=== PATIENT | male | born 1985 | race Caucasian/White ===

== ENCOUNTER 2016-12-26 13:54 | Emergency (ER) | payer MEDICAID ==
[2016-12-26 14:10] VITALS: RESP 18
--- NOTE | 2016-12-26 14:41 | EDPHY ---
H & P Stated Complaint: dropped knife onto top of right foot, hx periferal neuropathy HPI/ROS: Chief complaint: Right foot laceration History of present illness: This is a 31-year-old male who presents to the emergency department for a right foot laceration. Patient reports he accidentally dropped a knife onto his right foot. He has noted a small laceration to the top of the foot. Minimal pain. Bleeding, controlled with a dressing. He states no new numbness or tingling, he does have a history of diabetic neuropathy, it is at it's baseline. He is not having difficulty moving his toes or ankle and is ambulating well. His tetanus is up-to-date. - Personal History Current Tetanus Diphtheria and Acellular Pertussis (TDAP): Yes Tetanus Vaccine Date: within 10 years - Medical/Surgical History Hx Asthma: No Hx Chronic Respiratory Disease: No Hx Diabetes: Yes Hx Cardiac Disease: No Hx Renal Disease: No Hx Cirrhosis: No Hx Alcoholism: No Hx HIV/AIDS: No Hx Splenectomy or Spleen Trauma: No Other PMH: R Knee surg,DM type I with insulin pump, anxiety, diabetic neuropathy , heroine and meth abuse - Social History Smoking Status: Former smoker - Physical Exam Exam: General: Alert, nontoxic Skin: 0.5 cm laceration to the dorsum of the right foot. Musculoskeletal: Patient is moving all digits in the right foot without difficulty. Good strength. Moving the ankle in all miles without difficulty. Ambulating without difficulty. Vascular: DP and PT pulses 2+. Capillary refill brisk in the right foot. Neurologic: Sensation does appear intact in the right lower extremity. Constitutional: Initial Vital Signs Temperature (C) 36.8 C 12/26/16 14:07 Heart Rate 110 H 12/26/16 14:07 Respiratory Rate 18 12/26/16 14:07 Blood Pressure 156/105 H 12/26/16 14:07 O2 Sat (%) 98 12/26/16 14:07 O2 Delivery Mode Room Air Allergies/Adverse Reactions: No Known Allergies Allergy (Verified 04/24/16 13:09) Home Medications: Medication Instructions Recorded Gabapentin [Neurontin 300 MG (*)] 300 mg PO BID 04/04/16 clonazePAM [Clonazepam] 1 mg PO TID PRN 04/04/16 Insulin Pump, Patient Own 1 roberto SC AD 08/11/16 [place] Carbonate [[place] 300 mg PO DAILY 04/24/16 Carbonate Cap 300 mg (*)] Medical Decision Making Procedures: Procedure: Laceration repair. Verbal consent was obtained from the patient. The 0.5 cm laceration on the dorsum of the right foot was anesthetized in the usual fashion. The wound was irrigated, draped and explored to its base with a gloved finger. There were no deep structures involved. No tendon injury was identified. The wound was repaired with 4 0 Ethilon, 2 simple interrupted sutures. The wound repair was simple. The procedure was performed by myself. ED Course/Re-evaluation: Patient seen under the supervision of my secondary supervising physician Dr. Alex Vann. Patient presents to the emergency department for a laceration to his right foot. The foot appears neurovascularly intact. He has good musculoskeletal control. His tetanus is up-to-date. Evaluation of the wound does not reveal deep structure injury or foreign body contamination. It is anesthetized, cleaned, repaired and dressed. He is discharged home. Asked to follow up with Podiatry for recheck and referral information was given. Strict return precautions were given. Patient voiced understanding and agreement with plan. Differential Diagnosis: Included but not limited to laceration, deep structure injury, foreign body contamination Departure - Departure Disposition: Home, Routine, Self-Care Clinical Impression: Foot laceration Qualifiers: Encounter type: initial encounter Laterality: right Qualified Code(s): S91.311A - Laceration without foreign body, right foot, initial encounter Condition: Good Instructions: Care For Your Stitches (ED), Laceration (ED), Acute Wounds (ED) Additional Instructions: Follow-up with Podiatry for continued evaluation and care Stitches to be removed in 10-12 days If symptoms worsen or new symptoms develop return to the emergency room for recheck Referrals: NONE *PRIMARY CARE P,. [Primary Care Provider] - As per Instructions Aleyda Escamilla DPM [Doctor of Podiatric Medicine] - As per Instructions [facility],. [Clinic] - As per Instructions
[2016-12-26 14:56] VITALS: BP 178/107; PULSE 107; TEMP 96.8; O2SAT 99
== END 2016-12-26 14:56 | disposition home or self-care (01) ==
LOC: EDUNIT#
PROC: 0HQMXZZ Repair Right Foot Skin, External Approach (ICD-10-PCS; principal; 2016-12-26)
DX: S91.311A Laceration without foreign body, right foot, initial encounter (principal); E10.9 Type 1 diabetes mellitus without complications; Z87.891 Personal history of nicotine dependence; W26.0XXA Contact with knife, initial encounter

== ENCOUNTER 2017-02-23 21:35 | Observation (INO) | payer MEDICAID ==
[2017-02-23] MEDS ORDERED: INSULIN REGULAR HUMAN 100 UNIT/ML IVP ONE (22:04)
[2017-02-23] MEDS ORDERED: INSULIN REGULAR HUMAN 100 UNIT, COSIGN. REQUIRED 1 EA in NS 100 ML IV ONE (22:04)
[2017-02-23] MEDS ORDERED: NS 1,000 ML IV ONE ×3 (22:04)
--- NOTE | 2017-02-23 22:11 | CPEKG ---
Heart Rate: 108 RR Interval: 556 P-R Interval: 168 QRSD Interval: 96 QT Interval: 352 QTC Interval: 472 P [place]: 65 QRS [place]: 66 T Wave [place]: 46 EKG Severity - BORDERLINE ECG - EKG Impression: SINUS TACHYCARDIA EKG Impression: TALL T WAVES, PROBABLY NORMAL VARIANT EKG Impression: BORDERLINE PROLONGED QT INTERVAL Electronically Signed By: Ella Lainez 24-Feb-2017 05:27:12
--- NOTE | 2017-02-23 22:17 | EDPHY ---
H & P Stated Complaint: blood sugars high x1 week, over 500 on meter Time Seen by Provider: 02/23/17 22:03 HPI/ROS: HPI The patient presents with elevated blood glucose levels for the last 1 week, worse over the last 3 days. He has a history of type 1 diabetes and is on Lantus and NovoLog for the last several months after his dog ate his insulin pump. He is currently incarcerated though on a work release program. For the last 3-4 days he has not had access to his Lantus. There was some confusion about what type of insulin, was in the vial. He has been taking NovoLog, about 30 units every 4 hours he says, however he could not get his insulin lower than 300s. He normally takes Lantus 25 mg twice daily. He says that he feels some stomach upset and pain in the left side of his abdomen. He has not had any vomiting. He says he has been sober from alcohol and drugs for the last 2 months. Today was his 1st day of his work program at the [email or web address]. [employer] OF [employer]S Constitutional: No fever, no chills. Eyes: No discharge. ENT: No sore throat. Cardiovascular: No chest pain, no palpitations. Respiratory: No cough, no shortness of breath. Gastrointestinal: No abdominal pain, no vomiting. Genitourinary: No hematuria. Musculoskeletal: No back pain. Skin: No rashes. Neurological: No headache. PMHx: Type 1 diabetes, several admits Soc Hx: Currently on alf work release program, prior meth and heroin use, prior alcohol use PHYSICAL General Appearance: Alert, no distress Eyes: Pupils equal and round no pallor or injection ENT, Mouth: Mucous membranes dry Respiratory: Slightly tachypneic, There are no retractions, lungs are clear to auscultation Cardiovascular: Tachycardic rate and regular rhythm Gastrointestinal: Abdomen is soft and non-tender, no masses, bowel sounds normal Neurological: A&O, moves all extremities Skin: Warm and dry, no rashes Musculoskeletal: Neck is supple non tender Extremities: symmetrical, full range of motion Psychiatric: Patient is oriented X 3, there is no agitation Source: Patient Exam Limitations: No limitations - Personal History Current Tetanus/Diphtheria Vaccine: Yes Tetanus Vaccine Date: within 10 years - Medical/Surgical History Hx Asthma: No Hx Chronic Respiratory Disease: No Hx Diabetes: Yes Hx Cardiac Disease: No Hx Renal Disease: No Hx Cirrhosis: No Hx Alcoholism: No Hx HIV/AIDS: No Hx Splenectomy or Spleen Trauma: No Other PMH: R Knee surg,DM type I, DKA, anxiety, diabetic neuropathy, heroine and meth abuse - Social History Smoking Status: Former smoker Constitutional: Initial Vital Signs Temperature (C) 36.4 C 02/23/17 21:43 Heart Rate 108 H 02/23/17 21:43 Respiratory Rate 24 H 02/23/17 21:43 Blood Pressure 168/99 H 02/23/17 21:43 O2 Sat (%) 100 02/23/17 21:43 O2 Delivery Mode Room Air Allergies/Adverse Reactions: No Known Allergies Allergy (Verified 04/24/16 13:09) Home Medications: Medication Instructions Recorded Gabapentin [Neurontin 300 MG (*)] 300 mg PO BID 04/04/16 Humalog 02/23/17 Lantus 100 UNITS/ML (*) 02/23/17 Medical Decision Making - Diagnostics EKG Interpretation: EKG: Complete interpretation has been separately recorded in the [facility] archive. Summary impression: Sinus tachycardia with peaked T-waves Differential Diagnosis: This is a 31-year-old male with type 1 diabetes, not using his long-acting insulin over the last 3-4 days with glucoses in the 500s. He now presents with persistently elevated blood sugars with abdominal pain and tachypnea. Differential diagnosis includes DKA, HHS, hyperglycemia. In the emergency room, IV line was established and the patient was given a L of IV fluid while labs were checked. Glucose returned at over 700 with potassium of 6.6. Because of this EKG was performed and did show peaked T-waves. Patient was given additional IV fluid and insulin for this. Remainder of labs returned and it did appear that the patient was in DKA with elevated beta hydroxybutyrate with small anion gap. I doubt any underlying infection or mi high. This is likely related to not using his Lantus. I plan to admit the patient to the ICU for insulin drip. I have discussed the case with Dr. Bernardo Suarez of the hospitalist service. Critical Care Time: CRITICAL CARE Critical care time spent by me, Dr Lainez, exclusively with this patient was 45 minutes, exclusive of PA time and exclusive of procedures. The organ system at risk was cardiac, endocrine and I gave IV fluids, insulin to prevent worsening of the patients condition. - Data Points Laboratory Results: Laboratory Results 02/23/17 21:55 02/23/17 21:55 02/23/17 02/23/17 02/23/17 23:05 22:00 21:55 WBC RBC Hgb POC Hgb 12.2 gm/dL L gm/dL (13.7-17.5) Hct POC Hct 36 % L % (40-51) MCV MCH MCHC RDW Plt Count MPV Neut % (Auto) Lymph % (Auto) [place] % (Auto) Eos % (Auto) Baso % (Auto) Nucleat RBC Rel Count Absolute Neuts (auto) Absolute Lymphs (auto) Absolute Monos (auto) Absolute Eos (auto) Absolute Basos (auto) Absolute Nucleated RBC Immature Gran % Immature Gran # POC Sodium 137 mEq/L mEq/L (134-144) Sodium 133 mEq/L L mEq/L (134-144) POC Potassium 4.5 mEq/L mEq/L (3.3-5.0) Potassium 6.6 mEq/L H* mEq/L (3.5-5.2) POC Chloride 100 mEq/L mEq/L (97-110) Chloride 97 mEq/L mEq/L (97-110) Carbon Dioxide 17 mEq/l L mEq/l (22-31) Anion Gap 19 mEq/L H mEq/L (8-16) POC BUN 29 mg/dL H mg/dL (7-23) BUN 29 mg/dL H mg/dL (7-23) Creatinine 1.9 mg/dL H mg/dL (0.7-1.3) POC Creatinine 1.8 mg/dL H mg/dL (0.7-1.3) Estimated GFR 42 Glucose 783 mg/dL H* mg/dL (70-100) POC Glucose 624 mg/dL H* mg/dL (70-100) Calcium 10.0 mg/dL mg/dL (8.5-10.4) Phosphorus 4.8 mg/dL H mg/dL (2.5-4.5) Magnesium 1.5 mg/dL L mg/dL (1.6-2.3) Beta-Hydroxybutyrate 2.21 mmol/L H mmol/L (0.02-0.27) Urine Color YELLOW Urine Appearance CLEAR Urine pH 6.0 (5.0-7.5) Ur Specific [place] 1.016 (1.002-1.030) Urine Protein 2+ H (NEGATIVE) Urine Ketones TRACE H (NEGATIVE) Urine Blood NEGATIVE (NEGATIVE) Urine Nitrate NEGATIVE (NEGATIVE) Urine Bilirubin NEGATIVE (NEGATIVE) Urine Urobilinogen NEGATIVE EU EU (0.2-1.0) Ur Leukocyte Esterase NEGATIVE (NEGATIVE) Urine RBC 1-3 /hpf /hpf (0-3) Urine WBC 1-3 /hpf /hpf (0-3) Ur Epithelial Cells NONE SEEN /lpf /lpf (NONE-1+) Urine Sperm PRESENT /hpf /hpf (NONE SEEN) Urine Glucose 3+ H (NEGATIVE) 02/23/17 02/23/17 21:55 21:52 WBC 12.90 10^3/uL H 10^3/uL (3.80-9.50) RBC 4.31 10^6/uL L 10^6/uL (4.40-6.38) Hgb 12.9 g/dL L g/dL (13.7-17.5) POC Hgb 14.6 gm/dL gm/dL (13.7-17.5) Hct 38.8 % L % (40.0-51.0) POC Hct 43 % % (40-51) MCV 90.0 fL fL (81.5-99.8) MCH 29.9 pg pg (27.9-34.1) MCHC 33.2 g/dL g/dL (32.4-36.7) RDW 12.9 % % (11.5-15.2) Plt Count 210 10^3/uL 10^3/uL (150-400) MPV 10.7 fL fL (8.7-11.7) Neut % (Auto) 78.0 % H % (39.3-74.2) Lymph % (Auto) 15.7 % % (15.0-45.0) [place] % (Auto) 4.7 % % (4.5-13.0) Eos % (Auto) 0.8 % % (0.6-7.6) Baso % (Auto) 0.3 % % (0.3-1.7) Nucleat RBC Rel Count 0.0 % % (0.0-0.2) Absolute Neuts (auto) 10.08 10^3/uL H 10^3/uL (1.70-6.50) Absolute Lymphs (auto) 2.02 10^3/uL 10^3/uL (1.00-3.00) Absolute Monos (auto) 0.60 10^3/uL 10^3/uL (0.30-0.80) Absolute Eos (auto) 0.10 10^3/uL 10^3/uL (0.03-0.40) Absolute Basos (auto) 0.04 10^3/uL 10^3/uL (0.02-0.10) Absolute Nucleated RBC 0.00 10^3/uL 10^3/uL (0-0.01) Immature Gran % 0.5 % % (0.0-1.1) Immature Gran # 0.06 10^3/uL 10^3/uL (0.00-0.10) POC Sodium 130 mEq/L L mEq/L (134-144) Sodium POC Potassium 6.2 mEq/L H mEq/L (3.3-5.0) Potassium POC Chloride 97 mEq/L mEq/L (97-110) Chloride Carbon Dioxide Anion Gap POC BUN 28 mg/dL H mg/dL (7-23) BUN Creatinine POC Creatinine 1.9 mg/dL H mg/dL (0.7-1.3) Estimated GFR Glucose POC Glucose Pending Calcium Phosphorus Magnesium Beta-Hydroxybutyrate Urine Color Urine Appearance Urine pH Ur Specific [place] Urine Protein Urine Ketones Urine Blood Urine Nitrate Urine Bilirubin Urine Urobilinogen Ur Leukocyte Esterase Urine RBC Urine WBC Ur Epithelial Cells Urine Sperm Urine Glucose Medications Given: Discontinued Medications Sodium Chloride (Ns) 1,000 mls @ 0 mls/hr IV ONCE ONE; Wide Open PRN Reason: Protocol Stop: 02/23/17 22:05 Last Admin: 02/23/17 22:05 Dose: 1,000 mls Sodium Chloride (Ns) 1,000 mls @ 0 mls/hr IV ONCE ONE; Wide Open PRN Reason: Protocol Stop: 02/23/17 22:05 Last Admin: 02/23/17 22:20 Dose: 1,000 mls Sodium Chloride (Ns) 1,000 mls @ 0 mls/hr IV ONCE ONE; Wide Open PRN Reason: Protocol Stop: 02/23/17 22:05 Last Admin: 02/23/17 22:45 Dose: 1,000 mls Calcium Gluconate (Calcium Gluconate 1 Gm (Premix)) 50 mls @ 100 mls/hr IV EDNOW ONE Stop: 02/23/17 23:33 Last Admin: 02/23/17 23:48 Dose: Not Given Pantoprazole Sodium 40 mg/ (Sodium Chloride) 100 mls @ 200 mls/hr IV ONCE ONE Stop: 02/24/17 01:13 Last Admin: 02/24/17 01:27 Dose: 100 mls Insulin Human Regular (Humulin R) 10 unit IVP EDNOW ONE Stop: 02/23/17 22:05 Last Admin: 02/23/17 22:10 Dose: 10 units Point of Care Test Results: 02/23/17 02/23/17 21:52 23:05 POC Sodium 130 L 137 POC Potassium 6.2 H 4.5 POC Chloride 97 100 POC BUN 28 H 29 H POC Creatinine 1.9 H 1.8 H POC Glucose 624 H* Departure - Departure Disposition: [facility] Clinical Impression: Hyperkalemia Type 1 diabetes Qualifiers: Diabetes mellitus complication status: with ketoacidosis Diabetes mellitus complication detail: without coma Qualified Code(s): E10.10 - Type 1 diabetes mellitus with ketoacidosis without coma DKA (diabetic ketoacidoses) Qualifiers: Diabetes mellitus type: type 1 Diabetes mellitus complication detail: without coma Qualified Code(s): E10.10 - Type 1 diabetes mellitus with ketoacidosis without coma Condition: Fair
[2017-02-23 22:46] LABS: % IMMATURE GRANULYOCYTES 0.5 % (0.0-1.1); ABSOLUTE IMMATURE GRANULOCYTES 0.06 10^3/uL (0.00-0.10); ADD DIFF? NO; ADD MORPH? NO; ADD SCAN? NO; ATYPICAL LYMPHOCYTE FLAG 0 (0-99); FRAGMENT RBC FLAG 0 (0-99); HEMATOCRIT 38.8 % (40.0-51.0); HEMOGLOBIN 12.9 g/dL (13.7-17.5); LEFT SHIFT FLG 0 (0-99); LIPEMIA HEMOLYSIS FLAG 80 (0-99); MEAN CELL HEMOGLOBIN 29.9 pg (27.9-34.1); MEAN CELL HEMOGLOBIN CONCENTR. 33.2 g/dL (32.4-36.7); MEAN PLATELET VOLUME 10.7 fL (8.7-11.7); PLATELET CLUMPS FLAG 0 (0-99); PLATELET COUNT 210 10^3/uL (150-400); RED BLOOD CELL COUNT 4.31 10^6/uL (4.40-6.38); RED CELL DISTRIBUTION WIDTH 12.9 % (11.5-15.2)
[2017-02-23 22:53] LABS: ANION GAP 19 mEq/L (8-16); CARBON DIOXIDE 17 mEq/l (22-31); CHLORIDE 97 mEq/L (97-110); CREATININE 1.9 mg/dL (0.7-1.3); GLOMERULAR FILTRATION RATE 42; MAGNESIUM 1.5 mg/dL (1.6-2.3); SODIUM 133 mEq/L (134-144)
[2017-02-23 22:56] LABS: COLOR YELLOW; LEUKOCYTE ESTERASE,URINE NEGATIVE (NEGATIVE); NITRITE,URINE NEGATIVE (NEGATIVE)
[2017-02-23 22:58] LABS: B-HYDROXYBUTYRATE 2.21 mmol/L (0.02-0.27)
[2017-02-23 23:03] LABS: GLUCOSE 783 mg/dL (70-100); POTASSIUM 6.6 mEq/L (3.5-5.2)
[2017-02-23] MEDS ORDERED: CALCIUM GLUCONATE 50 ML IV ONE (23:04)
[2017-02-23] MEDS ORDERED: ONDANSETRON DISINTEGRATING 4 MG TAB PO PRN (23:44)
[2017-02-23] MEDS ORDERED: ONDANSETRON 4 MG/2 ML VIAL IVP PRN (23:44)
[2017-02-23] MEDS ORDERED: ACETAMINOPHEN 325 MG TAB PO PRN (23:44)
[2017-02-23] MEDS ORDERED: NS 1,000 ML IV SCH (23:45)
[2017-02-24 00:02] LABS: ANION GAP 12 mEq/L (8-16); CALCIUM 9.4 mg/dL (8.5-10.4); CARBON DIOXIDE 19 mEq/l (22-31); CHLORIDE 106 mEq/L (97-110); CREATININE 1.7 mg/dL (0.7-1.3); GLOMERULAR FILTRATION RATE 48; POTASSIUM 4.7 mEq/L (3.5-5.2); SODIUM 137 mEq/L (134-144)
[2017-02-24 00:03] LABS: GLUCOSE 594 mg/dL (70-100)
[2017-02-24 00:04] LABS: PCO2 VENOUS 37 mmHg (40-44); PH VENOUS BLOOD 7.34 (7.31-7.42); PO2 VENOUS 59 mmHg (35-40); TCO2 VENOUS 21 mEq/L (23-27); VEN MEASURED OXYGEN SATURATION 88 % (65-75)
[2017-02-24] MEDS ORDERED: PANTOPRAZOLE SODIUM 40 MG in NS 100 ML IV ONE (00:44)
[2017-02-24] MEDS ORDERED: CALCIUM CARBONATE 500 MG CHEWABLE TAB PO PRN (00:45)
[2017-02-24] MEDS ORDERED: PROMETHAZINE HCL 25 MG TAB PO PRN (00:45)
[2017-02-24] MEDS ORDERED: PROMETHAZINE HCL 25 MG/ML INJ IVP PRN (00:45)
--- NOTE | 2017-02-24 00:51 | PDGENHP ---
History and Physical - Chief Complaint acute vomiting - History of Present Illness primary care provider: Previously Dr. Koenig HPI: 31-year-old male presenting with acute vomiting characterized as nonbloody emesis with onset of symptoms on the day of this presentation as well as associated pain and discomfort located in the left upper quadrant of his abdomen. The patient reports that the symptoms occurred in the context of approximately 1 week without access to his Lantus and then of all the nausea and vomiting over the previous 3 days. On the day of this presentation, the patient reports he attempted to drink water and was unable to do so, vomiting immediately. He also began experiencing what he describes as visual changes and frontal headache as well as some chills but no diarrhea, no cough, no shortness of breath, no chest pain. The patient reports that the reason he has not had access to his Lantus is secondary to [facility] [employer] [facility] pharmacy issue and not will full non adherence on his part. Had previously been on insulin pump and this was reportedly destroyed by his dog 3 months ago, leading him to utilize a combination of Lantus and NovoLog for the subsequent 3 months. History Information - Allergies/Home Medication List Allergies/Adverse Reactions: No Known Allergies Allergy (Verified 04/24/16 13:09) Home Medications: Gabapentin [Neurontin 300 MG (*)] 300 mg PO BID 04/04/16 [Last Taken 04/24/16] Humalog 02/23/17 [Last Taken Unknown] Lantus 100 UNITS/ML (*) 02/23/17 [Last Taken Unknown] I have personally reviewed and updated: family history, medical history, social history, surgical history - Past Medical History diabetes type 1, GERD Additional medical history: Bipolar disease. Peripheral neuropathy. History of foot ulcer. Anxiety and PTSD. Previous episodes of DKA - Surgical History Reports: no pertinent surgical hx - Family History Additional family history: patient is adopted but he does note that he has a family history of diabetes - Social History Smoking Status: Former smoker Alcohol Use: Sober Drug Use: Other ( previous IV drugs, none recently) Additional social history: patient is currently out of skilled nursing on a work release program, started his 1st job today Review of Systems ROS: 10pt was reviewed & negative except for what was stated in HPI & below Constitutional: Reports: chills EENMT: Reports: blurred vision ( and headache) Gastrointestinal: Reports: vomitting, abdominal pain, nausea Physical Exam Temp Pulse Resp BP Pulse Ox 36.4 C 95 16 135/94 H 97 02/23/17 21:43 02/23/17 23:46 02/23/17 23:46 02/23/17 23:46 02/23/17 23:46 Constitutional: no apparent distress, appears nourished, not in pain, uncomfortable Eyes: PERRL, anicteric sclera, EOMI Ears, Nose, Mouth, Throat: hearing normal, other ( tacky mucous membranes) Cardiovascular: tachycardia, No systolic murmur, No irregularly irregular, No edema Respiratory: no respiratory distress, no rales or rhonchi, clear to auscultation Gastrointestinal: normoactive bowel sounds, soft, non-tender abdomen, no palpable masses, No distension Genitourinary: no bladder fullness, no bladder tenderness, other ( mild left- sided CVA tenderness) Skin: other ( many tattoos, no open wounds noted or areas of erythema) Neurologic: AAOx3, No weakness Psychiatric: interacting appropriately, not anxious, not encephalopathic, thought process linear Lymph, Heme, Immunologic: no cervical LAD, other ( visible enlarged bilateral tonsils without exudate) Lab Data & Imaging Review 02/23/17 21:55 02/23/17 23:25 WBC 12.90 10^3/uL (3.80-9.50) H 02/23/17 21:55 RBC 4.31 10^6/uL (4.40-6.38) L 02/23/17 21:55 Hgb 12.9 g/dL (13.7-17.5) L 02/23/17 21:55 POC Hgb 12.2 gm/dL (13.7-17.5) L 02/23/17 23:05 Hct 38.8 % (40.0-51.0) L 02/23/17 21:55 POC Hct 36 % (40-51) L 02/23/17 23:05 MCV 90.0 fL (81.5-99.8) 02/23/17 21:55 MCH 29.9 pg (27.9-34.1) 02/23/17 21:55 MCHC 33.2 g/dL (32.4-36.7) 02/23/17 21:55 RDW 12.9 % (11.5-15.2) 02/23/17 21:55 Plt Count 210 10^3/uL (150-400) 02/23/17 21:55 MPV 10.7 fL (8.7-11.7) 02/23/17 21:55 Neut % (Auto) 78.0 % (39.3-74.2) H 02/23/17 21:55 Lymph % (Auto) 15.7 % (15.0-45.0) 02/23/17 21:55 [place] % (Auto) 4.7 % (4.5-13.0) 02/23/17 21:55 Eos % (Auto) 0.8 % (0.6-7.6) 02/23/17 21:55 Baso % (Auto) 0.3 % (0.3-1.7) 02/23/17 21:55 Nucleat RBC Rel Count 0.0 % (0.0-0.2) 02/23/17 21:55 Absolute Neuts (auto) 10.08 10^3/uL (1.70-6.50) H 02/23/17 21:55 Absolute Lymphs (auto) 2.02 10^3/uL (1.00-3.00) 02/23/17 21:55 Absolute Monos (auto) 0.60 10^3/uL (0.30-0.80) 02/23/17 21:55 Absolute Eos (auto) 0.10 10^3/uL (0.03-0.40) 02/23/17 21:55 Absolute Basos (auto) 0.04 10^3/uL (0.02-0.10) 02/23/17 21:55 Absolute Nucleated RBC 0.00 10^3/uL (0-0.01) 02/23/17 21:55 Immature Gran % 0.5 % (0.0-1.1) 02/23/17 21:55 Immature Gran # 0.06 10^3/uL (0.00-0.10) 02/23/17 21:55 Puncture Site VENOUS 02/23/17 23:56 Patient Temperature 37.0 DEGREES 02/23/17 23:56 VBG pH 7.34 (7.31-7.42) 02/23/17 23:56 VBG HCO3 19 mEQ/L (22-26) L 02/23/17 23:56 VBG Total CO2 21 mEq/L (23-27) L 02/23/17 23:56 VBG O2 Saturation 88 % (65-75) H 02/23/17 23:56 VBG Base Excess -5.3 mEq/L (-2.5-2.5) L 02/23/17 23:56 Mixed VBG pCO2 37 mmHg (40-44) L 02/23/17 23:56 Mixed VBG pO2 59 mmHg (35-40) H 02/23/17 23:56 POC Sodium 137 mEq/L (134-144) 02/23/17 23:05 Sodium 137 mEq/L (134-144) 02/23/17 23:25 POC Potassium 4.5 mEq/L (3.3-5.0) 02/23/17 23:05 Potassium 4.7 mEq/L (3.5-5.2) 02/23/17 23:25 POC Chloride 100 mEq/L (97-110) 02/23/17 23:05 Chloride 106 mEq/L (97-110) 02/23/17 23:25 Carbon Dioxide 19 mEq/l (22-31) L 02/23/17 23:25 Anion Gap 12 mEq/L (8-16) 02/23/17 23:25 POC BUN 29 mg/dL (7-23) H 02/23/17 23:05 BUN 29 mg/dL (7-23) H 02/23/17 23:25 Creatinine 1.7 mg/dL (0.7-1.3) H 02/23/17 23:25 POC Creatinine 1.8 mg/dL (0.7-1.3) H 02/23/17 23:05 Estimated GFR 48 02/23/17 23:25 Glucose 594 mg/dL (70-100) H* 02/23/17 23:25 POC Glucose 624 mg/dL (70-100) H* 02/23/17 23:05 Calcium 9.4 mg/dL (8.5-10.4) 02/23/17 23:25 Phosphorus 4.8 mg/dL (2.5-4.5) H 02/23/17 21:55 Magnesium 1.5 mg/dL (1.6-2.3) L 02/23/17 21:55 Beta-Hydroxybutyrate 2.21 mmol/L (0.02-0.27) H 02/23/17 21:55 Urine Color YELLOW 02/23/17 22:00 Urine Appearance CLEAR 02/23/17 22:00 Urine pH 6.0 (5.0-7.5) 02/23/17 22:00 Ur Specific [place] 1.016 (1.002-1.030) 02/23/17 22:00 Urine Protein 2+ (NEGATIVE) H 02/23/17 22:00 Urine Ketones TRACE (NEGATIVE) H 02/23/17 22:00 Urine Blood NEGATIVE (NEGATIVE) 02/23/17 22:00 Urine Nitrate NEGATIVE (NEGATIVE) 02/23/17 22:00 Urine Bilirubin NEGATIVE (NEGATIVE) 02/23/17 22:00 Urine Urobilinogen NEGATIVE EU (0.2-1.0) 02/23/17 22:00 Ur Leukocyte Esterase NEGATIVE (NEGATIVE) 02/23/17 22:00 Urine RBC 1-3 /hpf (0-3) 02/23/17 22:00 Urine WBC 1-3 /hpf (0-3) 02/23/17 22:00 Ur Epithelial Cells NONE SEEN /lpf (NONE-1+) 02/23/17 22:00 Urine Sperm PRESENT /hpf (NONE SEEN) 02/23/17 22:00 Urine Glucose 3+ (NEGATIVE) H 02/23/17 22:00 Visualized and Interpreted EKG results: Yes EKG Interpretation: Positive for: other ( sinus tachycardia, peaked T-waves) Assessment & Plan Assessment: 31-year-old male presents with acute diabetic ketoacidosis in the setting of diabetes mellitus type 1 Plan: 1. DKA. Acute, new problem this provider, further workup indicated. Evidenced by hyperglycemia, positive beta hydroxybutyrate level, metabolic acidosis with an anion gap of 19, most likely precipitated by poor access to regular medication and no evidence of over infection - urinalysis without any indication of pyelonephritis - send HIV level, verbally consented with patient - anion gap rapidly improved after initiation insulin drip and 3 L of normal saline, repeat serum chemistry at this time - if anion gap remains closed, will give Lantus, stop insulin drip in 1 hour, placed on insulin sliding scale - advance diet as tolerates, antiemetic support as needed 2. Metabolic acidosis. Acute, secondary to ketoacidosis in the setting of DKA, continue to monitor serum bicarb level, does not require sodium bicarbonate drip 3. Acute kidney injury. Most likely secondary to hypovolemia in the setting of above, continue to monitor closely 4. Hyperkalemia. Secondary to acute kidney injury, responded well to insulin drip, continue to monitor closely with labs as resultant hypokalemia is expected with DKA treatment - continue monitor on telemetry overnight given peaked T-waves on presenting EKG 5. Hyponatremia. Acute, potentially pseudohyponatremia in the setting of DKA, continue to monitor closely 6. Systemic inflammatory response syndrome. Acute, secondary to DKA, no evidence of acute infection 7. Peripheral neuropathy. Hold gabapentin given acute kidney injury Diet. Diabetic when tolerates Prophylaxis. High risk patient, heparin subcu Code. Full Disposition. Anticipated discharge is 02/24/2017, pending stabilization of above. I have discussed patient's case with Dr. Lainez in the emergency department, we both agree the patient warrants aggressive treatment in the intensive care unit order to accomplish stabilization.
[2017-02-24] MEDS: FAMOTIDINE 20 MG TAB PO SCH ×2 (01:27→10:11)
[2017-02-24 02:07] LABS: ALANINE AMINOTRANSFERASE 40 IU/L (21-72); ALBUMIN 3.4 g/dL (3.5-5.0); ALKALINE PHOSPHATASE 80 IU/L (38-126); ANION GAP 12 mEq/L (8-16); ASPARTATE AMINOTRANSFERASE 27 IU/L (17-59); BILIRUBIN,TOTAL 0.9 mg/dL (0.1-1.4); CALCIUM 9.3 mg/dL (8.5-10.4); CARBON DIOXIDE 19 mEq/l (22-31); CHLORIDE 110 mEq/L (97-110); CREATININE 1.4 mg/dL (0.7-1.3); GLOMERULAR FILTRATION RATE 60; GLUCOSE 317 mg/dL (70-100); POTASSIUM 4.1 mEq/L (3.5-5.2); SODIUM 141 mEq/L (134-144)
[2017-02-24] MEDS ORDERED: INSULIN REGULAR HUMAN 100 UNIT/ML ONE (02:32)
[2017-02-24] MEDS ORDERED: INSULIN GLARGINE 100 UNITS/ML SYRINGE SC SCH (02:36)
[2017-02-24] MEDS ORDERED: D50W 25 GM/50 ML SYR IVP PRN (02:37)
[2017-02-24 05:40] LABS: % IMMATURE GRANULYOCYTES 0.2 % (0.0-1.1); ABSOLUTE IMMATURE GRANULOCYTES 0.02 10^3/uL (0.00-0.10); ADD DIFF? NO; ADD MORPH? NO; ADD SCAN? NO; ATYPICAL LYMPHOCYTE FLAG 0 (0-99); FRAGMENT RBC FLAG 0 (0-99); HEMATOCRIT 33.8 % (40.0-51.0); HEMOGLOBIN 11.2 g/dL (13.7-17.5); LEFT SHIFT FLG 0 (0-99); LIPEMIA HEMOLYSIS FLAG 80 (0-99); MEAN CELL HEMOGLOBIN 28.8 pg (27.9-34.1); MEAN CELL HEMOGLOBIN CONCENTR. 33.1 g/dL (32.4-36.7); MEAN CELL VOLUME 86.9 fL (81.5-99.8); PLATELET CLUMPS FLAG 0 (0-99); PLATELET COUNT 193 10^3/uL (150-400); RED BLOOD CELL COUNT 3.89 10^6/uL (4.40-6.38); RED CELL DISTRIBUTION WIDTH 12.9 % (11.5-15.2)
[2017-02-24 05:56] LABS: ALANINE AMINOTRANSFERASE 43 IU/L (21-72); ALBUMIN 3.4 g/dL (3.5-5.0); ALKALINE PHOSPHATASE 73 IU/L (38-126); ANION GAP 11 mEq/L (8-16); ASPARTATE AMINOTRANSFERASE 25 IU/L (17-59); BILIRUBIN,TOTAL 0.9 mg/dL (0.1-1.4); CALCIUM 9.2 mg/dL (8.5-10.4); CARBON DIOXIDE 20 mEq/l (22-31); CHLORIDE 113 mEq/L (97-110); CREATININE 1.2 mg/dL (0.7-1.3); GLOMERULAR FILTRATION RATE > 60; GLUCOSE 77 mg/dL (70-100); POTASSIUM 4.4 mEq/L (3.5-5.2); SODIUM 144 mEq/L (134-144); TOTAL PROTEIN 5.8 g/dL (6.3-8.2)
[2017-02-24] MEDS ORDERED: HEPARIN 5,000 UNIT/0.5 ML SYR SC SCH (06:00)
[2017-02-24] MEDS: INSULIN REGULAR HUMAN 100 UNIT/ML SC SCH ×2 (08:35→10:52)
--- NOTE | 2017-02-24 11:13 | PDDCSUM ---
Discharge Summary Discharge Summary: Dates of service 02/24/17 Discharge dx: DKA DM AGMA CINDY hyponatremia peripheral neuropathy Consultations/procedures: none Hospital course by problem # DKA: in setting of being out of usual inulin regimen in setting of being in nursing home on a work release program. His mother has obtained his meds for him now, corrected quickly overnight, eager to return to work so will dc today # DM1: as above # AGMA: 2/2 dka and resolved # cindy: resolved # hyponatremia: pseudohyponatremia related to hyperglycemia # peripheral neuropathy: continue gabapenting DC back to nursing home with work release Meds: see EHR, resumed on usual home medications > 35 min spent in dc more than half in coordination of care
[2017-02-24] MEDS ORDERED: ENALAPRIL MALEATE 2.5 MG TAB PO SCH (11:15)
[2017-02-24 12:23] VITALS: BP 140/81; PULSE 99; RESP 20; TEMP 98.2; O2SAT 98
[2017-02-24] MEDS ORDERED: GABAPENTIN 300 MG CAP PO SCH (16:00)
== END 2017-02-24 13:26 | disposition home or self-care (01) ==
LOC: F2N 02-24 00:07
PROVIDERS: ADMIT Internal Medicine; ATTEND Internal Medicine
DX: E10.10 Type 1 diabetes mellitus with ketoacidosis without coma (principal); N17.9 Acute kidney failure, unspecified; E87.5 Hyperkalemia; R65.10 Systemic inflammatory response syndrome (SIRS) of non-infectious origin without acute organ dysfunction; G62.9 Polyneuropathy, unspecified; Z87.891 Personal history of nicotine dependence; R51 Headache
CPT/HCPCS: 93005; G0378; 82947-QW; 96374; J0610; J1815

== ENCOUNTER 2017-03-05 09:57 | Emergency (ER) | payer MEDICAID ==
[2017-03-05 10:06] VITALS: TEMP 97.9
[2017-03-05 12:01] VITALS: BP 140/92; PULSE 86; RESP 14; O2SAT 99
--- NOTE | 2017-03-05 12:09 | EDPHY ---
H & P Time Seen by Provider: 03/05/17 10:14 HPI/ROS: CHIEF COMPLAINT: Wound plantar aspect left foot HISTORY OF PRESENT ILLNESS: 31-year-old male presents to the emergency department with concerns about possible infection to his left foot. The patient has a history of diabetic neuropathy and yesterday noticed a sore to the bottom of his foot. He thought that he was pierced with a nail that went through his shoe. He denies fevers or chills. He has no sensation or any pain in his left foot because of his neuropathy. No other reported trauma. ROS: Denies retained foreign body, pain in his left knee or hip. 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 Plantar aspect of the left foot overlying the 5th metatarsal head reveals an open wound. Nontender to palpate. No purulent drainage or bloody drainage noted. No palpable or visible foreign body. Constitutional: Initial Vital Signs Temperature (C) 36.6 C 03/05/17 10:03 Heart Rate 84 03/05/17 10:03 Respiratory Rate 16 03/05/17 10:03 Blood Pressure 144/99 H 03/05/17 10:03 O2 Sat (%) 98 03/05/17 10:03 O2 Delivery Mode Room Air Allergies/Adverse Reactions: No Known Allergies Allergy (Verified 03/05/17 10:03) Home Medications: Medication Instructions Recorded Gabapentin [Neurontin 300 MG (*)] 300 mg PO TID 04/04/16 Insulin Lispro [humALOG LISPRO 100 3 - 12 unit SC TIDMEAL 02/23/17 units/ml (*)] Enalapril Maleate [Vasotec 2.5 MG 1.25 mg PO DAILY 02/24/17 (*)] Insulin Detemir [Levemir] 25 unit SQ BID #100 units 02/24/17 Ciprofloxacin [Cipro 500 mg] 500 mg PO BID #14 tab 03/05/17 MDM/Departure - MDM Imaging Results: Imaging Impressions Foot X-Ray 03/05/17 10:28 Impression: Nothing acute identified. Stable x1 year. Imaging: I viewed and interpreted images myself ED Course/Re-evaluation: 31-year-old male presents with the wound to the plantar aspect of the left foot with a history of diabetic neuropathy. Because he had a nail that went through his shoe and punctured his foot we will cover him for possible Pseudomonas. Case was discussed with Dr. Laury Bennett, supervising physician who agrees with treatment and plan but did not directly evaluate the patient. Patient will be started on Cipro 500 mg. He has a scheduled appointment with his [facility] for next week which I encouraged her to keep. He was instructed to keep a close eye on the wound and return if he developed fever or any other concerns. He was comfortable with this plan. - Depart Disposition: Home, Routine, Self-Care Clinical Impression: Puncture wound of plantar aspect of left foot Qualifiers: Encounter type: initial encounter Qualified Code(s): S91.332A - Puncture wound without foreign body, left foot, initial encounter Diabetic neuropathy Qualifiers: Diabetes mellitus type: type 1 Diabetes mellitus complication detail: with other neurological complication Qualified Code(s): E10.49 - Type 1 diabetes mellitus with other diabetic neurological complication Condition: Good Instructions: Foot Care for People with Diabetes (ED), Diabetic Foot Ulcers (ED ), Acute Wounds (ED) Additional Instructions: Cipro 500 mg twice daily for 1 week. Keep scheduled appointment with your [facility] next week. Return to the emergency department if he develops fever, worsening pain, red streaking up your foot, or if you feel worse in any way. Prescriptions: Ciprofloxacin [Cipro 500 mg] 500 mg PO BID #14 tab Referrals: Vasquez Koenig MD [Primary Care Provider] - As per Instructions
== END 2017-03-05 12:57 | disposition home or self-care (01) ==
DX: S91.332A Puncture wound without foreign body, left foot, initial encounter (principal); E10.49 Type 1 diabetes mellitus with other diabetic neurological complication; Z79.4 Long term (current) use of insulin; Z87.891 Personal history of nicotine dependence; W45.8XXA Other foreign body or object entering through skin, initial encounter

== ENCOUNTER 2017-03-20 12:18 | Emergency (ER) | payer MEDICAID ==
[2017-03-20 12:30] VITALS: BP 141/92; PULSE 87; RESP 17; TEMP 98.1; O2SAT 98
--- NOTE | 2017-03-20 12:58 | EDPHY ---
H & P Stated Complaint: inf r foot/seen in ed/fu with parts identifier 2 weeks ago/rx rossana but did n Time Seen by Provider: 03/20/17 12:47 - Personal History Current Tetanus/Diphtheria Vaccine: Yes Tetanus Vaccine Date: within 10 years - Medical/Surgical History Hx Asthma: No Hx Chronic Respiratory Disease: No Hx Diabetes: Yes Hx Cardiac Disease: No Hx Renal Disease: No Hx Cirrhosis: No Hx Alcoholism: No Hx HIV/AIDS: No Hx Splenectomy or Spleen Trauma: No Other PMH: R Knee surg,DM type I, DKA, anxiety, diabetic neuropathy, heroine and meth abuse - Social History Smoking Status: Former smoker Constitutional: Initial Vital Signs Temperature (C) 36.7 C 03/20/17 12:27 Heart Rate 87 03/20/17 12:27 Respiratory Rate 17 03/20/17 12:27 Blood Pressure 141/92 H 03/20/17 12:27 O2 Sat (%) 98 03/20/17 12:27 O2 Delivery Mode Room Air Allergies/Adverse Reactions: No Known Allergies Allergy (Verified 03/20/17 12:26) Home Medications: Medication Instructions Recorded Gabapentin [Neurontin 300 MG (*)] 300 mg PO TID 04/04/16 Insulin Lispro [humALOG LISPRO 100 3 - 12 unit SC TIDMEAL 02/23/17 units/ml (*)] Enalapril Maleate [Vasotec 2.5 MG 1.25 mg PO DAILY 02/24/17 (*)] Insulin Detemir [Levemir] 25 unit SQ BID #100 units 02/24/17 Cephalexin [Keflex (RX)] 500 mg PO TID #30 cap 03/20/17 Doxycycline Hyclate 100 mg PO BID #20 tablet 03/20/17 Medical Decision Making ED Course/Re-evaluation: CHIEF COMPLAINT: Right toe infection HISTORY OF PRESENT ILLNESS: This patient is a 31 year old male with Type I diabetes mellitus complaining of worsening infection of an ulcer on his right second toe. He has been seen in the past for similar ulcerations, and recently completed a course of Cipro. 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 He has been unable to adequately care for and heal his ulcerations under those conditions. He has followed up with podiatry in the past for similar symptoms. He denies fever, vomiting, diarrhea, or other associated symptoms. He denies trauma or other complaints. REVIEW OF SYSTEMS: A 10 point review of systems was performed and is negative with the exception of the elements mentioned in the history of present illness. PHYSICAL EXAM: HR, BP, O2 Sat, RR. Temp noted General Appearance: Alert, well hydrated, appropriate, and non-toxic appearing. Head: Atraumatic without scalp tenderness or obvious injury Eyes: Pupils equal, round, reactive to light and accommodation, EOMI, no trauma , no injection. Ears: Clear bilaterally, no perforation, normal landmarks Nose: Atraumatic, no rhinorrhea, clear. Throat: There is no erythema or exudates, no lesions, normal tonsils, mucus membranes moist. Neck: Supple, nontender, no lymphadenopathy. Respiratory: No retractions, no distress, no wheezes, and no accessory muscle use. Lungs are clear to auscultation bilaterally. Cardiovascular: Regular rate and rhythm. Bilateral dorsalis pedis pulses intact. Good capillary refill all extremities. Gastrointestinal: Abdomen is soft, nontender, non-distended, no masses, no rebound, no guarding, no peritoneal signs. Musculoskeletal: Normal active ROM of all extremities, atraumatic. Neurological: Alert, appropriate, and interactive. Nonfocal neuro exam. Skin: Wet, erythematous, non-healing ulceration to medial aspect of second right toe. Foul smelling with associated discharge. No evidence of lymphangitis or cellulitis to the right foot above the toe. No rashes, good turgor, no nodules on palpation. Past medical history: Type I diabetes mellitus, peripheral neuropathy, anxiety, substance abuse Past surgical history: Noncontributory Family history: Noncontributory Social history: Currently on work release through [employer]. DIFFERENTIAL DIAGNOSIS: The differential diagnosis for the patient's foot infection includes but is not limited to non-healing diabetic foot ulcer, cellulitis, osteomyelitis, trauma, or gangrene. MEDICAL DECISION MAKIN31 year old male presents with non-healing right toe ulceration. Physical exam otherwise unremarkable. Discussed follow up with the patient, and will refer to [facility] for continued evaluation and care. Discussed the potential for bone infection and the necessity of proper treatment and follow up. Plan to discharge home in good condition with prescriptions for Doxycycline and Keflex to treat the patient's infection. He will need to stay out of a wet work environment until cleared by the wound clinic or a parts identifier. The patient understands these guidelines, and is comfortable with discharge. Departure - Departure Disposition: Home, Routine, Self-Care Clinical Impression: Diabetic toe ulcer in type 1 diabetes mellitus Condition: Good Instructions: Foot Care for People with Diabetes (ED), Diabetic Foot Ulcers (ED ) Additional Instructions: 1. Take your Doxycycline and Keflex as prescribed. It is important that you finish your entire course of antibiotics. 2. Follow up with Dr. Shane at the wound clinic for further evaluation of the wounds on your foot. 3. Do not return to work in a wet environment until cleared by the wound clinic or a podiatry specialist. 4. Return to the Emergency Development if you develop fever, increased redness or red streaking around the wound, discharge, or other worsening of condition. Referrals: Vasquez Koenig MD [Primary Care Provider] - As per Instructions Elfego Giron MD [Doctor of Podiatric Medicine] - As per Instructions [facility] [Clinic] - As per Instructions Prescriptions: Cephalexin [Keflex (RX)] 500 mg PO TID #30 cap Doxycycline Hyclate 100 mg PO BID #20 tablet Report Scribed for: Leobardo Laughlin Report Scribed by: Jeannette Monroe Date of Report: 03/20/17 Time of Report: 13:04
== END 2017-03-20 13:35 | disposition home or self-care (01) ==
DX: E10.622 Type 1 diabetes mellitus with other skin ulcer (principal); L97.519 Non-pressure chronic ulcer of other part of right foot with unspecified severity; Z87.891 Personal history of nicotine dependence

== ENCOUNTER → 2017-03-22 | Outpatient (CLI) | payer MEDICAID ==
[~2017-03-22] MED LIST: GADOBUTROL 10 ML VIAL IVP ONE
== END ==
LOC: FIMAGING 13:58
PROVIDERS: ATTEND Podiatrist Primary Podiatric Medicine
DX: L03.031 Cellulitis of right toe (principal)
CPT/HCPCS: A9585

== ENCOUNTER 2017-04-22 21:53 | Observation (INO) | payer MEDICAID ==
--- NOTE | 2017-04-22 22:32 | CPEKG ---
Heart Rate: 105 RR Interval: 571 P-R Interval: 168 QRSD Interval: 88 QT Interval: 332 QTC Interval: 439 P Satanta: 58 QRS Satanta: 26 T Wave Satanta: 51 EKG Severity - OTHERWISE NORMAL ECG - EKG Impression: SINUS TACHYCARDIA Electronically Signed By: Arden Mondragon 23-Apr-2017 06:56:42
--- NOTE | 2017-04-22 22:38 | EDPHY ---
H & P Stated Complaint: Sent by MD due to high K+ Source: Patient - Personal History Current Tetanus/Diphtheria Vaccine: Unsure Current Tetanus Diphtheria and Acellular Pertussis (TDAP): Unsure Tetanus Vaccine Date: within 10 years - Medical/Surgical History Hx Asthma: No Hx Chronic Respiratory Disease: No Hx Diabetes: Yes Hx Cardiac Disease: No Hx Renal Disease: No Hx Cirrhosis: No Hx Alcoholism: No Hx HIV/AIDS: No Hx Splenectomy or Spleen Trauma: No Other PMH: R Knee surg,DM type I, DKA, anxiety, diabetic neuropathy, heroine and meth abuse. - Social History Smoking Status: Former smoker HPI/ROS: HPI CHIEF COMPLAINT: Possible high potassium HISTORY OF PRESENT ILLNESS: This patient is a 31-year-old male, he was seen in Infectious Disease today and had routine blood work. Is currently undergoing treatment for osteomyelitis and a foot infection diabetic ulcer, he is a brittle diabetic with an insulin pump. States sugars been running in the 300. He states that he had routine blood work today by Infectious Disease and was told that he has a high potassium at 6.3. He was referred to the emergency room for evaluation. This time he has no complaints. Past Medical History: Diabetes, insulin-dependent, hyponatremia, neuropathy Past Surgical History: Osteomyelitis with biopsy right foot. Social History: Denies daily use drugs alcohol tobacco products incarcerated currently correction work release. Family History: Noncontributory ROS REVIEW OF SYSTEMS: A comprehensive 10 point review of systems is otherwise negative aside from elements mentioned in the history of present illness. Exam Constitutional appears well nontoxic triage nursing summary reviewed, vital signs reviewed, awake/alert. Eyes normal conjunctivae and sclera, EOMI, PERRLA. HENT normal inspection, atraumatic, moist mucus membranes, no epistaxis, neck supple/ no meningismus, no raccoon eyes. Respiratory clear to auscultation bilaterally, normal breath sounds, no respiratory distress, no wheezing. Cardiovascular tachycardic , regular rhythm, no murmur, no edema, distal pulses normal. Gastrointestinal soft, non-tender, no rebound, no guarding, normal bowel sounds, no distension, no pulsatile mass. Genitourinary no CVA tenderness. Musculoskeletal no midline vertebral tenderness, full range of motion, no calf swelling, no tenderness of extremities, no meningismus, good pulses, neurovascularly intact. Skin pink, warm, & dry, no rash, skin atraumatic. Neurologic awake, alert and oriented x 3, AAOx3, moves all 4 extremities equally, motor intact, sensory intact, CN II-XII intact, normal cerebellar, normal vision, normal speech. Psychiatric normal mood/affect. Heme/Lymph/Immune no lymphadenopathy. Differential Diagnosis: Includes but is not limited to in a particular order electrolyte disturbance including hyperkalemia, renal injury including renal failure, DKA Medical Decision Making: Plan for this patient IV establishment IV fluid bolus full athletic monitor, obtain EKG to rule out peaked T-waves or QRS prolongation , check blood work, gentle IV hydration check for hyperkalemia. Check for renal failure. Re-evaluation: EKG interpretation by me on record in [facility] system. Impression time of EKG 2229, this is sinus tachycardia rate of 105 there are peaked T-waves in the anterior chest leads specifically V2 V3. No QRS widening otherwise unremarkable EKG. 2313: This patient's potassium is noted be 5.7 he does have hyperacute T-waves on EKG. Do this I will aggressively treat his hyperkalemia. He will receive IV fluids here, sodium bicarb, insulin IV 5 units, as well as Kayexalate. The patient need to be admitted to the hospital service for hyperkalemia as well as acute kidney injury creatinine 2.0. Spoke with the hospitalist service Dr. Bronson who agrees to admit this patient. Reason for admission is hyperkalemia. Acute kidney injury. Patient be admitted to front desk monitor PCU bed due to hyperkalemia. (Arden Mondragon) Constitutional: Initial Vital Signs Temperature (C) 36.9 C 04/22/17 21:56 Heart Rate 115 H 04/22/17 21:56 Respiratory Rate 18 04/22/17 21:56 Blood Pressure 135/77 H 04/22/17 21:56 O2 Sat (%) 98 04/22/17 21:56 O2 Delivery Mode Room Air Allergies/Adverse Reactions: No Known Allergies Allergy (Verified 04/22/17 21:59) Home Medications: Medication Instructions Recorded Acetamn/Diphenhydramine 500/25 1 each PO HS PRN 04/23/17 [Tylenol PM (*)] Insulin Pump, Patient Own 1 ea MISC AD 04/23/17 Medical Decision Making Other Provider: I did not participate in the care of this pt. (Laury Bennett) - Data Points Laboratory Results: Laboratory Results 04/22/17 22:30 04/22/17 22:30 Medications Given: Discontinued Medications Sodium Chloride (Ns) 1,000 mls @ 0 mls/hr IV ONCE ONE PRN Reason: Wide Open Stop: 04/22/17 22:41 Last Admin: 04/22/17 23:17 Dose: 1,000 mls Sodium Chloride (Ns) 1,000 mls @ 0 mls/hr IV ONCE ONE PRN Reason: Wide Open Stop: 04/22/17 23:18 Last Admin: 04/23/17 00:23 Dose: 1,000 mls Sodium Chloride (Ns) 1,000 mls @ 125 mls/hr IV CONT ADAM Stop: 10/20/17 00:59 Last Admin: 04/23/17 02:19 Dose: 1,000 mls Insulin Human Lispro (Humalog Lispro) 0 unit SC TIDMEAL ADAM PRN Reason: Protocol Stop: 10/20/17 07:59 Last Admin: 04/23/17 12:48 Dose: Not Given Insulin Human Regular (Humulin R) 5 unit IVP EDNOW ONE Stop: 04/22/17 23:03 Last Admin: 04/22/17 23:35 Dose: 5 units Sodium Bicarbonate (Sodium Bicarbonate) 50 meq IVP EDNOW ONE Stop: 04/22/17 23:13 Last Admin: 04/23/17 00:13 Dose: 50 meq Sodium Polystyrene Sulfonate (Kayexalate) 30 gm PO ONCE ONE Stop: 04/22/17 23:04 Last Admin: 04/22/17 23:35 Dose: 30 gm Departure - Departure Disposition[facility] Clinical Impression: Hyperkalemia, Dehydration, Acute kidney injury Condition: Good
[2017-04-22 22:39] LABS: % IMMATURE GRANULYOCYTES 0.1 % (0.0-1.1); ABSOLUTE IMMATURE GRANULOCYTES 0.01 10^3/uL (0.00-0.10); ADD DIFF? NO; ADD MORPH? NO; ADD SCAN? NO; ATYPICAL LYMPHOCYTE FLAG 0 (0-99); FRAGMENT RBC FLAG 0 (0-99); HEMATOCRIT 34.9 % (40.0-51.0); HEMOGLOBIN 11.3 g/dL (13.7-17.5); LEFT SHIFT FLG 0 (0-99); LIPEMIA HEMOLYSIS FLAG 80 (0-99); MEAN CELL HEMOGLOBIN 28.9 pg (27.9-34.1); MEAN CELL HEMOGLOBIN CONCENTR. 32.4 g/dL (32.4-36.7); MEAN CELL VOLUME 89.3 fL (81.5-99.8); MEAN PLATELET VOLUME 9.4 fL (8.7-11.7); PLATELET CLUMPS FLAG 0 (0-99); PLATELET COUNT 302 10^3/uL (150-400); RED BLOOD CELL COUNT 3.91 10^6/uL (4.40-6.38); RED CELL DISTRIBUTION WIDTH 13.2 % (11.5-15.2)
[2017-04-22] MEDS ORDERED: NS 1,000 ML IV ONE ×2 (22:40→23:17)
[2017-04-22 22:56] LABS: ANION GAP 12 mEq/L (8-16); CALCIUM 9.8 mg/dL (8.5-10.4); CARBON DIOXIDE 23 mEq/l (22-31); CHLORIDE 105 mEq/L (97-110); GLOMERULAR FILTRATION RATE 40; GLUCOSE 174 mg/dL (70-100); POTASSIUM 5.7 mEq/L (3.5-5.2); SODIUM 140 mEq/L (134-144)
[2017-04-22] MEDS ORDERED: INSULIN REGULAR HUMAN 100 UNIT/ML IVP ONE (23:02)
[2017-04-22] MEDS ORDERED: SODIUM POLY SULF 15 GM/60 ML BOTTLE PO ONE (23:03)
[2017-04-22] MEDS ORDERED: SODIUM BICARBONATE 50 MEQ/50 ML SYR IVP ONE (23:12)
[2017-04-23] MEDS ORDERED: ONDANSETRON DISINTEGRATING 4 MG TAB PO PRN (00:54)
[2017-04-23] MEDS ORDERED: ZOLPIDEM TARTRATE 5 MG TAB PO PRN (00:54)
[2017-04-23] MEDS ORDERED: ONDANSETRON 4 MG/2 ML VIAL IVP PRN (00:54)
[2017-04-23] MEDS ORDERED: PROMETHAZINE HCL 25 MG/ML INJ IVP PRN (00:54)
[2017-04-23] MEDS ORDERED: D50W 25 GM/50 ML SYR IVP PRN (00:54)
[2017-04-23] MEDS ORDERED: oxyCODONE IR 5 MG TAB PO PRN (00:54)
[2017-04-23] MEDS ORDERED: ACETAMINOPHEN 325 MG TAB PO PRN (00:54)
[2017-04-23] MEDS ORDERED: NS 1,000 ML IV SCH (01:00)
[2017-04-23 01:09] LABS: ANION GAP 12 mEq/L (8-16); CALCIUM 9.3 mg/dL (8.5-10.4); CARBON DIOXIDE 25 mEq/l (22-31); CHLORIDE 109 mEq/L (97-110); CREATININE 1.8 mg/dL (0.7-1.3); GLOMERULAR FILTRATION RATE 45; GLUCOSE 127 mg/dL (70-100); POTASSIUM 5.4 mEq/L (3.5-5.2); SODIUM 146 mEq/L (134-144)
--- NOTE | 2017-04-23 02:00 | GHP ---
[f rep st] HISTORY AND PHYSICAL DATE OF ADMISSION: 04/22/2017 CHIEF COMPLAINT: Told to come in. HISTORY: This is a 31-year-old man, who has a past medical history of type 1 diabetes as well as pr ior IV drug abuse, currently in remission for about the last 6 months, who presents with hyperkalemi a, at the request of his infectious disease doctor. The patient notes he has been followed by [facility] for a chronic diabetic foot wound. He has been on antibiotics for an extended period of time, by his estimate, he thinks at least a couple of months. He states that much of that time w as with Bactrim, though his ID doctor recently became concerned that his kidney function was off, an d she was planning to switch him to a different antibiotic today. When he went for followup labs at ID, it was found that he was hyperkalemic at 6.3, and that his kidney function also was getting wor se, and he was instructed to come to the ER. He notes that he currently has no acute complaints, th ough he has noticed recently that he has felt more fatigued than usual, even when doing normal activ ities, he will feel sort of short of breath and winded. He otherwise denies fevers or chills. He h as not had any chest pain. He has not had any nausea or vomiting. PAST MEDICAL HISTORY: Includes: 1. Type 1 diabetes. 2. Peripheral neuropathy associated with his diabetes. 3. Bipolar/anxiety/PTSD. 4. Polysubstance abuse, currently sober. PAST SURGICAL HISTORY: Includes a knee surgery. FAMILY HISTORY: Patient is adopted, though he states he knows his family does not have diabet es. 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 He previously has been a heavy alcohol, heroin, and methamphetamine user including IV drug use, though he states all of this has b een in remission for the last 6 months. REVIEW OF SYSTEMS: Ten-point review of systems obtained and negative, except as per HPI. MEDICATIONS: Include insulin lispro, gabapentin, Bactrim, and Keflex. ALLERGIES: No known drug allergies. PHYSICAL EXAM: BP 135/77, heart rate 115, respiratory rate 18, O2 saturation is 98% on room air, te mperature is 36.9. GENERAL APPEARANCE: This is a well-developed/well-nourished man. He is awake a nd alert. He is in no acute distress. EYES: Anicteric. HENT: Oropharynx clear. CARDIOVASCULAR: Mildly tachy, regular, no MRG. PULMONARY: CTA bilaterally. Normal work of breathing. ABDOMEN: Soft, nontender. Positive bowel sounds. EXTREMITIES: No clubbing, cyanosis, or edema. SKIN: Wa rm, dry, well-perfused. NEURO/PSYCH: Oriented and appropriate, pleasant. CLINICAL DATA: Labs reviewed and significant for white blood cell count of 7.4, hematocrit of 34.9, platelets of 302. Chemistry remarkable for, at the outpatient setting, a potassium of 6.3, that wa s 5.7 since his arrival here. Creatinine is 2, glucose of 174. EKG, personally reviewed and interpreted, shows sinus tachycardia. Questionable peaked T-waves in V 2, V3. Otherwise, unremarkable. ASSESSMENT AND PLAN: This is a 31-year-old man with past medical history of type 1 diabetes as well as a chronic diabetic foot wound/osteomyelitis of the right lower extremity, presenting with acute kidney injury and hyperkalemia. 1. Hyperkalemia. Already improving prior to arrival in the ER. He has been given Kayexalate and i nsulin. Recheck is pending. Patient had a question of some peaked T-waves on EKG; however, in revi rolle his old EKGs, he does appear to have tall/prominent T-waves, even when his potassiums have bee n normal, so I suspect this is a normal variant in this young man. 2. Acute kidney injury. This is in the setting of prolonged Bactrim use and likely related to the same. In evaluating his recent kidney levels, his creatinine has been steadily climbing over the la st several weeks. We will check a UA as well as urine sodium and creatinine for further evaluation, and we will hold antibiotics for now. 3. Type 1 diabetes/poorly controlled. Patient notes that he, up until recently, was having extreme ly poor control of his diabetes. He now has an insulin pump and states that his control has been be tter. He has not had an A1c in months or even longer as far as he knows, and I will recheck that wh ile he is here. We will continue his home regimen as best we can while inhouse. 4. Polysubstance abuse. This has been in remission for the last 6 months, and patient states he is very pleased with that and determined to remain sober. He states he is getting some help through h is work release program with the longterm. 5. Bipolar disorder. Previously on lithium, though I do not see that on his current home medicatio n list. He is behaviorally well controlled. 6. Disposition. Observation status. At this time, it is unclear if patient will require greater t muñoz a 48-hour stay. 7. Patient is new to my care. Old records reviewed and summarized as per in HPI and past medical h istory. Care plan reviewed with the ER physician, including plans for ID consultation. /[id number]/MODL
[2017-04-23 02:36] LABS: COLOR YELLOW; LEUKOCYTE ESTERASE,URINE NEGATIVE (NEGATIVE); NITRITE,URINE NEGATIVE (NEGATIVE)
[2017-04-23 02:38] LABS: BACTERIA TRACE /hpf (NONE SEEN)
[2017-04-23 05:36] LABS: ANION GAP 7 mEq/L (8-16); CARBON DIOXIDE 23 mEq/l (22-31); CHLORIDE 108 mEq/L (97-110); CREATININE 1.7 mg/dL (0.7-1.3); GLOMERULAR FILTRATION RATE 48; GLUCOSE 149 mg/dL (70-100); POTASSIUM 5.1 mEq/L (3.5-5.2); SODIUM 138 mEq/L (134-144)
[2017-04-23 07:32] VITALS: TEMP 97.6
[2017-04-23] MEDS: INSULIN LISPRO 100 UNIT/ML SC SCH ×2 (09:45→12:48)
[2017-04-23 09:51] LABS: HEMOGLOBIN A1C 9.4 % (4.0-6.0)
[2017-04-23 11:32] VITALS: BP 154/93; PULSE 90; RESP 16; O2SAT 97
--- NOTE | 2017-04-23 11:55 | PCMIDPN ---
Assessment/Plan: Assessment/Plan: 1. Left foot wounds: - superficial for most part. some overlying slough - appreciate wound care eval/treatment. hydrafera blue to wounds, change q3 days. -avoid tight shoes. - Mild erythema over toes. will continue doxy only for now. signs and symptoms to monitor for were discussed at length - recommend f/u in office on 05/01/17. pt will call for appt. - pt has f/u with Dr. Giron today and will need some additional debridment to wounds -care coordinated with wound care team, Rn, hospitalist team. 2. Renal insufficiency: - has had some intermittent chronic issues with this -unclear if bactrim also a component this time -needs f/u and possibly eval by nephrology at some point. 3. hyperkalemia: - bactrim related vs other. - improved now. -managment per hospitalist team. Subjective: afebrile. feels better today. bp better. denies sob, abd pain, diarrhea. Objective: Vital Signs Temp Pulse Resp BP Pulse Ox 36.4 C 90 16 154/93 H 97 04/23/17 11:31 04/23/17 11:31 04/23/17 11:31 04/23/17 11:31 04/23/17 11:31 Laboratory Results 04/23/17 04:55 04/22/17 04/23/17 04/24/17 05:59 05:59 05:59 Intake Total 2825 Balance 2825 - Physical Exam General Appearance: alert, no apparent distress Respiratory: lungs clear Cardiac/Chest: regular rate, rhythm Extremities: swelling (mild of left foot/toes) Abdomen: normal bowel sounds, non-tender, soft, No distended Skin: erythema (mild erythema over toes. mild swelling of toes. superficial breakdown on medial and lateral aspects of several of hte toes. mild overlying slough. peripheral neuropathy) - Time Spent With Patient Time Spent with Patient: greater than 35 minutes Time Spent with Patient: Greater than 35 minutes spent on this patients care, greater than 50% of time spent counseling, educating, and coordinating care regarding the above mentioned plan. ICD10 Worksheet Patient Problems: Problems Problem Status Onset Acute kidney injury Acute Acute renal failure Acute DKA (diabetic ketoacidoses) Acute Dehydration Acute Hyperglycemia Acute Hyperkalemia Acute Hyperkalemia Acute Type 1 diabetes Acute
--- NOTE | 2017-04-23 12:46 | WOCRNPDOC ---
WOCRN Advanced Assessment Note - Skin Integrity Problem, Advanced Assess Right Foot Diabetic Ulcer Dressing Type: Open to Air [place] Wound Tissue: Macerated, Altered Sensitivity, Calloused Wound Edges: Epithelizing Skin Integrity Problem Comment: Dr. Hidalgo assisted with wound care and was present throughout visit. Multiple wounds bilaterally between toes from second to 5th phalanges, likely from moisture friction and pressure. Medial second toe wound with exposed bone, lateral 3rd toe wound with 100% slough that needs to be debrided. The remiander of the wounds are mixed partial and full thickness. They were cleaned with ns and gauze, hydrofera blue ready placed over each wound bed. Secured with strip gauze/tape. Education with patient about wound treatment plan, dressing changes and follow up. Patient to see Dr. Giron this afternoon who will debride the 3rd toe wound.
--- NOTE | 2017-04-23 14:23 | ASMTCMCOM ---
CM Note CM Note Notes: CM met w/ pt for check in. Pt is discharging w/out any needs today. Pt reports that he will f/u megan Giron on a weekly basis for foot wound care, follow up w/ Dr Dasilva for endocrinology; pt's mom is providing transportation to her [facility] at d/c where patient will live. Date Signed: 04/23/2017 12:34 PM Electronically Signed By:Anat Osorio
--- NOTE | 2017-04-24 00:45 | GDS ---
[f rep st] DISCHARGE SUMMARY DISCHARGE DIAGNOSES: 1. Acute kidney injury. 2. Hyperkalemia, resolved. 3. Diabetic foot infection. 4. Type 1 diabetes. 5. Peripheral neuropathy. 6. Polysubstance abuse, in remission. CONSULTANTS: Dr. Nubia Hidalgo, Infectious Disease. HISTORY: For details, please see dictated History and Physical dated April 23, 2017. In brief, kimberly e patient is a 31-year-old male with history of type 1 diabetes and a chronic right diabetic foot wo und, who was admitted to the hospital after labs revealed acute kidney injury and hyperkalemia at [facility] infectious disease appointment. He had no symptoms with this. HOSPITAL COURSE: The patient was admitted to the progressive care unit. He was treated with Kayexa late and insulin and his potassium normalized from 5.7 to 5.1. His creatinine on admission was 2.0. This has trended down to 1.7 with IV fluids. His fractional excretion of sodium was 1.5%, which w as not clearly a prerenal etiology of his acute kidney injury. It was thought possibly chronic long -term Bactrim has contributed to his acute kidney injury. This was held on admission. I discussed the case with Infectious Disease. We have stopped his Bactrim and Keflex. He has already received a prescription for doxycycline in outpatient setting and he will transition to this antibiotic for o ngoing management of his chronic diabetic foot wound. He also has an appointment with his podiatris t, Dr. Giron, today for additional debridement. The patient wishes to be discharged. I think shiva caicedo is safe to go home. However, he needs a followup basic metabolic panel tomorrow performed at his primary care office. He agrees to this plan. I encouraged him to drink plenty of fluids to maintai n hydration. He has had good glycemic control in the hospital with blood sugar staying in the 100s. He states he recently got a new insulin pump and this has improved his glycemic control. However, his A1c is still 9.4. DISPOSITION: Patient is discharged home in stable condition. FOLLOWUP: 1. Dr. Giron, appointment today. 2. Dr. Vasquez Koenig, tomorrow for basic metabolic panel and hospital followup. 3. Dr. Nbuia Hidalgo, as planned. DISCHARGE MEDICATIONS: Please see [email or web address] for complete updated outpatient medication list. He edu l continue his insulin pump and p.r.n. Benadryl. Discontinued medications include Keflex and Bactri m. New medication already prescribed in the outpatient setting is doxycycline 100 mg p.o. b.i.d. /[id number]/MODL
--- NOTE | 2017-04-24 09:54 | ASDISCHSUM ---
Discharge Information Plan Status:Home with No Needs Medically Cleared to Leave:04/23/2017 Discharge Date:04/23/2017 01:05 PM CM D/C Disposition:Home, Routine, Self-Care ADT D/C Disposition:Home, Routine, Self-Care Projected Discharge Date:04/23/2017 12:00 AM Transportation at D/C:Family Discharge Delay Reason: Follow-Up Date:04/23/2017 12:00 AM Discharge Slot: Final Diagnosis: Placement Information Patient Contact Information Contact Name:JOSE DE JESUS Relationship:Mother Address:[address] [place] [address] Work Phone: City:[place] Alternate Phone: [facility]/[employer] Code:[place] [id number] Email: Financial Information Financial Class: Primary Plan Desc:MEDICAID HE[employer] FIRST [employer] D Primary Plan Number:[id number] Secondary Plan Desc: Secondary Plan Number: Assessment Information [facility] CM Progress Note CM Note CM Note Notes: CM met w/ pt for check in. Pt is discharging w/out any needs today. Pt reports that he will f/u with Elfego Giron on a weekly basis for foot wound care, follow up w/ Dr Dasilva for endocrinology; pt's mom is providing transportation to her house in [place] at d/c where patient will live. Date Signed: 04/23/2017 12:34 PM Electronically Signed By:Anat Osorio Intervention Information
== END 2017-04-23 13:05 | disposition home or self-care (01) ==
LOC: INTOOBSV 23:15 → F2W 04-23 01:42
PROVIDERS: ADMIT Internal Medicine; ATTEND Internal Medicine
CPT/HCPCS: 93005; G0378; 96374; J1815

== ENCOUNTER 2017-05-13 21:17 | Inpatient (IN) | payer MEDICAID ==
[2017-05-13] MEDS: NS 2,000 ML IV ONE ×2 (21:40→22:28)
--- NOTE | 2017-05-13 21:59 | EDPHY ---
H & P Stated Complaint: fever, body aches x3 days-- foot infection x months HPI/ROS: HPI CHIEF COMPLAINT: Fever, foot infection, muscle aches, fatigue HISTORY OF PRESENT ILLNESS: This patient very pleasant 31-year-old male significant past medical history for insulin-dependent diabetes poorly controlled, he presents emergency room muscle aches joint pain, fatigue, nausea and feels ill. He states that his foot appears to be more infected than normal. More swelling more redness. No fever. Denies any active vomiting or diarrhea denies chest pain or shortness of breath. Main complaint is generalized weakness, complaints of worsening right foot swelling redness infection. Past Medical History: Insulin-dependent diabetes, poorly controlled, peripheral neuropathy, bipolar disorder, substance abuse, acute kidney injury Past Surgical History: No recent surgery Social History: Denies daily use of drugs alcohol tobacco products. History polysubstance abuse. Family History: Noncontributory ROS REVIEW OF SYSTEMS: A comprehensive 10 point review of systems is otherwise negative aside from elements mentioned in the history of present illness. Exam Constitutional appears nontoxic triage nursing summary reviewed, vital signs reviewed, awake/alert. Noted to be tachycardic Eyes normal conjunctivae and sclera, EOMI, PERRLA. HENT normal inspection, atraumatic, moist mucus membranes, no epistaxis, neck supple/ no meningismus, no raccoon eyes. Respiratory clear to auscultation bilaterally, normal breath sounds, no respiratory distress, no wheezing. Cardiovascular tachycardic, regular rhythm, no murmur, no edema, distal pulses normal. Gastrointestinal soft, non-tender, no rebound, no guarding, normal bowel sounds, no distension, no pulsatile mass. Genitourinary no CVA tenderness. Musculoskeletal no midline vertebral tenderness, full range of motion, no calf swelling, no tenderness of extremities, no meningismus, good pulses, neurovascularly intact. Skin right foot: Swollen and tender. Mild warmth, erythema present over the dorsum of the foot, in between multiple toes there ulcers present. Foul smell. No mariluz purulence. No crepitus. Neurologic awake, alert and oriented x 3, AAOx3, moves all 4 extremities equally, motor intact, sensory intact, CN II-XII intact, normal cerebellar, normal vision, normal speech. Psychiatric normal mood/affect. Heme/Lymph/Immune no lymphadenopathy. 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 Polymicrobial coverage for infection. Pain control Zofran for nausea and 1 mg IV Dilaudid for pain control. Re-evaluation: 231: This patient's x-ray shows osteomyelitis of the toes. The dorsum of his foot is erythematous and tender. Consistent with cellulitis consistent with infection from his chronic wounds of his toes from diabetes. The patient is not in DKA. The patient be admitted to the hospital service for right foot infection. Osteomyelitis. Possible sepsis. Blood cultures have been pulled. Lactic acid drawn. IV vancomycin given. IV Zosyn given. I have asked Dr. Thibodeaux to admit this patient. Currently at this time this patient is tachycardic but not hypotensive. Not febrile. Agrees for admission. Source: Patient - Personal History Current Tetanus/Diphtheria Vaccine: Yes Current Tetanus Diphtheria and Acellular Pertussis (TDAP): Yes Tetanus Vaccine Date: within 10 years - Medical/Surgical History Hx Asthma: No Hx Chronic Respiratory Disease: No Hx Diabetes: Yes Hx Cardiac Disease: No Hx Renal Disease: No Hx Cirrhosis: No Hx Alcoholism: No Hx HIV/AIDS: No Hx Splenectomy or Spleen Trauma: No Other PMH: R Knee surg,DM type I, DKA, anxiety, diabetic neuropathy, heroine and meth abuse. - Social History Smoking Status: Former smoker Constitutional: Initial Vital Signs Temperature (C) 37.7 C 05/13/17 21:21 Heart Rate 128 H 05/13/17 21:21 Respiratory Rate 20 05/13/17 21:21 Blood Pressure 135/97 H 05/13/17 21:21 O2 Sat (%) 97 05/13/17 21:21 O2 Delivery Mode Room Air O2 (L/minute) 2 Allergies/Adverse Reactions: No Known Allergies Allergy (Verified 04/22/17 21:59) Home Medications: Medication Instructions Recorded Insulin Pump, Patient Own 1 ea MISC AD 04/23/17 Doxycycline Hyclate [Vibramycin 100 mg PO BID 05/13/17 100 MG (*)] Medical Decision Making - Data Points Laboratory Results: Laboratory Results 05/13/17 21:40 05/13/17 21:40 Medications Given: Acetaminophen (Tylenol) 650 mg PO Q4HRS PRN PRN Reason: Pain, Mild/Fever, Can Take PO Stop: 11/10/17 01:33 Last Admin: 05/14/17 20:48 Dose: 650 mg Hydromorphone HCl (Dilaudid) 0.2 - 0.4 mg IVP Q4HRS PRN PRN Reason: Pain, Severe Unable to Take PO Stop: 05/24/17 01:33 Last Admin: 05/14/17 02:51 Dose: 0.4 mg Piperacillin/Tazobactam/Dextrose (Zosyn (Premix)) 100 mls @ 200 mls/hr IV Q6HRS ADAM PRN Reason: Protocol Stop: 06/13/17 04:59 Last Admin: 05/14/17 17:53 Dose: 100 mls Vancomycin HCl 1.25 gm/ (Dextrose) 250 mls @ 166.667 mls/hr IV Q12H [facility] Stop: 06/13/17 10:29 Last Admin: 05/14/17 09:33 Dose: 250 mls Oxycodone HCl (Oxycodone Ir) 5 - 10 mg PO Q3HRS PRN PRN Reason: Pain, Severe Able to Take PO Stop: 05/24/17 01:33 Last Admin: 05/14/17 20:53 Dose: 10 mg Tamsulosin HCl (Flomax) 0.4 mg PO DAILY [facility] Stop: 11/10/17 15:59 Last Admin: 05/14/17 17:53 Dose: 0.4 mg Discontinued Medications Hydromorphone HCl (Dilaudid) 1 mg IVP EDNOW ONE Stop: 05/13/17 22:12 Last Admin: 05/13/17 22:29 Dose: 1 mg Sodium Chloride (Ns) 2,000 mls @ 0 mls/hr IV ONCE ONE PRN Reason: Wide Open Stop: 05/13/17 22:12 Last Admin: 05/13/17 22:28 Dose: 2,000 mls Vancomycin/Sodium Chloride (Vancomycin 1 Gm (Premix)) 250 mls @ 250 mls/hr IV EDNOW ONE PRN Reason: Protocol Stop: 05/13/17 23:11 Last Admin: 05/13/17 22:20 Dose: 250 mls Piperacillin/Tazobactam/Dextrose (Zosyn (Premix)) 100 mls @ 200 mls/hr IV EDNOW ONE PRN Reason: Protocol Stop: 05/13/17 22:41 Last Admin: 05/13/17 23:15 Dose: 100 mls Sodium Chloride (Ns) 1,000 mls @ 0 mls/hr IV ONCE ONE PRN Reason: Titrate Stop: 05/13/17 23:31 Last Admin: 05/13/17 23:33 Dose: 1,000 mls Sodium Chloride (Ns) 1,000 mls @ 100 mls/hr IV CONT ADAM Stop: 11/10/17 01:44 Last Admin: 05/14/17 05:22 Dose: 1,000 mls Ondansetron HCl (Zofran) 4 mg IVP EDNOW ONE Stop: 05/13/17 22:12 Last Admin: 05/13/17 22:28 Dose: 4 mg Departure - Departure Disposition: Home, Routine, Self-Care Clinical Impression: Hyperglycemia Osteomyelitis Qualifiers: Osteomyelitis type: other Osteomyelitis location: foot Laterality: right Qualified Code(s): M86.8X7 - Other osteomyelitis, ankle and foot Condition: Good
[2017-05-13 22:04] LABS: % IMMATURE GRANULYOCYTES 0.3 % (0.0-1.1); ABSOLUTE IMMATURE GRANULOCYTES 0.04 10^3/uL (0.00-0.10); ADD DIFF? NO; ADD MORPH? NO; ADD SCAN? NO; ATYPICAL LYMPHOCYTE FLAG 0 (0-99); FRAGMENT RBC FLAG 0 (0-99); HEMATOCRIT 35.8 % (40.0-51.0); HEMOGLOBIN 11.6 g/dL (13.7-17.5); LEFT SHIFT FLG 0 (0-99); LIPEMIA HEMOLYSIS FLAG 80 (0-99); MEAN CELL HEMOGLOBIN 29.2 pg (27.9-34.1); MEAN CELL HEMOGLOBIN CONCENTR. 32.4 g/dL (32.4-36.7); MEAN CELL VOLUME 90.2 fL (81.5-99.8); MEAN PLATELET VOLUME 9.3 fL (8.7-11.7); PLATELET CLUMPS FLAG 10 (0-99); PLATELET COUNT 297 10^3/uL (150-400); RED BLOOD CELL COUNT 3.97 10^6/uL (4.40-6.38); RED CELL DISTRIBUTION WIDTH 13.7 % (11.5-15.2)
[2017-05-13] MEDS ORDERED: ONDANSETRON 4 MG/2 ML VIAL IVP ONE (22:11)
[2017-05-13] MEDS ORDERED: HYDROmorphONE/DILAUDID 1 MG/ML INJ IVP ONE (22:11)
[2017-05-13] MEDS ORDERED: VANCOMYCIN HCL/NORMAL SALINE 250 ML IV ONE (22:12)
[2017-05-13] MEDS ORDERED: PIPERACILLIN/TAZO 4.5 GM/DEX 100 ML IV ONE (22:12)
[2017-05-13 22:28] LABS: ANION GAP 9 mEq/L (8-16); C-REACTIVE PROTEIN 49.8 mg/L (<10.0); CALCIUM 9.3 mg/dL (8.5-10.4); CARBON DIOXIDE 22 mEq/l (22-31); CHLORIDE 102 mEq/L (97-110); CREATININE 1.3 mg/dL (0.7-1.3); GLOMERULAR FILTRATION RATE > 60; GLUCOSE 269 mg/dL (70-100); POTASSIUM 5.1 mEq/L (3.5-5.2); SODIUM 133 mEq/L (134-144)
[2017-05-13 22:46] LABS: B-HYDROXYBUTYRATE 0.08 mmol/L (0.02-0.27)
[2017-05-13 23:19] LABS: BASE EXCESS -3.6 mEq/L (-2.5-2.5); BICARBONATE 20 mEq/L (22-26); MEASURED OXYGEN SATURATION 99 % (92-95); PCO2 34 mmHg (34-38); PO2 120 mmHg (65-75); TCO2 21 mEq/L (23-27)
[2017-05-13 23:20] LABS: O2 CONCENTRATIION 95 % (0-100); P/F RATIO 126 RATIO
[2017-05-13] MEDS ORDERED: NS 1,000 ML IV ONE (23:30)
[2017-05-14] MEDS ORDERED: HYDROmorphONE/DILAUDID 1 MG/ML INJ IVP PRN (01:34)
[2017-05-14] MEDS ORDERED: ONDANSETRON 4 MG/2 ML VIAL IVP PRN (01:34)
[2017-05-14] MEDS ORDERED: ONDANSETRON DISINTEGRATING 4 MG TAB PO PRN (01:34)
[2017-05-14] MEDS ORDERED: ACETAMINOPHEN 325 MG TAB PO PRN (01:34)
[2017-05-14] MEDS ORDERED: D50W 25 GM/50 ML SYR IVP PRN (01:36)
[2017-05-14] MEDS ORDERED: D10W 250 ML PRN HYPOGLYCEMIA IV (01:36)
[2017-05-14] MEDS ORDERED: NS 1,000 ML IV SCH (01:45)
--- NOTE | 2017-05-14 02:35 | GHP ---
[f rep st] HISTORY AND PHYSICAL DATE OF ADMISSION: 05/13/2017 CHIEF COMPLAINT: Fevers. HISTORY OF PRESENT ILLNESS: This is a 31-year-old man with a history of diabetes as well as a diabet ic foot infection, who presents with 3 days of rigors and fevers. His temperature got up to as high as 100 or 101 at home. He has been treated for a right foot infection. He has had significantly wor sening erythema and swelling over the past 3 days as well. He is also getting more pain from this, w hich radiates up his leg. He has been followed by Dr. Hidalgo. He has been on chronic antibiotics, whic h were changed about 3 weeks ago, after having had an acute kidney injury in the setting of Bactrim u se. At that point, he was switched from Bactrim and Keflex to doxycycline. He had significant nause a and abdominal pain with the doxycycline and had been taking it somewhat irregularly. PAST MEDICAL/SURGICAL HISTORY: 1. Polysubstance abuse, relapsed on meth recently, but has been sober for 7 days. 2. Diabetes mellitus type 1 with peripheral neuropathy. 3. Bipolar/PTSD/anxiety. MEDICATIONS: Please see medication reconciliation. ALLERGIES: No known drug allergies. FAMILY HISTORY: Not reviewed and noncontributory. SOCIAL HISTORY: Recent meth and alcohol use. REVIEW OF SYSTEMS: A 10-point review of systems is conducted and is negative, except per HPI. PHYSICAL EXAM: Blood pressure is 120/66, heart rate 96, respiration rate 18, saturating 98% on 3 L, T-max of 37.7. In general, the patient is a pleasant man, who is resting comfortably on bed, in no a cute distress. HEENT shows him to be normocephalic, atraumatic. Cardiovascular exam shows a regular rate and rhythm. No murmurs, rubs, or gallops. Pulmonary exam shows lungs clear to auscultation bi laterally. Abdominal exam is soft, nontender, nondistended. Skin exam shows no rash. exam shows no Pollack. Neurologic exam shows him to be alert and oriented x3. He is moving all extremities. Ps ychiatric exam shows normal mood and affect. Extremity exam shows his right foot to be slightly eryt hematous. It is warm, it is quite edematous. There is a significant ulcer on the lateral aspect of the 3rd toe which is foul-smelling and has some purulence. Otherwise, there is also an ulcer on the lateral aspect of his 2nd toe, which is through the skin, but does not appear to go to bone. LABORATORIES: 1. White count of 13.7, hemoglobin of 11.6. ESR is 38. Lactate is 1.2. Potassium 5.1, creatinine 1.2. CRP is 49. 2. Foot x-ray shows likely osteomyelitis of the PIP of the 3rd and 4th toes. 3. I discussed this with Dr. Mondragon. 4. I reviewed his old chart. IMPRESSION AND PLAN: A 31-year-old man with diabetic foot infection. 1. Diabetic foot infection: Agree with vancomycin and Zosyn coverage. Likely has osteomyelitis. W ill need Infectious Disease and likely Dr. Giron's evaluation tomorrow. 2. Fever/leukocytosis: This is due to his infection most likely. We will treat and follow. 3. Diabetes mellitus type 1: He uses an insulin pump. Last hemoglobin A1c was 9.4%. We will allow him to use his insulin pump here. He needs very tight control; however, does not seem to have obtain ed this. 4. Polysubstance abuse: Recently used meth. This has been a long-term problem for him. /[id number]/MODL
[2017-05-14] MEDS: PIPERACILLIN/TAZO 4.5 GM/DEX 100 ML IV SCH ×3 (05:21→17:53)
[2017-05-14 05:30] LABS: % IMMATURE GRANULYOCYTES 0.3 % (0.0-1.1); ABSOLUTE IMMATURE GRANULOCYTES 0.03 10^3/uL (0.00-0.10); ADD DIFF? NO; ADD MORPH? NO; ADD SCAN? NO; ATYPICAL LYMPHOCYTE FLAG 10 (0-99); FRAGMENT RBC FLAG 0 (0-99); HEMATOCRIT 30.6 % (40.0-51.0); HEMOGLOBIN 9.5 g/dL (13.7-17.5); LEFT SHIFT FLG 0 (0-99); LIPEMIA HEMOLYSIS FLAG 80 (0-99); MEAN CELL HEMOGLOBIN 28.6 pg (27.9-34.1); MEAN CELL VOLUME 92.2 fL (81.5-99.8); MEAN PLATELET VOLUME 9.3 fL (8.7-11.7); PLATELET CLUMPS FLAG 0 (0-99); PLATELET COUNT 241 10^3/uL (150-400); RED BLOOD CELL COUNT 3.32 10^6/uL (4.40-6.38); RED CELL DISTRIBUTION WIDTH 13.9 % (11.5-15.2)
[2017-05-14 05:42] LABS: ANION GAP 7 mEq/L (8-16); CARBON DIOXIDE 23 mEq/l (22-31); CHLORIDE 109 mEq/L (97-110); CREATININE 1.2 mg/dL (0.7-1.3); GLOMERULAR FILTRATION RATE > 60; GLUCOSE 145 mg/dL (70-100); POTASSIUM 4.8 mEq/L (3.5-5.2); SODIUM 139 mEq/L (134-144)
[2017-05-14 06:10] LABS: COLOR YELLOW; LEUKOCYTE ESTERASE,URINE NEGATIVE (NEGATIVE); NITRITE,URINE NEGATIVE (NEGATIVE)
[2017-05-14] MEDS ORDERED: INSULIN PUMP MISC SCH (09:00)
--- NOTE | 2017-05-14 09:10 | SOAPPROG ---
SOAP Progress Note Assessment/Plan: 1. Diabetic foot infection -iv abx vanc, zosyn -discussed care plan with Dr Hidalgo (ID), Dr Giron (podiatry) -MRI foot ordered as may need surgical intervention 2. type 1 DM -continue insulin pump 3. Polysubstance abuse Hx -etoh/meth use recently (watch for withdrawal but says sober x 7 days) -CM to discuss treatment options 4. Hx PTSD/anxiety/bipolar -consider eval 5. ? urinary retention -bladder scans -?autonomic issue FULL CODE DVT prophy- mechanical, holding pharm bc of possible surgical intervention DISPO > 2 mdnts because of severity of infection, IV ABX, possible surgical intervention Subjective: trouble voiding, 'pain everywhere' worried about losing foot Objective: Vital Signs Temp Pulse Resp BP Pulse Ox 98.1 F 83 18 123/74 H 94 05/14/17 07:56 05/14/17 07:56 05/14/17 07:56 05/14/17 07:56 05/14/17 07:56 Laboratory Results 05/14/17 05:15 05/14/17 05:15 05/12/17 05/13/17 05/14/17 11:59 11:59 11:59 Intake Total 2850 Output Total 300 Balance 2550 Physical Exam - Physical Exam General Appearance: WD/WN, alert, no apparent distress Respiratory: lungs clear, normal breath sounds, No respiratory distress Cardiac/Chest: regular rate, rhythm Abdomen: normal bowel sounds, non-tender, soft, No organomegaly, No distended, No guarding Skin: other (R LE with swelling noted in foot, ankle area. Dressing intact on toes/not removed) Neuro/Psych: alert, depressed affect, No cognition abnormalities, No speech abnormalities ICD10 Worksheet Patient Problems: Problems Problem Status Onset Hyperglycemia Acute Osteomyelitis Acute Acute kidney injury Acute Acute renal failure Acute DKA (diabetic ketoacidoses) Acute Dehydration Acute Hyperkalemia Acute Hyperkalemia Acute Type 1 diabetes Acute
[2017-05-14] MEDS: oxyCODONE IR 5 MG TAB PO PRN ×3 (09:32→20:53)
[2017-05-14] MEDS: VANCOMYCIN 1.25 GM in D5W 250 ML IV SCH ×2 (09:33→21:35)
--- NOTE | 2017-05-14 09:42 | PCMIDPN ---
Assessment/Plan: Assessment/Plan: 1. Right toes with multiple wounds, : - Noncompliant with wound care, antibiotics in the OP - Now with foul smelling wound which is new from last week -took wound culture of draining wound. -foot xray reviewed, erosive arthropathy vs osteo changes, new from previous xray. -MRI from end of February queried possible osteo at 2nd toe. Crp normal. (04/04/17)- bone biopsy and culture was negative for osteo changes and no growth. -REcently as of a few weeks ago, pt did have an OP culture done by Dr. Giron of weepy wounds which grew out MRSA. - Recommend MRI with contrast to further evaluate for actual osteo changes. Discussed and coordinated care with hospitalist team. -Recommend wound care to see patient. -Continue Vanco + zosyn empirically for now - await blood cx results. - care coordinated with pharmacy, and RN as well. -plan of care reviewed in detail with patient 2. Fevers, chills -recent IV drug use - await blood cx - check flu pcr as well. -worsening wound as aabove, due to non-compliance 3. DM - poor compliance 4. Recent IVDU - will need f/u HIV,HBV, HCV screen Meds vanco 1.25gm q12- zosyn 4.5gm q6- Subjective: Patient known to ID service. Diabetic, noncompliant with insulin who has had wounds involving his right toes various, over one month. Initially just involing 2nd toe, that improved and then due to wearing tight shoes, develope pressure sores involving medial and lateral aspects of other toes. He is non- compliant with wound care and antibiotics. has been followed by Dr. Giron for wound care. Was sent to wound care center last week for more closer wound care management as patient just wasn't doing wound care. Was supposed to be on doxy since two week but he wasn't taking it. Readvised to start it again last week Saturday but he didn't start it until Saturday. He used IV meth bout 7 week ago x 3 days and also prior to that. He doesn't share needles, doesn't lick needles. he has been working at [employer] with his tight shoes again over past week. Had our office try to reach out to him, she was unable to get a hold of him for check in. I called him yesterday for check in and he stated he started to have fevers around 100 degrees with chills, myalgias, headaches, redness of foot etc. He was advised to go to ER for further work up. Objective: Vital Signs Temp Pulse Resp BP Pulse Ox 36.7 C 83 18 123/74 H 94 05/14/17 07:56 05/14/17 07:56 05/14/17 07:56 05/14/17 07:56 05/14/17 07:56 Laboratory Results 05/14/17 05:15 05/14/17 05:15 05/13/17 05/14/17 05/15/17 05:59 05:59 05:59 Intake Total 2850 Output Total 300 Balance 2550 ESR 38 MM/HR (0-15) H 05/13/17 Unknown C-Reactive Protein 49.8 mg/L (<10.0) H 05/13/17 21:40 - Physical Exam General Appearance: alert, no apparent distress Respiratory: lungs clear Cardiac/Chest: regular rate, rhythm Extremities: swelling (right foot) Abdomen: normal bowel sounds, non-tender, soft, No distended Skin: erythema (righ dorsum of foot, near base of 3rd and 4th toes. multiple wounds of various sizes and depths involving almost each toe on medial and lateral aspect. worst is now lateral aspect of 3rd toe, foul smelling with drainage. ) - Time Spent With Patient Time Spent with Patient: greater than 35 minutes Time Spent with Patient: Greater than 35 minutes spent on this patients care, greater than 50% of time spent counseling, educating, and coordinating care regarding the above mentioned plan. ICD10 Worksheet Patient Problems: Problems Problem Status Onset Hyperglycemia Acute Osteomyelitis Acute Acute kidney injury Acute Acute renal failure Acute DKA (diabetic ketoacidoses) Acute Dehydration Acute Hyperkalemia Acute Hyperkalemia Acute Type 1 diabetes Acute
[2017-05-14] MEDS ORDERED: GADOBUTROL 10 ML VIAL IVP ONE (11:46)
--- NOTE | 2017-05-14 13:42 | ASMTCMCOM ---
CM Note CM Note Notes: Chart reviewed, pt is a 31 y/o male admitted w/ a fever. Pt has a right foot infection. Pt relapsed on meth a couple days ago and has been 7-8 days sober since. Pt has been using more alcohol recently to help w/ his anxiety. Pt has a hx of bipolar, anxiety, and PTSD. Pt is currently on probation. Pt lives w/ a supportive mother in [place] ([place] P#: [phone]). Pt is not interested in getting substance abuse treatment at this time. Pt reports that he is interested in getting established w/ a psychiatrist. CM provided a list of psychiatrist in the [place] area. Pt reports that he already has a therapist that he meets with on a weekly basis. ID will be seeing pt today. Pt will most likely discharge independent when medically stable. CM called Mom and she reports that his gf that he was very much in love w/ OD and around this time last year. Mom would like pt to go to a half way house. 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 Mom reports that pt is a bipolar and has been having manic episodes. Mom mentioned that pt is not the best at keeping up w/ his insulin. Pt had MRI today. CM to follow after CM consults w/ ID, podiatry, and Dr. Shane. Date Signed: 05/14/2017 01:41 PM Electronically Signed By:JASPER Mendiola
[2017-05-14] MEDS: TAMSULOSIN HCL 0.4 MG CAP PO SCH (17:53)
[2017-05-15] MEDS ORDERED: INSULIN LISPRO 100 UNIT/ML SC SCH
[2017-05-15] MEDS: PIPERACILLIN/TAZO 4.5 GM/DEX 100 ML IV SCH ×4 (00:58→17:58)
[2017-05-15 04:47] LABS: % IMMATURE GRANULYOCYTES 0.4 % (0.0-1.1); ABSOLUTE IMMATURE GRANULOCYTES 0.03 10^3/uL (0.00-0.10); ADD DIFF? NO; ADD MORPH? NO; ADD SCAN? NO; ATYPICAL LYMPHOCYTE FLAG 0 (0-99); FRAGMENT RBC FLAG 0 (0-99); HEMATOCRIT 29.2 % (40.0-51.0); HEMOGLOBIN 9.4 g/dL (13.7-17.5); LEFT SHIFT FLG 0 (0-99); LIPEMIA HEMOLYSIS FLAG 80 (0-99); MEAN CELL HEMOGLOBIN 28.9 pg (27.9-34.1); MEAN CELL HEMOGLOBIN CONCENTR. 32.2 g/dL (32.4-36.7); MEAN CELL VOLUME 89.8 fL (81.5-99.8); MEAN PLATELET VOLUME 9.5 fL (8.7-11.7); PLATELET CLUMPS FLAG 0 (0-99); PLATELET COUNT 252 10^3/uL (150-400); RED BLOOD CELL COUNT 3.25 10^6/uL (4.40-6.38); RED CELL DISTRIBUTION WIDTH 13.3 % (11.5-15.2)
[2017-05-15 05:02] LABS: ANION GAP 8 mEq/L (8-16); CALCIUM 8.7 mg/dL (8.5-10.4); CARBON DIOXIDE 23 mEq/l (22-31); CHLORIDE 101 mEq/L (97-110); CREATININE 1.4 mg/dL (0.7-1.3); GLOMERULAR FILTRATION RATE 60; GLUCOSE 171 mg/dL (70-100); POTASSIUM 4.5 mEq/L (3.5-5.2); SODIUM 132 mEq/L (134-144)
[2017-05-15] MEDS: TAMSULOSIN HCL 0.4 MG CAP PO SCH (08:32)
[2017-05-15] MEDS: oxyCODONE IR 5 MG TAB PO PRN ×2 (08:40→19:58)
[2017-05-15] MEDS: VANCOMYCIN 1.25 GM in D5W 250 ML IV SCH ×2 (11:02→23:00)
--- NOTE | 2017-05-15 15:17 | SOAPPROG ---
SOAP Progress Note Assessment/Plan: Assessment:Cellulitis and osteomyelitis right foot- 2 and 3 toes Plan:Evaluation of the site was performed. I evaluated the MRI. I explained that he is going to need debridement and possible amputation of the third digit. Will schedule for tomorrow. 05/15/17 15:14 Subjective: Patient is seen in bed with his mother present. He relates that he has not been keeping his blood sugars under control and had stopped his antibiotics before his right foot blew up on Saturday. Objective: Vital Signs Temp Pulse Resp BP Pulse Ox 36.9 C 90 18 116/62 93 05/15/17 14:24 05/15/17 14:24 05/15/17 14:24 05/15/17 14:24 05/15/17 14:24 Microbiology 05/14/17 10:00 Gram Stain - Final Toe - Swab Laboratory Results 05/15/17 04:11 05/15/17 04:11 05/14/17 05/15/17 05/16/17 05:59 05:59 05:59 Intake Total 2850 1750 Output Total 300 2550 900 Balance 2550 -800 -900 ICD10 Worksheet Patient Problems: Problems Problem Status Onset Hyperglycemia Acute Osteomyelitis Acute Acute kidney injury Acute Acute renal failure Acute DKA (diabetic ketoacidoses) Acute Dehydration Acute Hyperkalemia Acute Hyperkalemia Acute Type 1 diabetes Acute
--- NOTE | 2017-05-15 16:40 | SOAPPROG ---
SOAP Progress Note Assessment/Plan: 1. Diabetic foot infection -iv abx vanc, zosyn day #2 -discussed care plan with Dr De Leon, awaiting eval by Dr Giron (podiatry) -MRI foot indicates osteomyelitis in 2/3rd toes 2. type 1 DM -continue insulin pump 3. Polysubstance abuse Hx -etoh/meth use recently (watch for withdrawal but says sober x 7 days) -appreciate CM/SW to continue to discuss treatment options 4. Hx PTSD/anxiety/bipolar 5. ? urinary retention -bladder scans today -?autonomic issue -continue with flomax -discussed bladder retrain/double void 6. GREGG -sl increase creatinine today -watch closely 7. Anemia, normocytic -chronic FULL CODE DVT prophy- mechanical, holding pharm bc of possible surgical intervention DISPO > 2 mdnts because of severity of infection, IV ABX, possible surgical intervention 05/15/17 16:40 Subjective: Says urination a bit better with flomax. Worried about foot, awaiting podiatry consult. No CP/SOB/abd pain/n/v. No BM for a few days. Objective: Vital Signs Temp Pulse Resp BP Pulse Ox 98.4 F 90 18 116/62 93 05/15/17 14:24 05/15/17 14:24 05/15/17 14:24 05/15/17 14:24 05/15/17 14:24 Microbiology 05/14/17 10:00 Gram Stain - Final Toe - Swab Laboratory Results 05/15/17 04:11 05/15/17 04:11 05/14/17 05/15/17 05/16/17 11:59 11:59 11:59 Intake Total 2850 1750 Output Total 300 3150 300 Balance 2550 -1400 -300 Physical Exam - Physical Exam General Appearance: WD/WN, alert, no apparent distress Respiratory: chest non-tender, lungs clear, normal breath sounds Cardiac/Chest: normal peripheral pulses, regular rate, rhythm, No edema Abdomen: other (R foot/toes swollen and erythematous ) Neuro/Psych: alert, depressed affect, No cognition abnormalities, No speech abnormalities ICD10 Worksheet Patient Problems: Problems Problem Status Onset Hyperglycemia Acute Osteomyelitis Acute Acute kidney injury Acute Acute renal failure Acute DKA (diabetic ketoacidoses) Acute Dehydration Acute Hyperkalemia Acute Hyperkalemia Acute Type 1 diabetes Acute
--- NOTE | 2017-05-15 17:08 | PCMIDPN ---
Assessment/Plan: Assessment: Right foot 2nd and 3rd digit cellulitis with probable underlying osteomyelitis. MRI findings with suspicion of osteomyelitis changes in the 2nd and 3rd toes due to bone marrow edema and enhancement the proximal phalanges. This corresponds with the skin defect on the dorsal surface of the toes. Plan to continue both vancomycin and Zosyn empirically. Agree with podiatric surgery evaluation and possible debridement or amputation. Plan: 1. Continue both vancomycin and Zosyn. 2. Continue vancomycin dose as is. Trough 10.5. 3. Follow surgical plan. 05/15/17 17:09 Subjective: Patient is resting in his hospital bed. He is nontoxic and has no new complaints. Discussion regarding probable surgical need for removing the deep bony infection his right foot. He voices understanding. Mother is in the room. Objective: Vancomycin # 2 Zosyn # 2 Vital Signs Temp Pulse Resp BP Pulse Ox 36.9 C 90 18 116/62 93 05/15/17 14:24 05/15/17 14:24 05/15/17 14:24 05/15/17 14:24 05/15/17 14:24 Microbiology 05/14/17 10:00 Gram Stain - Final Toe - Swab Laboratory Results 05/15/17 04:11 05/15/17 04:11 05/14/17 05/15/17 05/16/17 05:59 05:59 05:59 Intake Total 2850 1750 Output Total 300 2550 900 Balance 2550 -800 -900 ESR 38 MM/HR (0-15) H 05/13/17 Unknown C-Reactive Protein 49.8 mg/L (<10.0) H 05/13/17 21:40 - Physical Exam General Appearance: WD/WN, alert, no apparent distress, non-toxic Respiratory: lungs clear, normal breath sounds, No respiratory distress Cardiac/Chest: regular rate, rhythm, No tachycardia Extremities: non-tender, inflammation, erythema, No normal inspection, No necrosis Skin: normal color, warm/dry, No rash Neuro/Psych: alert, normal mood/affect, oriented x 3 ICD10 Worksheet Patient Problems: Problems Problem Status Onset Hyperglycemia Acute Osteomyelitis Acute Acute kidney injury Acute Acute renal failure Acute DKA (diabetic ketoacidoses) Acute Dehydration Acute Hyperkalemia Acute Hyperkalemia Acute Type 1 diabetes Acute
[2017-05-15] MEDS: LORazepam 0.5 MG TAB PO PRN (23:57)
[2017-05-16] MEDS: PIPERACILLIN/TAZO 4.5 GM/DEX 100 ML IV SCH ×3 (00:57→15:07)
[2017-05-16 04:51] LABS: % IMMATURE GRANULYOCYTES 0.3 % (0.0-1.1); ABSOLUTE IMMATURE GRANULOCYTES 0.02 10^3/uL (0.00-0.10); ADD DIFF? NO; ADD MORPH? NO; ADD SCAN? NO; ATYPICAL LYMPHOCYTE FLAG 0 (0-99); FRAGMENT RBC FLAG 0 (0-99); HEMATOCRIT 28.2 % (40.0-51.0); HEMOGLOBIN 9.1 g/dL (13.7-17.5); LEFT SHIFT FLG 0 (0-99); LIPEMIA HEMOLYSIS FLAG 80 (0-99); MEAN CELL HEMOGLOBIN 28.8 pg (27.9-34.1); MEAN CELL HEMOGLOBIN CONCENTR. 32.3 g/dL (32.4-36.7); MEAN CELL VOLUME 89.2 fL (81.5-99.8); MEAN PLATELET VOLUME 9.3 fL (8.7-11.7); PLATELET CLUMPS FLAG 0 (0-99); PLATELET COUNT 243 10^3/uL (150-400); RED BLOOD CELL COUNT 3.16 10^6/uL (4.40-6.38); RED CELL DISTRIBUTION WIDTH 13.3 % (11.5-15.2)
[2017-05-16 05:07] LABS: ANION GAP 10 mEq/L (8-16); CALCIUM 8.4 mg/dL (8.5-10.4); CARBON DIOXIDE 23 mEq/l (22-31); CHLORIDE 104 mEq/L (97-110); CREATININE 1.3 mg/dL (0.7-1.3); GLOMERULAR FILTRATION RATE > 60; GLUCOSE 185 mg/dL (70-100); POTASSIUM 4.3 mEq/L (3.5-5.2); SODIUM 137 mEq/L (134-144)
--- NOTE | 2017-05-16 08:20 | HOSPPROG ---
Hospitalist Progress Note Assessment/Plan: #Osteomyelitis 2nd/3rd toe: 3rd toe amputation, debridement of 2nd. Strep/E Coli on culture. ID changed to CTX #Type 1 DM: pump. He adjusts his own boluses #Polysubstance abuse: meth and Etoh. Has been in treatment in past. Counseled him on cessation #Anxiety/panic attacks: followed at [facility]. Was provided list of psychiatrists here #h/o ADHD: previously on Adderall #Diet: diabetic #Disp: warrants inpt admission for IV abx Subjective: pain control Objective: Vital Signs Temp Pulse Resp BP Pulse Ox 36.8 C 85 16 139/88 H 93 05/16/17 08:00 05/16/17 08:00 05/16/17 08:00 05/16/17 08:00 05/16/17 08:00 Microbiology 05/14/17 10:00 Gram Stain - Final Toe - Swab Laboratory Results 05/16/17 04:15 05/16/17 04:15 05/15/17 05/16/17 05/17/17 05:59 05:59 05:59 Intake Total 1750 Output Total 2550 2790 Balance -800 -2790 - Physical Exam Constitutional: no apparent distress Eyes: PERRL Ears, Nose, Mouth, Throat: moist mucous membranes Cardiovascular: regular rate and rhythym Respiratory: no respiratory distress Gastrointestinal: normoactive bowel sounds Genitourinary: no bladder fullness Skin: warm Musculoskeletal: full muscle strength, other ICD10 Worksheet Patient Problems: Problems Problem Status Onset Hyperglycemia Acute Osteomyelitis Acute Acute kidney injury Acute Acute renal failure Acute DKA (diabetic ketoacidoses) Acute Dehydration Acute Hyperkalemia Acute Hyperkalemia Acute Type 1 diabetes Acute
[2017-05-16] MEDS: TAMSULOSIN HCL 0.4 MG CAP PO SCH (09:52)
[2017-05-16] MEDS: oxyCODONE IR 5 MG TAB PO PRN ×3 (09:52→23:01)
[2017-05-16] MEDS ORDERED: D50W 25 GM/50 ML SYR IVP PRN (10:23)
--- NOTE | 2017-05-16 10:53 | PDANEPAE ---
ANE History of Present Illness 31 year old male w/ PMHx of DMI (has insulin pump), anemia, CINDY, polysubstance use (EtoH & Meth reported), presents I&Dof metatarsal for infection. ANE Past Medical History - Cardiovascular History Hx Hypertension: No Hx Arrhythmias: No Hx Chest Pain: No Hx Coronary Artery / Peripheral Vascular Disease: No Hx CHF / Valvular Disease: No Hx Palpitations: No - Pulmonary History Hx COPD: No Hx Asthma/Reactive Airway Disease: No Hx Recent Upper Respiratory Infection: No Hx Oxygen in Use at Home: No Hx Sleep Apnea: No Sleep Apnea Screening Result - Last Documented: Negative - Endocrine History Hx Diabetes: Yes Hypothyroid: No Hyperthyroid: No Obesity: no Endocrine History Comment: Type I diabetes with insulin pump - Renal History Hx Renal Disorders: No - Liver History Hx Hepatic Disorders: No - Neurological & Psychiatric Hx Hx Neurological and Psychiatric Disorders: Yes Neurological / Psychiatric History Comment: Bipolar, PTSD, Anxiety - Cancer History Hx Cancer: No - GI History Hx Gastrointestinal Disorders: No - Chronic Pain History Chronic Pain: Yes (R knee) ANE Review of Systems Review of systems is: negative Review of Systems: - Exercise capacity Exercise capacity: >=4 METS ANE Patient History - Allergies Allergies/Adverse Reactions: No Known Allergies Allergy (Verified 04/22/17 21:59) - Home Medications Home medications: home medication list seen and reviewed Home Medications: Insulin Pump, Patient Own 1 ea MIS AD 04/23/17 [Last Taken Unknown] Doxycycline Hyclate [Vibramycin 100 MG (*)] 100 mg PO BID 05/13/17 [Last Taken 05/13/17 18:00] - NPO status NPO Status: no food or drink >8 hours NPO Since - Liquids (Date): 05/15/17 NPO Since - Liquids (Time): 23:55 NPO Since - Solids (Date): 05/15/17 NPO Since - Solids (Time): 23:55 - Anes Hx Anes Hx: no prior problems - Smoking Hx Smoking Status: Former smoker - Alcohol Use Alcohol Use: Sober (Patient with history of Meth use (last used 12 days ago) and EtoH consumption, last drank EtoH on day of admission.) - Family Anes Hx Family Anes Hx: neg - N/A ANE Labs/Vital Signs - Labs Result Diagrams: 05/16/17 04:15 05/16/17 04:15 - Vital Signs Vital Signs: reviewed preoperatively; see RN documention for details Blood Pressure: 131/84 Heart Rate: 77 Respiratory Rate: 16 O2 Sat (%): 92 Height: 193.04 cm Weight: 83.915 kg ANE Physical Exam - Airway Neck exam: FROM Mallampati Score: Class 3 Mouth exam: poor dentition - Pulmonary Pulmonary: no respiratory distress - Cardiovascular Cardiovascular: regular rate and rhythym - ASA Status ASA Status: III ANE Anesthesia Plan Anesthesia Plan: GA w LMA, MAC Total IV Anesthesia: Yes
[2017-05-16] MEDS ORDERED: PROPOFOL/EMULSION 500 MG/50 ML BOTTLE IV ONE ×2 (11:21→11:22)
[2017-05-16] MEDS ORDERED: fentaNYL 100 MCG/2 ML INJ ONE (11:50)
[2017-05-16] MEDS: MIDAZOLAM 2 MG/2 ML VIAL IVP ONE ×2 (11:59→14:31)
[2017-05-16] MEDS ORDERED: INSULIN LISPRO 100 UNIT/ML SC SCH (12:00)
[2017-05-16] MEDS ORDERED: BACITRACIN 50,000 UNITS/10 ML SYR IRR ONE (12:06)
[2017-05-16] MEDS: BUPIVACAINE 0.25% 30 ML SDV ONE ×2 (12:20→14:29)
[2017-05-16] MEDS ORDERED: LR 500 ML IV PRN (12:39)
[2017-05-16] MEDS ORDERED: NALOXONE HCL 0.4 MG/ML INJ IVP PRN (12:39)
[2017-05-16] MEDS ORDERED: fentaNYL 100 MCG/2 ML INJ IVP PRN (12:39)
[2017-05-16] MEDS ORDERED: ONDANSETRON 4 MG/2 ML VIAL IVP PRN (12:39)
[2017-05-16] MEDS ORDERED: HYDROCODONE/APAP 5/325 TAB PO PRN (12:39)
[2017-05-16] MEDS ORDERED: ONDANSETRON 4 MG/2 ML VIAL ONE (12:53)
--- NOTE | 2017-05-16 13:18 | POSTOPPROG ---
Post Op Note Date of Operation: 05/16/17 Surgeon: Elfego Giron Senior Controls Analyst: raphael Anesthesiologist: Alexandre Anesthesia: IV Sedation (local with MAC) Pre-op Diagnosis: right foot ulcers and cellulitis with osteomyelitis of the third digit Post-op Diagnosis: same Indication: osteomyelitis Procedure: right foot debridement of ulcers and amputation of right third toe Findings: significant osseous erosion of proximal phalanx head right third digit Inf/Abcess present in the surg proc area at time of surgery?: Yes Depth: Superfical (Skin SQ) EBL: Minimal (less than 5cc) Total fluids administered: 20cc .25% marcaine plain preop Drains: Other (none)
[2017-05-16] MEDS: VANCOMYCIN 1.25 GM in D5W 250 ML IV SCH (13:30)
--- NOTE | 2017-05-16 13:54 | POSTANESTH ---
Post Anesthetic Evaluation Cardiovascular Status: Normal, Stable, Similar to Pre-Op Cond Respiratory Status: Normal, Stable, Similar to Pre-op Cond. Level of Consciousness/Mental Status: Can Participate in Eval, Alert and Oriented Pain Control: Adequate, Prn Tx Ordered Nausea/Vomiting Control: Adequate, Prn Tx Ordered Complications Possibly Related to Anesthesia: None Noted
[2017-05-16] MEDS: BACITRACIN 50,000 UNITS/10 ML SYR IRR ONE ×2 (14:29→15:26)
[2017-05-16] MEDS: POLYMYXIN B SULFATE 500,000 UNIT/10 ML SYR IRR ONE ×2 (14:32→15:28)
[2017-05-16] MEDS: ceFAZolin 2 GM/DEXTROSE 100 ML IV SCH (17:48)
--- NOTE | 2017-05-16 18:37 | PCMIDPN ---
Assessment/Plan: Assessment/Plan: * Right lower extremity diabetic foot infection with osteomyelitis of 3rd toe status post amputation and possible osteomyelitis of 2nd toe status post debridement: Initial cultures obtained at time of presentation showed growth of MSSA, group B Streptococcus, and E coli. Will modify vancomycin and Zosyn to cefazolin based on susceptibility profile. Continue to follow operative cultures given he does have prior growth of MRSA in March. Unusual to see both MSSA and MRSA in same etiologic process however. Will review operative findings with Dr. Giron in order to determine overall length of antibiotic therapy. 05/16/17 18:34 Subjective: Patient status post amputation of 3rd toe and debridement of ulcerations over right foot. Objective: Vital Signs Temp Pulse Resp BP Pulse Ox 36.4 C 82 16 139/84 H 95 05/16/17 17:15 05/16/17 17:15 05/16/17 17:15 05/16/17 17:15 05/16/17 17:15 Microbiology 05/16/17 12:41 Gram Stain - Final Toe - Tissue 05/16/17 12:41 Gram Stain - Final Toe - Eswab 05/14/17 10:00 Gram Stain - Final Toe - Swab Laboratory Results 05/16/17 04:15 05/16/17 04:15 05/15/17 05/16/17 05/17/17 05:59 05:59 05:59 Intake Total 1750 950 Output Total 2550 2790 1350 Balance -800 -2790 -400 ESR 38 MM/HR (0-15) H 05/13/17 Unknown C-Reactive Protein 49.8 mg/L (<10.0) H 05/13/17 21:40 Vancomycin # 3 Zosyn # 3 Operative cultures pending Cultures from time of hospital admission showing growth of MSSA, group B Streptococcus, and E coli Blood cultures x4 sets no growth - Physical Exam General Appearance: alert, no apparent distress EENT: No scleral icterus, No conjunctival petechiae Extremities: inflammation (Right foot dressed postoperatively; no cellulitis beyond dressing margins present) Abdomen: non-tender, No distended ICD10 Worksheet Patient Problems: Problems Problem Status Onset Hyperglycemia Acute Osteomyelitis Acute Acute kidney injury Acute Acute renal failure Acute DKA (diabetic ketoacidoses) Acute Dehydration Acute Hyperkalemia Acute Hyperkalemia Acute Type 1 diabetes Acute
--- NOTE | 2017-05-16 19:53 | GOP ---
[f rep st] OPERATIVE REPORT DATE OF OPERATION: 05/16/2017 SURGEON: Elfego Giron DPM WESTERN PHILOSOPHY PROFESSOR: None. ANESTHESIA: Local with MAC. ANESTHESIOLOGIST: Dr. Schroeder. PREOPERATIVE DIAGNOSIS: 1. Cellulitis, right leg. 2. Osteomyelitis, right foot. 3. Diabetic ulcerations, right 2nd, 3rd and 4th toes. POSTOPERATIVE DIAGNOSIS: 1. Cellulitis, right leg. 2. Osteomyelitis, right foot. 3. Diabetic ulcerations, right 2nd, 3rd and 4th toes. PROCEDURE PERFORMED: 1. Amputation, right 3rd digit. 2. Full-thickness debridement of ulcerations, right 2nd and 4th digits. FINDINGS: ESTIMATED BLOOD LOSS: Minimal. DESCRIPTION OF PROCEDURE: The patient presented to [facility], was cleared for the int ended procedure. Patient was taken to the operating room, placed on the table in supine position. I V sedation was started per the anesthesia department. Foot was anesthetized in an infiltrative nerve block fashion. Foot was prepped, scrubbed and draped in usual sterile fashion. Following exsanguin ation by elevation Esmarch bandage, pneumatic ankle tourniquet was inflated to 225 mmHg. At this time, attention was directed to the digits of the right foot. The 2nd, 3rd and 4th digits we re all noted to have ulcerations. Inspection of these areas was performed before full-thickness debr idement utilizing a 15-blade was performed. Upon completion of this, the ulcerations of the 2nd toe on both the medial and lateral aspect as well as the medial aspect of the 4th digit were noted to be full thickness but not probing to bone. There was no evidence of any purulent drainage coming from t hese sites. It was decided that no further debridement would be necessary on those toes. Further ev aluation though of the 3rd digit showed that the ulceration on the lateral aspect of the proximal int erphalangeal joint probed directly to bone. The bone was noted to be soft and mushy. At this time, it was decided that amputation of the digit would be performed, given the purulent drainage that was also coming from the site. At this point, 2 converging semi-elliptical incisions were made over the base of the 3rd digit, runni ng from dorsal to plantar. These incisions were carried deep utilizing sharp and blunt dissection, m aking sure that all neurovascular structures were identified and retracted. At this time, all superf icial bleeders were cauterized. Dissection was carried down to the level of the extensor and flexor tendons, which were then distracted before being transected. The toe was then disarticulated by rele asing the capsule at the metatarsophalangeal joint. Upon completion of the disarticulation, the toe was then taken to the back table where dissection was carried down to the level of the head of the pr oximal phalanx. At this time, visualization showed considerable erosion of the head of the proximal phalanx. This was sectioned and sent in for culture and sensitivity, and pathological evaluation. At this point, the area was cleaned substantially under pulse lavage fashion with 3 L of antibiotic r inse. Upon completion of this, the pneumatic ankle tourniquet was released. Any remaining devitaliz ed tissue was dissected free and removed. Deep closure over the head of the metatarsal was performed with 3-0 Vicryl followed by subcutaneous closure with 5-0 Vicryl and skin closure with 5-0 nylon. T he areas were all dressed with Betadine-soaked Adaptics, 4 x 4's, Britt, and Coban. The patient was then taken to recovery room with vital signs stable, vascular supply intact to the remaining digits. PATHOLOGY: Bone specimen sent for culture and sensitivity, and pathological evaluation. HEMOSTASIS: PAT at 225 mmHg by 38 minutes. MATERIALS: None. INJECTABLES: Injection of 20 cc 0.25% Marcaine plain preoperatively. COMPLICATIONS: None. /[id number]/MODL
[2017-05-16] MEDS ORDERED: DOXYCYCLINE HYCLATE 100 MG CAP/TAB PO SCH (21:00)
[2017-05-16] MEDS: LORazepam 0.5 MG TAB PO PRN (23:43)
[2017-05-17] MEDS: ceFAZolin 2 GM/DEXTROSE 100 ML IV SCH ×3 (01:03→16:51)
[2017-05-17 04:59] LABS: HEMATOCRIT 29.7 % (40.0-51.0); HEMOGLOBIN 9.6 g/dL (13.7-17.5); MEAN CELL HEMOGLOBIN 28.9 pg (27.9-34.1); MEAN CELL HEMOGLOBIN CONCENTR. 32.3 g/dL (32.4-36.7); MEAN CELL VOLUME 89.5 fL (81.5-99.8); RED BLOOD CELL COUNT 3.32 10^6/uL (4.40-6.38); RED CELL DISTRIBUTION WIDTH 13.2 % (11.5-15.2)
[2017-05-17 05:10] LABS: ANION GAP 9 mEq/L (8-16); CARBON DIOXIDE 27 mEq/l (22-31); CHLORIDE 101 mEq/L (97-110); CREATININE 1.3 mg/dL (0.7-1.3); GLOMERULAR FILTRATION RATE > 60; GLUCOSE 251 mg/dL (70-100); POTASSIUM 4.7 mEq/L (3.5-5.2); SODIUM 137 mEq/L (134-144)
[2017-05-17] MEDS: oxyCODONE IR 5 MG TAB PO PRN ×2 (07:43→16:00)
--- NOTE | 2017-05-17 08:36 | HOSPPROG ---
Hospitalist Progress Note Assessment/Plan: #Osteomyelitis 2nd/3rd toe: 3rd toe amputation, debridement of 2nd. Strep/E Coli on culture. ID changed to CTX. Not ideal candidate for IV outpatient with h /o drug use. May be able to switch to Levaquin pending cultures #Type 1 DM with hyperglycemia: snacking more. Addition SSI was ordered here on top of his boluses, but he declined. I educated that poor control will impede wound-healing and he understands the risks. #Polysubstance abuse: meth and Etoh. Has been in treatment in past. Counseled him on cessation #Anxiety/panic attacks: followed at [facility]. Was provided list of psychiatrists here #Leukocytosis: resolved #h/o ADHD: previously on Adderall #Diet: diabetic #Disp: warrants inpt admission for IV abx, pain control Subjective: glucose >250. Snacking on chips, etc Objective: Vital Signs Temp Pulse Resp BP Pulse Ox 36.8 C 86 16 123/77 H 92 05/17/17 07:18 05/17/17 07:18 05/17/17 07:18 05/17/17 07:18 05/17/17 07:18 Microbiology 05/14/17 10:00 Gram Stain - Final Toe - Swab Wound Culture - Final Escherichia Coli Staphylococcus Aureus Strep Agalactiae Group B 05/16/17 12:41 Gram Stain - Final Toe - Tissue 05/16/17 12:41 Gram Stain - Final Toe - Eswab Laboratory Results 05/17/17 04:18 05/17/17 04:18 05/16/17 05/17/17 05/18/17 05:59 05:59 05:59 Intake Total 950 375 Output Total 7140 1750 Balance -2790 -800 375 - Physical Exam Constitutional: no apparent distress Eyes: PERRL Ears, Nose, Mouth, Throat: moist mucous membranes Cardiovascular: regular rate and rhythym, no murmur, rub, or gallop Respiratory: no respiratory distress, no rales or rhonchi Gastrointestinal: normoactive bowel sounds, soft, non-tender abdomen Genitourinary: no bladder fullness Skin: warm Musculoskeletal: other (left 3rd toe dressed, CDI) Neurologic: AAOx3, CN II-XII Intact Psychiatric: anxious, other (pressured-speech) ICD10 Worksheet Patient Problems: Problems Problem Status Onset Hyperglycemia Acute Osteomyelitis Acute Acute kidney injury Acute Acute renal failure Acute DKA (diabetic ketoacidoses) Acute Dehydration Acute Hyperkalemia Acute Hyperkalemia Acute Type 1 diabetes Acute
[2017-05-17] MEDS: TAMSULOSIN HCL 0.4 MG CAP PO SCH (09:24)
--- NOTE | 2017-05-17 13:53 | PCMIDPN ---
Assessment/Plan: Assessment: Right foot 2nd and 4th digit infected skin ulcer with 3rd digit deep infection including significant amounts of osteomyelitis requiring amputation. Plan to continue both vancomycin and Zosyn empirically. Agree with podiatric surgery evaluation and possible debridement or amputation. Antibiotic coverage changed to cefazolin yesterday. Staph aureus isolated is methicillin sensitive. Plan: 1. Continue cefazolin. 2. Follow pain control and surgical wound healing. 05/17/17 14:15 Subjective: Patient is resting in his hospital bed. He notes that his foot is starting to throb a little bit. Denies fevers or chills. Denies rash. Objective: Cefazolin # 1 Vital Signs Temp Pulse Resp BP Pulse Ox 36.7 C 82 20 147/91 H 93 05/17/17 11:54 05/17/17 11:54 05/17/17 11:54 05/17/17 11:54 05/17/17 11:54 Microbiology 05/16/17 12:41 Mycobacterial Smear (PERCY) - Final Toe - Tissue 05/16/17 12:41 Gram Stain - Final Toe - Tissue 05/16/17 12:41 Gram Stain - Final Toe - Eswab 05/14/17 10:00 Gram Stain - Final Toe - Swab Wound Culture - Final Escherichia Coli Staphylococcus Aureus Strep Agalactiae Group B Laboratory Results 05/17/17 04:18 05/17/17 04:18 05/16/17 05/17/17 05/18/17 05:59 05:59 05:59 Intake Total 950 375 Output Total 2790 1750 Balance -2790 -800 375 ESR 38 MM/HR (0-15) H 05/13/17 Unknown C-Reactive Protein 49.8 mg/L (<10.0) H 05/13/17 21:40 - Physical Exam General Appearance: WD/WN, alert, non-toxic Respiratory: lungs clear, normal breath sounds, No respiratory distress Cardiac/Chest: regular rate, rhythm, No tachycardia Extremities: other (Postoperative wound right 3rd MTP area. No strike through. No proximal erythema.), No non-tender, No normal inspection, No inflammation, No necrosis, No erythema ICD10 Worksheet Patient Problems: Problems Problem Status Onset Hyperglycemia Acute Osteomyelitis Acute Acute kidney injury Acute Acute renal failure Acute DKA (diabetic ketoacidoses) Acute Dehydration Acute Hyperkalemia Acute Hyperkalemia Acute Type 1 diabetes Acute
--- NOTE | 2017-05-17 14:56 | ASMTCMCOM ---
CM Note CM Note Notes: Stanislavr went to check in with Pt. today. Pt. is pleased with list of psychiatrists given to him by my CM colleague. Pt. acknowledged working with [facility] in the past, but not very interested in follow-up there. Abhilash informed him that he could also access psychiatrists there. PCP is Dr. Yuan at [facility]. Pt. pleasant, but seemed a bit overwhelmed today. Pt. has not been sleeping well due to hospital-staff interruptions. informed him he has to watch his junk food intake due to his Type 1 diabetes. If sugars not under control, impacts healing of foot. Pt. may get toe amputation. Pt. would like to d/c independently to his mother, Meme's home. Pt states it is OK for us to speak with his mother, but he doesn't like it when his mother pulls MDs away to speak to them without him being present. Stanislavr told Pt. we would ask for his consent when mother wanted information about him from CM staff. CM to follow for d/c POC. Date Signed: 05/17/2017 02:55 PM Electronically Signed By:Wendy Bui LCSW
[2017-05-18] MEDS: DOCUSATE SODIUM 100 MG CAP PO SCH ×3 (00:59→23:49)
[2017-05-18] MEDS: oxyCODONE IR 5 MG TAB PO PRN ×3 (00:59→23:49)
[2017-05-18] MEDS: ceFAZolin 2 GM/DEXTROSE 100 ML IV SCH ×3 (01:01→16:30)
[2017-05-18 06:06] LABS: ANION GAP 10 mEq/L (8-16); CALCIUM 8.8 mg/dL (8.5-10.4); CARBON DIOXIDE 28 mEq/l (22-31); CHLORIDE 101 mEq/L (97-110); CREATININE 1.2 mg/dL (0.7-1.3); GLOMERULAR FILTRATION RATE > 60; GLUCOSE 205 mg/dL (70-100); POTASSIUM 5.4 mEq/L (3.5-5.2); SODIUM 139 mEq/L (134-144)
--- NOTE | 2017-05-18 08:24 | HOSPPROG ---
Hospitalist Progress Note Assessment/Plan: #Osteomyelitis 2nd/3rd toe: 3rd toe amputation, debridement of 2nd. MSSA/E Coli on culture. ID changed to CTX. Not ideal candidate for IV outpatient with h/o drug use. -if path positive for marginal osteo, then will need IV abx. If not, can likely change to PO. #Hyperkalemia: K 5.4 today. Repeat at noon #Type 1 DM with hyperglycemia: sugars still uncontrolled. Advised him to decrease snacking or allow me to add SSI, but he declined. I educated that poor control will impede wound-healing and he understands the risks. #Polysubstance abuse: meth and Etoh. Has been in treatment in past. Counseled him on cessation #Anxiety/panic attacks: followed at [facility]. Was provided list of psychiatrists here #Leukocytosis: resolved #h/o ADHD: previously on Adderall #Diet: diabetic #Disp: warrants inpt admission for IV abx, pain control Subjective: pain controlled. Objective: Vital Signs Temp Pulse Resp BP Pulse Ox 36.9 C 77 18 116/59 L 91 L 05/18/17 04:00 05/18/17 04:00 05/18/17 04:00 05/18/17 04:00 05/18/17 04:00 Microbiology 05/16/17 12:41 Mycobacterial Smear (PERCY) - Final Toe - Tissue 05/16/17 12:41 Gram Stain - Final Toe - Tissue 05/16/17 12:41 Gram Stain - Final Toe - Eswab 05/14/17 10:00 Gram Stain - Final Toe - Swab Wound Culture - Final Escherichia Coli Staphylococcus Aureus Strep Agalactiae Group B Laboratory Results 05/17/17 04:18 05/18/17 04:23 05/17/17 05/18/17 05/19/17 05:59 05:59 05:59 Intake Total 950 875 Output Total 1750 400 Balance -800 475 - Physical Exam Constitutional: no apparent distress Eyes: PERRL Ears, Nose, Mouth, Throat: moist mucous membranes Cardiovascular: regular rate and rhythym Respiratory: no respiratory distress Gastrointestinal: normoactive bowel sounds Genitourinary: no bladder fullness Skin: warm Musculoskeletal: other (left 3rd toe amputatiion site dressed CDI. Mild swelling ankle and foot. ) Psychiatric: interacting appropriately, anxious, agitated ICD10 Worksheet Patient Problems: Problems Problem Status Onset Hyperglycemia Acute Osteomyelitis Acute Acute kidney injury Acute Acute renal failure Acute DKA (diabetic ketoacidoses) Acute Dehydration Acute Hyperkalemia Acute Hyperkalemia Acute Type 1 diabetes Acute
[2017-05-18] MEDS: TAMSULOSIN HCL 0.4 MG CAP PO SCH (09:40)
[2017-05-18 12:21] LABS: ANION GAP 10 mEq/L (8-16); CALCIUM 9.3 mg/dL (8.5-10.4); CARBON DIOXIDE 27 mEq/l (22-31); CHLORIDE 102 mEq/L (97-110); CREATININE 1.1 mg/dL (0.7-1.3); GLOMERULAR FILTRATION RATE > 60; GLUCOSE 74 mg/dL (70-100); POTASSIUM 4.4 mEq/L (3.5-5.2); SODIUM 139 mEq/L (134-144)
--- NOTE | 2017-05-18 15:44 | SOAPPROG ---
SOAP Progress Note Assessment/Plan: Assessment:s/p right third toe amputation Plan:Evaluation of the site was performed. The dressing was removed before the area was cleaned with sterile saline. A new sterile dressing was applied. Will continue to keep clean and dry. Limited weightbearing. Ok to discharge from podiatry standpoint. Will followup in office in 1 week if discharged. 05/15/17 15:14 05/18/17 15:39 Subjective: Patient relates no pain and is feeling much better. He is bored and wants to go home. Objective: Vital Signs Temp Pulse Resp BP Pulse Ox 36.2 C 92 16 127/85 H 95 05/18/17 15:04 05/18/17 15:04 05/18/17 15:04 05/18/17 15:04 05/18/17 15:04 Microbiology 05/16/17 12:41 Gram Stain - Final Toe - Eswab 05/16/17 12:41 Gram Stain - Final Toe - Tissue 05/16/17 12:41 Mycobacterial Smear ([facility]) - Final Toe - Tissue Laboratory Results 05/17/17 04:18 05/18/17 11:55 05/17/17 05/18/17 05/19/17 05:59 05:59 05:59 Intake Total 950 875 Output Total 1750 400 Balance -800 475 The dressing is clean and dry. No fresh bleeding after removal of the dressing. Incision is well coapted. Foot is not erythematous or warm to touch. Soft tissue swelling has reduced. No drainage from the incision is noted. Other ulcers are well healing. ICD10 Worksheet Patient Problems: Problems Problem Status Onset Hyperglycemia Acute Osteomyelitis Acute Acute kidney injury Acute Acute renal failure Acute DKA (diabetic ketoacidoses) Acute Dehydration Acute Hyperkalemia Acute Hyperkalemia Acute Type 1 diabetes Acute
[2017-05-19] MEDS ORDERED: INSULIN LISPRO 100 UNIT/ML SC SCH
[2017-05-19] MEDS: ceFAZolin 2 GM/DEXTROSE 100 ML IV SCH ×3 (01:34→16:43)
[2017-05-19 05:10] LABS: ANION GAP 9 mEq/L (8-16); CALCIUM 9.6 mg/dL (8.5-10.4); CARBON DIOXIDE 27 mEq/l (22-31); CHLORIDE 101 mEq/L (97-110); CREATININE 1.2 mg/dL (0.7-1.3); GLOMERULAR FILTRATION RATE > 60; GLUCOSE 183 mg/dL (70-100); POTASSIUM 5.3 mEq/L (3.5-5.2); SODIUM 137 mEq/L (134-144)
--- NOTE | 2017-05-19 08:15 | HOSPPROG ---
Hospitalist Progress Note Assessment/Plan: #Osteomyelitis 2nd/3rd toe: 3rd toe amputation, debridement of 2nd. MSSA/E Coli on culture. ID changed to CTX. Not ideal candidate for IV outpatient with h/o drug use. -if path positive for marginal osteo, then will need IV abx. If not, can likely change to PO. -FU with Podiatry in 1 week #Hyperkalemia: K 5.3 #Type 1 DM with hyperglycemia: labile sugars. Snacking. Counseled him on diet, poor control will impede wound-healing and he understands the risks. #Polysubstance abuse: meth and Etoh. Has been in treatment in past. Counseled him on cessation #Anxiety/panic attacks: followed at [facility]. Was provided list of psychiatrists here #Leukocytosis: resolved #h/o ADHD: previously on Adderall #Diet: diabetic #Disp: warrants inpt admission for IV abx, pain control Subjective: labile sugars. Low 67 last night with symptoms. High again today. Pain controlled in toe Objective: Vital Signs Temp Pulse Resp BP Pulse Ox 36.7 C 67 18 152/86 H 95 05/19/17 04:00 05/19/17 04:00 05/19/17 04:00 05/19/17 04:00 05/19/17 04:00 Microbiology 05/16/17 12:41 Gram Stain - Final Toe - Eswab 05/16/17 12:41 Gram Stain - Final Toe - Tissue Laboratory Results 05/17/17 04:18 05/19/17 04:15 05/18/17 05/19/17 05/20/17 05:59 05:59 05:59 Intake Total 875 Output Total 400 Balance 475 - Physical Exam Constitutional: no apparent distress Eyes: PERRL Ears, Nose, Mouth, Throat: moist mucous membranes, hearing normal Cardiovascular: regular rate and rhythym, no murmur, rub, or gallop Respiratory: no respiratory distress, no rales or rhonchi Gastrointestinal: normoactive bowel sounds, soft, non-tender abdomen Genitourinary: no bladder fullness Skin: warm Musculoskeletal: other (left 3rd toe amputation site dress, mild swelling, CDI) Neurologic: AAOx3, CN II-XII Intact Psychiatric: interacting appropriately ICD10 Worksheet Patient Problems: Problems Problem Status Onset Hyperglycemia Acute Osteomyelitis Acute Acute kidney injury Acute Acute renal failure Acute DKA (diabetic ketoacidoses) Acute Dehydration Acute Hyperkalemia Acute Hyperkalemia Acute Type 1 diabetes Acute
[2017-05-19] MEDS: DOCUSATE SODIUM 100 MG CAP PO SCH ×2 (09:22→21:20)
[2017-05-19] MEDS: TAMSULOSIN HCL 0.4 MG CAP PO SCH (09:22)
[2017-05-19 15:21] LABS: HEMATOCRIT 33.8 % (40.0-51.0); HEMOGLOBIN 11.1 g/dL (13.7-17.5); MEAN CELL HEMOGLOBIN 28.8 pg (27.9-34.1); MEAN CELL HEMOGLOBIN CONCENTR. 32.8 g/dL (32.4-36.7); MEAN CELL VOLUME 87.8 fL (81.5-99.8); RED BLOOD CELL COUNT 3.85 10^6/uL (4.40-6.38); RED CELL DISTRIBUTION WIDTH 13.2 % (11.5-15.2)
[2017-05-19] MEDS: oxyCODONE IR 5 MG TAB PO PRN ×2 (16:46→21:18)
[2017-05-19] MEDS: LORazepam 0.5 MG TAB PO PRN (21:18)
[2017-05-20] MEDS: ceFAZolin 2 GM/DEXTROSE 100 ML IV SCH ×3 (00:53→16:29)
[2017-05-20] MEDS: oxyCODONE IR 5 MG TAB PO PRN ×3 (00:54→20:30)
[2017-05-20 05:19] LABS: HEMATOCRIT 34.7 % (40.0-51.0); HEMOGLOBIN 11.2 g/dL (13.7-17.5); MEAN CELL HEMOGLOBIN 28.4 pg (27.9-34.1); MEAN CELL HEMOGLOBIN CONCENTR. 32.3 g/dL (32.4-36.7); MEAN CELL VOLUME 87.8 fL (81.5-99.8); RED BLOOD CELL COUNT 3.95 10^6/uL (4.40-6.38); RED CELL DISTRIBUTION WIDTH 13.2 % (11.5-15.2)
[2017-05-20 05:21] LABS: ANION GAP 11 mEq/L (8-16); CALCIUM 9.6 mg/dL (8.5-10.4); CARBON DIOXIDE 23 mEq/l (22-31); CHLORIDE 105 mEq/L (97-110); CREATININE 1.1 mg/dL (0.7-1.3); GLOMERULAR FILTRATION RATE > 60; GLUCOSE 104 mg/dL (70-100); SODIUM 139 mEq/L (134-144)
[2017-05-20] MEDS: TAMSULOSIN HCL 0.4 MG CAP PO SCH (08:32)
[2017-05-20] MEDS: DOCUSATE SODIUM 100 MG CAP PO SCH ×2 (08:32→21:21)
--- NOTE | 2017-05-20 11:46 | HOSPPROG ---
Hospitalist Progress Note Assessment/Plan: #Osteomyelitis 2nd/3rd toe: 3rd toe amputation, debridement of 2nd 05/16/17. MSSA/E Coli on culture. -IV CTX. Not ideal candidate for IV outpatient with h/o drug use. -if path positive for marginal osteo, then will need IV abx. -FU with Podiatry #Hyperkalemia: now 5. Repeat in morning #Type 1 DM with hyperglycemia: labile sugars. Low sugar yesterday, improved today. Snacking a lot. Counseled him on diet, poor control will impede wound- healing and he understands the risks. #Polysubstance abuse: meth and Etoh. Has been in treatment in past. Counseled him on cessation #Anxiety/panic attacks: followed at [facility]. Was provided list of psychiatrists here ; he needs to make appt #Leukocytosis: resolved #h/o ADHD: previously on Adderall #Diet: diabetic #Disp: warrants inpt admission for IV abx, pain control Subjective: "wants to go home". Min pain in right foot Objective: Vital Signs Temp Pulse Resp BP Pulse Ox 36.4 C 81 16 137/90 H 95 05/20/17 08:00 05/20/17 08:00 05/20/17 08:00 05/20/17 08:00 05/20/17 08:00 Microbiology 05/14/17 21:20 Blood Culture - Final Blood 05/14/17 21:25 Blood Culture - Final Blood 05/16/17 12:41 Gram Stain - Final Toe - Eswab 05/16/17 12:41 Gram Stain - Final Toe - Tissue Laboratory Results 05/20/17 04:54 05/20/17 04:54 - Physical Exam Constitutional: no apparent distress Eyes: PERRL Ears, Nose, Mouth, Throat: moist mucous membranes Cardiovascular: regular rate and rhythym Respiratory: no respiratory distress Gastrointestinal: normoactive bowel sounds Genitourinary: no bladder fullness Skin: warm, other (right 3rd toe amputation site, dressed, CDI) Neurologic: AAOx3, CN II-XII Intact Psychiatric: anxious, flat affect ICD10 Worksheet Patient Problems: Problems Problem Status Onset Hyperglycemia Acute Osteomyelitis Acute Acute kidney injury Acute Acute renal failure Acute DKA (diabetic ketoacidoses) Acute Dehydration Acute Hyperkalemia Acute Hyperkalemia Acute Type 1 diabetes Acute
[2017-05-20] MEDS: LORazepam 0.5 MG TAB PO PRN (21:21)
[2017-05-21] MEDS: ceFAZolin 2 GM/DEXTROSE 100 ML IV SCH ×3 (00:36→17:15)
[2017-05-21] MEDS: oxyCODONE IR 5 MG TAB PO PRN ×3 (00:36→13:31)
[2017-05-21 04:59] LABS: ANION GAP 11 mEq/L (8-16); CALCIUM 9.8 mg/dL (8.5-10.4); CARBON DIOXIDE 24 mEq/l (22-31); CHLORIDE 104 mEq/L (97-110); CREATININE 1.2 mg/dL (0.7-1.3); GLOMERULAR FILTRATION RATE > 60; GLUCOSE 128 mg/dL (70-100); POTASSIUM 5.1 mEq/L (3.5-5.2); SODIUM 139 mEq/L (134-144)
[2017-05-21] MEDS: TAMSULOSIN HCL 0.4 MG CAP PO SCH ×2 (08:39→08:40)
[2017-05-21] MEDS: DOCUSATE SODIUM 100 MG CAP PO SCH ×2 (08:40→21:39)
--- NOTE | 2017-05-21 09:54 | PCMIDPN ---
Assessment/Plan: Assessment/Plan: 1. [id number] osteomyelitis (s/p amputation), 2nd toe osteo (s/p debridement) : - Noncompliant with wound care, antibiotics in the OP -CX with MSSA, GBS, E. coli OP culture done by Dr. Giron of [facility] wounds which grew out MRSA in March - on Ancef -blood cx ngtd - Path pending. This will help determine if needs extended IV antibiotics vs oral - care coordinated with hospitalist team and Rn. -plan of care reviewed in detail with patient 2. DM - poor compliance 3. Recent IVDU Meds Ancef 2g q8- 05/16/17 s/p vanco 1.25gm q12- zosyn 4.5gm q6- Subjective: afebrile. feels bored. wants to go home. denies sob, abd pain or diarrhea. Objective: Vital Signs Temp Pulse Resp BP Pulse Ox 36.5 C 78 12 116/72 95 05/21/17 08:00 05/21/17 08:00 05/21/17 08:00 05/21/17 08:00 05/21/17 08:00 Microbiology 05/16/17 12:41 Gram Stain - Final Toe - Tissue 05/16/17 12:41 Gram Stain - Final Toe - Eswab 05/14/17 21:20 Blood Culture - Final Blood 05/14/17 21:25 Blood Culture - Final Blood Laboratory Results 05/20/17 04:54 05/21/17 04:16 05/20/17 05/21/17 05/22/17 05:59 05:59 05:59 Intake Total 1250 Balance 1250 ESR 38 MM/HR (0-15) H 05/13/17 Unknown C-Reactive Protein 49.8 mg/L (<10.0) H 05/13/17 21:40 - Physical Exam General Appearance: alert, no apparent distress Respiratory: lungs clear Cardiac/Chest: regular rate, rhythm Extremities: other (right foot dressing in place. RN stated dressing is only changed by Dr. Giron. ) Abdomen: normal bowel sounds, non-tender, soft, No distended ICD10 Worksheet Patient Problems: Problems Problem Status Onset Hyperglycemia Acute Osteomyelitis Acute Acute kidney injury Acute Acute renal failure Acute DKA (diabetic ketoacidoses) Acute Dehydration Acute Hyperkalemia Acute Hyperkalemia Acute Type 1 diabetes Acute
--- NOTE | 2017-05-21 09:58 | HOSPPROG ---
Hospitalist Progress Note Assessment/Plan: 31 yo M w osteomyelitis Osteomyelitis 2nd/3rd toe: 3rd toe amputation, debridement of 2nd 05/16/17. MSSA /E Coli on culture. IV Cefazolin. Not ideal candidate for IV outpatient with h/o drug use. if path positive for marginal osteo, then will need IV abx. FU with Podiatry Hyperkalemia: now 5. Repeat in morning stable Type 1 DM with hyperglycemia: labile sugars. Low sugar yesterday, improved today. Snacking a lot. Counseled him on diet, poor control will impede wound- healing and he understands the risks. Polysubstance abuse: meth and Etoh. Has been in treatment in past. Counseled him on cessation Anxiety/panic attacks: followed at [facility]. Was provided list of psychiatrists here ; he needs to make appt Leukocytosis: resolved h/o ADHD: previously on Adderall Diet: diabetic proph: scd's Subjective: case d/w Dr Hidalgo. await path Objective: Vital Signs Temp Pulse Resp BP Pulse Ox 36.5 C 78 12 116/72 95 05/21/17 08:00 05/21/17 08:00 05/21/17 08:00 05/21/17 08:00 05/21/17 08:00 Microbiology 05/16/17 12:41 Gram Stain - Final Toe - Tissue 05/16/17 12:41 Gram Stain - Final Toe - Eswab 05/14/17 21:20 Blood Culture - Final Blood 05/14/17 21:25 Blood Culture - Final Blood Laboratory Results 05/20/17 04:54 05/21/17 04:16 05/20/17 05/21/17 05/22/17 05:59 05:59 05:59 Intake Total 1250 Balance 1250 - Physical Exam Constitutional: no apparent distress, appears nourished Eyes: PERRL, anicteric sclera Ears, Nose, Mouth, Throat: moist mucous membranes, hearing normal Cardiovascular: regular rate and rhythym, no murmur, rub, or gallop Respiratory: no respiratory distress, no rales or rhonchi Gastrointestinal: normoactive bowel sounds, soft, non-tender abdomen Genitourinary: no bladder fullness, No yang in urethra Skin: warm, normal color Musculoskeletal: full muscle strength, no muscle tenderness Neurologic: AAOx3 ICD10 Worksheet Patient Problems: Problems Problem Status Onset Hyperglycemia Acute Osteomyelitis Acute Acute kidney injury Acute Acute renal failure Acute DKA (diabetic ketoacidoses) Acute Dehydration Acute Hyperkalemia Acute Hyperkalemia Acute Type 1 diabetes Acute
[2017-05-22] MEDS: ceFAZolin 2 GM/DEXTROSE 100 ML IV SCH ×3 (00:32→17:31)
[2017-05-22] MEDS: oxyCODONE IR 5 MG TAB PO PRN ×4 (00:34→21:46)
[2017-05-22] MEDS: LORazepam 0.5 MG TAB PO PRN ×2 (00:34→21:47)
[2017-05-22] MEDS: DOCUSATE SODIUM 100 MG CAP PO SCH ×3 (00:42→21:46)
[2017-05-22] MEDS: TAMSULOSIN HCL 0.4 MG CAP PO SCH (09:11)
--- NOTE | 2017-05-22 11:38 | ASMTCMCOM ---
CM Note CM Note Notes: Waiting for pathology on toe, if pathology positive for marginal osteo, will need IV abx, FRANCES w/f Date Signed: 05/22/2017 11:37 AM Electronically Signed By:Keshia Washburn RN
--- NOTE | 2017-05-22 13:58 | PCMIDPN ---
Assessment/Plan: Polymicrobial Right 3rd toe OM/diabetic foot ulcer s/p amputation, incision without sign of infection. Path corroborates complete revision of infection associated with 3rd toe. Also concern about 2nd toe with radiologic appearance of OM on MRI. Interestingly, prior w/u (04/04/17)-bone biopsy and culture was negative for osteo changes and no growth. --re-group tomorrow to determine if need to treat 2nd toe. 1 month ago w/u negative, but certainly infection could have progressed. --continue cefazolin --consider daily placement of PIV in infusion center for Rx ceftriaxone if determine that needs IV. Uncomfortable with PICC in light of IVDU. Abx #9 cefazolin 2gm IV q8h Microbiology 05/16/17 12:41 Toe - Tissue Anaerobic Culture - Preliminary Strep Agalactiae Group B Escherichia Coli Staphylococcus Aureus Subjective: Patient feeling anxious and wants to be discharged from the hospital. Objective: Vital Signs Temp Pulse Resp BP Pulse Ox 36.6 C 85 12 117/67 96 05/22/17 08:00 05/22/17 08:00 05/22/17 08:00 05/22/17 08:00 05/22/17 08:00 Microbiology 05/16/17 12:41 Gram Stain - Final Toe - Tissue 05/16/17 12:41 Gram Stain - Final Toe - Eswab 05/16/17 12:41 Mycobacterial Smear ([facility]) - Final Toe - Tissue Laboratory Results 05/20/17 04:54 05/21/17 04:16 05/21/17 05/22/17 05/23/17 05:59 05:59 05:59 Intake Total 1250 580 Balance 1250 580 ESR 38 MM/HR (0-15) H 05/13/17 Unknown C-Reactive Protein 49.8 mg/L (<10.0) H 05/13/17 21:40 - Physical Exam General Appearance: alert, no apparent distress Respiratory: No accessory muscle use Extremities: other (amputation 3rd R toe without residual erythema or purulence ; 2nd toe with swelling, mild dark discoloration), No pedal edema, No calf tenderness Peripheral Pulses: 2+: dorsalis-pedis (R), dorsalis-pedis (L) Skin: other (extensive tatoos) Neuro/Psych: alert, normal mood/affect, oriented x 3 - Time Spent With Patient Time Spent with Patient: greater than 35 minutes (coordination of care with path and podiatry) Time Spent with Patient: Greater than 35 minutes spent on this patients care, greater than 50% of time spent counseling, educating, and coordinating care regarding the above mentioned plan. ICD10 Worksheet Patient Problems: Problems Problem Status Onset Hyperglycemia Acute Osteomyelitis Acute Acute kidney injury Acute Acute renal failure Acute DKA (diabetic ketoacidoses) Acute Dehydration Acute Hyperkalemia Acute Hyperkalemia Acute Type 1 diabetes Acute
--- NOTE | 2017-05-22 15:53 | HOSPPROG ---
Hospitalist Progress Note Assessment/Plan: 31 yo M w osteomyelitis Osteomyelitis 2nd/3rd toe: 3rd toe amputation, debridement of 2nd 05/16/17. MSSA /E Coli on culture. IV Cefazolin. Not ideal candidate for IV outpatient with h/o drug use. if path positive for marginal osteo, then will need IV abx. FU with Podiatry awaiting path Hyperkalemia: now 5. Repeat in morning stable Type 1 DM with hyperglycemia: labile sugars. Low sugar yesterday, improved today. Snacking a lot. Counseled him on diet, poor control will impede wound- healing and he understands the risks. Polysubstance abuse: meth and Etoh. Has been in treatment in past. Counseled him on cessation Anxiety/panic attacks: followed at [facility]. Was provided list of psychiatrists here ; he needs to make appt Leukocytosis: resolved h/o ADHD: previously on Adderall Diet: diabetic proph: scd's Subjective: case d/w dr flores Objective: Vital Signs Temp Pulse Resp BP Pulse Ox 36.6 C 85 12 117/67 96 05/22/17 08:00 05/22/17 08:00 05/22/17 08:00 05/22/17 08:00 05/22/17 08:00 Microbiology 05/16/17 12:41 Gram Stain - Final Toe - Tissue 05/16/17 12:41 Gram Stain - Final Toe - Eswab 05/16/17 12:41 Mycobacterial Smear ([facility]) - Final Toe - Tissue Laboratory Results 05/20/17 04:54 05/21/17 04:16 05/21/17 05/22/17 05/23/17 05:59 05:59 05:59 Intake Total 1250 580 Balance 1250 580 - Physical Exam Constitutional: no apparent distress, appears nourished Eyes: PERRL, anicteric sclera Ears, Nose, Mouth, Throat: moist mucous membranes, hearing normal Cardiovascular: regular rate and rhythym, no murmur, rub, or gallop Respiratory: no respiratory distress, no rales or rhonchi Gastrointestinal: normoactive bowel sounds, soft, non-tender abdomen Genitourinary: no bladder fullness, No yang in urethra Skin: warm, normal color Musculoskeletal: full muscle strength, no muscle tenderness Neurologic: AAOx3 Psychiatric: interacting appropriately, not anxious ICD10 Worksheet Patient Problems: Problems Problem Status Onset Hyperglycemia Acute Osteomyelitis Acute Acute kidney injury Acute Acute renal failure Acute DKA (diabetic ketoacidoses) Acute Dehydration Acute Hyperkalemia Acute Hyperkalemia Acute Type 1 diabetes Acute
[2017-05-22 23:12] VITALS: RESP 16
[2017-05-23] MEDS: ceFAZolin 2 GM/DEXTROSE 100 ML IV SCH ×2 (00:19→09:21)
[2017-05-23] MEDS: oxyCODONE IR 5 MG TAB PO PRN ×2 (01:54→09:20)
[2017-05-23 09:03] VITALS: BP 116/81; PULSE 81; TEMP 97.8; O2SAT 97
[2017-05-23] MEDS: TAMSULOSIN HCL 0.4 MG CAP PO SCH (09:21)
[2017-05-23] MEDS: DOCUSATE SODIUM 100 MG CAP PO SCH (09:21)
--- NOTE | 2017-05-23 10:27 | PCMIDPN ---
Assessment/Plan: Assessment: Right foot 2nd and 4th digit infected skin ulcer with 3rd digit deep infection including significant amounts of osteomyelitis requiring amputation. Given no significant findings of osteomyelitis clinically on the 2nd digit in the operating room we will discontinue antibiotics today and allow patient to go home and observe for recurrence of inflammation. Plan: 1. Discontinue cefazolin. 2. Follow pain control and surgical wound healing. 05/17/17 14:15 05/23/17 17:26 Subjective: Patient is resting in his hospital bed. He is anxious to be discharged. Notes no new complaint or fevers or chills. Objective: Cefazolin # 7 Vital Signs Temp Pulse Resp BP Pulse Ox 36.6 C 81 16 116/81 H 97 05/23/17 08:00 05/23/17 08:00 05/23/17 08:00 05/23/17 08:00 05/23/17 08:00 Microbiology 05/16/17 12:41 Gram Stain - Final Toe - Tissue 05/16/17 12:41 Gram Stain - Final Toe - Eswab Laboratory Results 05/20/17 04:54 05/21/17 04:16 05/22/17 05/23/17 05/24/17 05:59 05:59 05:59 Intake Total 580 960 Balance 580 960 ESR 38 MM/HR (0-15) H 05/13/17 Unknown C-Reactive Protein 8.0 mg/L (<10.0) 05/21/17 04:16 - Physical Exam General Appearance: WD/WN, alert, no apparent distress, non-toxic Respiratory: lungs clear, normal breath sounds, No respiratory distress Cardiac/Chest: regular rate, rhythm, No tachycardia Extremities: non-tender, No normal inspection Skin: normal color, warm/dry, No rash Neuro/Psych: alert, normal mood/affect, oriented x 3 ICD10 Worksheet Patient Problems: Problems Problem Status Onset Acute kidney injury Acute Acute renal failure Acute DKA (diabetic ketoacidoses) Acute Dehydration Acute Hyperglycemia Acute Hyperkalemia Acute Hyperkalemia Acute Osteomyelitis Acute Type 1 diabetes Acute
--- NOTE | 2017-05-23 10:42 | HOSPPROG ---
Hospitalist Progress Note Assessment/Plan: 31 yo M w osteomyelitis Osteomyelitis 2nd/3rd toe: 3rd toe amputation, debridement of 2nd 05/16/17. MSSA /E Coli on culture. IV Cefazolin. Not ideal candidate for IV outpatient with h/o drug use. if path positive for marginal osteo, then will need IV abx. FU with Podiatry margins neg for osteomyelitis stop abx Hyperkalemia: now 5. Repeat in morning stable Type 1 DM with hyperglycemia: labile sugars. Low sugar yesterday, improved today. Snacking a lot. Counseled him on diet, poor control will impede wound- healing and he understands the risks. Polysubstance abuse: meth and Etoh. Has been in treatment in past. Counseled him on cessation Anxiety/panic attacks: followed at [facility]. Was provided list of psychiatrists here ; he needs to make appt Leukocytosis: resolved h/o ADHD: previously on Adderall Diet: diabetic home today >30 minutes Subjective: margins neg. d/w dr brewster Objective: Vital Signs Temp Pulse Resp BP Pulse Ox 36.6 C 81 16 116/81 H 97 05/23/17 08:00 05/23/17 08:00 05/23/17 08:00 05/23/17 08:00 05/23/17 08:00 Microbiology 05/16/17 12:41 Gram Stain - Final Toe - Tissue 05/16/17 12:41 Gram Stain - Final Toe - Eswab Laboratory Results 05/20/17 04:54 05/21/17 04:16 05/22/17 05/23/17 05/24/17 05:59 05:59 05:59 Intake Total 580 960 Balance 580 960 - Physical Exam Constitutional: no apparent distress, appears nourished Eyes: PERRL, anicteric sclera Ears, Nose, Mouth, Throat: moist mucous membranes, hearing normal Cardiovascular: regular rate and rhythym, no murmur, rub, or gallop Respiratory: no respiratory distress, no rales or rhonchi Gastrointestinal: normoactive bowel sounds, soft, non-tender abdomen Genitourinary: No yang in urethra Skin: warm, normal color Musculoskeletal: full muscle strength, no muscle tenderness Neurologic: AAOx3 ICD10 Worksheet Patient Problems: Problems Problem Status Onset Hyperglycemia Acute Osteomyelitis Acute Acute kidney injury Acute Acute renal failure Acute DKA (diabetic ketoacidoses) Acute Dehydration Acute Hyperkalemia Acute Hyperkalemia Acute Type 1 diabetes Acute
--- NOTE | 2017-05-23 11:19 | GDS ---
[f rep st] DISCHARGE SUMMARY DISCHARGE DIAGNOSES: 1. Diabetes. 2. Osteomyelitis, status post amputation by Dr. Elfego Giron of Podiatry. He had amputation of th e right 3rd digit and full thickness debridement of the 2nd and 4th. HOSPITAL COURSE: Please see admission history and physical by Dr. Chavo Thibodeaux. The patient pre sented in the evening on the 18th with rigors and fevers. He had been being treated for a foot infec tion with doxycycline. He had noted worsening erythema and swelling over the last 3 days, as well as more pain radiating up his leg. The patient was admitted. He had an MRI of his leg, which showed cellulitis and osteomyelitis involv ing the 2nd and 3rd toes. He was seen by Podiatry, and underwent the aforementioned debridement and resection. He received cefazolin for the duration of his hospital course. The pathologic margins of his resection returned negative for osteomyelitis, so after a 10-day course of antibiotics, he is di scharged off antibiotics. He has an insulin pump and his insulin. Patient was anxious for discharge . /[id number]/MODL
--- NOTE | 2017-05-23 12:11 | ASMTCMCOM ---
CM Note CM Note Notes: Spoke w/, pt does not need IV abx, will dc home to mother's house in [place]. Pt asked CM to help get him to [employer] to retrieve his car, CM called [employer] for ride. Date Signed: 05/23/2017 12:10 PM Electronically Signed By:Keshia Washburn RN
--- NOTE | 2017-05-23 14:52 | ASDISCHSUM ---
Discharge Information Plan Status:Home with No Needs Medically Cleared to Leave: Discharge Date:05/23/2017 12:00 PM CM D/C Disposition:Home, Routine, Self-Care ADT D/C Disposition:Home, Routine, Self-Care Projected Discharge Date:05/22/2017 12:00 AM Transportation at D/C:Medicaid Transportation Discharge Delay Reason: Follow-Up Date:05/22/2017 12:00 AM Discharge Slot: Final Diagnosis: Placement Information Patient Contact Information Contact Name:JOSE DE JESUS Relationship:Mother Address:[address] [place] [address] Work Phone: [place] Alternate Phone: [facility]/Zip Code:[place] [address] Email: Financial Information Financial Class: Primary Plan Desc:[employer]ICA[employer] [place] Primary Plan Number:[id number] Secondary Plan Desc: Secondary Plan Number: Assessment Information [facility] Progress Note CM Note CM Note Notes: Chart reviewed, pt is a 31 y/o male admitted w/ a fever. Pt has a right foot infection. Pt relapsed on meth a couple days ago and has been 7-8 days sober since. Pt has been using more alcohol recently to help w/ his anxiety. Pt has a hx of bipolar, anxiety, and PTSD. Pt is currently on probation. Pt lives w/ a supportive mother in [place] (Meme P#: [phone]). Pt is not interested in getting substance abuse treatment at this time. Pt reports that he is interested in getting established w/ a psychiatrist. FRANCES provided a list of psychiatrist in the [place] area. Pt reports that he already has a therapist that he meets with on a weekly basis. ID will be seeing pt today. Pt will most likely discharge independent when medically stable. FRANCES called Mom and she reports that his gf that he was very much in love w/ OD and around this time last year. Mom would like pt to go to a half way house. 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 Mom reports that pt is a bipolar and has been having manic episodes. Mom mentioned that pt is not the best at keeping up w/ his insulin. Pt had MRI today. CM to follow after CM consults w/ ID, podiatry, and Dr. Shane. Date Signed: 05/14/2017 01:41 PM Electronically Signed By:JASPER Mendiola [facility] CM Progress Note CM Note CM Note Notes: Abhilash went to check in with Pt. today. Pt. is pleased with list of psychiatrists given to him by my CM colleague. Pt. acknowledged working with [facility] in the past, but not very interested in follow-up there. Abhilash informed him that he could also access psychiatrists there. PCP is Dr. Yuan at [place]. Pt. pleasant, but seemed a bit overwhelmed today. Pt. has not been sleeping well due to hospital-staff interruptions. informed him he has to watch his junk food intake due to his Type 1 diabetes. If sugars not under control, impacts healing of foot. Pt. may get toe amputation. Pt. would like to d/c independently to his mother, Meme's home. Pt states it is OK for us to speak with his mother, but he doesn't like it when his mother pulls MDs away to speak to them without him being present. Abhilash told Pt. we would ask for his consent when mother wanted information about him from CM staff. CM to follow for d/c POC. Date Signed: 05/17/2017 02:55 PM Electronically Signed By:Wendy Bui LCSW [facility] CM Progress Note CM Note CM Note Notes: Waiting for pathology on toe, if pathology positive for marginal osteo, will need IV abx, CM w/f Date Signed: 05/22/2017 11:37 AM Electronically Signed By:Keshia Washburn RN [facility] CM Progress Note CM Note CM Note Notes: Spoke w/, pt does not need IV abx, will dc home to mother's house in [place]. Pt asked CM to help get him to [employer] to retrieve his car, CM called [employer] for ride. Date Signed: 05/23/2017 12:10 PM Electronically Signed By:Keshia Washburn RN Intervention Information
== END 2017-05-23 12:00 | disposition home or self-care (01) | DRG 617 ==
LOC: F3E 05-14 00:18
PROVIDERS: ADMIT Student in an Organized Health Care Education/Training Program; ATTEND Student in an Organized Health Care Education/Training Program
PROC: 0Y6T0Z0 Detachment at Right 3rd Toe, Complete, Open Approach (ICD-10-PCS; principal; 2017-05-16 13:00)
DX: E10.621 Type 1 diabetes mellitus with foot ulcer (principal); M86.171 Other acute osteomyelitis, right ankle and foot; L03.031 Cellulitis of right toe; L97.519 Non-pressure chronic ulcer of other part of right foot with unspecified severity; Z79.4 Long term (current) use of insulin; Z96.41 Presence of insulin pump (external) (internal); E10.40 Type 1 diabetes mellitus with diabetic neuropathy, unspecified; F15.10 Other stimulant abuse, uncomplicated; F43.10 Post-traumatic stress disorder, unspecified; F41.9 Anxiety disorder, unspecified; F31.9 Bipolar disorder, unspecified; R33.9 Retention of urine, unspecified; T36.96XA Underdosing of unspecified systemic antibiotic, initial encounter; T38.3X6A Underdosing of insulin and oral hypoglycemic [antidiabetic] drugs, initial encounter; D64.9 Anemia, unspecified
CPT/HCPCS: 82947-QW; 96365; 97161-GP; A9585; J0171; J0690; J1170; J1815; J2250; J2405; J2543; J2704; J3010; J3370

== ENCOUNTER 2017-11-29 14:57 | Emergency (ER) | payer MEDICAID ==
--- NOTE | 2017-11-29 15:33 | EDPHY ---
H & P Time Seen by Provider: 11/29/17 15:08 HPI/ROS: CHIEF COMPLAINT: Wound check HISTORY OF PRESENT ILLNESS: The patient is a 32-year-old male with a history of diabetes and osteomyelitis who presents emergency department after having a right great toe amputation on 11/16/2017 at [facility]. This is a 2nd toe amputation on his right foot. The patient states that"I have not been seen since the surgery."However, the patient states that he saw the surgeon's web marketing assistant yesterday. He was told by the web marketing assistant that his wound was healing well and that he need follow-up with Infectious Disease. He attempted to follow -up with Infectious Disease but the appointment was 2 weeks out. He states he was told by Infectious Disease to come to the emergency department to be evaluated. The patient's mother reiterates that he has not had follow-up since his surgery. Although, I did confirm that he saw a care provider yesterday. The patient has had no fevers or chills. He has no significant pain. No redness of his leg or streaking up his leg. Patient states he has intermittent swelling was 5 ft but it is improved today. Patient is concerned he has mild redness at the tip of his toe. The patient states that he has not want to receive care from [facility]. He would rather received care from [facility] and Dr. Hidalgo's office. REVIEW OF SYSTEMS: My complete review of systems is negative except as mentioned in the HPI. Past Medical/Surgical History: Includes osteomyelitis, diabetes, bipolar disorder, PTSD, anxiety, polysubstance abuse Past surgical history: Toe amputation Social history: The patient has a history of meth and alcohol use. Smoking Status: Former smoker Physical Exam: Vitals noted General Appearance: Alert and no distress. Head: Pupils equal. Normal. Respiratory: No respiratory distress. Clear to auscultation bilaterally Cardiac: regular rate and rhythm. Regular rate rhythm with no rubs murmurs or gallops Extremities: [Patient has a postop shoe on his right foot. There is clean dressing in place. I removed the dressing to exam the patient surgical site. There is no significant erythema or warmth. There is no discharge. The wound appears to be healing well. There is minimal redness at the tip of his toe but no discharge. There is no streaking up the foot. No streaking up the leg. DP is present. Skin: No rashes or lesions. Neuro: Alert. Normal mood and affect. Constitutional: Initial Vital Signs Temperature (C) 36.8 C 11/29/17 14:58 Heart Rate 110 H 11/29/17 14:58 Respiratory Rate 20 11/29/17 14:58 Blood Pressure 151/108 H 11/29/17 14:58 O2 Sat (%) 99 11/29/17 14:58 O2 Delivery Mode Room Air Allergies/Adverse Reactions: No Known Allergies Allergy (Verified 04/22/17 21:59) Home Medications: Medication Instructions Recorded Insulin Pump, Patient Own 1 ea MISC AD 04/23/17 Enalaprilat Dihydrate 11/29/17 Medical Decision Making ED Course/Re-evaluation: In the emergency department I discussed possible etiologies with the patient. Patient states he is primarily here because he needs Infectious Disease follow- up. I spoke with Quin from [facility]. She arranged close follow-up with the patient. He will be seen at 2:30 pm On Saturday by Dr. De Leon. I discussed this plan with the patient and his mother. He will continue his antibiotics as prescribed. He will return with worsening symptoms. Differential Diagnosis: My differential includes but is not limited to cellulitis, ulcer, osteomyelitis , bacteremia, sepsis. The patient appears well. His wound appears to be healing well. He will follow up with Infectious Disease. I do not feel he needs imaging or lab tests at this time. I doubt bacteremia or sepsis. Departure - Departure Disposition: Home, Routine, Self-Care Clinical Impression: Visit for wound check Condition: Good Instructions: Wound Healing and Your Diet (ED) Additional Instructions: You been given follow-up appointment with the [facility] on Saturday at 2:[address] Leobardo De Leon. This was arranged by Quin. Continue to take her antibiotics as directed. Return with increasing redness, fever, vomiting or any other concerns. Referrals: Leobardo De Leon MD [Medical Doctor] - 12/02/17 2:30 am
[2017-11-29 15:46] VITALS: BP 148/95
== END 2017-11-29 15:46 | disposition home or self-care (01) ==
DX: Z48.01 Encounter for change or removal of surgical wound dressing (principal); E11.9 Type 2 diabetes mellitus without complications; Z79.82 Long term (current) use of aspirin; Z87.891 Personal history of nicotine dependence

== ENCOUNTER 2017-12-25 22:23 | Inpatient (IN) | payer MEDICAID ==
--- NOTE | 2017-12-25 22:33 | EDPHY ---
H & P Stated Complaint: LEFT FOOT ULCER Time Seen by Provider: 12/25/17 22:33 HPI/ROS: HPI CHIEF COMPLAINT: Left leg pain, chills, T-max 99.8 degrees, possible diabetic foot ulcer infection HISTORY OF PRESENT ILLNESS: Patient very pleasant 32-year-old male well known to myself, history of insulin-dependent diabetes poorly controlled, peripheral neuropathy, he presents emergency room with 2-3 days of worsening increasing left foot left leg pain. Distally reports he has had chills and fever T-max at home 99.8. He is concerned about the redness over his left foot that may stem from a left lateral ft diabetic foot ulcer. He denies any vomiting or diarrhea. Denies abdominal pain chest pain or shortness of breath, denies productive cough. He became more concerned as the pain has been increasing his left foot over the past 2-3 days. Additionally reports lymphadenopathy in his left groin that is swollen. Patient reports that his blood sugars been running in the 300s. Past Medical History: Poorly controlled insulin-dependent diabetes, bipolar disorder, peripheral neuropathy, substance abuse, kidney injury Past Surgical History: Social History: History of substance abuse polysubstance. Family History: Noncontributory ROS REVIEW OF SYSTEMS: A comprehensive 10 point review of systems is otherwise negative aside from elements mentioned in the history of present illness. Exam Constitutional triage nursing summary reviewed, vital signs reviewed, awake/ alert. Vital signs noted at triage to be tachycardic. Eyes normal conjunctivae and sclera, EOMI, PERRLA. HENT normal inspection, atraumatic, moist mucus membranes, no epistaxis, neck supple/ no meningismus, no raccoon eyes. Respiratory clear to auscultation bilaterally, normal breath sounds, no respiratory distress, no wheezing. Cardiovascular tachycardic, regular rhythm, no murmur, no edema, distal pulses normal. Gastrointestinal soft, non-tender, no rebound, no guarding, normal bowel sounds, no distension, no pulsatile mass. Genitourinary no CVA tenderness. Musculoskeletal no midline vertebral tenderness, full range of motion, no calf swelling, no tenderness of extremities, no meningismus, good pulses, neurovascularly intact. Skin left lower extremity: There is a diabetic foot ulcer present on the left lateral foot plantar region, of the 5th metatarsal. Additionally there is no mariluz pus. No visible bone. His left foot is neurovascular intact good cap refill good pulse. However there is noted to be warmth and erythema over his left foot. Track slightly up to his left ankle. Also noted there is lymphadenopathy present left groin. Mild tenderness palpation enlarged lymph nodes. Neurologic awake, alert and oriented x 3, AAOx3, moves all 4 extremities equally, motor intact, sensory intact, CN II-XII intact, normal cerebellar, normal vision, normal speech. Psychiatric normal mood/affect. Heme/Lymph/Immune lymphadenopathy present left groin. Differential Diagnosis: Medical Decision Making: Includes but is not limited to in a particular order sepsis, bacteremia, severe sepsis, osteomyelitis of the foot, infected diabetic foot ulcer, cellulitis, reactive lymphadenopathy Re-evaluation: Plan for this patient is noted to be tachycardic complains of chills and fever at home. He has an obvious source of infection which includes a diabetic foot ulcer with left foot cellulitis. Plan for this patient broad-spectrum antibiotics including IV vancomycin IV Zosyn. X-ray left foot rule out osteo gas, blood cultures, lactic acid, CBC with white count, IV fluid bolus 2 L normal saline, and most likely hospital admission. IV Dilaudid 1 mg for pain control. X-ray of the left foot reviewed. No evidence of gas. Small to previous x-ray. Source: Patient - Personal History Current Tetanus/Diphtheria Vaccine: Yes Tetanus Vaccine Date: within 10 years - Medical/Surgical History Hx Asthma: No Hx Chronic Respiratory Disease: No Hx Diabetes: Yes Hx Cardiac Disease: No Hx Renal Disease: No Hx Cirrhosis: No Hx Alcoholism: No Hx HIV/AIDS: No Hx Splenectomy or Spleen Trauma: No Other PMH: R Knee surg,DM type I, DKA, anxiety, diabetic neuropathy, heroine and meth abuse CLEAN, ETOH Use - Social History Smoking Status: Former smoker Constitutional: Initial Vital Signs Temperature (C) 37 C 12/25/17 22:29 Heart Rate 117 H 12/25/17 22:29 Respiratory Rate 20 12/25/17 22:29 Blood Pressure 124/79 H 12/25/17 22:29 O2 Sat (%) 96 12/25/17 22:29 O2 Delivery Mode Room Air Allergies/Adverse Reactions: No Known Allergies Allergy (Verified 04/22/17 21:59) Home Medications: Medication Instructions Recorded Albuterol [Proventil Inhaler HFA 1 - 2 puffs IH Q4H PRN 12/26/17 (*)] Enalapril Maleate [Vasotec 10 MG 10 mg PO DAILY 12/26/17 (*)] Insulin Detemir [Levemir Flextouch] 36 unit SQ HS 12/26/17 Insulin Pump, Patient Own 1 ea MISC AD 12/26/17 clonazePAM [klonoPIN (*)] 1 mg PO TID PRN 12/26/17 Medical Decision Making - Data Points Laboratory Results: Laboratory Results 12/25/17 23:00 12/25/17 23:00 Medications Given: Hydrocodone Bitart/Acetaminophen ([place] 5/325) 1 - 2 tab PO Q4HRS PRN PRN Reason: Pain, Moderate Able to Take PO Stop: 01/05/18 01:42 Last Admin: 12/26/17 20:24 Dose: 2 tab Clonazepam (Klonopin) 1 mg PO TID PRN PRN Reason: Anxiety Stop: 06/24/18 13:45 Last Admin: 12/26/17 21:08 Dose: 1 mg Sodium Chloride (Ns) 1,000 mls @ 125 mls/hr IV CONT ADAM Stop: 06/24/18 01:44 Last Admin: 12/26/17 23:02 Dose: 1,000 mls Piperacillin/Tazobactam/Dextrose (Zosyn 3.375 Gm (Premix)) 50 mls @ 100 mls/hr IV Q6HRS ADAM PRN Reason: Protocol Stop: 01/25/18 05:59 Last Admin: 12/26/17 22:58 Dose: 50 mls Vancomycin HCl 1.25 gm/ Sodium (Chloride) 250 mls @ 166.667 mls/hr IV Q12H [facility] Stop: 01/25/18 11:59 Last Admin: 12/26/17 23:53 Dose: 250 mls Insulin Human Lispro (Humalog Lispro) 0 unit SC TIDMEAL ADAM PRN Reason: Protocol Stop: 06/24/18 07:59 Last Admin: 12/26/17 18:28 Dose: Not Given Insulin Human Lispro (Humalog Lispro) 0 unit SC HS [facility] PRN Reason: Protocol Stop: 06/24/18 20:59 Last Admin: 12/26/17 21:08 Dose: 6 units Ketorolac Tromethamine (Toradol) 15 mg IVP Q6HRS PRN PRN Reason: Pain, Breakthrough Stop: 12/31/17 05:59 Last Admin: 12/26/17 22:58 Dose: 15 mg Discontinued Medications Diphenhydramine HCl (Benadryl Injection) 25 mg IVP EDNOW ONE Stop: 12/26/17 01:02 Last Admin: 12/26/17 01:02 Dose: 25 mg Hydromorphone HCl (Dilaudid) 1 mg IVP EDNOW ONE Stop: 12/25/17 22:42 Last Admin: 12/25/17 22:56 Dose: 1 mg Sodium Chloride (Ns) 1,000 mls @ 0 mls/hr IV EDNOW ONE; Wide Open PRN Reason: Protocol Stop: 12/25/17 22:42 Last Admin: 12/25/17 22:55 Dose: 1,000 mls Sodium Chloride (Ns) 1,000 mls @ 0 mls/hr IV EDNOW ONE; Wide Open PRN Reason: Protocol Stop: 12/25/17 22:42 Last Admin: 12/25/17 22:55 Dose: 1,000 mls Vancomycin/Sodium Chloride (Vancomycin 1 Gm (Premix)) 250 mls @ 250 mls/hr IV EDNOW ONE PRN Reason: Protocol Stop: 12/25/17 23:41 Last Admin: 12/25/17 23:54 Dose: 250 mls Piperacillin/Tazobactam/Dextrose (Zosyn (Premix)) 100 mls @ 200 mls/hr IV EDNOW ONE PRN Reason: Protocol Stop: 12/25/17 23:11 Last Admin: 12/25/17 23:22 Dose: 100 mls Sodium Chloride (Ns) 1,000 mls @ 0 mls/hr IV ONCE ONE PRN Reason: Wide Open Stop: 12/25/17 23:17 Last Admin: 12/26/17 00:32 Dose: 1,000 mls Insulin Glargine (Lantus Syringe) 40 units SC DAILY ADAM Stop: 06/24/18 08:59 Last Admin: 12/26/17 08:50 Dose: 40 units Insulin Glargine (Lantus Syringe) 10 units SC ONCE ONE Stop: 12/26/17 15:31 Last Admin: 12/26/17 16:23 Dose: 10 units Ondansetron HCl (Zofran) 4 mg IVP EDNOW ONE Stop: 12/25/17 22:42 Last Admin: 12/25/17 22:55 Dose: 4 mg Departure - Departure Disposition: [facility] Inpatient Acute Clinical Impression: Cellulitis Qualifiers: Site of cellulitis: extremity Site of cellulitis of extremity: lower extremity Laterality: left Qualified Code(s): L03.116 - Cellulitis of left lower limb
[2017-12-25] MEDS ORDERED: NS 1,000 ML IV ONE ×3 (22:41→23:16)
[2017-12-25] MEDS ORDERED: HYDROmorphONE/DILAUDID 2 MG/ML INJ IVP ONE (22:41)
[2017-12-25] MEDS ORDERED: ONDANSETRON 4 MG/2 ML VIAL IVP ONE (22:41)
[2017-12-25] MEDS ORDERED: VANCOMYCIN HCL/NORMAL SALINE 250 ML IV ONE (22:42)
[2017-12-25] MEDS ORDERED: PIPERACILLIN/TAZO 4.5 GM/DEX 100 ML IV ONE (22:42)
[2017-12-25 23:18] LABS: PLATELET COUNT 234 10^3/uL (150-400)
[2017-12-25 23:29] LABS: INR 0.89 (0.83-1.16); PROTIME(PATIENT) 12.3 SEC (12.0-15.0)
[2017-12-26] MEDS ORDERED: ONDANSETRON 4 MG/2 ML VIAL IVP PRN (01:43)
[2017-12-26] MEDS ORDERED: LORazepam 2 MG/ML INJ IVP PRN (01:43)
[2017-12-26] MEDS: NS 1,000 ML IV SCH ×3 (02:22→23:02)
[2017-12-26] MEDS: HYDROCODONE/APAP 5/325 TAB PO PRN ×2 (02:39→20:24)
[2017-12-26] MEDS ORDERED: D50W 25 GM/50 ML VIAL IVP PRN (05:47)
[2017-12-26] MEDS ORDERED: KETOROLAC 15 MG/1 ML SDV IVP SCH (06:00)
[2017-12-26] MEDS: PIPERACILLIN/TAZO 3.375 GM/DEX 50 ML IV SCH ×4 (06:11→22:58)
[2017-12-26] MEDS: INSULIN LISPRO 100 UNIT/ML SC SCH ×4 (07:09→21:08)
--- NOTE | 2017-12-26 07:11 | GHP ---
[f rep st] HISTORY AND PHYSICAL DATE OF ADMISSION: 12/26/2017 SOURCE: Patient provides history, is a fair historian. EMR reviewed. Case discussed with ED provider. Patient with some variation with reporting of his past medical history and social history to various providers. CHIEF COMPLAINT: Left leg and foot pain. HISTORY OF PRESENT ILLNESS: This is a 32-year-old gentleman with past medical history significant for diabetes type 1, poorly controlled, with history of diabetic foot wounds, status post amputation of right great toe, alcohol dependence, and polysubstance abuse with recent IV drug use of meth and cocaine. Patient presents to the emergency department with complaints of 2 weeks of a left plantar foot wound over the 5th metatarsal head. Patient reports it has been ongoing for 2 weeks. He occasionally has a minimal amount of drainage. In the last several days, he did notice some increasing erythema, swelling, and pain in the entirety of his left foot. Redness and pain continue to extend proximally to the ankle with tracking, and so patient presented to the emergency department for further evaluation. He has reported in the last several days some subjective fevers and chills. No associated nausea, vomiting. No shortness of breath, cough, dysuria, hematuria. REVIEW OF SYSTEMS: Remainder of review of systems is negative, except as noted above. ALLERGIES: No known drug allergies. HOME MEDICATIONS: Levemir 40 units daily, Klonopin p.r.n., insulin lispro a.c. , h.s. PAST MEDICAL HISTORY: Significant for type 1 diabetes, uncontrolled, with diabetic neuropathy; IV drug use with history of heroin, meth, cocaine, and marijuana; history of osteomyelitis, status post amputation of the 1st right great toe; benign essential hypertension; bipolar disorder; anxiety; PTSD; previous history of DKA; DTs without seizures; acute kidney insufficiency and hyperkalemia on previous hospitalizations. PAST SURGICAL HISTORY: Significant for knee surgery, amputation of the 1st right great toe, and sebaceous cyst removed from scalp. FAMILY HISTORY: Patient is adopted, but he is aware that there is nobody in the family with diabetes. SOCIAL HISTORY: Patient reports that he drinks 3 beers at least on a daily basis. He has a history of DTs without seizures. He does not smoke. He has a history of IV drug use, including heroin, methamphetamines, and cocaine. COR STATUS: Full. PHYSICAL EXAMINATION: VITALS: Upon arrival to the emergency department, blood pressure 124/79, heart rate 117, respiratory rate 20, O2 sat 96% on room air with temperature 37.0. Vital signs currently available: Blood pressure 131/75 , heart rate is 91, respiratory rate 18, O2 sat is 95% on room air with temperature 36.6. GENERAL: No acute distress. Young, adult gentleman is lying in bed, somnolent, but arousable to name. Mother at bedside. HEAD: Normocephalic, atraumatic. EYES: Extraocular muscles are intact. Pupils equal , round, slightly decreased reactivity to light bilaterally, but symmetric. No scleral icterus or conjunctival injection. ENT: Mucous membranes appear moist. No oropharyngeal erythema. Dentition in fair condition. NECK: Supple. Trachea midline. CV: Regular rate and rhythm. No murmurs, rubs, or gallops appreciated. RESPIRATORY: Lungs are clear to auscultation bilaterally. No wheezes, rales, or rhonchi appreciated. Unlabored breathing. ABDOMEN: Positive bowel sounds. Soft, nontender to palpation. No rebound, guarding, or masses appreciated. : No suprapubic tenderness to palpation. No CVA tenderness. EXTREMITIES: No cyanosis, clubbing, or edema appreciated. Patient with amputated right toe. On the 2nd toe, it is deformed with an open ulceration that is not having any drainage on the tip of the toe. He is complaining of increased tenderness to palpation. No evidence of injection sites between toes. On the left foot, patient has an approximately 1-2 cm circular callus and open wound to the plantar surface over the 5th metatarsal head. He has 2+ pedal pulses bilaterally. There is swelling, and erythema extends to the dorsum of the foot, does not reach the ankle. No evidence of streaking. Erythema is decreasing, faint, but patient with tenderness with light palpation. NEURO: Grossly nonfocal. No facial drooping. Patient awake , alert, and oriented x3. PSYCHIATRIC: Affect is appropriate. Patient is not agitated. He is a little bit somnolent, but cooperative. LABORATORY DATA: WBC is 14.69, H and H are 10.7 and 32.4, platelet count 234, MCV 79.8, ESR is 81, no bands. PT is 12.3, INR 0.89, PTT is 28.6. VBG lactic acid initially was 2.8, after fluid decreased down to 1.0. Sodium is 136, potassium 4.6, chloride 103, CO2 is 19, anion gap is 14, BUN 12, creatinine is 1.3, GFR greater than 60, glucose 110, calcium is 8.7, total bili 0.4, ALT is 28, AST is 23, alk phos 135, CRP is 141, total protein 6.7, albumin is 3.5. Procalcitonin 1.93. Urine UA: Specific gravity 1.017, pH of 5.0, 2+ protein, 2+ urobilinogen, WBC 3-5, glucose is 3+. No bacteria noted. Tox screen is positive for amphetamines, cocaine, and marijuana. Blood cultures x2 are pending. Foot x-ray image and report reviewed myself. Prominent soft tissue swelling adjacent to lateral side of 5th metatarsal articulation. Subtle rounded area of low attenuation seen within the soft tissue swelling, presumably representing the diabetic ulcer. Contour irregularity of the head of the 5th metatarsal unchanged from 2017 study. No definite osseous erosive changes seen to suggest mariluz osteomyelitis. ASSESSMENT AND PLAN: A 32-year-old gentleman with a history of poorly- controlled type 1 diabetes, as well as history of IV drug use, who presents with complaints of left foot cellulitis. 1. Diabetic foot ulcer with cellulitis. No overt evidence of bony involvement at this point, and erythema appears to be improving quite quickly with vancomycin and Zosyn for additional coverage, given patient's diabetic status, for pseudomonas. Will continue with IV antibiotics. Will elevate the foot. Wound Care will be consulted for further assistance with management. Patient overall with history of poor compliance and control of his diabetes. 2. Severe sepsis. Patient with elevated lactate, tachycardia, and leukocytosis. Vital signs are improving. Lactate has normalized after IV fluids. Will continue with IV fluids overnight. Blood cultures are pending. Continue vancomycin and Zosyn for broad-spectrum coverage at this time. 3. Diabetes type 1, uncontrolled. Resume patient's Lantus 40 units daily with sliding scale at this point. Patient at 1 point had an insulin pump, but remains uncontrolled. 4. Anemia, likely of chronic disease. No evidence of active bleeding. Continue to monitor. Vitals acceptable at this time. 5. Hypoxia. Isolated incident overnight while patient was asleep. I did speak with him while his mother was present, and recommend patient have followup with primary care physician after discharge to evaluate for possible sleep apnea. 6. History of IV drug use. Patient reports that he has been tested for human immunodeficiency virus, hepatitis, and transmissible diseases. He declines offer for testing during this hospital stay at this point. 7. Fluid, electrolyte, nutrition. Patient will continue to receive normal saline overnight for hydration; electrolyte monitoring, replacement if needed. ADA diet has been ordered. 8. Prophylaxis. Sequential compression devices. Patient overall low to moderate risk. Lovenox, if patient should stay additional day. Do not anticipate patient will require any interventions. COR full. DISPOSITION: Patient admitted to inpatient status on the medical floor secondary to extensive cellulitis, his uncontrolled diabetes, and meeting severe sepsis criteria. Will monitor and await cultures. /[id number]/MODL [id number]
[2017-12-26] MEDS ORDERED: INSULIN LISPRO 100 UNIT/ML SC SCH (07:30)
[2017-12-26] MEDS: KETOROLAC 15 MG/1 ML SDV IVP PRN ×3 (08:50→22:58)
[2017-12-26] MEDS ORDERED: INSULIN GLARGINE 100 UNITS/ML UNIT SC SCH (09:00)
--- NOTE | 2017-12-26 11:19 | ASMTCMCOM ---
CM Note CM Note Notes: Chart reviewed. 32 year old male admitted with cellutlis of left foot. He has history of substance abuse. In attempting to discuss his needs, he is sleepy and difficult to arouse. He lives with his mother in [place]. He has history of diabetic foot wounds. Needs TBD. CM to follow. Plan: TBD Date Signed: 12/26/2017 11:18 AM Electronically Signed By:Gosia Ferguson RN
[2017-12-26] MEDS: VANCOMYCIN 1.25 GM in NS 250 ML IV SCH ×2 (11:50→23:53)
--- NOTE | 2017-12-26 12:38 | PDMN ---
Medical Necessity Medical necessity: est los>2mn severe sepsis r/t extensive cellulitis, and uncontrolled DM; admit for IV abx, IVF, follow cx's; comorbid htn, bipolar, PTSD , hx IV drug use, osteomyelitis; per order and H&P 12/26/17
[2017-12-26] MEDS ORDERED: ALBUTEROL 60 PUFFS/8 GM MDI IH PRN (13:46)
--- NOTE | 2017-12-26 15:21 | HOSPPROG ---
Hospitalist Progress Note Assessment/Plan: 32 yo with poorly controlled DM 1 admitted for sepsis and Left foot diabetic ulcer and cellulitis #Sepsis: Leukocytosis, tachycardia, lactic acidosis, elevated procalcitonin, source of infection: left foot -Hemodynamically stable -cont IVF at current rate #Left foot diabetic ulcer and cellulitis -currently on Vanco and Zosyn started on admission. -Will consult ID for Abx mgt and for opinion regarding need for MRI to r/o osteo of left foot -He has a hx of Osteo of right foot, s/p toe amputation #Poorly controlled DMI due to non compliance -poorly controlled currently -He will be given additional Lantus now. Will increase Lantus tomorrow -Would avoid BID dosing as this will likely lead to further decrease compliance #Metabolic Acidosis, likely multifactorial due to hyperglycemia and sepsis -monitor for now -getting IVF -Repeat BMP not available at this time. I'll get one now -check Mg #Hx of HTN -Hold Enalapril #Polysubstance abuse total critical care time spent on the mgmt of this patient with ongoing sepsis. Pt with hyperglycemia. Subjective: starting to feel better. no cp or sob. no n/v. afebrile. BP is stable. Objective: Vital Signs Temp Pulse Resp BP Pulse Ox 36.9 C 81 15 134/83 H 92 12/26/17 11:57 12/26/17 11:57 12/26/17 11:57 12/26/17 11:57 12/26/17 11:57 12/25/17 12/26/17 12/27/17 05:59 05:59 05:59 Intake Total 3350 1410 Output Total 300 475 Balance 3050 935 PT 12.3 SEC (12.0-15.0) 12/25/17 23:00 INR 0.89 (0.83-1.16) 12/25/17 23:00 - Physical Exam Constitutional: no apparent distress Eyes: PERRL, EOMI Ears, Nose, Mouth, Throat: moist mucous membranes, hearing normal Cardiovascular: regular rate and rhythym, No edema Respiratory: no respiratory distress, no rales or rhonchi, clear to auscultation Gastrointestinal: normoactive bowel sounds, soft, non-tender abdomen Skin: erythema, other (Left foot with erythema in dorsal surface. ) Neurologic: AAOx3 Psychiatric: interacting appropriately, not anxious, not encephalopathic Lymph, Heme, Immunologic: No petechiae ICD10 Worksheet Patient Problems: Problems Problem Status Onset Acute kidney injury Acute Acute renal failure Acute DKA (diabetic ketoacidoses) Acute Dehydration Acute Hyperglycemia Acute Hyperkalemia Acute Hyperkalemia Acute Osteomyelitis Acute Type 1 diabetes Acute
[2017-12-26] MEDS ORDERED: INSULIN GLARGINE 100 UNITS/ML UNIT SC ONE (15:30)
[2017-12-26] MEDS: clonazePAM 1 MG TAB PO PRN (21:08)
[2017-12-27] MEDS: KETOROLAC 15 MG/1 ML SDV IVP PRN ×2 (05:16→12:45)
[2017-12-27] MEDS: PIPERACILLIN/TAZO 3.375 GM/DEX 50 ML IV SCH ×3 (05:16→17:58)
[2017-12-27 05:53] LABS: PLATELET COUNT 216 10^3/uL (150-400)
[2017-12-27] MEDS: INSULIN LISPRO 100 UNIT/ML SC SCH ×4 (08:07→21:56)
--- NOTE | 2017-12-27 09:08 | WOCRNPDOC ---
[facility] Advanced Assessment Note - Skin Integrity Problem, Advanced Assess Left Foot Diabetic Ulcer Dressing Type: Open to Air Exudate Amount: Scant Exudate Characteristic(s): Sanguinopurulent Integumentary Issue Intervention: Dressing Applied, Dressing Initialed & Dated [place] Wound Tissue: Calloused [place] Wound Swelling: Mild Wound Bed Color: Black Wound Bed Constitution: Undermining (circumferential), Unstable Eschar Wound Edges: Well Defined Site Odor: None Site Measurement - Head-to-Toe Length X Width X Depth (cm): 0.4cmx0.9cmx0.4cm Skin Integrity Problem Comment: Diabetic foot ulcer on plantar surface of L foot over 5th metatarsal, w/ partially intact eschar medially and significant periwound callous. Eschar easily pushed aside w/ cotton-tipped applicator, revealing scant sanguinopurulent exudate underneath. Did not explore the wound to any significant depth, as imaging negative for osteo. 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 No immediate surgical interventions warranted, and patient currently being treated w/ IV antibiotics for cellulitis to this extremity. Will have nursing keep site covered w/ dressing. Patient says he has follow-up appointment scheduled w/ Dr. Giron for next week. Right Second Toe Dressing Type: Open to Air Exudate Amount: None Integumentary Issue Intervention: Dressing Applied, Silver Gel Applied Nativid[place] Wound Tissue: Erythema, Swollen, Calloused [place] Wound Swelling: Moderate Wound Bed Color: [place] Wound Bed Constitution: Red/[place] - Non Granular Tissue Site Odor: None Site Measurement - Head-to-Toe Length X Width X Depth (cm): 0.4cmx0.3cmx0.1cm Skin Integrity Problem Comment: Dried wound bed noted to distal aspect of patient's 2nd R toe, w/ significant periwound callous. Patient had amputation of adjacent R great toe, and the 2nd toe has noticeable bony deformity and swelling throughout. No fluctuance or significant erythema observed. Patient is under the care of Dr. Giron outpatient. Removed periwound callous w/ scissors and forceps, and covered site w/ Silvasorb and Allevyn Dressing. Patient will follow-up with Dr. Giron outpatient next week.
[2017-12-27] MEDS: INSULIN GLARGINE 100 UNITS/ML UNIT SC SCH (10:48)
--- NOTE | 2017-12-27 11:32 | ASMTCMCOM ---
CM Note CM Note Notes: Chart reviewed. 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 List of possible providers that accept medicaid provided to patient. ID consult pending. CM to follow. Plan: TBD Date Signed: 12/27/2017 11:31 AM Electronically Signed By:Gosia Ferguson RN
[2017-12-27] MEDS: VANCOMYCIN 1.25 GM in NS 250 ML IV SCH (13:18)
--- NOTE | 2017-12-27 13:29 | ASMTCMCOM ---
CM Note CM Note Notes: Per patient's RN, patient is requesting information on area services to help with drug and alcohol addictions. I attempted to speak with patient and go over packet of information and resources and he stated he didn't want to speak to me right now. He just wants to sleep. Encouraged him to read the packet when he awakens and contact us with questions. Plan TBD Date Signed: 12/27/2017 01:28 PM Electronically Signed By:Gosia Ferguson RN
--- NOTE | 2017-12-27 15:52 | HOSPPROG ---
Hospitalist Progress Note Assessment/Plan: 32 yo with poorly controlled DM 1 admitted for sepsis and Left foot diabetic ulcer and cellulitis #Sepsis: Leukocytosis, tachycardia, lactic acidosis, elevated procalcitonin, source of infection: left foot -Hemodynamically stable -now off IVF, will cont to monitor off IVF #Left foot diabetic ulcer and cellulitis -currently on Vanco and Zosyn started on admission. -ID is following -MRI cannot be obtained due to medical doctor nuclear medicine in pts arm for monitoring blood glucose. This was inserted by [facility]. This requires a special tool for removal and we do not have this. They are willing to remove on follow up. The clinical suspicion is high given his hx of OM and we may look into obtaining tool or assistance for removal -continue with dual abx. -appreciate ID's assistance -He has a hx of Osteo of right foot, s/p toe amputation #Poorly controlled DMI due to non compliance -poorly controlled currently -Lantus has been increased and glucose is improving. He will likely need further increase but will monitor overnight prior to additional -Cont ISS -Would avoid BID Lantus dosing as this will likely lead to further decrease compliance #Metabolic Acidosis, likely multifactorial due to hyperglycemia and sepsis -resolved #HTN: restart Enalapril #Polysubstance abuse D/W Dr. De Leon Subjective: BP elevated. no cp or sob. Generalized malaise Objective: Vital Signs Temp Pulse Resp BP Pulse Ox 36.9 C 105 H 16 163/97 H 97 12/27/17 12:00 12/27/17 12:00 12/27/17 12:00 12/27/17 12:00 12/27/17 12:00 Laboratory Results 12/27/17 05:02 12/27/17 05:02 12/26/17 12/27/17 12/28/17 05:59 05:59 05:59 Intake Total 3350 4010 1000 Output Total 300 2200 750 Balance 3050 1810 250 PT 12.3 SEC (12.0-15.0) 12/25/17 23:00 INR 0.89 (0.83-1.16) 12/25/17 23:00 - Physical Exam Constitutional: no apparent distress Eyes: PERRL Ears, Nose, Mouth, Throat: moist mucous membranes, hearing normal, ears appear normal Cardiovascular: regular rate and rhythym, No edema Respiratory: no respiratory distress, no rales or rhonchi, clear to auscultation Gastrointestinal: normoactive bowel sounds, soft, non-tender abdomen Skin: warm Neurologic: AAOx3 Psychiatric: interacting appropriately, not anxious, not encephalopathic Lymph, Heme, Immunologic: No petechiae ICD10 Worksheet Patient Problems: Problems Problem Status Onset Cellulitis Acute Acute kidney injury Acute Acute renal failure Acute DKA (diabetic ketoacidoses) Acute Dehydration Acute Hyperglycemia Acute Hyperkalemia Acute Hyperkalemia Acute Osteomyelitis Acute Type 1 diabetes Acute
--- NOTE | 2017-12-27 16:30 | PCMIDPN ---
Assessment/Plan: Assessment: Left lower extremity cellulitis with a chronic plantar surface diabetic ulcer under the 5th MTP. I have high concerns for osteomyelitis given his neuropathy and the process that happen on his right foot last year. Unfortunately the patient has a implanted glycemic monitoring device on the posterior aspect of his arm which is not MRI compatible. This device also requires a special phillips to remove it which we do not possess. [facility] is slated to remove this device next week. Will discuss with hospitalist about empiric ongoing IV antibiotic treatment until appointment time in which he can get an MRI with contrast verses trying to visualize the area with a CT scan. Plan: 1. Continue IV vancomycin and Zosyn. 2. Discuss with other hospital physician staff about options with regard to diagnosing potential osteomyelitis in this high risk patient. 12/27/17 16:27 12/27/17 16:30 Subjective: Patient is resting in his hospital bed. No new complaints. States that his redness is improving. No fevers or chills. Objective: Vancomycin # 1. Zosyn # 1 Vital Signs Temp Pulse Resp BP Pulse Ox 37.0 C 98 16 149/83 H 90 L 12/27/17 15:47 12/27/17 15:47 12/27/17 15:47 12/27/17 15:47 12/27/17 15:47 Laboratory Results 12/27/17 05:02 12/27/17 05:02 12/26/17 12/27/17 12/28/17 05:59 05:59 05:59 Intake Total 3350 4010 1240 Output Total 300 2200 1100 Balance 3050 1810 140 ESR 81 MM/HR (0-15) H 12/25/17 23:00 C-Reactive Protein 141.5 mg/L (<10.0) H 12/25/17 23:00 - Physical Exam General Appearance: WD/WN, alert, no apparent distress, non-toxic Respiratory: lungs clear, normal breath sounds, No respiratory distress Cardiac/Chest: regular rate, rhythm, No tachycardia Extremities: non-tender, swelling, other (Plantar ulcer significant callus), No normal inspection Skin: normal color, warm/dry, No rash Neuro/Psych: alert, normal mood/affect, oriented x 3 ICD10 Worksheet Patient Problems: Problems Problem Status Onset Cellulitis Acute Acute kidney injury Acute Acute renal failure Acute DKA (diabetic ketoacidoses) Acute Dehydration Acute Hyperglycemia Acute Hyperkalemia Acute Hyperkalemia Acute Osteomyelitis Acute Type 1 diabetes Acute
[2017-12-27] MEDS: ENALAPRIL MALEATE 10 MG TAB PO SCH (16:31)
[2017-12-28] MEDS: NS 1,000 ML IV SCH (00:04)
[2017-12-28] MEDS: ACETAMINOPHEN 325 MG TAB PO PRN ×2 (00:05→16:27)
[2017-12-28] MEDS: PIPERACILLIN/TAZO 3.375 GM/DEX 50 ML IV SCH ×5 (00:06→23:56)
[2017-12-28] MEDS: VANCOMYCIN 1.25 GM in NS 250 ML IV SCH ×2 (01:07→15:01)
[2017-12-28] MEDS: KETOROLAC 15 MG/1 ML SDV IVP PRN ×2 (01:15→10:10)
[2017-12-28 04:45] LABS: PLATELET COUNT 250 10^3/uL (150-400)
[2017-12-28] MEDS: INSULIN LISPRO 100 UNIT/ML SC SCH ×4 (09:35→22:04)
--- NOTE | 2017-12-28 09:51 | HOSPPROG ---
Hospitalist Progress Note Assessment/Plan: 32 yo with poorly controlled DM 1 admitted for sepsis and Left foot diabetic ulcer and cellulitis #Left foot diabetic ulcer and cellulitis -currently on Vanco and Zosyn started on admission. -ID is following -MRI cannot be obtained due to medical records clerk in pts arm for monitoring blood glucose. This was inserted by [facility]. This requires a special tool for removal and we do not have this. Will try to get removed on Saturday * probably will need debridement -continue with dual abx. -appreciate ID's assistance -He has a hx of Osteo of right foot, s/p toe amputation *Pulm edema/fluid overload * will give lasix * probably the more likely scenario - is 6 kg up and almost 10L * repeat cxt in am #Poorly controlled DMI due to non compliance -poorly controlled currently -Lantus has been increased and glucose is improving. He will likely need further increase but will monitor overnight prior to additional -Cont ISS -Would avoid BID Lantus dosing as this will likely lead to further decrease compliance #Metabolic Acidosis, likely multifactorial due to hyperglycemia and sepsis -resolved #HTN: restart Enalapril * Sepsis - resolved * Suicidal ideation - "will kill myself if I lose the foot" * behavioral health will see #Polysubstance abuse Subjective: has dry cough which is brand new. also orthopnea. Objective: Vital Signs Temp Pulse Resp BP Pulse Ox 36.9 C 86 18 157/97 H 95 12/28/17 08:00 12/28/17 08:00 12/28/17 08:00 12/28/17 08:00 12/28/17 08:00 Laboratory Results 12/28/17 04:29 12/27/17 05:02 12/27/17 12/28/17 12/29/17 05:59 05:59 05:59 Intake Total 4010 3590 Output Total 2200 1500 Balance 1810 2090 PT 12.3 SEC (12.0-15.0) 12/25/17 23:00 INR 0.89 (0.83-1.16) 12/25/17 23:00 cxr pers reviewed and int - pulm edema - Physical Exam Constitutional: no apparent distress, appears nourished, not in pain Eyes: anicteric sclera, EOMI Ears, Nose, Mouth, Throat: moist mucous membranes, hearing normal Cardiovascular: regular rate and rhythym, no murmur, rub, or gallop Respiratory: no respiratory distress, clear to auscultation, reduced air movement, No expiratory wheeze Skin: warm Neurologic: AAOx3 Psychiatric: interacting appropriately, not anxious, not encephalopathic, thought process linear ICD10 Worksheet Patient Problems: Problems Problem Status Onset Cellulitis Acute Acute kidney injury Acute Acute renal failure Acute DKA (diabetic ketoacidoses) Acute Dehydration Acute Hyperglycemia Acute Hyperkalemia Acute Hyperkalemia Acute Osteomyelitis Acute Type 1 diabetes Acute
[2017-12-28] MEDS: ENALAPRIL MALEATE 10 MG TAB PO SCH (10:09)
[2017-12-28] MEDS: INSULIN GLARGINE 100 UNITS/ML UNIT SC SCH (10:09)
[2017-12-28] MEDS ORDERED: GADOBUTROL 10 ML VIAL IVP ONE (10:55)
[2017-12-28] MEDS: FUROSEMIDE 20 MG/2 ML VIAL IVP SCH ×2 (11:02→15:01)
[2017-12-28] MEDS: ENOXAPARIN 40 MG/0.4 ML SYR SC SCH (11:02)
[2017-12-28] MEDS: clonazePAM 1 MG TAB PO PRN (22:05)
[2017-12-29] MEDS: VANCOMYCIN 1.25 GM in NS 250 ML IV SCH ×2 (01:06→13:55)
[2017-12-29 05:54] LABS: PLATELET COUNT 261 10^3/uL (150-400)
[2017-12-29] MEDS: PIPERACILLIN/TAZO 3.375 GM/DEX 50 ML IV SCH ×3 (06:17→18:19)
[2017-12-29] MEDS: INSULIN LISPRO 100 UNIT/ML SC SCH ×4 (08:58→21:02)
[2017-12-29] MEDS: FUROSEMIDE 20 MG/2 ML VIAL IVP SCH ×2 (09:53→14:05)
[2017-12-29] MEDS: ENALAPRIL MALEATE 10 MG TAB PO SCH (09:54)
[2017-12-29] MEDS: ENOXAPARIN 40 MG/0.4 ML SYR SC SCH (09:57)
--- NOTE | 2017-12-29 10:31 | HOSPPROG ---
Hospitalist Progress Note Assessment/Plan: 32 yo with poorly controlled DM 1 admitted for sepsis and Left foot diabetic ulcer and cellulitis #Left foot diabetic ulcer and cellulitis -currently on Vanco and Zosyn started on admission. -ID is following - MRI does not show osteo or abscess -Cont IV abx for a few more days -He has a hx of Osteo of right foot, s/p toe amputation *Pulm edema/fluid overload * cxr pers reviewed-improved * cont lasix today #Poorly controlled DMI due to non compliance -poorly controlled currently -Lantus has been increased and glucose is improving. He will likely need further increase but will monitor overnight prior to additional -Cont ISS -Would avoid BID Lantus dosing as this will likely lead to further decrease compliance #Metabolic Acidosis, likely multifactorial due to hyperglycemia and sepsis -resolved #HTN: restart Enalapril * Sepsis - resolved * Suicidal ideation - "will kill myself if I lose the foot" * behavioral health will see #Polysubstance abuse Subjective: feels better overll. less cough, dyspnea Objective: Vital Signs Temp Pulse Resp BP Pulse Ox 37.1 C 89 16 158/96 H 91 L 12/29/17 07:26 12/29/17 07:26 12/29/17 07:26 12/29/17 09:54 12/29/17 07:26 Laboratory Results 12/29/17 05:30 12/29/17 05:30 12/28/17 12/29/17 12/30/17 05:59 05:59 05:59 Intake Total 3590 500 Output Total 1500 3000 Balance 2090 -2500 PT 12.3 SEC (12.0-15.0) 12/25/17 23:00 INR 0.89 (0.83-1.16) 12/25/17 23:00 - Physical Exam Constitutional: no apparent distress, appears nourished, not in pain Eyes: anicteric sclera, EOMI Cardiovascular: regular rate and rhythym, no murmur, rub, or gallop Respiratory: no respiratory distress, no rales or rhonchi, clear to auscultation Gastrointestinal: normoactive bowel sounds, soft, non-tender abdomen, no palpable masses Skin: warm Musculoskeletal: other (dressed left foot) Neurologic: AAOx3 Psychiatric: interacting appropriately, not anxious, not encephalopathic, thought process linear ICD10 Worksheet Patient Problems: Problems Problem Status Onset Cellulitis Acute Acute kidney injury Acute Acute renal failure Acute DKA (diabetic ketoacidoses) Acute Dehydration Acute Hyperglycemia Acute Hyperkalemia Acute Hyperkalemia Acute Osteomyelitis Acute Type 1 diabetes Acute
[2017-12-29] MEDS: INSULIN GLARGINE 100 UNITS/ML UNIT SC SCH (10:55)
--- NOTE | 2017-12-29 13:53 | PCMIDPN ---
Assessment/Plan: Assessment: Left lower extremity cellulitis with a chronic plantar surface diabetic ulcer under the 5th MTP. MRI was obtained after the glucose monitoring device was removed. No evidence of osteomyelitis the left foot. We will continue his IV vancomycin and Zosyn and evaluate tomorrow if he can go while on oral antibiotics. Plan: 1. Continue IV vancomycin and Zosyn. 2. Decide tomorrow about p.o. Antibiotics and discharge. Subjective: Patient is feeling well. No new complaints. Does note that he has some tenderness behind his knee in up in his inguinal areas that are associated with lymph nodes on the left lower extremity. No fevers or chills. Objective: Vancomycin # 3 Zosyn # 3 Vital Signs Temp Pulse Resp BP Pulse Ox 37.1 C 89 16 158/96 H 91 L 12/29/17 07:26 12/29/17 07:26 12/29/17 07:26 12/29/17 09:54 12/29/17 07:26 Laboratory Results 12/29/17 05:30 12/29/17 05:30 12/28/17 12/29/17 12/30/17 05:59 05:59 05:59 Intake Total 3590 500 Output Total 1500 3000 Balance 2090 -2500 ESR 81 MM/HR (0-15) H 12/25/17 23:00 C-Reactive Protein 141.5 mg/L (<10.0) H 12/25/17 23:00 - Physical Exam General Appearance: WD/WN, alert, no apparent distress, non-toxic Respiratory: lungs clear, normal breath sounds, No respiratory distress Cardiac/Chest: regular rate, rhythm, No tachycardia Extremities: non-tender, erythema (ignificantly left foot), No normal inspection, No inflammation Skin: normal color, warm/dry, No rash Neuro/Psych: alert, normal mood/affect, oriented x 3 ICD10 Worksheet Patient Problems: Problems Problem Status Onset Cellulitis Acute Acute kidney injury Acute Acute renal failure Acute DKA (diabetic ketoacidoses) Acute Dehydration Acute Hyperglycemia Acute Hyperkalemia Acute Hyperkalemia Acute Osteomyelitis Acute Type 1 diabetes Acute
[2017-12-30] MEDS: PIPERACILLIN/TAZO 3.375 GM/DEX 50 ML IV SCH ×4 (00:31→17:42)
[2017-12-30] MEDS: clonazePAM 1 MG TAB PO PRN (01:12)
[2017-12-30] MEDS: VANCOMYCIN 1.25 GM in NS 250 ML IV SCH (01:35)
[2017-12-30] MEDS: INSULIN LISPRO 100 UNIT/ML SC SCH ×4 (08:40→21:39)
[2017-12-30] MEDS: ENOXAPARIN 40 MG/0.4 ML SYR SC SCH (08:51)
[2017-12-30] MEDS: ENALAPRIL MALEATE 10 MG TAB PO SCH (08:52)
[2017-12-30] MEDS: FUROSEMIDE 20 MG/2 ML VIAL IVP SCH (08:54)
[2017-12-30] MEDS: INSULIN GLARGINE 100 UNITS/ML UNIT SC SCH (09:00)
--- NOTE | 2017-12-30 11:51 | HOSPPROG ---
Hospitalist Progress Note Assessment/Plan: DIAGNOSES: * left diabetic foot ulcer and diabetic foot infection with cellulitis, no osteomyelitis seen so far imaging * No clear signs of improvement at the moment * Nothing growing from blood cultures at this time * acute pulmonary edema/vascular congestion after IV fluids * Currently improved after some diuresis * Given his severely uncontrolled chronic diabetes as well as his chronic use of cocaine and meth, would have high suspicion for left ventricular dysfunction or other cardiac issues in this will require further assessment at this time * acute kidney injury, new today * Suspect due to elevated vancomycin level, in susceptible kidneys related to poorly controlled diabetes * acute vancomycin send toxicity with level 19.8 and acute renal insufficiency, all new today * diabetes mellitus type 1 since teenage years, with chronic noncompliance and poor control * Still some variability through the day but his sugars are improving and most are in reasonably good range at this time on current therapy and diet * chronic polysubstance abuse with marijuana, cocaine, methamphetamine * Has not had withdrawal here * chronic hypertension on medications PLANS: -his vancomycin has been stopped at this time -will follow vancomycin levels and renal function very closely -have stopped his ANASTASIYA-inhibitor and diuretic at this time for renal function issues, follow renal function closely -will give a small bolus of IV fluid to keep the perfusion good for kidneys and stop diuresis at this time -due to his pulmonary edema episode requiring diuresis and his chronic cocaine and meth use need to assess his LV and valvular function so I have ordered echocardiogram at this time -continue Zosyn for his foot -continue elevation of his foot and wound care for the open lesion -follow sugars very closely and adjust treatment as indicated, will not make any changes today based on current sugars I reviewed all the above in detail today with the patient, with his nurse, also reviewed with Dr. 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: Exam: alert oriented relaxed skin warm dry color ok resps not labored lungs clear BSs heart regular abd soft nondistended nontender, bowel sounds present limbs his left foot has cellulitis over the dorsum distally and laterally and around the ankle below the lateral malleolus and wrapping around the Achilles area, no area of fluctuance but there is some edema there, no necrotic areas, his wound is unchanged from the appearance described yesterday iv site ok Laboratory data: Creatinine is up to 1.7 today with mild elevation of BUN Sugars mostly in the 109-120s range but some post prandials are up to 200 I reviewed the images of 2 chest x-rays he has had here on December 28 and , and there is on the former x-ray definite pulmonary vascular congestion which is improved on yesterday's x-ray Objective: Vital Signs Temp Pulse Resp BP Pulse Ox 36.7 C 91 15 121/73 H 94 12/30/17 08:00 12/30/17 08:00 12/30/17 08:00 12/30/17 08:52 12/30/17 08:00 Laboratory Results 12/29/17 05:30 12/30/17 02:20 12/29/17 12/30/17 12/31/17 06:59 06:59 06:59 Intake Total 500 2300 Output Total 3000 1350 Balance -2500 950 PT 12.3 SEC (12.0-15.0) 12/25/17 23:00 INR 0.89 (0.83-1.16) 12/25/17 23:00 - Time Spent With Patient Time Spent with Patient: greater than 35 minutes Time Spent with Patient: Greater than 35 minutes spent on this patients care, greater than 50% of time spent counseling, educating, and coordinating care regarding the above mentioned plan. ICD10 Worksheet Patient Problems: Problems Problem Status Onset Cellulitis Acute Acute kidney injury Acute Acute renal failure Acute DKA (diabetic ketoacidoses) Acute Dehydration Acute Hyperglycemia Acute Hyperkalemia Acute Hyperkalemia Acute Osteomyelitis Acute Type 1 diabetes Acute
[2017-12-30] MEDS ORDERED: NS 500 ML IV ONE (15:24)
--- NOTE | 2017-12-30 16:29 | ASMTCMCOM ---
CM Note CM Note Notes: Pt still on IV Vanco and Zosyn, pt likely needs a few more days of IV antibiotics. Pt has been provided drug and alcohol resources, two CM staff at different times have attempted at to go over resources with pt and he has not been interested. Behavioral Health Resource Team met with pt yesterday (see note) to assess for suicidal ideation. Pt was provided [facility] and [facility] referral information by Behavioral Health resource team liaison. One identified need for case management from the behavioral health consult was pt interest in applying for disability. Pt referred to [facility] who will meet with pt tomorrow to do the initial screening and provide information on applying for disability. CM to continue to follow. Date Signed: 12/30/2017 04:29 PM Electronically Signed By:DOC Wharton
--- NOTE | 2017-12-30 16:32 | PCMIDPN ---
Assessment/Plan: Assessment/Plan: * Left lower extremity cellulitis/diabetic foot infection with underlying plantar ulceration: MRI without evidence of abscess or osteomyelitis. Still with significant cellulitis and some lymphangitis on exam. Will continue Zosyn and hold off on further vancomycin given increased creatinine. Vancomycin likely will remain therapeutic for at least 24 hr. Encouraged elevation. Continue to follow clinical exam with time and anticipate should slowly improve. * Acute renal insufficiency: Creatinine increased to 1.7. Will hold further vancomycin. Combination therapy of vancomycin and Zosyn may increased risk of nephrotoxicity. Continue to follow creatinine over time. 12/30/17 16:28 Subjective: Patient feels like foot has more swelling and redness. Persistent tenderness. Complains of painful inguinal lymph node on left. Objective: Vital Signs Temp Pulse Resp BP Pulse Ox 36.7 C 91 15 121/73 H 94 12/30/17 08:00 12/30/17 08:00 12/30/17 08:00 12/30/17 08:52 12/30/17 08:00 Laboratory Results 12/29/17 05:30 12/30/17 02:20 12/29/17 12/30/17 12/31/17 05:59 05:59 05:59 Intake Total 500 2300 Output Total 3000 1350 Balance -2500 950 ESR 81 MM/HR (0-15) H 12/25/17 23:00 C-Reactive Protein 141.5 mg/L (<10.0) H 12/25/17 23:00 Vancomycin # 4 Zosyn # 4 Laboratory Tests 12/30/17 11:55 Vancomycin Trough 19.7 - Physical Exam General Appearance: alert, no apparent distress EENT: No scleral icterus Extremities: inflammation (Left lower extremity with edema over dorsum of foot and ankle; faint erythema present over dorsal aspect of foot with small area of lymphangitis extending into lower leg anteriorly; plantar ulceration present without purulent drainage underlying 5th toe) Abdomen: non-tender, No distended Lymphatic: adenopathy (Tender inguinal adenopathy on left) ICD10 Worksheet Patient Problems: Problems Problem Status Onset Cellulitis Acute Acute kidney injury Acute Acute renal failure Acute DKA (diabetic ketoacidoses) Acute Dehydration Acute Hyperglycemia Acute Hyperkalemia Acute Hyperkalemia Acute Osteomyelitis Acute Type 1 diabetes Acute
--- NOTE | 2017-12-30 17:38 | ECHO ---
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 No LV hypertrophy. Normal global systolic LV function. EF is 66 %. No regional wall motion abnormality. Normal size right ventricle. Normal RV function. The left atrium is mildly dilated. Moderate mitral valve regurgitation is present. Mild to moderate tricuspid valve regurgitation. Right ventricular systolic pressure measures 49mmHg. There is no previous echocardiogram for comparison. Measurements: Chambers Valvular Assessment AV/MV Valvular Assessment TV/PV Normal Normal Normal Name Value Range Name Value Range Name Value Range Ao Tarah (2D): 2.3 cm (1.4 cm-2.6 AV meanP mmHg ( - ) TR Vmax: 3.33 mm/s ( - ) cm) ADRIAN (VTI): 1.8 cm ( - ) TR PGmax: 44 mmHg ( - ) IVSd (2D): 1.1 cm (0.6 cm-1.1 MV E Vmax: 1.24 m/s ( - ) syst. PAP: 49 mmHg ( - ) cm) MV A Vmax: 0.96 m/s ( - ) PV Vmax: 1.17 m/s (0.6 m/s-0.9 LVDd (2D): 5.0 cm (4.2 cm-5.9 MV E/A: 1.29 ( - ) m/s) cm) MV PHT: 0.053 s ( - ) PV PGmax: 5 mmHg ( - ) LVDs (2D): 3.2 cm (2.1 cm-4 cm) MVA (PHT): 4.2 s ( - ) LVPWd (2D): 1.0 cm (0.6 cm-1 cm) LVOTd 1.8 cm 1.8 cm mm LVEF (BP): 66 % (>=55 %) Patient: GEORGIA CHAVEZ Study Date: 12/30/2017 Page 1 of 2 01:49 PM RVDd(2D): 2.5 cm (1.9 cm-3.8 cmmm) Continued Measurements: Chambers Valvular Assessment AV/MV Valvular Assessment TV/PV Name Value Name Value Name Value LADs: 4.7 cm MV DecTime: 190 m/s CVP (est.): 5 mmHg LADs Lon.8 cm MV E' Septal: 0.08 m/s LA Area: 25.6 cm2 MV E/E' Septal: 15.30 MV E/E' Lateral: 10.90 MR ERO: 0.440 cm2 MR PISA radius: 10 mm MR Reg. Volume: 70 ml Additional Vessels Name Value Ao Ascendin.5 cm Inferior Vena Cava: 2.0 cm Findings: Left Ventricle: Normal size left ventricle. No LV hypertrophy. Normal global systolic LV function. EF is 66 %. No regional wall motion abnormality. Normal diastolic LV function. Right Ventricle: Normal size right ventricle. Normal RV function. Left Atrium: The left atrium is mildly dilated. Right Atrium: The right atrium is normal in size. Mitral Valve: The mitral valve is normal in appearance. Moderate mitral valve regurgitation is present. No mitral stenosis is present. Aortic Valve: The aortic valve is normal in appearance and function. There is no significant aortic valve regurgitation. No aortic valve stenosis is present. Tricuspid Valve: The tricuspid valve is normal in appearance and function. Mild to moderate tricuspid valve regurgitation. The pulmonary artery pressure is mildly increased. Right ventricular systolic pressure measures 49mmHg. Pulmonic Valve: The pulmonic valve is normal in appearance and function. There is no pulmonic regurgitation seen. Aorta: The aorta is normal. Normal size aortic root measuring 2.3 cm. Normal size ascending aorta measuring 2.5 cm. IVC: The IVC is normal sized. Pericardium: No pericardial effusion. Respiratory variation is less than 25%. No pleural effusion. (No Signature Object) Patient: GEORGIA CHAVEZ Study Date: 12/30/2017 Page 2 of 2 01:49 PM [id number]
[2017-12-31] MEDS: PIPERACILLIN/TAZO 3.375 GM/DEX 50 ML IV SCH ×5 (00:23→23:22)
[2017-12-31] MEDS: INSULIN LISPRO 100 UNIT/ML SC SCH ×4 (07:47→22:10)
[2017-12-31] MEDS: HYDROCODONE/APAP 5/325 TAB PO PRN ×2 (09:27→16:47)
[2017-12-31] MEDS: ENOXAPARIN 40 MG/0.4 ML SYR SC SCH (09:28)
[2017-12-31] MEDS: INSULIN GLARGINE 100 UNITS/ML UNIT SC SCH (10:15)
--- NOTE | 2017-12-31 14:17 | PCMIDPN ---
Assessment/Plan: Assessment/Plan: 1. LLE cellulitis with plantar ulcer in diabetic: - All cultures here reviewed, polymicrobial with MSSA, GBS, e.coli over past year. apparently one cx in the OP with mrsa -currenlty on zosyn. was on vanco but trough was at 19.7 yesterday so d/c'd. - will recheck labs in AM. creatinine improved today 1.3 from 1.7 -follow labs. - imaging wihtout evidence of abscess or OM -recheck vanco random in AM. - discussed with patient iimportance of foot elevation. MEds zosyn 3.37gm q6- 12/26/17 Subjective: afebrile. feels better. was sitting up in chair. he feeels like swelling of left foot is back. denies sob, abd pain or diarrhea. Objective: Vital Signs Temp Pulse Resp BP Pulse Ox 37 C 75 16 154/83 H 95 12/31/17 07:54 12/31/17 07:54 12/31/17 07:54 12/31/17 07:54 12/31/17 07:54 Laboratory Results 12/29/17 05:30 12/31/17 05:10 12/30/17 12/31/17 01/01/18 05:59 05:59 05:59 Intake Total 2300 375 Output Total 1350 Balance 950 375 ESR 81 MM/HR (0-15) H 12/25/17 23:00 C-Reactive Protein 141.5 mg/L (<10.0) H 12/25/17 23:00 - Physical Exam General Appearance: alert, no apparent distress Respiratory: lungs clear Cardiac/Chest: regular rate, rhythm Extremities: swelling Abdomen: normal bowel sounds, non-tender, soft, No distended Skin: erythema (Left foot with erythema on dorsum and plantar aspect. some improvement within lines of demarcation. plantar ulcer noted. RIght foot with small ulcer as well. swelling of left foot. ) ICD10 Worksheet Patient Problems: Problems Problem Status Onset Cellulitis Acute Acute kidney injury Acute Acute renal failure Acute DKA (diabetic ketoacidoses) Acute Dehydration Acute Hyperglycemia Acute Hyperkalemia Acute Hyperkalemia Acute Osteomyelitis Acute Type 1 diabetes Acute
--- NOTE | 2017-12-31 18:50 | HOSPPROG ---
Hospitalist Progress Note Assessment/Plan: DIAGNOSES: * left diabetic foot ulcer and diabetic foot infection with cellulitis, no osteomyelitis seen so far imaging * No clear signs of improvement at the moment * Nothing growing from blood cultures at this time * acute pulmonary edema/vascular congestion after IV fluids * Currently improved after some diuresis * symptomatic moderate mitral regurgitation with pulmonary hypertension fairly high at 49 * This likely did contribute to his pulmonary edema with IV fluids * This will need careful assessment by Cardiology as he is symptomatic and already with pulmonary hypertension at age 32. Fortunately his ventricles are both good at this time. As the ventricles are both good and he has been chronically on Swapnil inhibitor, I am not confident that medical management and discontinuation of his cocaine and methamphetamine could lead to improvement in his cardiac function or pulmonary hypertension * acute kidney injury, new diagnosis * Suspect due to elevated vancomycin level, in susceptible kidneys related to poorly controlled diabetes * acute vancomycin send toxicity with level 19.8 and acute renal insufficiency * Some improvement today after IV fluids and holding his vancomycin * diabetes mellitus type 1 since teenage years, with chronic noncompliance and poor control * Still some variability through the day but his sugars are improving and most are in reasonably good range at this time on current therapy and diet * chronic polysubstance abuse with marijuana, cocaine, methamphetamine * Has not had withdrawal here * chronic hypertension on ARBn (currently held due to renal failure) * attention deficit disorder; previously diagnosed and treated in childhood but he has been off of medical treatment and not doing any kind of counseling or therapy for quite a number of years * This is certainly playing a role in his substance abuse and his inability to care for his medical issues with any kind of good compliance I had a very long discussion with the patient about his cardiac issues, his substance abuse, his diabetes, and the prognoses and potential complications of all these as well as the very high likelihood that Cardiac surgery either in the very near future or somewhere in the future will need to be part of his picture in order to maintain cardiac health. I also discussed with the patient that he seems to me very likely have attention deficit disorder and he did mention to me that in fact this was diagnosed in childhood, and that in fact as a child he was taking Adderall in receiving counseling and did much better wall on those therapies. However he is not stuck with those therapies and has not been on any therapy at all for a good number of years. At this time he is very enthusiastic about trying to get back into some treatment for his ADD and did meet with our mental health assess her here. He has previously been engaged at [facility] and we are setting him up to get back in with them as soon as possible after discharge. I will trying contact his counselors at [facility] to review his current situation, his enthusiasm for sobriety and for taking care of his medical issues in particularly trying to manage his ADD to make all of this easier. PLANS: - continue Zosyn for his foot - continue elevation of his foot and wound care for the open lesion - his vancomycin has been stopped at this time due to high levels and toxicity, will repeat vancomycin level in the morning - continue to renal function very closely - have stopped his SWAPNIL-inhibitor and diuretic at this time for renal function issues, follow renal function closely; with his cardiac issues will definitely want to get him back on his SWAPNIL-inhibitor the hopefully in the next day or 2 depending on renal function - I review his echo findings with Cardiology. At this point just from a purely heart related standpoint, he has symptomatic mitral regurgitation with pulmonary hypertension (worsening exertional dyspnea over time), and under current practice at least some center's could be considered a candidate for surgical repair at this time. However given his overall picture this will need to be assessed quite carefully. He has active infection with diabetic foot lesions, and so far his management of these issues would leave him at potential risk for recurrent infection. Additionally his drug abuse issues while not involving IV drug abuse could leave him at higher risk for complications or overall poor outcomes. That being said these drug uses would actually be more likely to cause problems if he has ongoing mitral regurg and pulmonary hypertension compare to if these were alleviated. At this point given the fact that he has been on an SWAPNIL-inhibitor, I would not be confident to think that he would likely be able to improve his pulmonary hypertension or mitral regurgitation by optimized medical management and stopping abuse of stimulants. Notable is that he has normal right and left ventricular function and dimensions in this setting so there is no hope to improve his cardiac dimensions or systolic function to improve his cardiac function overall. My guess is that he would probably have significant changes in his cardiac dimensions and functions during exercise if we did cardiac stress echo. There is data suggesting support for use of this modality to assess for who would be a candidate for mitral valve repair. Notably it is not clear to me what the cause of his mitral regurgitation is. There is no definite history of rheumatic fever, though he has a childhood whether significant unknowns as he was an adopted child. I do not think the mitral regurg is due to his abuse drugs as there is no evidence that there is left ventricular dysfunction or endocarditis. - follow sugars very closely and adjust treatment as indicated, will not make any changes today based on current sugars I reviewed all the above in detail today with the patient, with his nurse SUBJECTIVE: Feels okay overall, no chills or sweats, no pain Eating well In reviewing symptoms with the patient from the past he does note to me that over the last symptoms months or so he has noticed worsening exertional dyspnea and fatigue without cough, ankle swelling, chest pain, palpitations or other obvious cause. OBJECTIVE Vitals reviewed: Some hypertension today, may be due to being off of Swapnil inhibitor which was stopped for his renal disease; otherwise stable without fever Exam: alert oriented relaxed skin warm dry color ok resps not labored lungs clear BSs heart regular abd soft nondistended nontender, bowel sounds present limbs his left foot has cellulitis over the dorsum distally and laterally perhaps a little bit less intense than yesterday on exam, no area of fluctuance but there is some edema there, no necrotic areas, his wound is unchanged with no sign of iv site ok Laboratory data: Creatinine is down to 1.3 today Sugars mostly in the 109-120s range but some post prandials are up to 200 Echocardiogram done today shows preserved ejection fraction at 66% with no wall motion abnormalities and left ventricle, preserved dimensions of the left and right ventricle and no systolic dysfunction of the right ventricle, however there is moderate mitral regurgitation with pulmonary hypertension at 49 Objective: Vital Signs Temp Pulse Resp BP Pulse Ox 36.6 C 83 16 147/98 H 98 12/31/17 16:00 12/31/17 16:00 12/31/17 16:00 12/31/17 16:48 12/31/17 16:00 Laboratory Results 12/29/17 05:30 12/31/17 05:10 12/30/17 12/31/17 01/01/18 06:59 06:59 06:59 Intake Total 2300 375 Output Total 1350 Balance 950 375 PT 12.3 SEC (12.0-15.0) 12/25/17 23:00 INR 0.89 (0.83-1.16) 12/25/17 23:00 - Time Spent With Patient Time Spent with Patient: greater than 35 minutes Time Spent with Patient: Greater than 35 minutes spent on this patients care, greater than 50% of time spent counseling, educating, and coordinating care regarding the above mentioned plan. ICD10 Worksheet Patient Problems: Problems Problem Status Onset Cellulitis Acute Acute kidney injury Acute Acute renal failure Acute DKA (diabetic ketoacidoses) Acute Dehydration Acute Hyperglycemia Acute Hyperkalemia Acute Hyperkalemia Acute Osteomyelitis Acute Type 1 diabetes Acute
[2017-12-31] MEDS: clonazePAM 1 MG TAB PO PRN (22:09)
[2018-01-01] MEDS: PIPERACILLIN/TAZO 3.375 GM/DEX 50 ML IV SCH ×4 (05:56→23:06)
[2018-01-01] MEDS: INSULIN LISPRO 100 UNIT/ML SC SCH ×4 (07:54→21:09)
[2018-01-01] MEDS: ENOXAPARIN 40 MG/0.4 ML SYR SC SCH (08:46)
[2018-01-01] MEDS: INSULIN GLARGINE 100 UNITS/ML UNIT SC SCH (08:46)
--- NOTE | 2018-01-01 12:01 | PCMIDPN ---
Assessment/Plan: Assessment/Plan: * Left lower extremity cellulitis/diabetic foot infection with underlying plantar ulceration: MRI without evidence of abscess or osteomyelitis. Cellulitis has improved although not fully resolved and still in need of IV antibiotic therapy. Small amount of purulence expressed from plantar ulceration today which was sent for culture. Will continue Zosyn and lower extremity elevation. If shows any regression or if cultures show MRSA, then would need to resume vancomycin. For now will hold off with resuming this agent given patient's fluctuating creatinine and risk of nephrotoxicity. * Acute renal insufficiency: Creatinine improved. Now off vancomycin. 01/01/18 11:58 Subjective: Patient feels better with less foot pain but notes persistent swelling. Lymph nodes in inguinal region less tender. Objective: Vital Signs Temp Pulse Resp BP Pulse Ox 36.8 C 77 20 122/74 H 96 01/01/18 07:38 01/01/18 07:38 01/01/18 07:38 01/01/18 07:38 01/01/18 07:38 Laboratory Results 12/29/17 05:30 01/01/18 05:40 12/31/17 01/01/18 01/02/18 05:59 05:59 05:59 Intake Total 375 Balance 375 ESR 81 MM/HR (0-15) H 12/25/17 23:00 C-Reactive Protein 141.5 mg/L (<10.0) H 12/25/17 23:00 Zosyn # 6 Status post vancomycin x5 days Blood cultures x2 no growth - Physical Exam General Appearance: alert, no apparent distress EENT: No scleral icterus Extremities: inflammation (Left foot with significant decrease in intensity of erythema; has receded from demarcated lines and no longer present over anterior marion; plantar ulceration with small amount of purulence expressed but no focal fluctuance; 1+ edema of foot and ankle) Skin: No rash Lymphatic: adenopathy (2 mobile lymph nodes in left inguinal region which are nontender) ICD10 Worksheet Patient Problems: Problems Problem Status Onset Cellulitis Acute Acute kidney injury Acute Acute renal failure Acute DKA (diabetic ketoacidoses) Acute Dehydration Acute Hyperglycemia Acute Hyperkalemia Acute Hyperkalemia Acute Osteomyelitis Acute Type 1 diabetes Acute
--- NOTE | 2018-01-01 18:40 | HOSPPROG ---
Hospitalist Progress Note Assessment/Plan: DIAGNOSES: * left diabetic foot ulcer and diabetic foot infection with cellulitis, no osteomyelitis seen so far imaging * Some decrease in cellulitis today * as Dr. Cullen examine the wound today he did find some purulent drainage in this was sent for culture * Ongoing IV antibiotics here in the hospital currently recommended * acute pulmonary edema/vascular congestion after IV fluids * Currently improved after some diuresis * symptomatic moderate mitral regurgitation with pulmonary hypertension fairly high at 49 * This likely did contribute to his pulmonary edema with IV fluids * This will need careful assessment by Cardiology as he is symptomatic and already with pulmonary hypertension at age 32. Fortunately his ventricles are both good at this time. As the ventricles are both good and he has been chronically on Swapnil inhibitor, I am not confident that medical management and discontinuation of his cocaine and methamphetamine could lead to improvement in his cardiac function or pulmonary hypertension * acute kidney injury, new diagnosis * Suspect due to elevated vancomycin level, in susceptible kidneys related to poorly controlled diabetes * acute vancomycin send toxicity with level 19.8 and acute renal insufficiency * Some improvement today after IV fluids and holding his vancomycin * diabetes mellitus type 1 since teenage years, with chronic noncompliance and poor control * Still some variability through the day but his sugars are improving and most are in reasonably good range at this time on current therapy and diet * chronic polysubstance abuse with marijuana, cocaine, methamphetamine * Has not had withdrawal here * chronic hypertension on ARBn (currently held due to renal failure) * attention deficit disorder; previously diagnosed and treated in childhood but he has been off of medical treatment and not doing any kind of counseling or therapy for quite a number of years * This is certainly playing a role in his substance abuse and his inability to care for his medical issues with any kind of good compliance At this time he is very enthusiastic about trying to get back into some treatment for his ADD and did meet with our mental health assess her here. He has previously been engaged at [facility] and we are setting him up to get back in with them as soon as possible after discharge. I will trying contact his counselors at [facility] to review his current situation, his enthusiasm for sobriety and for taking care of his medical issues in particularly trying to manage his ADD to make all of this easier. I reviewed his echocardiogram findings today with Dr. Lien Caballero as well as his symptoms. At this point we will recommend evaluating for any obstructive airway disease as well as sleep apnea that might be aggravating his pulmonary hypertension. Finishing treatment of his acute infection and making sure he stays off of the stimulant street drugs followed by repeat echocardiogram in 2- 3 months will be recommended. It is possible that he may need a stress echo or other assessment to see if his ventricular functions or valve function worsened during stress or if his pulmonary pressure goes up significantly. PLANS: - continue Zosyn for his foot - continue elevation of his foot and wound care for the open lesion - his vancomycin has been stopped at this time due to high levels and toxicity, will repeat vancomycin level in the morning - continue to renal function very closely - have stopped his SWAPNIL-inhibitor and diuretic at this time for renal function issues, follow renal function closely; with his cardiac issues will definitely want to get him back on his SWAPNIL-inhibitor the hopefully in the next day or 2 depending on renal function - PFTs -sleep study for sleep apnea -will need repeat echocardiogram in 2-3 months, possibly stress echo as above - follow sugars very closely and adjust treatment as indicated, will not make any changes today based on current sugars I reviewed all the above in detail today with the patient, with his nurse SUBJECTIVE: Feels well overall again No new symptoms OBJECTIVE Vitals reviewed: Some hypertension today, may be due to being off of Swapnil inhibitor which was stopped for his renal disease; otherwise stable without fever Exam: alert oriented relaxed skin warm dry color ok resps not labored lungs clear BSs heart regular abd soft nondistended nontender, bowel sounds present limbs his left foot has cellulitis over the dorsum distally and laterally is improved somewhat today but not resolved; during Dr. Cullen's examination of the foot wound orally today there was some purulent drainage in this was sent for culture iv site ok Laboratory data: Creatinine is unchanged at 1.3 today Sugars mostly in the 109-120s range but some post prandials are up to 200 Objective: Vital Signs Temp Pulse Resp BP Pulse Ox 36.7 C 91 20 179/107 H 96 01/01/18 15:53 01/01/18 15:53 01/01/18 15:53 01/01/18 15:53 01/01/18 15:53 Microbiology 01/01/18 10:25 Gram Stain - Final Foot - Swab Laboratory Results 12/29/17 05:30 01/01/18 05:40 12/31/17 01/01/18 01/02/18 06:59 06:59 06:59 Intake Total 375 Balance 375 PT 12.3 SEC (12.0-15.0) 12/25/17 23:00 INR 0.89 (0.83-1.16) 12/25/17 23:00 - Time Spent With Patient Time Spent with Patient: greater than 35 minutes Time Spent with Patient: Greater than 35 minutes spent on this patients care, greater than 50% of time spent counseling, educating, and coordinating care regarding the above mentioned plan. ICD10 Worksheet Patient Problems: Problems Problem Status Onset Cellulitis Acute Acute kidney injury Acute Acute renal failure Acute DKA (diabetic ketoacidoses) Acute Dehydration Acute Hyperglycemia Acute Hyperkalemia Acute Hyperkalemia Acute Osteomyelitis Acute Type 1 diabetes Acute
[2018-01-01] MEDS: HYDROCODONE/APAP 5/325 TAB PO PRN (20:21)
[2018-01-01] MEDS: clonazePAM 1 MG TAB PO PRN (22:27)
[2018-01-02] MEDS: PIPERACILLIN/TAZO 3.375 GM/DEX 50 ML IV SCH ×4 (05:09→23:14)
[2018-01-02] MEDS: ENOXAPARIN 40 MG/0.4 ML SYR SC SCH (09:52)
[2018-01-02] MEDS: INSULIN LISPRO 100 UNIT/ML SC SCH ×4 (09:53→21:30)
[2018-01-02] MEDS: INSULIN GLARGINE 100 UNITS/ML UNIT SC SCH (09:56)
--- NOTE | 2018-01-02 14:55 | PCMIDPN ---
Assessment/Plan: Assessment: Left lower extremity cellulitis with a chronic plantar surface diabetic ulcer under the 5th MTP. MRI showed no evidence of osteomyelitis the left foot. Currently only on IV Zosyn. Clinically the foot looks even better today. Ironically MRSA currently now growing out of culture. No sensitivity panel. Plan: 1. Continue IV Zosyn. 2. Await results on sensitivities to the MRSA discharge on oral combination of antibiotics including broad coverage and MRSA coverage. Subjective: Patient is doing well. He has been keeping his foot more elevated. He states that there is very little pain. He notes decreased redness. He is anxious to leave the hospital. No fevers or chills. Objective: Zosyn # 7 Vital Signs Temp Pulse Resp BP Pulse Ox 36.7 C 73 16 132/75 H 94 01/02/18 07:41 01/02/18 07:41 01/02/18 07:41 01/02/18 07:41 01/02/18 07:41 Microbiology 01/01/18 10:25 Gram Stain - Final Foot - Swab Laboratory Results 12/29/17 05:30 01/01/18 05:40 ESR 81 MM/HR (0-15) H 12/25/17 23:00 C-Reactive Protein 141.5 mg/L (<10.0) H 12/25/17 23:00 - Physical Exam General Appearance: WD/WN, alert, no apparent distress, non-toxic Cardiac/Chest: regular rate, rhythm, No bradycardia, No tachycardia Extremities: non-tender, erythema, No normal inspection (Left foot with small amount of residual erythema on the dorsal aspect of the forefoot.) Skin: normal color, warm/dry, No rash Neuro/Psych: normal mood/affect, oriented x 3 ICD10 Worksheet Patient Problems: Problems Problem Status Onset Cellulitis Acute Acute kidney injury Acute Acute renal failure Acute DKA (diabetic ketoacidoses) Acute Dehydration Acute Hyperglycemia Acute Hyperkalemia Acute Hyperkalemia Acute Osteomyelitis Acute Type 1 diabetes Acute
--- NOTE | 2018-01-02 16:06 | HOSPPROG ---
Hospitalist Progress Note Assessment/Plan: DIAGNOSES: * left diabetic foot ulcer and diabetic foot infection with cellulitis, no osteomyelitis seen so far imaging; MRSA now in wound culture new growth today (not currently on Vanco due to acute renal injury from high Vanco level) * Ongoing IV antibiotics here in the hospital currently recommended * for now continue zosyn, wait on abx sens of the MRSA due to his acute vanco tox/CINDY, per ID * hyperkalemia, new problem today, in the setting of acute kidney injury * Mild elevation but risk for progression of that so will start treating it now * Continue holding his Vasotec in part due to this * acute kidney injury, new diagnosis this admission * due to elevated vancomycin level, in susceptible kidneys related to poorly controlled diabetes * Mild improvement but not back at his baseline renal function after 3 days off of vancomycin * Vasotec being held because of this * acute vancomycin send toxicity with level 19.8 and acute renal insufficiency * Has been held last 3 days * acute pulmonary edema/vascular congestion after IV fluids * Currently resolved after some diuresis * symptomatic pulmonary hypertension fairly high at 49; also has moderate mitral regurg by echo * MR may have contributed to his pulm edema after IVF * This will need careful assessment by Cardiology as he is symptomatic and already with pulmonary hypertension at age 32. Fortunately his ventricles are both good at this time. As the ventricles are both good and he has been chronically on Swapnil inhibitor, would question whether he could have any improvement in PHTN or MR with medical treatment and sobriety. Also ? if he might show worse MR with exertion or stress * diabetes mellitus type 1 since teenage years, with chronic noncompliance and poor control * Still some variability through the day but his sugars are improving and most are in reasonably good range at this time on current therapy and diet * for most of past 10 yrs has had very poor control due to ADD and drug use, but now in much better control overall with insulin pump * chronic polysubstance abuse with marijuana, cocaine, methamphetamine * Has not had withdrawal here, and use is all intermittent * at present he is sober here and is quite enthusiastic about trying to stay sober, enter rehab * chronic hypertension on Vasotec at home (currently held due to renal failure) * numbers higher off vasotec, but norvasc added 01/01 with some improvement * attention deficit disorder; previously diagnosed and treated in childhood but he has been off of medical treatment and not doing any kind of counseling or therapy for quite a number of years * This is certainly playing a role in his substance abuse and his inability to care for his medical issues with any kind of good compliance as well as a number of social problems he has ongoing At this time he is very enthusiastic about trying to get back into some treatment for his ADD and did meet with our mental health assess her here. He has previously been engaged at [facility] and we are setting him up to get back in with them as soon as possible after discharge. I will trying contact his counselors at [facility] to review his current situation, his enthusiasm for sobriety and for taking care of his medical issues in particularly trying to manage his ADD to make all of this easier. I reviewed his echocardiogram findings with Dr. Lien Caballero as well as his symptoms. At this point we will recommend evaluating for any obstructive airway disease as well as sleep apnea that might be aggravating his pulmonary hypertension. Finishing treatment of his acute infection and making sure he stays off of the stimulant street drugs followed by repeat echocardiogram in 2- 3 months will be recommended. It is possible that he may need a stress echo or other assessment to see if his ventricular functions or valve function worsened during stress or if his pulmonary pressure goes up significantly. follow-up care for this patient after this hospitalization would need to include [facility] for infectious disease and diabetic foot management, cardiology for further assessment and management of his mitral regurg and pulmonary hypertension, Q2 week visits with his outside sales representative insurance which is the prior ongoing plan for his diabetes, and working with the [facility] for his ADD and his mental health issues otherwise. Plans are currently mobilized for all these follow-ups to be arranged and take place, however I found from the patient and his mother today that he actually has a court case on January 17 at [facility] [address], with a potential outcome for a mcfp sentence. This would be very difficult for him and place him at very high risk of decompensation of his multiple medical issues. I will therefore compose a letter to give to the patient to give to his attorney at law to see if his medical issues are something the court would consider in making decisions. PLANS: - continue Zosyn for his foot - continue elevation of his foot and wound care for the open lesion - his vancomycin has been stopped at this time due to high levels and renal toxicity; now with MRSA will need to get the sensitivities to see if this could be treated with oral antibiotics or if he will need vancomycin to be very carefully monitored for ongoing care while watching function - continue to renal function very closely - have stopped his SWAPNIL-inhibitor and diuretic at this time for renal function issues, follow renal function closely; with his cardiac issues will definitely want to get him back on his SWAPNIL-inhibitor if possible with the renal functions and high potassium preclude that now - PFTs are ordered to further assess his pulmonary hypertension -sleep study for sleep apnea again to further assess his pulmonary hypertension , was ordered last night but did not get done I have spoken to respiratory and should get done tonight -will need repeat echocardiogram in 2-3 months, possibly stress echo as above - follow sugars very closely and adjust treatment as indicated, will not make any changes today based on current sugars I reviewed all the above in detail today with the patient and his mother, with his nurse SUBJECTIVE: Feels well overall again No new symptoms OBJECTIVE Vitals reviewed: BPs remain high off his vasotec but better today with norvasc added; otherwise stable without fever Exam: alert oriented relaxed skin warm dry color ok resps not labored lungs clear BSs heart regular abd soft nondistended nontender, bowel sounds present limbs his left foot has cellulitis over the dorsum distally and laterally is improved somewhat today but not resolved; overall foot wound looks okay iv site ok Laboratory data: sugars a bit higher today Creatinine has not come down any further and is stuck right now at 1.3, potassium higher today at 5.6 Objective: Vital Signs Temp Pulse Resp BP Pulse Ox 36.7 C 98 16 145/94 H 97 01/02/18 15:38 01/02/18 15:38 01/02/18 15:38 01/02/18 15:38 01/02/18 15:38 Microbiology 01/01/18 10:25 Gram Stain - Final Foot - Swab Laboratory Results 12/29/17 05:30 01/01/18 05:40 01/01/18 01/02/18 01/03/18 06:59 06:59 06:59 Output Total 775 Balance -775 PT 12.3 SEC (12.0-15.0) 12/25/17 23:00 INR 0.89 (0.83-1.16) 05/02/18 23:00 - Time Spent With Patient Time Spent with Patient: greater than 35 minutes Time Spent with Patient: Greater than 35 minutes spent on this patients care, greater than 50% of time spent counseling, educating, and coordinating care regarding the above mentioned plan. ICD10 Worksheet Patient Problems: Problems Problem Status Onset Cellulitis Acute Acute kidney injury Acute Acute renal failure Acute DKA (diabetic ketoacidoses) Acute Dehydration Acute Hyperglycemia Acute Hyperkalemia Acute Hyperkalemia Acute Osteomyelitis Acute Type 1 diabetes Acute
--- NOTE | 2018-01-02 16:40 | ASMTCMCOM ---
CM Note CM Note Notes: Plan remains the same, per MD note pt will dc on oral abx. Anticipate pt will dc home w/support of mother when medically stable. CM available for any changes. DC Plan: Independent Date Signed: 01/02/2018 04:39 PM Electronically Signed By:Keshia Washburn RN
[2018-01-02] MEDS ORDERED: SODIUM POLY SULF 15 GM/60 ML BOTTLE PO ONE (17:17)
[2018-01-02] MEDS: HYDROCODONE/APAP 5/325 TAB PO PRN (22:39)
[2018-01-02] MEDS: clonazePAM 1 MG TAB PO PRN (22:39)
[2018-01-03] MEDS: PIPERACILLIN/TAZO 3.375 GM/DEX 50 ML IV SCH ×2 (05:05→12:40)
[2018-01-03 07:56] VITALS: BP 135/86
--- NOTE | 2018-01-03 09:39 | PCMIDPN ---
Assessment/Plan: Assessment: Left lower extremity cellulitis with a chronic plantar surface diabetic ulcer under the 5th MTP. MRI showed no evidence of osteomyelitis the left foot. Currently only on IV Zosyn. The foot continues to look improved on a daily basis. He still has some residual redness. Would send him out on 7 more days of oral Keflex plus doxycycline given MRSA. This isolate is sensitive to tetracyclines. Plan: 1. Change IV antibiotics to oral Keflex 500 mg p.o. Four times daily plus doxycycline 100 mg p.o. Twice daily. Duration 7 more days. 2. Discharge home. Follow-up in office in 1 week. 01/03/18 09:37 Subjective: Patient is resting in his hospital bed. He is anxious to go home. Denies any fevers or chills. Notes swelling continues to go down and redness is improved. Objective: Zosyn # 8 Vital Signs Temp Pulse Resp BP Pulse Ox 36.6 C 82 16 135/86 H 96 01/03/18 07:55 01/03/18 07:55 01/03/18 07:55 01/03/18 07:55 01/03/18 07:55 Microbiology 01/01/18 10:25 Gram Stain - Final Foot - Swab Laboratory Results 12/29/17 05:30 01/03/18 05:07 01/02/18 01/03/18 01/04/18 05:59 05:59 05:59 Intake Total 1200 Output Total 775 Balance 425 ESR 81 MM/HR (0-15) H 12/25/17 23:00 C-Reactive Protein 141.5 mg/L (<10.0) H 12/25/17 23:00 - Physical Exam General Appearance: WD/WN, alert, no apparent distress, non-toxic Respiratory: lungs clear, normal breath sounds, No respiratory distress Cardiac/Chest: regular rate, rhythm, No tachycardia Extremities: non-tender, erythema (Mild), No normal inspection, No swelling Skin: normal color, warm/dry, No rash ICD10 Worksheet Patient Problems: Problems Problem Status Onset Cellulitis Acute Acute kidney injury Acute Acute renal failure Acute DKA (diabetic ketoacidoses) Acute Dehydration Acute Hyperglycemia Acute Hyperkalemia Acute Hyperkalemia Acute Osteomyelitis Acute Type 1 diabetes Acute
[2018-01-03] MEDS: INSULIN GLARGINE 100 UNITS/ML UNIT SC SCH (09:51)
[2018-01-03] MEDS: ENOXAPARIN 40 MG/0.4 ML SYR SC SCH (09:52)
--- NOTE | 2018-01-03 10:20 | ASMTCMCOM ---
CM Note CM Note Notes: Colleague CM asked SWer to assess to see if Pt. would like further information for substance treatment referrals. Different CM colleague on 12/30 charted that Pt. disinterested in such information. After chart review, found that Pt. has had comprehensive behavioral health consult by Maris Pan, PhD. Please see notes section for this evaluation. Pt. with extensive history. Plan is for Pt. to follow up with [facility] in [place] for mental health supportive care. Plan for independent d/c with oral antibiotics when ready. Date Signed: 01/03/2018 10:20 AM Electronically Signed By:Wendy Bui LCSW
[2018-01-03] MEDS: INSULIN LISPRO 100 UNIT/ML SC SCH ×2 (11:07→12:40)
--- NOTE | 2018-01-03 15:21 | GDS ---
[f rep st] DISCHARGE SUMMARY DISCHARGE DIAGNOSIS: 1. Methicillin-resistant Staphylococcus aureus cellulitis and foot ulceration as a complication of d iabetes. 2. Acute renal failure due to vancomycin. 3. Pulmonary hypertension with moderate mitral regurgitation. 4. Diabetes type 1. 5. Polysubstance abuse. 6. Attention deficit disorder. HISTORY: Kenneth is a 32-year-old type 1 diabetic, poorly controlled, history of polysubstance abuse who presented with a diabetic foot ulcer. Culture grew MRSA. He had some affiliated cellulitis. He w as seen here with Infectious Disease. He was treated with IV vancomycin but developed some renal cleve lure that has now been discontinued. Per Infectious Disease, okay to discharge on oral antibiotics in cluding Keflex and doxycycline to also cover the MRSA. He had an MRI of the foot that was negative f or osteomyelitis. He follows closely with Dr. Giron of Podiatry and will continue to follow with him closely. Acute renal failure is resolved at discharge and he can resume his previous Vasotec. He got an echo during this hospitalization and was incidentally noted to have pulmonary hypertension with a pulmonary pressure 49 as well as moderate mitral regurgitation. This will need further workup as an outpatient. Pulmonary embolus was considered. His D-dimer was positive. He did have some left leg pain behind the knee and got an ultrasound that was negative. I suggested a CT angiogram for pu lmonary embolus and he declined. He understands the risks of a missed pulmonary embolus but feels ojby y strongly that he does not have a PE at this time. He is advised to return to the ER if he has ches t pain or shortness of breath. I did not have him sign out AMA as he did agree to the ultrasound, bu t did urge him if he develops any symptoms concerning for PE that he come to the hospital for further CT scanning. If he does not have a PE, he will need follow up with Cardiology. DISCHARGE DIAGNOSIS: Please see computer record for full detailed list. NEW MEDICATIONS: 1. Keflex 500 mg p.o. 4 times a day for 7 days. 2. Doxycycline 100 mg p.o. twice daily for 14 days. ADDITIONAL DISCHARGE INSTRUCTIONS: 1. Follow up with Dr. Giron of Podiatry in 1 week. 2. Follow up with Dr. Caballero or any other client success specialist in 2 weeks for management of pulmonary hyperten mata. 3. Return to ER for chest pain or shortness of breath for CT angiogram to rule out PE. 4. Greater than 30 minutes' time was spent arranging this discharge. Patient was seen and examined by milagros caicedo on day of discharge. /[id number]/MODL
--- NOTE | 2018-01-07 14:05 | PQFORM ---
PHYSICIAN QUERY FORM Needs Your Response This query form is being sent to you to assure this patient record is coded properly. Please respond to the question below: MUSIC BOX MECHANIC QUESTION: Dr. Varela, The diagnosis of sepsis is documented in the History and Physical dated 2017 and in the progress notes dated 12/26/17 and 12/27/17. Would this be appropriate as an additional diagnosis on the discharge summary? Yes x No Other Clinically Undetermined Many thanks, ROSLNY Reyes [facility]/Coding Department w: [phone] INSTRUCTIONS FOR RESPONSE: Answer question by clicking on the "Edit Document" button. Move cursor to area below the stars. When complete, hit "Save." Click on the "Sign" button, then click "Sign" again. Type in your PIN and hit "Enter." MTDD
== END 2018-01-03 15:37 | disposition home or self-care (01) | DRG 720 ==
LOC: F3N 12-26 01:47 → F3E 12-30 16:28
PROVIDERS: ADMIT Family Medicine; ATTEND Internal Medicine
DX: A41.02 Sepsis due to Methicillin resistant Staphylococcus aureus (principal); E87.2 Acidosis; E10.628 Type 1 diabetes mellitus with other skin complications; L03.116 Cellulitis of left lower limb; E10.621 Type 1 diabetes mellitus with foot ulcer; N14.1 Nephropathy induced by other drugs, medicaments and biological substances; T36.8X5A Adverse effect of other systemic antibiotics, initial encounter; I34.0 Nonrheumatic mitral (valve) insufficiency; I27.21 Secondary pulmonary arterial hypertension; E87.79 Other fluid overload; I50.1 Left ventricular failure, unspecified; E10.42 Type 1 diabetes mellitus with diabetic polyneuropathy; E10.65 Type 1 diabetes mellitus with hyperglycemia; Z91.14 Patient's other noncompliance with medication regimen; Z96.41 Presence of insulin pump (external) (internal); Z86.19 Personal history of other infectious and parasitic diseases; Z89.411 Acquired absence of right great toe; F10.20 Alcohol dependence, uncomplicated; F12.10 Cannabis abuse, uncomplicated; F14.10 Cocaine abuse, uncomplicated; F15.10 Other stimulant abuse, uncomplicated; F90.9 Attention-deficit hyperactivity disorder, unspecified type; D63.8 Anemia in other chronic diseases classified elsewhere; I10 Essential (primary) hypertension
CPT/HCPCS: 80305; 96365; A9585; J1170; J1200; J1650; J1815; J1885; J1940; J2060; J2405; J2543; J3370

== ENCOUNTER 2018-02-24 12:55 | Day surgery (SDC) | payer MEDICAID ==
--- NOTE | 2018-02-24 07:42 | PDHPUP ---
History & Physical Update H&P update statement: This history and physical update is based on an assessment of the patient which was completed after admission or registration (within 24 hours), but prior to the surgery/procedure. H&P update: no change in patient's condition since H&P completed
[2018-02-24] MEDS ORDERED: LR 1,000 ML IV ONE (13:11)
[2018-02-24] MEDS ORDERED: LIDOCAINE 1% 2 ML INJ ID PRN (13:11)
[2018-02-24] MEDS ORDERED: BUPIVACAINE 0.25% 30 ML SDV ONE (15:32)
[2018-02-24] MEDS ORDERED: BUPIVACAINE/EPI 0.5% 30 ML SDV ONE (15:32)
[2018-02-24] MEDS ORDERED: BACITRACIN 50,000 UNITS/10 ML SYR IRR ONE (15:33)
[2018-02-24] MEDS ORDERED: MIDAZOLAM 2 MG/2 ML VIAL ONE (16:03)
[2018-02-24] MEDS ORDERED: fentaNYL 100 MCG/2 ML INJ ONE (16:03)
[2018-02-24] MEDS ORDERED: PROPOFOL/EMULSION 500 MG/50 ML BOTTLE IV ONE (16:04)
[2018-02-24] MEDS ORDERED: LIDOCAINE 2% 5 ML SDV ONE (16:06)
--- NOTE | 2018-02-24 16:09 | PDANEPAE ---
ANE Past Medical History - Cardiovascular History Hx Hypertension: No Hx Arrhythmias: No Hx Chest Pain: No Hx Coronary Artery / Peripheral Vascular Disease: No Hx CHF / Valvular Disease: No Hx Palpitations: No Cardiovascular History Comment: MITRAL REGURITATION. PULM HTN - Pulmonary History Hx COPD: No Hx Asthma/Reactive Airway Disease: No Hx Recent Upper Respiratory Infection: No Hx Oxygen in Use at Home: No Hx Sleep Apnea: No Sleep Apnea Screening Result - Last Documented: Negative - Neurologic History Hx Cerebrovascular Accident: No Hx Seizures: No Hx Dementia: No - Endocrine History Hx Diabetes: Yes Endocrine History Comment: IDDM SINCE AGE 14. insulin pump 3 YRS - Renal History Hx Renal Disorders: No - Liver History Hx Hepatic Disorders: No - Neurological & Psychiatric Hx Hx Neurological and Psychiatric Disorders: Yes Neurological / Psychiatric History Comment: Bipolar, PTSD, Anxiety - Cancer History Hx Cancer: No - GI History Hx Gastrointestinal Disorders: No - Other Health History Other Health History: RT FOOT DIABETIC PRESSURE ULCER. CELLULITIS. DX MRSA - Chronic Pain History Chronic Pain: Yes (R knee) - Surgical History Prior Surgeries: RT FOOT TOE SURG. REMVL NECK CYST. RT KNEE RECONSTRUCTION ANE Review of Systems Review of Systems: - Exercise capacity METS (RN): 4 METS ANE Patient History - Allergies Allergies/Adverse Reactions: No Known Allergies Allergy (Verified 04/22/17 21:59) - Home Medications Home Medications: Insulin Pump, Patient Own 1 ea MISC AD 12/26/17 [Last Taken 02/24/18] clonazePAM [klonoPIN (*)] 1 mg PO TID PRN 12/26/17 [Last Taken 02/23/18 09:00] Augmentin 1000MG ER Tablet (*) BID 02/21/18 [Last Taken 02/23/18 23:00] - NPO status NPO Since - Liquids (Date): 02/24/18 NPO Since - Liquids (Time): 10:30 NPO Since - Solids (Date): 02/23/18 NPO Since - Solids (Time): 22:00 - Smoking Hx Smoking Status: Former smoker ANE Labs/Vital Signs - Labs Result Diagrams: 02/24/18 13:50 - Vital Signs Blood Pressure: 130/90 Heart Rate: 101 Respiratory Rate: 16 O2 Sat (%): 97 Height: 193.04 cm Weight: 83.915 kg ANE Physical Exam - Airway Neck exam: FROM Mallampati Score: Class 1 Mouth exam: poor dentition - Pulmonary Pulmonary: no respiratory distress, no rales or rhonchi, clear to auscultation - Cardiovascular Cardiovascular: regular rate and rhythym, no murmur, rub, or gallop ANE Anesthesia Plan Anesthesia Plan: MAC
[2018-02-24] MEDS ORDERED: NALOXONE HCL 0.4 MG/ML INJ IVP PRN (16:31)
[2018-02-24] MEDS ORDERED: fentaNYL 100 MCG/2 ML INJ IVP PRN (16:31)
[2018-02-24] MEDS ORDERED: ALBUTEROL 3 ML DEYVIAL IH PRN (16:31)
[2018-02-24] MEDS ORDERED: HYDROCODONE/APAP 5/325 TAB PO PRN (16:31)
[2018-02-24] MEDS ORDERED: ONDANSETRON 4 MG/2 ML VIAL IVP PRN (16:31)
[2018-02-24] MEDS ORDERED: LR 500 ML IV PRN (16:31)
[2018-02-24] MEDS ORDERED: ceFAZolin 1 GM VIAL ONE (16:58)
--- NOTE | 2018-02-24 17:24 | POSTOPPROG ---
Post Op Note Date of Operation: 02/24/18 Surgeon: Elfego Giron Application Architect: none Anesthesiologist: nehal Pre-op Diagnosis: ulcer with osteomyelitis Post-op Diagnosis: same Indication: infection Procedure: amputation of digits two and three Findings: infection Inf/Abcess present in the surg proc area at time of surgery?: Yes Depth: Deep Incisional (Fascial) (down to bone) EBL: Minimal Total fluids administered: 20cc .25% marcaine plain Complications: none Drains: Other (none)
--- NOTE | 2018-02-24 17:29 | POSTANESTH ---
Post Anesthetic Evaluation Cardiovascular Status: Normal, Stable, Similar to Pre-Op Cond Respiratory Status: Normal, Stable, Similar to Pre-op Cond. Level of Consciousness/Mental Status: Can Participate in Eval Pain Control: Adequate, Prn Tx Ordered Nausea/Vomiting Control: Adequate, Prn Tx Ordered Complications Possibly Related to Anesthesia: None Noted
[2018-02-24 18:57] VITALS: BP 139/95
--- NOTE | 2018-02-24 20:58 | GOP ---
[f rep st] OPERATIVE REPORT DATE OF OPERATION: 02/24/2018 SURGEON: Elfego Giron DPM STEAM TABLE ASSOCIATE: None. ANESTHESIA: Local with MAC. ANESTHESIOLOGIST: Dr. Hernandez. PREOPERATIVE DIAGNOSIS: 1. Ulceration, right 4th digit. 2. Osteomyelitis, right 4th digit. 3. Dislocated proximal interphalangeal joint, right 4th digit. POSTOPERATIVE DIAGNOSIS: 1. Ulceration, right 4th digit. 2. Osteomyelitis, right 4th digit. 3. Dislocated proximal interphalangeal joint, right 4th digit. PROCEDURE PERFORMED: 1. Amputation, right 4th digit. 2. Amputation, right 2nd digit. FINDINGS: ESTIMATED BLOOD LOSS: Minimal. DESCRIPTION OF PROCEDURE: Patient presented to [facility] and was cleared for the inte nded procedure. The patient was taken to the operating room and placed on the table in supine positi on. IV sedation was started per the anesthesia department. Foot was anesthetized in an infiltrative nerve block fashion. Foot was prepped, scrubbed, and draped in usual sterile fashion following exsa nguination by elevation with Esmarch bandage. Pneumatic ankle tourniquet was inflated to 225 mmHg. At this time, attention was directed to the right 4th digit where the obvious ulceration probing to b one at the distal tip of the toe was noted. A swab culture of this area was taken at this time. It was decided that amputation was going to be necessary. Two converging semi-elliptical incisions were made from dorsal to plantar around the base of the proximal phalanx of the 4th digit. The incision was carried deep utilizing sharp and blunt dissection, making sure that all neurovascular structures were identified and retracted at this time. All superficial bleeders were cauterized. The incision was carried down deep to the level of the proximal phalanx. At this time, there was still noted to b e some purulent drainage from the flexor tendon sheath. It was decided that the amputation would nee d to be converted to a disarticulation at the metatarsophalangeal joint level. Capsulotomy was perfo rmed, and the toe was disarticulated and sent in for culture and sensitivity as well as pathological evaluation. The area was debrided of any remaining necrotic tissue back to healthy tissue. At this time, given the disarticulation of the 2nd digit, it was decided that disarticulation of the 4th woul d also be performed. Again, 2 converging semi-elliptical incisions from dorsal to plantar were made around the base of the proximal phalanx. Again, dissection was carried down deep to the level of the proximal phalanx. The small superficial bleeders were cauterized before the capsulotomy was perform ed, and the toe was again disarticulated. Considerable degenerative arthritic changes were noted at the metatarsophalangeal joint level. Both sites were then flushed with copious amounts of sterile sa line with antibiotic rinse. The areas were then closed deeply with 3-0 Vicryl followed by skin closu re with 4-0 nylon. Both areas were dressed with Betadine-soaked Adaptics, 4x4s, Britt, and Coban aft er the pneumatic ankle tourniquet been released for a total tourniquet time of 31 minutes showing the healthy bleeding tissue along the suture lines, vascular supply intact to the 5th digit, which is th e only remaining digit at this time. The patient was then taken to recovery room, vital signs stable . PATHOLOGY: Bone and soft tissue specimen sent for culture and sensitivity and pathological evaluatio n. HEMOSTASIS: PAT at 225 mmHg by 31 minutes. MATERIALS: None. INJECTABLES: 20 cc 0.25% Marcaine plain preoperatively. COMPLICATIONS: None. /[id number]/MODL
== END 2018-02-24 18:20 | disposition home or self-care (01) ==
LOC: FSGY 12:55
PROVIDERS: ATTEND Podiatrist Primary Podiatric Medicine
DX: E11.621 Type 2 diabetes mellitus with foot ulcer (principal); L97.514 Non-pressure chronic ulcer of other part of right foot with necrosis of bone; M86.8X7 Other osteomyelitis, ankle and foot; M24.374 Pathological dislocation of right foot, not elsewhere classified; M20.61 Acquired deformities of toe(s), unspecified, right foot; I10 Essential (primary) hypertension; I34.0 Nonrheumatic mitral (valve) insufficiency; I27.20 Pulmonary hypertension, unspecified; F31.9 Bipolar disorder, unspecified; F43.10 Post-traumatic stress disorder, unspecified; F41.9 Anxiety disorder, unspecified; G47.30 Sleep apnea, unspecified
CPT/HCPCS: J0690; J2250; J2704; J3010

== ENCOUNTER 2018-03-11 09:48 | Inpatient (IN) | payer MEDICAID ==
--- NOTE | 2018-03-11 10:18 | EDPHY ---
HPI/HX/ROS/PE/MDM Narrative: CHIEF COMPLAINT: Left foot wound. HISTORY OF PRESENT ILLNESS: This patient is a 32 year old male with history of hypertension, diabetes mellitus, IVDA, and diabetic foot wound who arrives at the request of his gas load dispatcher for evaluation of a left foot wound. He has a chronic pressure ulcer to his lateral left foot, ongoing for months. He now has a painful left lower extremity, particularly around his medial calf and popliteal area. This has been worsening over the past three days. Patient has been on levofloxacin as prescribed by Dr. Leobardo De Leon. He visited his gas load dispatcher this morning at 9: 00am. The gas load dispatcher is concerned for infection vs. DVT and referred him to the emergency department. The patient denies any history of clotting disorders. No fever, chills, chest pain, shortness of breath, palpitations, vomiting, diarrhea , urinary complaints, headache, lightheadedness. The patient's mother stepped out of the room and he admits to IV methamphetamine use three days ago, concurrent with the onset of symptoms. REVIEW OF SYSTEMS: Aside from elements discussed in the HPI, a comprehensive 10-point review of systems was reviewed and is negative. PAST MEDICAL HISTORY: Diabetes. Hypertension. Tricuspid valve regurgitation. SOCIAL HISTORY: Mother at bedside. Nonsmoker. Daily alcohol use. VITAL SIGNS: Reviewed by me GENERAL: Well-developed, well-nourished, resting comfortably in no respiratory distress. HEENT: Atraumatic. Eyes: No icterus, no injection. Mouth: moist mucous membranes. No erythema or lesions. Neck: supple with no adenopathy. LUNGS: Clear to auscultation bilaterally, no wheezes, rhonchi or rales. CARDIAC: Regular rate and rhythm, no rubs, no murmur auscultated, no gallops. ABDOMEN: Adenopathy in left groin. Soft, nontender, nondistended, bowel sounds normal. BACK: No CVA tenderness. EXTREMITIES: Poplitea fullness to left lower extremity. Large open wound over 5th lateral metatarsal. Wound 2cm in diameter, nearly bone deep. Surrounding erythema that blanches, warm to touch. Erythema extends across the dorsum of the foot as associated with moderate swelling over lateral malleoli. Range of motion is normal throughout. Law enforcement ankle bracelet is present on the left lower extremity. NEURO: Alert and oriented, grossly nonfocal. SKIN: Warm and dry, no rash. PSYCHIATRIC: Normal mentation, no agitation. Portions of this note were transcribed by a medical massage therapist. I personally performed a history, physical exam, medical decision making, and confirmed accuracy of information the transcribed note. ED Course: 32 y/o male presents with concern regarding cellulitis versus osteomyelitis and possible complication of DVT in his left lower extremity. Plan for XR left foot and DVT LLE. Plan for labs including CBC, chemistries, UA, liver, lipase, lactic acid, blood cultures. Patient request pain medications. He received 600mg PO gabapentin, 20mg IV Ketamine. 11:35 Reviewed imaging results. Features suspicious for osteomyelitis involving the distal lateral aspect of the fifth metatarsal head, developed since 12/25/17 , adjacent to soft tissue ulceration. US LLE: Negative for left lower extremity DVT. Recommend clinical correlation and follow-up regarding left inguinal duct popliteal lymphadenopathy 1 g Invanz given. 11:51 Dr. Thibodeaux accepts admission for cellulitis, osteomyelitis, diabetic foot ulcer. MDM: Differential diagnoses for the patient's symptom complex was considered including but not limited to cellulitis, abscess, osteomyelitis, peripheral vascular disease, diabetic foot ulcer, IV drug use, bacteremia, endocarditis. - Data Points Imaging Results: Imaging Impressions Extremity Venous Study 03/11/18 10:23 Impression: 1. Negative for left lower extremity DVT. 2. Enlarged, probably benign, left inguinal lymph node which maintains its fatty hilum. There is a 1.5 cm hypoechoic lesion in the popliteal fossa which also likely represents a lymph node. Recommend clinical follow-up to ensure they do not increase in size. Foot X-Ray 03/11/18 10:24 Impression: 1. Features suspicious for osteomyelitis involving the distal lateral aspect of the fifth metatarsal head, developed since 12/25/17, adjacent to soft tissue ulceration. 2. Chronic features, as above-detailed, otherwise unchanged. Findings were discussed with Dave in the ED, who will convey the information to Tamia Gamez MD at 10:59, on 03/11/2018. Imaging: Discussed imaging studies w/ physically impaired teacher Radiologist Laboratory Results: Laboratory Results 03/11/18 10:37 03/11/18 10:37 03/11/18 03/11/18 03/11/18 10:37 10:37 10:37 WBC 8.89 10^3/uL 10^3/uL (3.80-9.50) RBC 3.95 10^6/uL L 10^6/uL (4.40-6.38) Hgb 10.7 g/dL L g/dL (13.7-17.5) Hct 34.0 % L % (40.0-51.0) MCV 86.1 fL fL (81.5-99.8) MCH 27.1 pg L pg (27.9-34.1) MCHC 31.5 g/dL L g/dL (32.4-36.7) RDW 15.0 % % (11.5-15.2) Plt Count 464 10^3/uL H 10^3/uL (150-400) MPV 8.6 fL L fL (8.7-11.7) Neut % (Auto) 72.3 % % (39.3-74.2) Lymph % (Auto) 17.1 % % (15.0-45.0) [place] % (Auto) 7.5 % % (4.5-13.0) Eos % (Auto) 2.2 % % (0.6-7.6) Baso % (Auto) 0.7 % % (0.3-1.7) Nucleat RBC Rel Count 0.0 % % (0.0-0.2) Absolute Neuts (auto) 6.42 10^3/uL 10^3/uL (1.70-6.50) Absolute Lymphs (auto) 1.52 10^3/uL 10^3/uL (1.00-3.00) Absolute Monos (auto) 0.67 10^3/uL 10^3/uL (0.30-0.80) Absolute Eos (auto) 0.20 10^3/uL 10^3/uL (0.03-0.40) Absolute Basos (auto) 0.06 10^3/uL 10^3/uL (0.02-0.10) Absolute Nucleated RBC 0.00 10^3/uL 10^3/uL (0-0.01) Immature Gran % 0.2 % % (0.0-1.1) Immature Gran # 0.02 10^3/uL 10^3/uL (0.00-0.10) PT 12.9 SEC SEC (12.0-15.0) INR 0.95 (0.83-1.16) APTT 35.9 SEC SEC (23.0-38.0) VBG Lactic Acid Sodium 138 mEq/L mEq/L (135-145) Potassium 5.1 mEq/L H mEq/L (3.3-5.0) Chloride 105 mEq/L mEq/L (97-110) Carbon Dioxide 23 mEq/l mEq/l (22-31) Anion Gap 10 mEq/L mEq/L (8-16) BUN 37 mg/dL H mg/dL (7-23) Creatinine 1.8 mg/dL H mg/dL (0.7-1.3) Estimated GFR 45 Glucose 134 mg/dL H mg/dL (70-100) Calcium 9.6 mg/dL mg/dL (8.5-10.4) Total Bilirubin 0.6 mg/dL mg/dL (0.1-1.4) Conjugated Bilirubin 0.2 mg/dL mg/dL (0.0-0.5) Unconjugated Bilirubin 0.4 mg/dL mg/dL (0.0-1.1) AST 16 IU/L L IU/L (17-59) ALT 25 IU/L IU/L (21-72) Alkaline Phosphatase 133 IU/L H IU/L (38-126) Total Protein 7.3 g/dL g/dL (6.3-8.2) Albumin 3.5 g/dL g/dL (3.5-5.0) Lipase < 10 IU/L L IU/L (23-300) 03/11/18 10:34 WBC RBC Hgb Hct MCV MCH MCHC RDW Plt Count MPV Neut % (Auto) Lymph % (Auto) [place] % (Auto) Eos % (Auto) Baso % (Auto) Nucleat RBC Rel Count Absolute Neuts (auto) Absolute Lymphs (auto) Absolute Monos (auto) Absolute Eos (auto) Absolute Basos (auto) Absolute Nucleated RBC Immature Gran % Immature Gran # PT INR APTT VBG Lactic Acid 1.5 mmol/L mmol/L (0.7-2.1) Sodium Potassium Chloride Carbon Dioxide Anion Gap BUN Creatinine Estimated GFR Glucose Calcium Total Bilirubin Conjugated Bilirubin Unconjugated Bilirubin AST ALT Alkaline Phosphatase Total Protein Albumin Lipase Medications Given: Heparin Sodium (Porcine) (Heparin Sc Injection) 5,000 unit SC Q8 ADAM Stop: 09/07/18 13:59 Last Admin: 03/11/18 13:56 Dose: 5,000 unit Sodium Chloride (Ns) 1,000 mls @ 75 mls/hr IV CONT ADAM Stop: 09/07/18 12:59 Last Admin: 03/11/18 13:57 Dose: 1,000 mls Oxycodone/Acetaminophen (Percocet 5/325) 1 - 2 tab PO Q4HRS PRN PRN Reason: Pain, Severe Able to Take PO Stop: 03/21/18 12:53 Last Admin: 03/11/18 13:56 Dose: 1 tab Discontinued Medications Gabapentin (Neurontin) 600 mg PO EDNOW ONE Stop: 03/11/18 10:37 Last Admin: 03/11/18 10:58 Dose: 600 mg Sodium Chloride (Ns) 1,000 mls @ 0 mls/hr IV ONCE ONE; Wide Open PRN Reason: Protocol Stop: 03/11/18 11:07 Last Admin: 03/11/18 11:26 Dose: 1,000 mls Ertapenem 1 gm/ Sodium (Chloride) 100 mls @ 200 mls/hr IV EDNOW ONE PRN Reason: Protocol Stop: 03/11/18 12:10 Last Admin: 03/11/18 12:07 Dose: 100 mls Ketamine HCl (Ketamine) 20 mg IVP EDNOW ONE Stop: 03/11/18 10:37 Last Admin: 03/11/18 10:58 Dose: 20 mg General Time Seen by Provider: 03/11/18 10:01 Initial Vital Signs: Initial Vital Signs Temperature (C) 36.6 C 03/11/18 09:51 Heart Rate 100 03/11/18 09:51 Respiratory Rate 18 03/11/18 09:51 Blood Pressure 108/81 H 03/11/18 09:51 O2 Sat (%) 98 03/11/18 09:51 O2 Delivery Mode Room Air Allergies/Adverse Reactions: No Known Allergies Allergy (Verified 03/11/18 09:54) Home Medications: Medication Instructions Recorded Insulin Pump, Patient Own 1 ea MISC AD 12/26/17 clonazePAM [klonoPIN (*)] 1 mg PO TID PRN 12/26/17 Ibuprofen [Motrin (*)] 200 mg PO DAILY PRN 03/11/18 levOFLOXACIN [levAQUIN (*)] 750 mg PO DAILY 03/11/18 Departure - Departure Disposition: [facility] Acute Clinical Impression: Osteomyelitis Qualifiers: Osteomyelitis type: other Osteomyelitis location: fibula Laterality: left Qualified Code(s): M86.8X6 - Other osteomyelitis, lower leg Cellulitis Qualifiers: Site of cellulitis: extremity Site of cellulitis of extremity: lower extremity Laterality: left Qualified Code(s): L03.116 - Cellulitis of left lower limb Diabetes mellitus Qualifiers: Diabetes mellitus type: type 1 Diabetes mellitus complication status: with skin complications Diabetes mellitus complication detail: with foot ulcer Qualified Code(s): E10.621 - Type 1 diabetes mellitus with foot ulcer; L97.509 - Non-pressure chronic ulcer of other part of unspecified foot with unspecified severity; L97.509 - Non-pressure chronic ulcer of other part of unspecified foot with unspecified severity; L97.509 - Non-pressure chronic ulcer of other part of unspecified foot with unspecified severity; L97.509 - Non-pressure chronic ulcer of other part of unspecified foot with unspecified severity Condition: Fair
[2018-03-11] MEDS ORDERED: GABAPENTIN 300 MG CAP PO ONE (10:36)
[2018-03-11] MEDS ORDERED: KETAMINE 200 MG/20 ML VIAL IVP ONE (10:36)
[2018-03-11 10:45] LABS: PLATELET COUNT 464 10^3/uL (150-400)
[2018-03-11 10:50] LABS: INR 0.95 (0.83-1.16); PROTIME(PATIENT) 12.9 SEC (12.0-15.0)
[2018-03-11] MEDS ORDERED: NS 1,000 ML IV ONE (11:06)
[2018-03-11] MEDS ORDERED: ERTAPENEM 1 GM in NS 100 ML IV ONE (11:41)
[2018-03-11] MEDS ORDERED: ACETAMINOPHEN 325 MG TAB PO PRN (12:54)
[2018-03-11] MEDS ORDERED: ONDANSETRON 4 MG/2 ML VIAL IVP PRN (12:54)
[2018-03-11] MEDS ORDERED: ONDANSETRON DISINTEGRATING 4 MG TAB PO PRN (12:54)
[2018-03-11] MEDS: OXYCODONE/APAP 5/325 TAB PO PRN ×2 (13:56→19:22)
[2018-03-11] MEDS: HEPARIN 5,000 UNIT/0.5 ML INJ SC SCH ×2 (13:56→21:16)
[2018-03-11] MEDS: NS 1,000 ML IV SCH (13:57)
--- NOTE | 2018-03-11 14:28 | GHP ---
[f rep st] HISTORY AND PHYSICAL DATE OF ADMISSION: 03/11/2018 CHIEF COMPLAINT: Diabetic ulcer. HISTORY OF PRESENT ILLNESS: This is a 32-year-old man sent into the emergency department by Dr. Giron after seeing him in his clinic. He is in followup for multiple lower extremity infections. The patient notes that he has had a left lateral foot ulcer which has been debrided multiple times by Dr. Giron. He has also undergone multiple rounds of antibiotics, most recently on Levaquin. He notes that about 4 days ago, he used IV methamphetamines. Since then, the pain in the foot has gotten much worse. He has some pain in the back of his knee, as well as what he describes as a lymph node in his groin. He has not had any fevers at home. He notes a little bit of surrounding redness. He has altered sensation in that foot due to his diabetic neuropathy, but he does note that it is quite painful at this time. PAST MEDICAL/SURGICAL HISTORY: 1. Diabetes mellitus type 1. 2. Hypertension. 3. IV drug use. 4. Bipolar/PTSD/anxiety. 5. Recent amputation on the right foot of 2 toes. MEDICATIONS: Please see medication reconciliation. ALLERGIES: No known drug allergies. FAMILY HISTORY: Reviewed and noncontributory. SOCIAL HISTORY: He uses drugs as well as alcohol as above. REVIEW OF SYSTEMS: A 10-point review of systems is conducted and is negative except per HPI. PHYSICAL EXAM: VITAL SIGNS: Blood pressure is 136/81, heart rate 101 respiration rate 15, saturating at 97% on room air. Temperature 36.6. GENERAL : The patient is a pleasant man who is resting comfortably in no acute distress. HEENT: Shows him to be normocephalic, atraumatic. CARDIOVASCULAR: Regular rate and rhythm. No murmurs, rubs, or gallops. PULMONARY: Lungs clear to auscultation bilaterally. ABDOMEN: Soft, nontender, nondistended. SKIN: Shows no rash. : No [place]. NEUROLOGIC: Shows him to be alert and oriented x3. He is moving all extremities. PSYCHIATRIC: Shows a normal mood and affect. EXTREMITIES: Shows his left foot to have a large approximately 2 cm ulcer. There is some mild surrounding erythema. There is a piece of gauze in there. He has a palpable lymph node in his inguinal region and one in his popliteal. LABS: Hemoglobin is 10.7, INR 0.95, lactate 1.5. Potassium is 5.1. Creatinine is 1.8. Glucose is 134. AST is 16, ALT 25. DATA: 1. Discussed this with Dr. Giron as well as Dr. Guzmán. 2. I reviewed his foot x-ray. Shows suspected osteomyelitis. 3. Venous ultrasound shows negative for DVT. It does show likely lymph nodes. IMPRESSION AND PLAN: 1. Diabetic osteomyelitis: Discussed with Dr. Guzmán. She would like to decide on his antibiotics. He does have a history of methicillin-resistant Staphylococcus aureus. He is in contact precautions. He is clinically nontoxic appearing. Dr. Giron has requested an MRI of his foot which I have ordered without contrast given his elevated creatinine. He will likely need resection of this. 2. Diabetes mellitus type 1: He tells me his last A1c was around 8. Will let him use his own insulin pump while he is here. 3. History of intravenous drug use: He will need complete abstinence. /[id number]/MODL MTDD
[2018-03-11] MEDS ORDERED: NON-FORMULARY NEW DRUG (Insulin Pump, Patient Own 1 EA) MISC SCH (14:45)
[2018-03-11] MEDS ORDERED: D50W 25 GM/50 ML SYR IVP PRN (14:46)
[2018-03-11] MEDS ORDERED: INSULIN PUMP, PATIENT OWN 1 EA MISC SCH (15:00)
--- NOTE | 2018-03-11 16:46 | PDMN ---
Medical Necessity Medical necessity: est los>2mn for diabetic osteomyelitis, ; admit for ID consult, IV avx, MRI foot; comorbid DM 1 on insulin pump, hx IVDA; per order and H&P 03/11/18
[2018-03-11] MEDS ORDERED: PIPERACILLIN/TAZO 2.25 GM/DEX 50 ML IV SCH (18:00)
--- NOTE | 2018-03-11 18:34 | PCMIDPN ---
Assessment/Plan: #Chronic diabetic foot ulcer left lateral foot with palpable bone and purulence expressed when pressure placed over MTP, mild surrounding cellulitis. Findings highly concerning for underlying osteomyelitis which is corroborated by plain film. Recent tissue culture with MRSA --MRI for better delineation of bone --IV vancomycin --follow blood cultures obtained at admit --contact precautions. #ARF CrCl 73, dose vancomycin for weight/crcl = 1gm IV q12h. Will likely improve rapidly and will need dose adjustment #IVDU w meth, HCV neg 11/10. HIV last tested a year ago, will screen Microbiology 02/24/18 17:00 Toe - Tissue Anaerobic Culture - Final MRSA Subjective: 32 yo male well known to ID service with DM1 since age 14, IVDU and multiple LE infections presents for eval of chronic lateral foot wound x many months with increased redness since used IVDU a couple days ago, sent to ER by podiatry for further evaluation. In ER plain film showed OM, US showed No DVT. MRI in December 2017 showed no OM. HgAIC improved from 11 to 8 Objective: Vital Signs Temp Pulse Resp BP Pulse Ox 36.6 C 88 16 134/77 H 96 03/11/18 15:55 03/11/18 15:55 03/11/18 15:55 03/11/18 15:55 03/11/18 15:55 - Physical Exam General Appearance: alert, no apparent distress Respiratory: normal breath sounds, No accessory muscle use Neck: supple Cardiac/Chest: regular rate, rhythm Extremities: other (purulence expressed out lateral foot wound with pressing over 5th met head; mild cellulitis over dorsum of foot at base of toes excluding great toe; large foul smelling wound lateral foot with purulence and palable bone), No pedal edema Skin: other (extensive tatoos), No rash, No embolic lesions, No signs of IVDA Neuro/Psych: alert, normal mood/affect, oriented x 3 - Time Spent With Patient Time Spent with Patient: greater than 35 minutes Time Spent with Patient: Greater than 35 minutes spent on this patients care, greater than 50% of time spent counseling, educating, and coordinating care regarding the above mentioned plan. ICD10 Worksheet Patient Problems: Problems Problem Status Onset Cellulitis Acute Diabetes mellitus Acute Osteomyelitis Acute Acute kidney injury Acute Acute renal failure Acute DKA (diabetic ketoacidoses) Acute Dehydration Acute Hyperglycemia Acute Hyperkalemia Acute Hyperkalemia Acute Type 1 diabetes Acute
[2018-03-11] MEDS: VANCOMYCIN HCL/NORMAL SALINE 250 ML IV SCH (19:22)
[2018-03-11 21:50] LABS: HIV TYPE 1 AND 2 NEGATIVE (NEGATIVE)
[2018-03-11] MEDS: clonazePAM 1 MG TAB PO PRN (22:57)
[2018-03-12 05:09] LABS: PLATELET COUNT 427 10^3/uL (150-400)
[2018-03-12] MEDS: HEPARIN 5,000 UNIT/0.5 ML INJ SC SCH ×3 (06:04→21:15)
[2018-03-12] MEDS: NS 1,000 ML IV SCH (06:04)
[2018-03-12] MEDS: VANCOMYCIN HCL/NORMAL SALINE 250 ML IV SCH ×2 (06:04→17:46)
--- NOTE | 2018-03-12 09:14 | ASMTLACE ---
CONNIE Acuity / Level of Answers: Yes Care: Did the patient have an inpatient admission? Comorbidities - select Answers: Diabetes (uncontrolled or all that apply controlled) Other Notes: HTN # of Emergency department Answers: 3-4 visits in the last 6 months Social determinants Answers: History of substance abuse (ETOH, street drugs, prescription drugs, etc.) History of trauma (PTSD, child abuse, domestic violence, etc.) Mental health diagnosis (anxiety, depression, pers onality disorders, etc.) Score: 17 Date Signed: 03/12/2018 09:13 AM Electronically Signed By:Jennifer Raymond
[2018-03-12] MEDS: OXYCODONE/APAP 5/325 TAB PO PRN ×3 (10:55→23:51)
--- NOTE | 2018-03-12 11:15 | HOSPPROG ---
Hospitalist Progress Note Assessment/Plan: DIAGNOSES: * ACUTE DIABETIC FOOT INFECTION OF LEFT FOOT WITH SUSPECTED OSTEOMYELITIS DISTAL 5TH METATARSAL * Current cultures without growth all pending * Was unable to get MRI last night for some reason, sounds like some other emergencies occurred * RECOVERING FROM AMPUTATIONS OF 2 TOES ON THE RIGHT FOOT FROM DIABETIC INFECTION, THAT FOOT NOW WITH NO TOES * TYPE 1 DIABETES MELLITUS * Severely ability of sugars last night after ate some ice cream but did not eat as much as he thought he would, had turned his pump off and eat some other food to cover the low sugar that occurred * Current insulin pump basal rate 1.3 units/hour, variable doses with meals * HISTORY OF METHAMPHETAMINE USE WITH SOME RECENT USE * ACUTE ON CHRONIC RENAL FAILURE, HISTORY OF DIABETIC NEPHROPATHY * Improved today and very close to his recent baseline * Diabetic nephropathy probably aggravated by illness and dehydration * HYPERKALEMIA DUE TO ABOVE PLANS: * MRI scan of foot ordered today which I will review when it is done * Await recommendations from Dr. Giron after that; presumably he is going to need at least a ray amputation * Ongoing antibiotic with vancomycin right now, hold off on gram-negative coverage until tissue in fluid obtained for culture and sensitivities * Wound care for his feet * I had a long discussion with Kenneth today about his diet and its impact on his sugars, also there is a high chance that he would have gastroparesis impacting his absorption of foods and risk of hypoglycemia; talked about dietary compliance and the importance of that for his recovery from infections and the potential for loss for further tissue * Again reviewed with him the dangers of ongoing methamphetamine use for him as well as any other substance abuse * Continue follow renal function closely SUBJECTIVE: Little pain No chills or sweats Good appetite OBJECTIVE VITALS REVIEWED: Mild hypertension otherwise normal without fever CRYPTOLOGIC TECHNICIAN TECHNICAL, MY REVIEW: EXAM: ALERT ORIENTED SKIN WARM DRY COLOR OK RESPS NOT LABORED LUNGS CLEAR BSS HEART REGULAR ABD SOFT NONDISTENDED NONTENDER, BOWEL SOUNDS PRESENT LIMBS WARM, NO EDEMA FEET IN BANDAGES WHICH ARE CLEAN AND DRY AT THIS TIME IV SITE OK Laboratory data: -renal function improved creatinine to 1.4 -sugars quite variable with a low last evening of 30 but later that night greater than 300 -potassium 5.4, no acidosis Objective: Vital Signs Temp Pulse Resp BP Pulse Ox 36.7 C 110 H 16 149/85 H 97 03/12/18 08:00 03/12/18 08:00 03/12/18 08:00 03/12/18 08:00 03/12/18 08:00 Microbiology 03/11/18 16:47 Gram Stain - Final Foot - Swab Laboratory Results 03/12/18 04:36 03/12/18 04:36 03/11/18 03/12/18 03/13/18 06:59 06:59 06:59 Intake Total 1493 Balance 1493 PT 12.9 SEC (12.0-15.0) 03/11/18 10:37 INR 0.95 (0.83-1.16) 03/11/18 10:37 - Time Spent With Patient Time Spent with Patient: greater than 35 minutes Time Spent with Patient: Greater than 35 minutes spent on this patients care, greater than 50% of time spent counseling, educating, and coordinating care regarding the above mentioned plan. ICD10 Worksheet Patient Problems: Problems Problem Status Onset Cellulitis Acute Diabetes mellitus Acute Osteomyelitis Acute Acute kidney injury Acute Acute renal failure Acute DKA (diabetic ketoacidoses) Acute Dehydration Acute Hyperglycemia Acute Hyperkalemia Acute Hyperkalemia Acute Type 1 diabetes Acute
--- NOTE | 2018-03-12 13:51 | SOAPPROG ---
SOAP Progress Note Assessment/Plan: Assessment:status post amputation digits 2 and 4 Right-2 weeks. Probable osteomyelitis right 5th ray. Plan:Awaiting results of MRI to determine surgical planning. Most likely 5th met head resection. 03/12/18 13:47 Subjective: Patient is seen and relates decreased pain compared to yesterday in my office. His mother is present. She has questions regarding drug treatment and occupational therapy. Objective: Vital Signs Temp Pulse Resp BP Pulse Ox 36.7 C 110 H 16 149/85 H 97 03/12/18 08:00 03/12/18 08:00 03/12/18 08:00 03/12/18 08:00 03/12/18 08:00 Microbiology 03/11/18 16:47 Gram Stain - Final Foot - Swab Laboratory Results 03/12/18 04:36 03/12/18 04:36 03/11/18 03/12/18 03/13/18 05:59 05:59 05:59 Intake Total 1493 Balance 1493 PT 12.9 SEC (12.0-15.0) 03/11/18 10:37 INR 0.95 (0.83-1.16) 03/11/18 10:37 no clinical change in the ulcer appearance. Foot still had some erythema. Mild purulent drainage from ulcer. Decreasing pain upon palpation behind knee. Pitting edema around left ankle is present. Amputation sites of right foot look excellent. ICD10 Worksheet Patient Problems: Problems Problem Status Onset Cellulitis Acute Diabetes mellitus Acute Osteomyelitis Acute Acute kidney injury Acute Acute renal failure Acute DKA (diabetic ketoacidoses) Acute Dehydration Acute Hyperglycemia Acute Hyperkalemia Acute Hyperkalemia Acute Type 1 diabetes Acute
--- NOTE | 2018-03-12 14:24 | ASMTCMCOM ---
CM Note CM Note Notes: Spoke with pt, he lives at home with his mother under house arrest, he has ankle bracelet. CM spoke with Kate [phone], his house arrest officer @ [facility]. Pt needs MRI but needs to remove ankle bracelet, Kate gives permission for pt to remove it so pt can have MRI. CM needs to notify Kate when pt discharges. DC Plan: Home under House arrest. Date Signed: 03/12/2018 02:23 PM Electronically Signed By:Keshia Washburn RN
--- NOTE | 2018-03-12 15:14 | PCMIDPN ---
Assessment/Plan: #Chronic diabetic foot ulcer left lateral foot with palpable bone and purulence expressed when pressure placed over MTP, mild surrounding cellulitis. MRI confirms extensive osteomyelitis of the 5th metatarsal and 5th metatarsal head and joint infusion of the MTP joint. Very minimal inflammation on dorsum of foot is stable today --IV vancomycin --needs OR management of infection, planned to go to the OR 03/14/2018 --contact precautions. #ARF CrCl 94, will leave vancomycin dose = 1gm IV q12h for now. Trough likely low tomorrow #IVDU w meth, HCV neg 11/10. HIV negative Microbiology 02/24/18 17:00 Toe - Tissue Anaerobic Culture - Final MRSA Subjective: patient w/o specific c/o today no diarrhea no rash no nause Objective: Vital Signs Temp Pulse Resp BP Pulse Ox 36.7 C 110 H 16 149/85 H 97 03/12/18 08:00 03/12/18 08:00 03/12/18 08:00 03/12/18 08:00 03/12/18 08:00 Microbiology 03/11/18 16:47 Gram Stain - Final Foot - Swab Laboratory Results 03/12/18 04:36 03/12/18 04:36 03/11/18 03/12/18 03/13/18 05:59 05:59 05:59 Intake Total 1493 Balance 1493 - Physical Exam General Appearance: alert, no apparent distress Respiratory: No accessory muscle use Cardiac/Chest: regular rate, rhythm Extremities: erythema (Very mild at the distal part of the dorsum of the foot at the base of 3rd 4th and 5th digit; fairly large wound lateral foot with purulent, foul-smelling drainage and palpable bone) Skin: No rash Neuro/Psych: alert, normal mood/affect, oriented x 3, other (Rapid fire speech) - Time Spent With Patient Time Spent with Patient: greater than 35 minutes (Care coordinated with Dr. Elfego Giron) Time Spent with Patient: Greater than 35 minutes spent on this patients care, greater than 50% of time spent counseling, educating, and coordinating care regarding the above mentioned plan. ICD10 Worksheet Patient Problems: Problems Problem Status Onset Cellulitis Acute Diabetes mellitus Acute Osteomyelitis Acute Acute kidney injury Acute Acute renal failure Acute DKA (diabetic ketoacidoses) Acute Dehydration Acute Hyperglycemia Acute Hyperkalemia Acute Hyperkalemia Acute Type 1 diabetes Acute
[2018-03-12] MEDS: clonazePAM 1 MG TAB PO PRN (23:51)
[2018-03-13] MEDS: VANCOMYCIN HCL/NORMAL SALINE 250 ML IV SCH (06:03)
[2018-03-13] MEDS: HEPARIN 5,000 UNIT/0.5 ML INJ SC SCH ×3 (06:03→21:19)
[2018-03-13] MEDS: OXYCODONE/APAP 5/325 TAB PO PRN ×2 (12:18→21:19)
--- NOTE | 2018-03-13 13:30 | PCMIDPN ---
Assessment/Plan: Assessment/Plan: * Chronic diabetic foot ulcer with underlying osteomyelitis and cellulitis: Erythema over dorsal lateral foot appears to be decreasing. Persistent slough overlying majority of ulcer bed. Plans for amputation of toe tomorrow. Duration of antibiotic therapy dependent on operative findings and if bone margins clean at time of amputation. Continue vancomycin pending additional culture data in light of prior history of MRSA. Vancomycin trough scheduled for later this afternoon. * Increased creatinine: Improved yesterday. Continue to follow over time with concomitant vancomycin use. * Injection drug use: HIV antibody negative. 03/13/18 13:25 Subjective: Patient complains of pain in left foot. Objective: Vital Signs Temp Pulse Resp BP Pulse Ox 36.5 C 88 18 139/96 H 96 03/13/18 12:00 03/13/18 12:00 03/13/18 12:00 03/13/18 12:00 03/13/18 12:00 Microbiology 03/11/18 16:47 Gram Stain - Final Foot - Swab Laboratory Results 03/12/18 04:36 03/12/18 04:36 03/12/18 03/13/18 03/14/18 05:59 05:59 05:59 Intake Total 1493 Balance 1493 C-Reactive Protein 64.9 mg/L (<10.0) H 03/12/18 04:36 Vancomycin # 3 MRI with bone marrow edema of the 5th metatarsal with erosive change at the 5th metatarsal head consistent with osteomyelitis - Physical Exam General Appearance: alert, no apparent distress EENT: No scleral icterus, No conjunctival petechiae Respiratory: lungs clear, No respiratory distress Cardiac/Chest: regular rate, rhythm Extremities: inflammation (Left foot with faint erythema over dorsal lateral aspect; 50 cent piece sized ulceration over base of left 5th toe with majority filled by fibrinous slough; no expressible purulence) Abdomen: non-tender, No distended ICD10 Worksheet Patient Problems: Problems Problem Status Onset Cellulitis Acute Diabetes mellitus Acute Osteomyelitis Acute Acute kidney injury Acute Acute renal failure Acute DKA (diabetic ketoacidoses) Acute Dehydration Acute Hyperglycemia Acute Hyperkalemia Acute Hyperkalemia Acute Type 1 diabetes Acute
--- NOTE | 2018-03-13 14:58 | HOSPPROG ---
Hospitalist Progress Note Assessment/Plan: DIAGNOSES: * ACUTE DIABETIC FOOT INFECTION OF LEFT FOOT WITH SUSPECTED OSTEOMYELITIS DISTAL 5TH METATARSAL * Current cultures without growth all pending * Was unable to get MRI last night for some reason, sounds like some other emergencies occurred * RECOVERING FROM AMPUTATIONS OF 2 TOES ON THE RIGHT FOOT FROM DIABETIC INFECTION, THAT FOOT NOW WITH NO TOES * TYPE 1 DIABETES MELLITUS * Severely ability of sugars last night after ate some ice cream but did not eat as much as he thought he would, had turned his pump off and eat some other food to cover the low sugar that occurred * Current insulin pump basal rate 1.3 units/hour, variable doses with meals * HISTORY OF METHAMPHETAMINE USE WITH SOME RECENT USE * ACUTE ON CHRONIC RENAL FAILURE, HISTORY OF DIABETIC NEPHROPATHY * Improved today and very close to his recent baseline * Diabetic nephropathy probably aggravated by illness and dehydration * HYPERKALEMIA DUE TO ABOVE I reviewed with Infectious Disease today Dr. Cullen PLANS: * Plan for surgery tomorrow with probable ray amputation, soft tissue debridement left foot but exploration will be required to determine full extent of surgery * Ongoing antibiotic with vancomycin right now, hold off on gram-negative coverage until tissue in fluid obtained for culture and sensitivities * Wound care for his feet * Further discussion about sugars with the patient today. Due to his seizure disorder will be critical to avoid hypoglycemia. I have asked him to back off on the dosing of his pre meal insulin with goal sugar ranges of 160-180 here. We also reviewed dietary restraints again. * Counseling regarding methamphetamine use for him as well as any other substance abuse * Continue to follow renal function closely while on vancomycin SUBJECTIVE: Little pain No chills or sweats Good appetite OBJECTIVE VITALS REVIEWED: Blood pressure is better, otherwise normal without fever SCHEDULING COORDINATOR, MY REVIEW: EXAM: ALERT ORIENTED SKIN WARM DRY COLOR OK RESPS NOT LABORED LUNGS CLEAR BSS HEART REGULAR ABD SOFT NONDISTENDED NONTENDER, BOWEL SOUNDS PRESENT LIMBS WARM, NO EDEMA FEET IN BANDAGES WHICH ARE CLEAN AND DRY AT THIS TIME IV SITE OK Laboratory data: -sugars better overall today but still had a sugar low at 55 last evening Imaging studies: I reviewed the images from the MRI scan done of his foot. There is obvious abscess dorsal to the distal metatarsal on MCP 5. There is also diffuse abnormality of the metatarsal suggesting osteomyelitis with probably most of that bone. No gas in the soft tissues. Objective: Vital Signs Temp Pulse Resp BP Pulse Ox 36.5 C 88 18 139/96 H 96 03/13/18 12:00 03/13/18 12:00 03/13/18 12:00 03/13/18 12:00 03/13/18 12:00 Microbiology 03/11/18 16:47 Gram Stain - Final Foot - Swab Laboratory Results 03/12/18 04:36 03/12/18 04:36 03/12/18 03/13/18 03/14/18 06:59 06:59 06:59 Intake Total 1493 Balance 1493 PT 12.9 SEC (12.0-15.0) 03/11/18 10:37 INR 0.95 (0.83-1.16) 03/11/18 10:37 - Time Spent With Patient Time Spent with Patient: greater than 35 minutes Time Spent with Patient: Greater than 35 minutes spent on this patients care, greater than 50% of time spent counseling, educating, and coordinating care regarding the above mentioned plan. ICD10 Worksheet Patient Problems: Problems Problem Status Onset Cellulitis Acute Diabetes mellitus Acute Osteomyelitis Acute Acute kidney injury Acute Acute renal failure Acute DKA (diabetic ketoacidoses) Acute Dehydration Acute Hyperglycemia Acute Hyperkalemia Acute Hyperkalemia Acute Type 1 diabetes Acute
[2018-03-13] MEDS: VANCOMYCIN 1.25 GM in NS 250 ML IV SCH (20:07)
[2018-03-13] MEDS: clonazePAM 1 MG TAB PO PRN (21:19)
[2018-03-14] MEDS: HEPARIN 5,000 UNIT/0.5 ML INJ SC SCH ×3 (02:51→22:08)
[2018-03-14] MEDS ORDERED: LR 1,000 ML IV ONE (06:40)
--- NOTE | 2018-03-14 07:04 | PDANEPAE ---
ANE History of Present Illness amputation of 5th metatarsal ANE Past Medical History - Cardiovascular History Hx Hypertension: No Hx Arrhythmias: No Hx Chest Pain: No Hx Coronary Artery / Peripheral Vascular Disease: No Hx CHF / Valvular Disease: No Hx Palpitations: No Cardiovascular History Comment: MITRAL REGURITATION. PULM HTN - Pulmonary History Hx COPD: No Hx Asthma/Reactive Airway Disease: No Hx Recent Upper Respiratory Infection: No Hx Oxygen in Use at Home: No Hx Sleep Apnea: Yes Sleep Apnea Screening Result - Last Documented: Positive - Neurologic History Hx Cerebrovascular Accident: No Hx Seizures: No Hx Dementia: No - Endocrine History Hx Diabetes: Yes Hypothyroid: No Hyperthyroid: No Obesity: no Endocrine History Comment: IDDM SINCE AGE 14. insulin pump 3 YRS - Renal History Hx Renal Disorders: No - Liver History Hx Hepatic Disorders: No - Neurological & Psychiatric Hx Hx Neurological and Psychiatric Disorders: Yes Neurological / Psychiatric History Comment: Bipolar, PTSD, Anxiety - Cancer History Hx Cancer: No - GI History GERD: mild Hx Gastrointestinal Disorders: No - Other Health History Other Health History: RT FOOT DIABETIC PRESSURE ULCER. CELLULITIS. DX MRSA - Chronic Pain History Chronic Pain: Yes (R knee) - Surgical History Prior Surgeries: RT FOOT TOE SURG. REMVL NECK CYST. RT KNEE RECONSTRUCTION ANE Review of Systems Review of Systems: - Exercise capacity METS (RN): 4 METS ANE Patient History - Allergies Allergies/Adverse Reactions: No Known Allergies Allergy (Verified 03/11/18 09:54) - Home Medications Home Medications: Insulin Pump, Patient Own 1 ea MISC AD 12/26/17 [Last Taken 02/24/18] clonazePAM [klonoPIN (*)] 1 mg PO TID PRN 12/26/17 [Last Taken 3 Days Ago ~03/08] Ibuprofen [Motrin (*)] 200 mg PO DAILY PRN 03/11/18 [Last Taken 03/09/18] levOFLOXACIN [levAQUIN (*)] 750 mg PO DAILY 03/11/18 [Last Taken 03/10/18] - NPO status NPO Since - Liquids (Date): 03/13/18 NPO Since - Liquids (Time): 21:40 NPO Since - Solids (Date): 03/13/18 NPO Since - Solids (Time): 21:40 - Anes Hx Anes Hx: no prior problems - Smoking Hx Smoking Status: Former smoker Marijuana use: Yes - Alcohol Use Alcohol Use: Other (4 drinks/day) - Family Anes Hx Family Anes Hx: none ANE Labs/Vital Signs - Labs Result Diagrams: 03/14/18 04:55 03/14/18 04:55 - Vital Signs Blood Pressure: 128/89 Heart Rate: 58 Respiratory Rate: 18 O2 Sat (%): 97 Height: 193.04 cm Weight: 86.183 kg ANE Physical Exam - Airway Neck exam: FROM Mallampati Score: Class 1 Mouth exam: normal dental/mouth exam - Pulmonary Pulmonary: clear to auscultation - Cardiovascular Cardiovascular: regular rate and rhythym ANE Anesthesia Plan Anesthesia Plan: GA w LMA
[2018-03-14] MEDS ORDERED: BUPIVACAINE 0.25% 30 ML SDV ONE (07:05)
[2018-03-14] MEDS ORDERED: BACITRACIN 50,000 UNITS/10 ML SYR IRR ONE ×2 (07:05→07:30)
[2018-03-14] MEDS ORDERED: MIDAZOLAM 2 MG/2 ML VIAL IVP ONE (07:07)
--- NOTE | 2018-03-14 07:11 | PDHPUP ---
History & Physical Update H&P update statement: This history and physical update is based on an assessment of the patient which was completed after admission or registration (within 24 hours), but prior to the surgery/procedure. H&P update: H&P reviewed & patient examined
[2018-03-14] MEDS ORDERED: fentaNYL 100 MCG/2 ML INJ ONE (07:15)
[2018-03-14] MEDS ORDERED: PROPOFOL 200 MG/20 ML VIAL ONE (07:15)
[2018-03-14] MEDS ORDERED: DEXAMETHASONE 4 MG/ML VIAL ONE (07:16)
[2018-03-14] MEDS ORDERED: RANITIDINE 50 MG/2 ML VIAL ONE (07:16)
[2018-03-14] MEDS ORDERED: POLYMYXIN B SULFATE 500,000 UNIT/10 ML SYR IRR ONE (07:30)
[2018-03-14] MEDS ORDERED: oxyCODONE IR 5 MG TAB PO PRN (08:02)
[2018-03-14] MEDS ORDERED: NALOXONE HCL 0.4 MG/ML INJ IVP PRN (08:02)
[2018-03-14] MEDS ORDERED: fentaNYL 100 MCG/2 ML INJ IVP PRN (08:02)
[2018-03-14] MEDS ORDERED: ONDANSETRON 4 MG/2 ML VIAL IVP PRN (08:02)
[2018-03-14] MEDS ORDERED: ONDANSETRON 4 MG/2 ML VIAL ONE (08:12)
[2018-03-14] MEDS: VANCOMYCIN 1.25 GM in NS 250 ML IV SCH ×2 (08:40→19:52)
--- NOTE | 2018-03-14 08:53 | POSTOPPROG ---
Post Op Note Date of Operation: 03/14/18 Surgeon: Elfego Giron Can Reforming Machine Operator: NONE Anesthesiologist: CHRISTINE Anesthesia: GET(General Endotracheal) Pre-op Diagnosis: ULCER WITH OSTEOMYELITIS LEFT 5TH Post-op Diagnosis: same Indication: osteo Procedure: left 5th ray amputation Findings: bone infection with purulent draiage Inf/Abcess present in the surg proc area at time of surgery?: Yes Depth: Deep Incisional (Fascial) EBL: Minimal Total fluids administered: 20cc .25% marcaine plain Complications: none Drains: Other (none)
--- NOTE | 2018-03-14 11:29 | ASMTCMCOM ---
FRANCES Note FRANCES Note Notes: FRANCES reviewed chart and spoke with hospitalist re PT. Pt had his left fifth toe amputated yesterday. It is unknown at this time if Pt will be needing a picc line for antibiotics once D/Dio. FRANCES spoke with Pt's mother, Meme #[phone]. Meme will allow her son to return home , but has tremendous concerns re his alcohol use, methamphetamine use and diabetes management. She reports that her son has had multiple losses throughout his life. He was diagnosed with type 1 diabetes at age 13, at age 17 his father of brain cancer, he became a father himself and parental rights were terminated due to his and his gf's drug use and he recently lost a woman he had become very close to due to an overdose. Pt has been in substance abuse treatment twice, once at [facility] and [facility],. His mother believes that his best D/C plan from the hospital would involve him being admitted to an in-pt substance abuse program. FRANCES asked his mother to look into programs, including [facility] which accepts Medicaid. She agreed to do this and to then call FRANCES with the information she has gathered the information. D/C Plan: TBD Date Signed: 03/14/2018 11:28 AM Electronically Signed By:Otilia Dean
[2018-03-14] MEDS: OXYCODONE/APAP 5/325 TAB PO PRN ×3 (13:32→22:43)
--- NOTE | 2018-03-14 13:52 | HOSPPROG ---
Hospitalist Progress Note Assessment/Plan: DIAGNOSES: * ACUTE DIABETIC FOOT INFECTION OF LEFT FOOT WITH ABSCESS AND OSTEOMYELITIS DISTAL 5TH METATARSAL * s/p 5th metatarsal Ray amputation 03/14 * Current cultures without growth all pending * RECOVERING FROM AMPUTATIONS OF 2 TOES ON THE RIGHT FOOT FROM DIABETIC INFECTION, THAT FOOT NOW WITH NO TOES * TYPE 1 DIABETES MELLITUS - some lability and hypoglycemia here due to dietary discretion and other issues * sugars better so far past 24 hours w no hypoglycemia * Current insulin pump basal rate 1.3 units/hour, variable doses with meals * HISTORY OF METHAMPHETAMINE USE WITH SOME RECENT USE * ACUTE ON CHRONIC RENAL FAILURE, HISTORY OF DIABETIC NEPHROPATHY * Improved today and very close to his recent baseline * Diabetic nephropathy probably aggravated by illness and dehydration * HYPERKALEMIA DUE TO ABOVE I reviewed with Infectious Disease today Dr. Cullen PLANS: * wound care per surgery * Ongoing antibiotic with vancomycin right now, follow cxs closely - will review with ID, likely begin coverage for gram negatives at present * continue insulin pump, manage diet as best we can for him * Counseling regarding methamphetamine use for him as well as any other substance abuse * Continue to follow renal function closely while on vancomycin SUBJECTIVE: Little pain No chills or sweats Good appetite OBJECTIVE VITALS REVIEWED: Blood pressure is better, otherwise normal without fever LEATHER NOVELTY PARTS CUTTER, MY REVIEW: EXAM: ALERT ORIENTED SKIN WARM DRY COLOR OK RESPS NOT LABORED LUNGS CLEAR BSS HEART REGULAR ABD SOFT NONDISTENDED NONTENDER, BOWEL SOUNDS PRESENT LIMBS WARM, NO EDEMA FEET IN BANDAGES WHICH ARE CLEAN AND DRY AT THIS TIME IV SITE OK Laboratory data: -sugars better overall today but still had a sugar low at 55 last evening -renal fxn stable cr 1.1, mild hyperkalemia Microbiology data: -original wound culture now with MRSA (sens to dapto and doxy), and Arcanobacterium (which should be sens to Vanco as well as others) -blood cx and surgical wound cultures pending w no growth so far; g stain of today's surgical wound aspirations shows gram-positive cocci in pairs as well as Gram-positive rods; the arcanobacterium seen on the original wound culture is a gram-positive coccus but could be mistaken for Gram-positive cathryn as it often has extensions that can be mistaken for that Objective: Vital Signs Temp Pulse Resp BP Pulse Ox 36.4 C 114 H 20 136/92 H 100 03/14/18 13:02 03/14/18 13:02 03/14/18 13:02 03/14/18 13:02 03/14/18 13:02 Microbiology 03/14/18 08:17 Gram Stain - Final Toe - Other 03/11/18 16:47 Gram Stain - Final Foot - Swab Wound Culture - Final Arcanobacterium Haemolyticum MRSA Laboratory Results 03/14/18 04:55 03/14/18 04:55 03/13/18 03/14/18 03/15/18 06:59 06:59 06:59 Intake Total 275 800 Output Total 5 Balance 275 795 PT 12.9 SEC (12.0-15.0) 03/11/18 10:37 INR 0.95 (0.83-1.16) 03/11/18 10:37 ICD10 Worksheet Patient Problems: Problems Problem Status Onset Cellulitis Acute Diabetes mellitus Acute Osteomyelitis Acute Acute kidney injury Acute Acute renal failure Acute DKA (diabetic ketoacidoses) Acute Dehydration Acute Hyperglycemia Acute Hyperkalemia Acute Hyperkalemia Acute Type 1 diabetes Acute
--- NOTE | 2018-03-14 14:10 | PCMIDPN ---
Assessment/Plan: Assessment: Chronic diabetic foot ulcer with osteomyelitis and cellulitis. Status post amputation of toe yesterday. Patient continues on vancomycin given his findings of MRSA presence. Serum creatinine continues to improve in today is 1.1. Plan: 1. Continue IV vancomycin. Awaiting path results on bone margin to determine duration of treatment. Subjective: Patient is sleeping soundly in his bed. Did not awaken. Objective: Vancomycin # 4 Vital Signs Temp Pulse Resp BP Pulse Ox 36.4 C 114 H 20 136/92 H 100 03/14/18 13:02 03/14/18 13:02 03/14/18 13:02 03/14/18 13:02 03/14/18 13:02 Microbiology 03/14/18 08:17 Gram Stain - Final Toe - Other 03/11/18 16:47 Gram Stain - Final Foot - Swab Wound Culture - Final Arcanobacterium Haemolyticum MRSA Laboratory Results 03/14/18 04:55 03/14/18 04:55 03/13/18 03/14/18 03/15/18 05:59 05:59 05:59 Intake Total 275 800 Output Total 5 Balance 275 795 C-Reactive Protein 64.9 mg/L (<10.0) H 03/12/18 04:36 - Physical Exam General Appearance: WD/WN, alert, no apparent distress, non-toxic Extremities: non-tender, erythema (Improved), No normal inspection Skin: normal color, warm/dry, No rash ICD10 Worksheet Patient Problems: Problems Problem Status Onset Cellulitis Acute Diabetes mellitus Acute Osteomyelitis Acute Acute kidney injury Acute Acute renal failure Acute DKA (diabetic ketoacidoses) Acute Dehydration Acute Hyperglycemia Acute Hyperkalemia Acute Hyperkalemia Acute Type 1 diabetes Acute
--- NOTE | 2018-03-14 16:00 | POSTANESTH ---
Post Anesthetic Evaluation Cardiovascular Status: Normal, Stable Respiratory Status: Normal, Stable Level of Consciousness/Mental Status: Can Participate in Eval Pain Control: Adequate, Prn Tx Ordered Nausea/Vomiting Control: Adequate, Prn Tx Ordered Complications Possibly Related to Anesthesia: None Noted
[2018-03-15] MEDS: HEPARIN 5,000 UNIT/0.5 ML INJ SC SCH ×3 (05:51→20:52)
[2018-03-15] MEDS: OXYCODONE/APAP 5/325 TAB PO PRN ×3 (05:54→20:14)
[2018-03-15] MEDS: VANCOMYCIN 1.25 GM in NS 250 ML IV SCH ×2 (08:19→20:07)
--- NOTE | 2018-03-15 11:52 | ASMTCAGE ---
CAGE Do you feel you ought to Answers: Yes cut down on your drinking or drug use? Do people annoy you by Answers: Yes criticizing your drinking or drug use? Do you feel guilty about Answers: Yes your drinking or drug use? Do you drink or use drugs Answers: Yes first thing in the morning (Eye Post Office Markup Clerk)? Date Signed: 03/15/2018 11:52 AM Electronically Signed By:JASPER Mendiola
--- NOTE | 2018-03-15 15:39 | GOP ---
[f rep st] OPERATIVE REPORT DATE OF OPERATION: 03/14/2018 SURGEON: Elfego Giron DPM QUALITY ASSURANCE SUPERVISOR CHASSIS: None. ANESTHESIA: Local with MAC by _Valdez . PREOPERATIVE DIAGNOSIS: 1. Insulin-dependent diabetes mellitus. 2. Peripheral neuropathy, bilateral. 3. Ulceration, left 5th metatarsal. 4. Osteomyelitis, left 5th metatarsal and proximal phalanx. POSTOPERATIVE DIAGNOSIS: 1. Insulin-dependent diabetes mellitus. 2. Peripheral neuropathy, bilateral. 3. Ulceration, left 5th metatarsal. 4. Osteomyelitis, left 5th metatarsal and proximal phalanx. PROCEDURE PERFORMED: FINDINGS: ESTIMATED BLOOD LOSS: Minimal. DESCRIPTION OF PROCEDURE: The patient presented to [facility]. He was cleared for the intended procedure. Patient was taken to the operating room and placed on the table in supine position. IV sedation was started per the anesthesia department. Foot was anesthetized in an infiltrative nerve block fashion. Foot was prepped, scrubbed and draped in usual sterile fashion following exsanguination by elevation of Esmarch bandage, pneumatic ankle tourniquet was inflated to 225 mmHg. At this time, attention was directed to the lateral aspect of the left 5th metatarsal head where the obvious ulceration was noted, it was approximately 3 cm in diameter. There was an area that probed directly to bone and there was some mild purulent drainage coming from the site. It was decided at this time that at least the head of the 5th metatarsal would need to be removed. At this point, a linear incision was made starting proximal on the 5th metatarsal and carried distally to the level of the metatarsal head. At this time, there were 2 converging semi-elliptical incisions made around the ulceration site. The incisions were carried deep utilizing sharp blunt dissection, making sure that all neurovascular structures were identified and retracted. At this time, all superficial bleeders were cauterized. The incision was carried down deep to the level of the 5th metatarsal head. At this time, obvious erosion of this and the base of the proximal phalanx were identified. It was decided that the 5th toe would need to be removed as well. The incision was then carried distally to the lateral proximal portion of the 5th digit before 2 converging semi-elliptical incisions were made running dorsal medial and plantar medial into the interdigital space. Again, these incisions were carried deep utilizing sharp blunt dissection, making sure that all neurovascular structures were identified and retracted. At this time, all superficial bleeders were cauterized. At this point, the toe was disarticulated at the level of the metatarsophalangeal joint and it and the ulcerative tissue were then dissected free and removed. They were sent in for culture and sensitivity. At this time, the head of the metatarsal being obviously eroded needed to be resected as well. Utilizing a sagittal saw the osteotomy was performed mid shaft back where good healthy bone was still appreciable. The osteotomy ran from proximal lateral to distal medial with a slight bevel from plantar to dorsal. The metatarsal was then resected and removed and also sent in for pathological evaluation and evaluation for clean margins at the proximal end. The area was flushed with copious amounts of sterile saline in a pulse lavage fashion with antibiotic rinse, 3 L was performed at this time. Good healthy tissue was appreciable and it was decided that primary closure could be obtained. Deep closure was obtained with 2-0 and 3 -0 Vicryl. The obvious area where the ulceration was cut out needed to be closed as well. A half concepcion incision was made on the dorsal aspect starting at the level of the ulceration. The tissue flap was freed up before being rotated down in to fill the ulceration spot. This was sutured in place subcutaneously with 5-0 Vicryl as was the rest of the incision before skin closure with 4-0 and 5-0 nylon. The area was dressed with Betadine-soaked Adaptics, 4x4s, Britt, and Coban. The patient was taken to recovery room with vital signs stable and vascular supply intact to the remaining 4 digits. PROCEDURES: 1. Partial 5th ray amputation including 5th digit, left. 2. Adjacent tissue transfer for foot defect, 10 square cm or less. PATHOLOGY: Bone and soft tissue specimen sent in for culture and sensitivity and pathological evaluation. HEMOSTASIS: PAT at 225 mmHg by 47 minutes. MATERIALS: None. INJECTABLES: 20 cc 0.25% Marcaine plain preoperatively. COMPLICATIONS: None. /[id number]/MODL MTDD
--- NOTE | 2018-03-15 16:09 | PCMIDPN ---
Assessment/Plan: Assessment: Chronic diabetic foot ulcer with osteomyelitis and cellulitis. Status post amputation of 5th toe left foot. Patient continues on vancomycin given his findings of MRSA presence. Serum creatinine continues to improve in today is 1.1. Plan: 1. Continue IV vancomycin. Awaiting path results on bone margin to determine duration of treatment. 03/15/18 16:07 Subjective: Patient is resting comfortably in his hospital room. He has a friend in the room with him. There is no new complaint. He notes that his left foot swelling is significantly decreased. Objective: Vancomycin # 5 Vital Signs Temp Pulse Resp BP Pulse Ox 36.5 C 87 16 147/85 H 93 03/15/18 11:01 03/15/18 11:01 03/15/18 11:01 03/15/18 11:01 03/15/18 11:01 Microbiology 03/14/18 08:17 Mycobacterial Smear (PERCY) - Final Toe - Other 03/14/18 08:17 Gram Stain - Final Toe - Other 03/11/18 16:47 Gram Stain - Final Foot - Swab Wound Culture - Final Arcanobacterium Haemolyticum MRSA Laboratory Results 03/14/18 04:55 03/14/18 04:55 03/14/18 03/15/18 03/16/18 05:59 05:59 05:59 Intake Total 275 1200 Output Total 5 Balance 275 1195 C-Reactive Protein 64.9 mg/L (<10.0) H 03/12/18 04:36 - Physical Exam General Appearance: WD/WN, alert, no apparent distress, non-toxic Respiratory: lungs clear, normal breath sounds, No respiratory distress Cardiac/Chest: regular rate, rhythm, No tachycardia Extremities: non-tender, other (Postop dressing left foot without strike through ), No normal inspection, No necrosis ICD10 Worksheet Patient Problems: Problems Problem Status Onset Cellulitis Acute Diabetes mellitus Acute Osteomyelitis Acute Acute kidney injury Acute Acute renal failure Acute DKA (diabetic ketoacidoses) Acute Dehydration Acute Hyperglycemia Acute Hyperkalemia Acute Hyperkalemia Acute Type 1 diabetes Acute
--- NOTE | 2018-03-15 16:46 | ASMTCMCOM ---
CM Note CM Note Notes: CM met w/ pt for dispo planning. CM spent 20 mins w/ pt. CM provided substance abuse and etoh counseling. CAGE completed. CM spoke to pts mom regarding d/c POC. Mom reports that pt cannot return if he continues to drink and use substances in her home. Mom reports that she will no longer tolerate being yelled at. Pt reports that he will stop using substances in her house. CM to follow. Plan: Return home to mom on house arrest Date Signed: 03/15/2018 04:45 PM Electronically Signed By:JASPER Mendiola
--- NOTE | 2018-03-15 18:38 | HOSPPROG ---
Hospitalist Progress Note Assessment/Plan: DIAGNOSES: * ACUTE DIABETIC FOOT INFECTION OF LEFT FOOT WITH ABSCESS AND OSTEOMYELITIS DISTAL 5TH METATARSAL * s/p 5th metatarsal Ray amputation 03/14 * Current cultures with MRSA and Arcanobacterium, both sensitive to vancomycin * RECOVERING FROM RECENT AMPUTATIONS OF 2 TOES ON THE RIGHT FOOT FROM DIABETIC INFECTION, THAT FOOT NOW WITH NO TOES * TYPE 1 DIABETES MELLITUS - some lability and hypoglycemia here due to dietary discretion and other issues * Some higher sugars today after he was concerned about the possibility of developing hypoglycemia last night so had turned off his pump. * Current insulin pump basal rate 1.3 units/hour, variable doses with meals * HISTORY OF METHAMPHETAMINE USE WITH SOME RECENT USE * ACUTE ON CHRONIC RENAL FAILURE, HISTORY OF DIABETIC NEPHROPATHY * Improved and very close to his recent baseline * Diabetic nephropathy probably aggravated by illness and dehydration * HYPERKALEMIA DUE TO ABOVE * HYPERTENSION WITH HIGHER BLOOD PRESSURES TODAY * Due to his recurrent renal issues, instead of resuming his ANASTASIYA-inhibitor I will add Norvasc and follow his blood pressures closely with that PLANS: * wound care per surgery * Ongoing antibiotic with vancomycin right now, follow cxs closely - will review with ID; awaiting pathology of his amputation for assessment clean margin in terms of infection to determine duration of antibiotic * continue insulin pump, manage diet as best we can for him; did advise him that if he has low sugars or is concerned he might get 1 to trying use snacks or other supplements as opposed to turning office pump to avoid rebound high sugars and he understands this * Counseling regarding methamphetamine use for him as well as any other substance abuse * Continue to follow renal function closely while on vancomycin * Norvasc added and will follow blood pressures closely; will not resume ANASTASIYA- inhibitor due to recurrent renal issues though this medicine may be still useful in the future if he can keep other things settled SUBJECTIVE: Feeling better overall, some ambulation with walker and protective shoe OBJECTIVE VITALS REVIEWED: Blood pressure is high today, otherwise normal without fever 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, 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: EXAM: ALERT ORIENTED SKIN WARM DRY COLOR OK RESPS NOT LABORED LUNGS CLEAR BSS HEART REGULAR ABD SOFT NONDISTENDED NONTENDER, BOWEL SOUNDS PRESENT LIMBS WARM, NO EDEMA FEET IN BANDAGES WHICH ARE CLEAN AND DRY AT THIS TIME IV SITE OK Laboratory data: -sugars high this morning Microbiology data: -original wound culture now with MRSA (sens to dapto and doxy), and Arcanobacterium (which should be sens to Vanco as well as others) -blood cx and surgical wound cultures pending w no growth so far; g stain of today's surgical wound aspirations shows gram-positive cocci in pairs as well as Gram-positive rods; the arcanobacterium seen on the original wound culture is a gram-positive coccus but could be mistaken for Gram-positive cathryn as it often has extensions that can be mistaken for that Objective: Vital Signs Temp Pulse Resp BP Pulse Ox 36.6 C 95 18 147/105 H 96 03/15/18 16:00 03/15/18 16:00 03/15/18 16:00 03/15/18 16:00 03/15/18 16:00 Microbiology 03/14/18 08:17 Mycobacterial Smear (PERCY) - Final Toe - Other 03/14/18 08:17 Gram Stain - Final Toe - Other Laboratory Results 03/14/18 04:55 03/14/18 04:55 03/14/18 03/15/18 03/16/18 06:59 06:59 06:59 Intake Total 275 1200 Output Total 5 Balance 275 1195 PT 12.9 SEC (12.0-15.0) 03/11/18 10:37 INR 0.95 (0.83-1.16) 03/11/18 10:37 ICD10 Worksheet Patient Problems: Problems Problem Status Onset Cellulitis Acute Diabetes mellitus Acute Osteomyelitis Acute Acute kidney injury Acute Acute renal failure Acute DKA (diabetic ketoacidoses) Acute Dehydration Acute Hyperglycemia Acute Hyperkalemia Acute Hyperkalemia Acute Type 1 diabetes Acute
[2018-03-15] MEDS: amLODIPine BESYLATE 5 MG TAB PO SCH (20:13)
[2018-03-15] MEDS: clonazePAM 1 MG TAB PO PRN (23:05)
[2018-03-16] MEDS: VANCOMYCIN 1.25 GM in NS 250 ML IV SCH ×2 (08:16→19:53)
[2018-03-16] MEDS: HEPARIN 5,000 UNIT/0.5 ML INJ SC SCH ×3 (08:16→21:41)
[2018-03-16] MEDS: amLODIPine BESYLATE 5 MG TAB PO SCH (08:16)
--- NOTE | 2018-03-16 08:32 | PCMIDPN ---
Assessment/Plan: 1.Left diabetic foot infection with osteomyelitis/cellulitis status post amputation of left 5th toe: Cultures have grown MRSA and Arcanobacterium (usually a pathogen that causes a pharyngitis in young adults)--both organisms covered by vancomycin. Hopefully pathology results will be back tomorrow. If bony margins negative, will likely discontinue antibiotics altogether, as cellulitic component seems to have resolved as well. Vancomycin level is okay at 14.Serum creatinine level stable. 2.History of injection drug use: HIV antibody testing negative Subjective: In good spirits. No complaints. Does not want me to unwrap his feet this morning. No diarrhea. No rash. Objective: Vital Signs Vancomycin 1.25 g IV q.12 hours day 6 No fevers Temp Pulse Resp BP Pulse Ox 36.7 C 87 18 122/62 H 95 03/16/18 04:00 03/16/18 04:00 03/16/18 04:00 03/16/18 04:00 03/16/18 04:00 Microbiology 03/14/18 08:17 Mycobacterial Smear (PERCY) - Final Toe - Other 03/14/18 08:17 Gram Stain - Final Toe - Other Laboratory Results 03/14/18 04:55 03/14/18 04:55 03/15/18 03/16/18 03/17/18 05:59 05:59 05:59 Intake Total 1200 600 Output Total 5 Balance 1195 600 C-Reactive Protein 64.9 mg/L (<10.0) H 03/12/18 04:36 Vancomycin trough March 14 toe path pending 720 toe: 4+ Gram-positive rods 1+ Gram-positive cocci in pairs Culture with 3+ Arcanobacterium March 11: Foot: 1+ MRSA 4+Arcanobacterium - Physical Exam General Appearance: alert, no apparent distress EENT: pharynx normal, No thrush Respiratory: lungs clear Extremities: other (Both feet are wrapped. I cannot appreciate any cellulitis along the dorsum of the left foot or lower extremity. Patient's peripheral IV in the right AC looks fine) Abdomen: non-tender, soft Skin: No rash ICD10 Worksheet Patient Problems: Problems Problem Status Onset Cellulitis Acute Diabetes mellitus Acute Osteomyelitis Acute Acute kidney injury Acute Acute renal failure Acute DKA (diabetic ketoacidoses) Acute Dehydration Acute Hyperglycemia Acute Hyperkalemia Acute Hyperkalemia Acute Type 1 diabetes Acute
[2018-03-16] MEDS: OXYCODONE/APAP 5/325 TAB PO PRN ×3 (13:10→22:31)
--- NOTE | 2018-03-16 16:59 | HOSPPROG ---
Hospitalist Progress Note Assessment/Plan: DIAGNOSES: * ACUTE DIABETIC FOOT INFECTION OF LEFT FOOT WITH ABSCESS AND OSTEOMYELITIS DISTAL 5TH METATARSAL * s/p 5th metatarsal Ray amputation 03/14 * Current cultures with MRSA and Arcanobacterium, both sensitive to vancomycin * RECOVERING FROM RECENT AMPUTATIONS OF 2 TOES ON THE RIGHT FOOT FROM DIABETIC INFECTION, THAT FOOT NOW MISSING FOUR TOES * TYPE 1 DIABETES MELLITUS - some lability and hypoglycemia here due to dietary discretion and other issues * Sugars now settling into good range as fever improved and further out from surgery, better diet here * Current insulin pump basal rate 1.3 units/hour, variable doses with meals per his usual * HISTORY OF METHAMPHETAMINE USE WITH SOME RECENT USE * ACUTE ON CHRONIC RENAL FAILURE, HISTORY OF DIABETIC NEPHROPATHY * Improved and very close to his recent baseline * Diabetic nephropathy probably aggravated by illness and dehydration * HYPERKALEMIA DUE TO ABOVE * HYPERTENSION WITH HIGHER BLOOD PRESSURES TODAY * Better now with Norvasc added at this time due to his recurrent bouts of acute renal failure * Will continue off ARB PLANS: * wound care per surgery * Ongoing antibiotic with vancomycin right now, follow cxs closely - duration of antibiotics will depend on with her has clean margins of amputation or any sign of infection there on pathology report * continue insulin pump, manage diet as best we can for him; did advise him that if he has low sugars or is concerned he might get 1 to trying use snacks or other supplements as opposed to turning office pump to avoid rebound high sugars and he understands this * Counseling regarding methamphetamine use for him as well as any other substance abuse * Continue to follow renal function closely while on vancomycin * Follow blood pressures on the Norvasc, would avoid the ARB at this time due to his recurrent acute episodes of acute renal failure with his multiple foot infections and other episodes notably this patient has been living with his mother at her house in [place]. If by chance he has evidence of infection at his surgical margins and needs prolonged antibiotic, she has stated that she has not yet certain whether she will allow him back into the house at this time and it is possible that he may need to get his antibiotics at shelter or to come to the outpatient infusion center here, but he would have to be coming up with some other living arrangement. He is on Medicaid so that if shelter facility is considered that may take some ranging so I have reviewed with the pillowcase maker SUBJECTIVE: Feels good overall, no pain, no fever symptoms OBJECTIVE: VITALS: Blood pressure better today with Norvasc, otherwise normal without fever EXAM: ALERT ORIENTED SKIN WARM DRY COLOR OK RESPS NOT LABORED LUNGS CLEAR BSS HEART REGULAR ABD SOFT NONDISTENDED NONTENDER, BOWEL SOUNDS PRESENT LIMBS WARM, NO EDEMA FEET IN BANDAGES WHICH ARE CLEAN AND DRY AT THIS TIME IV SITE OK Laboratory data: -sugars notably improved today overall -Vanco level at 14 Microbiology data: -original wound culture now with MRSA (sens to dapto and doxy), and Arcanobacterium (which should be sens to Vanco as well as others) -blood cx and surgical wound cultures pending w no growth so far; g stain of today's surgical wound aspirations shows gram-positive cocci in pairs as well as Gram-positive rods; the arcanobacterium seen on the original wound culture is a gram-positive coccus but could be mistaken for Gram-positive cathryn as it often has extensions that can be mistaken for that Objective: Vital Signs Temp Pulse Resp BP Pulse Ox 36.4 C 90 16 134/71 H 97 03/16/18 15:47 03/16/18 15:47 03/16/18 15:47 03/16/18 15:47 03/16/18 15:47 Microbiology 03/14/18 08:17 Gram Stain - Final Toe - Other 03/14/18 08:17 Mycobacterial Smear (PERCY) - Final Toe - Other Laboratory Results 03/14/18 04:55 03/14/18 04:55 03/15/18 03/16/18 03/17/18 06:59 06:59 06:59 Intake Total 1200 600 Output Total 5 Balance 1195 600 PT 12.9 SEC (12.0-15.0) 03/11/18 10:37 INR 0.95 (0.83-1.16) 03/11/18 10:37 ICD10 Worksheet Patient Problems: Problems Problem Status Onset Cellulitis Acute Diabetes mellitus Acute Osteomyelitis Acute Acute kidney injury Acute Acute renal failure Acute DKA (diabetic ketoacidoses) Acute Dehydration Acute Hyperglycemia Acute Hyperkalemia Acute Hyperkalemia Acute Type 1 diabetes Acute
[2018-03-16] MEDS: clonazePAM 1 MG TAB PO PRN (22:31)
[2018-03-17] MEDS: HEPARIN 5,000 UNIT/0.5 ML INJ SC SCH ×2 (05:57→15:10)
[2018-03-17] MEDS: OXYCODONE/APAP 5/325 TAB PO PRN ×2 (09:30→20:36)
[2018-03-17] MEDS: amLODIPine BESYLATE 5 MG TAB PO SCH (09:31)
[2018-03-17] MEDS: VANCOMYCIN 1.25 GM in NS 250 ML IV SCH ×2 (09:32→20:37)
--- NOTE | 2018-03-17 11:55 | ASMTCMCOM ---
CM Note CM Note Notes: CM spoke to pts Mom Meme. She does not want pt to return to her home. CM spoke to Kate, the house arrest officer and provided her updates. Pt may need 2-6 weeks of ivabx pending cultures. CM started ULTC-100. A copy of pts ULTC-100 is in pts chart in allscripts. Pt is agreeable to 30 days of rehab. Referrals sent to rehab facilities that take Medicaid. Pt would prefer to stay in the [facility]. CM to follow. Plan: TBD Date Signed: 03/17/2018 11:55 AM Electronically Signed By:JASPER Mendiola
--- NOTE | 2018-03-17 13:08 | PCMIDPN ---
Assessment/Plan: Assessment: Chronic diabetic foot ulcer with osteomyelitis and cellulitis. Status post amputation of 5th toe left foot. Patient continues on vancomycin given his findings of MRSA presence. Serum creatinine continues to improve in today is 1.0. Plan: 1. Continue IV vancomycin. Awaiting path results on bone margin to determine duration of treatment. Subjective: Patient is doing very well. He is having some conflict with his mother who he was hoping to live with for a period of time as he recovers. Otherwise physically he is doing well. Objective: Vancomycin # 7 Vital Signs Temp Pulse Resp BP Pulse Ox 36.4 C 84 18 149/94 H 97 03/17/18 08:00 03/17/18 08:00 03/17/18 08:00 03/17/18 09:31 03/17/18 08:00 Microbiology 03/14/18 08:17 Gram Stain - Final Toe - Other 03/14/18 08:17 Mycobacterial Smear (PERCY) - Final Toe - Other Laboratory Results 03/14/18 04:55 03/17/18 04:48 03/16/18 03/17/18 03/18/18 05:59 05:59 05:59 Intake Total 600 Balance 600 C-Reactive Protein 64.9 mg/L (<10.0) H 03/12/18 04:36 - Physical Exam General Appearance: WD/WN, alert, no apparent distress, non-toxic Extremities: non-tender, No normal inspection, No swelling, No erythema Skin: normal color, warm/dry, No rash ICD10 Worksheet Patient Problems: Problems Problem Status Onset Cellulitis Acute Diabetes mellitus Acute Osteomyelitis Acute Acute kidney injury Acute Acute renal failure Acute DKA (diabetic ketoacidoses) Acute Dehydration Acute Hyperglycemia Acute Hyperkalemia Acute Hyperkalemia Acute Type 1 diabetes Acute
--- NOTE | 2018-03-17 16:52 | HOSPPROG ---
Hospitalist Progress Note Assessment/Plan: * Acute diabetic foot infection - cellulitis/abscess/osteomyelitis s/p ray amputation left -MRSA/Arcanobacterium - IV Vanco -pathology pending * DM I -insulin pump * IVDA - methamphetamine -per patient use is minimal now - wants to quit -HIV negative * Diabetic nephropathy * ARF - resolved * Hyperkalemia -avoid ACEI/ARB -PO Kayexalate x 1 * HTN -Norvasc Subjective: NO new complaints. Objective: Vital Signs Temp Pulse Resp BP Pulse Ox 36.4 C 84 18 149/94 H 97 03/17/18 08:00 03/17/18 08:00 03/17/18 08:00 03/17/18 09:31 03/17/18 08:00 Microbiology 03/14/18 08:17 Gram Stain - Final Toe - Other 03/14/18 08:17 Mycobacterial Smear (PERCY) - Final Toe - Other Laboratory Results 03/14/18 04:55 03/17/18 04:48 03/16/18 03/17/18 03/18/18 05:59 05:59 05:59 Intake Total 600 Balance 600 PT 12.9 SEC (12.0-15.0) 03/11/18 10:37 INR 0.95 (0.83-1.16) 03/11/18 10:37 ICD10 Worksheet Patient Problems: Problems Problem Status Onset Cellulitis Acute Diabetes mellitus Acute Osteomyelitis Acute Acute kidney injury Acute Acute renal failure Acute DKA (diabetic ketoacidoses) Acute Dehydration Acute Hyperglycemia Acute Hyperkalemia Acute Hyperkalemia Acute Type 1 diabetes Acute
[2018-03-17] MEDS ORDERED: SODIUM POLY SULF 15 GM/60 ML BOTTLE PO ONE (16:54)
[2018-03-18] MEDS: hydrALAZINE 25 MG TAB PO PRN ×2 (00:53→16:29)
[2018-03-18] MEDS: clonazePAM 1 MG TAB PO PRN ×2 (00:53→16:29)
[2018-03-18] MEDS: VANCOMYCIN 1.25 GM in NS 250 ML IV SCH ×2 (08:45→21:08)
[2018-03-18] MEDS: amLODIPine BESYLATE 5 MG TAB PO SCH (08:45)
[2018-03-18] MEDS: ENOXAPARIN 40 MG/0.4 ML SYR SC SCH (08:46)
--- NOTE | 2018-03-18 10:33 | ASMTCMCOM ---
CM Note CM Note Notes: Patient has been turned down by 13 SNF facilities so far. Placement may not be feasible due to patient's drug use and past history. Still awaiting response from a few more facilities. CM will follow. Date Signed: 03/18/2018 10:32 AM Electronically Signed By:La Christianson LCSW
[2018-03-18] MEDS ORDERED: NS 1,000 ML IV SCH ×2 (14:00)
--- NOTE | 2018-03-18 15:02 | ASMTCMCOM ---
CM Note CM Note Notes: Patient informed Dr. Varela that his mother will now let him return to her home at D/C. This will need to be monitored since both he and his mother fluctuate quite a bit. Still need to know what patient's antibiotic needs will be to plan for d/c. CM will follow. Date Signed: 03/18/2018 03:02 PM Electronically Signed By:La Christianson LCSW
--- NOTE | 2018-03-18 15:24 | HOSPPROG ---
Hospitalist Progress Note Assessment/Plan: * Acute diabetic foot infection - cellulitis/abscess/osteomyelitis s/p ray amputation left -MRSA/Arcanobacterium - IV Vanco -pathology pending - will determine length of antibiotic treatment * DM I -insulin pump * IVDA - methamphetamine -per patient use is minimal now - wants to quit -HIV negative * Diabetic nephropathy * ARF - resolved * Hyperkalemia -avoid ACEI/ARB -PO Kayexalate x 1 -check cary stim * HTN -Norvasc * Tachycardia -per patent due to acute anxiety - freaking out regarding discharge -hydrate IVF -watch on tele Subjective: Very anxious, has never gone home on IV abx before, confused as to why that might be an option now. Objective: Vital Signs Temp Pulse Resp BP Pulse Ox 36.5 C 137 H 14 132/85 H 97 03/18/18 11:45 03/18/18 11:45 03/18/18 11:45 03/18/18 11:45 03/18/18 11:45 Microbiology 03/14/18 08:17 Gram Stain - Final Toe - Other 03/14/18 08:17 Mycobacterial Smear (PERCY) - Final Toe - Other Laboratory Results 03/14/18 04:55 03/18/18 05:25 PT 12.9 SEC (12.0-15.0) 03/11/18 10:37 INR 0.95 (0.83-1.16) 03/11/18 10:37 Old chart reviewed and discussed with patient - he has never had IV abx for osteo in past as always negative margins on biopsy ECHO - mild pulmonary HTN RVSP 50mmHG ICD10 Worksheet Patient Problems: Problems Problem Status Onset Cellulitis Acute Diabetes mellitus Acute Osteomyelitis Acute Acute kidney injury Acute Acute renal failure Acute DKA (diabetic ketoacidoses) Acute Dehydration Acute Hyperglycemia Acute Hyperkalemia Acute Hyperkalemia Acute Type 1 diabetes Acute
[2018-03-18] MEDS ORDERED: IOPAMIDOL (ISOVUE 370) 100 ML BTL IV ONE (18:05)
[2018-03-18] MEDS ORDERED: FLUMAZENIL 0.5 MG/5 ML MDV IVP PRN (23:24)
[2018-03-18] MEDS: LORazepam 2 MG/ML INJ IVP PRN (23:55)
[2018-03-19] MEDS ORDERED: COSYNTROPIN 0.25 MG/2 ML SYRINGE IVP ONE (06:00)
[2018-03-19] MEDS ORDERED: THIAMINE HCL 500 MG in NS 100 ML IV SCH (09:00)
[2018-03-19] MEDS: amLODIPine BESYLATE 5 MG TAB PO SCH (09:24)
[2018-03-19] MEDS: ENOXAPARIN 40 MG/0.4 ML SYR SC SCH (09:29)
[2018-03-19] MEDS: VANCOMYCIN 1.25 GM in NS 250 ML IV SCH (09:54)
[2018-03-19] MEDS: OXYCODONE/APAP 5/325 TAB PO PRN (11:48)
[2018-03-19] MEDS: LORazepam 2 MG/ML INJ IVP PRN ×2 (11:49→15:17)
--- NOTE | 2018-03-19 13:27 | PCMIDPN ---
Assessment/Plan: Assessment/Plan: * Chronic diabetic foot ulcer with underlying osteomyelitis and cellulitis status post partial ray amputation of left 5th toe: Persistent erythema over dorsal lateral foot which appears most compatible with hyperemia. Incision site shows no areas of drainage. Pathology specimen is pending to assess for any evidence of residual osteomyelitis at margins. If no evidence of osteomyelitis, he will not require further antibiotic therapy. * Increased creatinine: Increased to 1.4 today with vancomycin trough 21. Vancomycin discontinued with plans for repeat creatinine in a.m.. * Injection drug use: HIV antibody negative. * Tachycardia: Unclear etiology. CT scan negative for pulmonary embolism. No clinical findings otherwise of progressive infection. 03/19/18 13:23 Subjective: Patient eager to go home. No diarrhea. Objective: Vital Signs Temp Pulse Resp BP Pulse Ox 36.5 C 118 H 18 145/94 H 100 03/19/18 11:41 03/19/18 11:41 03/19/18 11:41 03/19/18 11:41 03/19/18 11:41 Microbiology 03/14/18 08:17 Gram Stain - Final Toe - Other 03/14/18 08:17 Mycobacterial Smear (PERCY) - Final Toe - Other Laboratory Results 03/14/18 04:55 03/19/18 07:48 03/18/18 03/19/18 03/20/18 05:59 05:59 05:59 Intake Total 1000 Balance 1000 C-Reactive Protein 64.9 mg/L (<10.0) H 03/12/18 04:36 Vancomycin # 9 Laboratory Tests 03/11/18 03/19/18 10:35 07:48 Vancomycin Trough 21.5 H* HIV 1&2 Antibody NEGATIVE - Physical Exam General Appearance: alert, no apparent distress EENT: No scleral icterus, No thrush Respiratory: lungs clear, No respiratory distress Cardiac/Chest: regular rate, rhythm, No systolic murmur Extremities: inflammation (Left foot examined with residual erythema and warmth on the dorsal lateral aspect; and incision line intact without drainage) Abdomen: non-tender, No distended Skin: No rash ICD10 Worksheet Patient Problems: Problems Problem Status Onset Cellulitis Acute Diabetes mellitus Acute Osteomyelitis Acute Acute kidney injury Acute Acute renal failure Acute DKA (diabetic ketoacidoses) Acute Dehydration Acute Hyperglycemia Acute Hyperkalemia Acute Hyperkalemia Acute Type 1 diabetes Acute
[2018-03-19] MEDS ORDERED: SODIUM POLY SULF 15 GM/60 ML BOTTLE PO ONE (14:56)
--- NOTE | 2018-03-19 15:43 | HOSPPROG ---
Hospitalist Progress Note Assessment/Plan: * Acute diabetic foot infection - cellulitis/abscess/osteomyelitis s/p ray amputation left -MRSA/Arcanobacterium - IV Vanco -pathology pending - will determine length of antibiotic treatment * DM I -insulin pump * IVDA - methamphetamine -per patient use is minimal now - wants to quit -HIV negative * Diabetic nephropathy * ARF - creatinine back up - ? IV Vanco * Hyperkalemia -avoid ACEI/ARB -PO Kayexalate again -renal diet * HTN -Norvasc * Tachycardia -CTA negative for PE -? all anxiety Subjective: going stir crazy Objective: Vital Signs Temp Pulse Resp BP Pulse Ox 36.5 C 118 H 18 145/94 H 100 03/19/18 11:41 03/19/18 11:41 03/19/18 11:41 03/19/18 11:41 03/19/18 11:41 Microbiology 03/14/18 08:17 Gram Stain - Final Toe - Other 03/14/18 08:17 Mycobacterial Smear (PERCY) - Final Toe - Other Laboratory Results 03/19/18 07:48 03/18/18 03/19/18 03/20/18 05:59 05:59 05:59 Intake Total 1000 Balance 1000 PT 12.9 SEC (12.0-15.0) 03/11/18 10:37 INR 0.95 (0.83-1.16) 03/11/18 10:37 CTA chest - no PE tele reviewed, my personal interpretation is - sinus tachy case d/w Dr. Cullen regarding possible Vanco toxicity - Physical Exam Constitutional: no apparent distress, appears nourished, not in pain Cardiovascular: regular rate and rhythym, no murmur, rub, or gallop Respiratory: no respiratory distress, no rales or rhonchi, clear to auscultation Gastrointestinal: normoactive bowel sounds, soft, non-tender abdomen, no palpable masses Skin: no rashes or abrasions, no fluctuance, no induration Neurologic: AAOx3, sensation intact bilaterally Psychiatric: interacting appropriately, not anxious, not encephalopathic, thought process linear ICD10 Worksheet Patient Problems: Problems Problem Status Onset Cellulitis Acute Diabetes mellitus Acute Osteomyelitis Acute Acute kidney injury Acute Acute renal failure Acute DKA (diabetic ketoacidoses) Acute Dehydration Acute Hyperglycemia Acute Hyperkalemia Acute Hyperkalemia Acute Type 1 diabetes Acute
[2018-03-19 15:44] LABS: PLATELET COUNT 429 10^3/uL (150-400)
[2018-03-19 16:29] VITALS: BP 152/93
--- NOTE | 2018-03-19 17:18 | ASMTCMCOM ---
FRANCES Note FRANCES Note Notes: Spoke with patient and his mother. Mother is agreeable to taking him back into her home. She would like for him to have IV ABX infusions in [place] because she lives in [place]. Both patient and his mother are hopeful he will not need any ABX at d/c. Kenneth does not want to change drKes and states if he does go to [place] for infusions he wants his same to continue to follow him. FRANCES will follow. Date Signed: 03/19/2018 05:17 PM Electronically Signed By:La Christianson LCSW
--- NOTE | 2018-03-20 17:40 | GDS ---
[f rep st] DISCHARGE SUMMARY This is an against medical advice AMA discharge. DISCHARGE DIAGNOSES: 1. Acute diabetic foot infection with cellulitis, abscess, and osteomyelitis, status post ray amputa tion. 2. 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 3. Diabetes type 1 with insulin pump. 4. Intravenous drug abuse. Methamphetamine. 5. Diabetic nephropathy. 6. Acute renal failure. 7. Hyperkalemia. 8. Hypertension. HISTORY: Kenneth is a 32-year-old male with type 1 diabetes, who has had multiple diabetic foot infec tions in the past requiring amputation. He re-presented to the hospital with another worsening infec tion, now requiring a ray amputation on the left. Cultures growing MRSA and Arcanobacterium. We wer e waiting for Pathology to decide whether or not he had clear margins and was going to need further I V antibiotics upon hospital discharge or if he had gotten a surgical cure. On the evening of his exit, he was seen by nursing, having a drug deal in his room, where we believe IV methamphetamine was purchased. Two days prior to this, he had become suddenly very tachycardic, w hich he had not been previously during this hospitalization. CT angiogram of chest was negative for PE. I do believe he started actively using IV methamphetamine in his room and when he was confronted regarding this witnessed drug deal, he became very agitated, asked for his IV to be removed and he l eft against medical advice. For unclear reasons, he had persistent hyperkalemia throughout this hospitalization. He tells me thi s has been a problem for him in the past. He was dosed with oral Kayexalate and started on a low pot assium diet. ANASTASIYA inhibitors should be avoided in the future. The patient left without any discharge instructions, without any prescriptions, as this was AMA. /[id number]/MODL
[2018-03-22] MEDS ORDERED: THIAMINE HCL 100 MG TAB PO SCH (09:00)
== END 2018-03-19 17:57 | disposition left against medical advice (07) | DRG 305 ==
LOC: F3E 12:50 → OBSVTOIN 12:54
PROVIDERS: ADMIT Student in an Organized Health Care Education/Training Program; ATTEND Student in an Organized Health Care Education/Training Program
PROC: 0Y6N0ZF Detachment at Left Foot, Partial 5th Ray, Open Approach (ICD-10-PCS; principal; 2018-03-14 07:15)
DX: E10.69 Type 1 diabetes mellitus with other specified complication (principal); M90.572 Osteonecrosis in diseases classified elsewhere, left ankle and foot; E10.621 Type 1 diabetes mellitus with foot ulcer; L97.421 Non-pressure chronic ulcer of left heel and midfoot limited to breakdown of skin; L03.116 Cellulitis of left lower limb; L02.612 Cutaneous abscess of left foot; B95.62 Methicillin resistant Staphylococcus aureus infection as the cause of diseases classified elsewhere; B96.89 Other specified bacterial agents as the cause of diseases classified elsewhere; E10.21 Type 1 diabetes mellitus with diabetic nephropathy; N18.9 Chronic kidney disease, unspecified; N17.9 Acute kidney failure, unspecified; E10.42 Type 1 diabetes mellitus with diabetic polyneuropathy; F15.10 Other stimulant abuse, uncomplicated; F15.121 Other stimulant abuse with intoxication delirium; E87.5 Hyperkalemia; I15.0 Renovascular hypertension; Z89.411 Acquired absence of right great toe; Z89.421 Acquired absence of other right toe(s); I36.1 Nonrheumatic tricuspid (valve) insufficiency; I27.20 Pulmonary hypertension, unspecified; Z96.41 Presence of insulin pump (external) (internal); F43.12 Post-traumatic stress disorder, chronic; F41.9 Anxiety disorder, unspecified
CPT/HCPCS: 84484-PO; 96365; 97116-GP; 97161-GP; J0834; J1100; J1335; J1644; J1650; J2060; J2250; J2405; J2704; J2780; J3010; J3370; J3411; Q9967

== ENCOUNTER 2018-07-11 16:47 | Emergency (ER) | payer MEDICAID ==
[2018-07-11] MEDS ORDERED: NS 1,000 ML IV ONE (18:58)
[2018-07-11 19:10] LABS: PLATELET COUNT 328 10^3/uL (150-400)
--- NOTE | 2018-07-11 19:27 | EDPHY ---
H & P Time Seen by Provider: 07/11/18 18:17 HPI/ROS: HPI Diabetic, concerned about foot infection. 32-year-old male by private vehicle. This patient has a history of type 1 diabetes and polysubstance abuse. Admits to recent methamphetamine use. He does have an insulin pump. He reports that 2 days ago he noticed redness and swelling to the dorsal aspect of his distal big toe and his left foot and to a lesser extent on the dorsal distal aspect of the 5th toe. He has had amputations of his right toes 2 through 5. He states that infection started in a similar way. He thinks that he has an ingrown toenail on the big toe. He reports he has had some purulent drainage from this toe as well. He denies fever. ROS: Constitutional: No fever, no chills. No weakness. Eyes: No discharge. No changes in vision. ENT: No sore throat. No nasal congestion or rhinorrhea. Respiratory: No cough. No shortness of breath. Cardiac: No chest pain, no palpitations. Gastrointestinal: No abdominal pain, no vomiting, no diarrhea. Genitourinary: No hematuria. No dysuria or increased frequency with urination. Musculoskeletal: No back pain. No neck pain. No myalgias or arthralgias. Skin: No rashes. As above Neurological: No headache. No focal weakness or altered sensation. Past medical history: Type 1 diabetes, DKA, insulin pump, diabetic neuropathy, heroin abuse, methamphetamine abuse, alcohol abuse, recent right foot toe amputations 2nd through 5th, left foot 5th toe amputation, chronic left foot diabetic ulcer, possible endocarditis. Social history: States that he intermittently lives on the streets that is not living on the streets currently. He is a smoker. He is currently here by himself. As above. Physical Exam: General Appearance: Alert, no distress. Mildly anxious, tweaking. This patient is responding to questions appropriately and in full sentences. This patient appears well-hydrated and well-nourished. Eyes: Pupils equal and round no pallor or injection. No lid edema, erythema or injection. Respiratory: There are no retractions, lungs are clear to auscultation with good air movement bilaterally. Cardiovascular: Regular rate and rhythm. No murmur. Gastrointestinal: Abdomen is soft and nontender, no masses, bowel sounds normal. No focal tenderness at McBurney's point. No Victor sign. Neurological: Motor sensory function is grossly intact. Cranial nerves are normal. Gait is normal. Skin: Warm and dry, no rashes. Musculoskeletal: Neck is supple and nontender. Left foot exam: Significant for a dense erythema distal dorsal aspect of the left big toe. This is nontender on palpation. He does express some pus from the medial paronychia all fold. He has similar erythema, dorsal distal aspect of the 4th toe. The 5th toe has been amputated. No significant tenderness on palpation. No evidence of acute trauma. Extremities are symmetrical except noted. All joints range without pain or impingement except noted. Psychiatric: No agitation. No depression. Database: EKG: Imaging: Left foot x-ray series, left big toe and 4th toe: Negative for fracture, subluxation, dislocation. No radiographic evidence of osteomyelitis. Procedures: Left big toe, partial ingrown nail removed: The patient did not require local anesthesia secondary to his diabetic parole awful and neuropathy. The medial 1/ 3 of the nail was gently removed from the nail bed and paronychial folds. Patient tolerated the procedure well. There were no complications. Emergency department course: Triage vital signs reviewed. He is hypertensive and tachycardic. He is afebrile. Vital signs are otherwise normal. Left big toenail to be removed. X -rays pending to evaluate for possible osteomyelitis. Hypertension, tachycardia may be related to methamphetamine abuse patient will be given Ativan. 8:20 p.m., the patient was re-evaluated, he is resting comfortably at this time. He feels better after IV Ativan. As expected his heart rate did come down. He is currently running at 100 with a narrow complex sinus rhythm on the monitor. His blood work has been unremarkable. I do not appreciate evidence of osteomyelitis on his x-rays. His left big toe was appropriately cleansed and dressed. I did discuss admission with him. He does not want to be admitted at this time. I feel it is reasonable for him to go home with prescriptions for Keflex and Bactrim. He was given 500 mg of oral Keflex and a Bactrim DS tablet in the emergency department. He has a very good relationship with his watch dial maker here in [place]. He feels confident he will be able to see this clinician on Saturday for re-evaluation. I talked to him at length regarding the importance of taking his antibiotics consistently in as prescribed. He understands the importance of this in my professional opinion and will do this. He was given an open postop shoe to avoid any rubbing. He was given a clean sock. He does have a place to stay will call his girlfriend to take him home. He will follow up with his watch dial maker on Saturday. Strict return to the emergency depart precautions have been reviewed with him. All of his questions were answered. He was discharged in good condition. Differential Diagnosis: The differential diagnosis on this patient includes but is not limited to ingrown left big toenail, dehydration, methamphetamine abuse, uncontrolled hypertension, tachycardia. This represents a partial list of diagnoses considered. These considerations are based on history, physical exam, past history, reassessment and diagnostic testing. Smoking Status: Former smoker Constitutional: Initial Vital Signs Temperature (C) 36.5 C 07/11/18 17:24 Heart Rate 114 H 07/11/18 17:24 Respiratory Rate 19 07/11/18 17:24 Blood Pressure 184/115 H 07/11/18 17:24 O2 Sat (%) 98 07/11/18 17:24 O2 Delivery Mode Room Air Allergies/Adverse Reactions: No Known Allergies Allergy (Verified 07/11/18 17:24) Home Medications: Medication Instructions Recorded Insulin Pump, Patient Own 1 ea [facility] [place] 12/26/17 Cephalexin [Keflex (*)] 500 mg PO Q6 10 Days cap 07/11/18 Medical Decision Making - Data Points Laboratory Results: Laboratory Results 07/11/18 18:50 07/11/18 18:50 07/11/18 07/11/18 07/11/18 18:50 18:50 18:50 WBC 6.84 10^3/uL 10^3/uL (3.80-9.50) RBC 4.21 10^6/uL L 10^6/uL (4.40-6.38) Hgb 11.6 g/dL L g/dL (13.7-17.5) Hct 36.1 % L % (40.0-51.0) MCV 85.7 fL fL (81.5-99.8) MCH 27.6 pg L pg (27.9-34.1) MCHC 32.1 g/dL L g/dL (32.4-36.7) RDW 15.4 % H % (11.5-15.2) Plt Count 328 10^3/uL 10^3/uL (150-400) MPV 9.3 fL fL (8.7-11.7) Neut % (Auto) 55.7 % % (39.3-74.2) Lymph % (Auto) 34.9 % % (15.0-45.0) [place] % (Auto) 5.8 % % (4.5-13.0) Eos % (Auto) 2.9 % % (0.6-7.6) Baso % (Auto) 0.6 % % (0.3-1.7) Nucleat RBC Rel Count 0.0 % % (0.0-0.2) Absolute Neuts (auto) 3.80 10^3/uL 10^3/uL (1.70-6.50) Absolute Lymphs (auto) 2.39 10^3/uL 10^3/uL (1.00-3.00) Absolute Monos (auto) 0.40 10^3/uL 10^3/uL (0.30-0.80) Absolute Eos (auto) 0.20 10^3/uL 10^3/uL (0.03-0.40) Absolute Basos (auto) 0.04 10^3/uL 10^3/uL (0.02-0.10) Absolute Nucleated RBC 0.00 10^3/uL 10^3/uL (0-0.01) Immature Gran % 0.1 % % (0.0-1.1) Immature Gran # 0.01 10^3/uL 10^3/uL (0.00-0.10) VBG Lactic Acid 1.0 mmol/L mmol/L (0.7-2.1) Sodium Potassium Chloride Carbon Dioxide Anion Gap BUN Creatinine Estimated GFR Glucose Calcium Ethyl Alcohol < 10 mg/dL mg/dL (0-10) 07/11/18 18:50 WBC RBC Hgb Hct MCV MCH MCHC RDW Plt Count MPV Neut % (Auto) Lymph % (Auto) [place] % (Auto) Eos % (Auto) Baso % (Auto) Nucleat RBC Rel Count Absolute Neuts (auto) Absolute Lymphs (auto) Absolute Monos (auto) Absolute Eos (auto) Absolute Basos (auto) Absolute Nucleated RBC Immature Gran % Immature Gran # VBG Lactic Acid Sodium 140 mEq/L mEq/L (135-145) Potassium 3.7 mEq/L mEq/L (3.3-5.0) Chloride 102 mEq/L mEq/L (97-110) Carbon Dioxide 31 mEq/l mEq/l (22-31) Anion Gap 7 mEq/L mEq/L (6-14) BUN 25 mg/dL H mg/dL (7-23) Creatinine 1.2 mg/dL mg/dL (0.7-1.3) Estimated GFR > 60 Glucose 217 mg/dL H mg/dL (70-100) Calcium 9.3 mg/dL mg/dL (8.5-10.4) Ethyl Alcohol Microbiology Results: MICROBIOLOGY 07/11/18 19:10 Toe - Swab Gram Stain - Final Medications Given: Discontinued Medications Sodium Chloride (Ns) 1,000 mls @ 0 mls/hr IV ONCE ONE; Wide Open PRN Reason: Protocol Stop: 07/11/18 18:59 Last Admin: 07/11/18 19:28 Dose: 1,000 mls Lorazepam (Ativan Injection) 1 mg IVP EDNOW ONE Stop: 07/11/18 19:51 Last Admin: 07/11/18 19:53 Dose: 1 mg Departure - Departure Disposition: Home, Routine, Self-Care Clinical Impression: Ingrown left big toenail, Infection left big toe, Methamphetamine abuse, Tachycardia secondary to methamphetamine, Dehydration Condition: Good Instructions: Diabetic Foot Ulcers (ED), Ingrown Nail (ED) Additional Instructions: Read and follow provided instructions. Follow-up with your watch dial maker on Saturday for re-evaluation as discussed without fail Take antibiotics as prescribed through entire course of treatment. Return to the emergency department for worsening redness involving your toes, drainage of pus, swelling, fever or other serious concerns. Keep your foot elevated as much as possible above your chest. Avoid any rubbing she of you're toes on tight fitting shoes. Referrals: NONE *PRIMARY CARE P,. [Primary Care Provider] - As per Instructions Prescriptions: Cephalexin [Keflex (*)] 500 mg PO Q6 10 Days cap
[2018-07-11] MEDS ORDERED: DIAZEPAM 5 MG/ML 1 ML SYR IVP ONE (19:33)
[2018-07-11] MEDS ORDERED: LORazepam 2 MG/ML INJ IVP ONE (19:50)
[2018-07-11] MEDS ORDERED: SULFAMETHOX/TMP 800/160 MG 1 TAB PO ONE (20:22)
[2018-07-11] MEDS ORDERED: CEPHALEXIN 500MG PREPACK#4 BTL TAKEHOME ONE (20:23)
[2018-07-11] MEDS ORDERED: CEPHALEXIN 500 MG CAP PO ONE (20:23)
[2018-07-11] MEDS ORDERED: SULFAMET/TMP DS PREPACK#2 BTL TAKEHOME ONE (20:23)
--- NOTE | 2018-07-11 21:01 | EDPHY ---
H & P Time Seen by Provider: 07/11/18 18:17 Smoking Status: Former smoker Constitutional: Initial Vital Signs Temperature (C) 36.5 C 07/11/18 17:24 Heart Rate 114 H 07/11/18 17:24 Respiratory Rate 19 07/11/18 17:24 Blood Pressure 184/115 H 07/11/18 17:24 O2 Sat (%) 98 07/11/18 17:24 O2 Delivery Mode Room Air Allergies/Adverse Reactions: No Known Allergies Allergy (Verified 07/11/18 17:24) Home Medications: Medication Instructions Recorded Insulin Pump, Patient Own 1 ea MISC AD 12/26/17 Cephalexin [Keflex (*)] 500 mg PO Q6 10 Days cap 07/11/18 Sulfamethox/Tmp 800/160 mg 1 tab PO BID #20 tab 07/11/18 [Bactrim Ds] Medical Decision Making - Diagnostics Imaging Results: Imaging Impressions Toe X-Ray 07/11/18 19:12 Impression: 1. No acute fracture of the 1st through 4th toes identified. 2. Prior surgical resection of the 5th toe. 3. 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 4. Marked loss of volume and destructive changes within the navicula suggesting Charcot arthropathy or prior trauma. ED Course/Re-evaluation: Patient fitted with an open postop shoe left foot. - Data Points Laboratory Results: Laboratory Results 07/11/18 18:50 07/11/18 18:50 Microbiology Results: MICROBIOLOGY 07/11/18 19:10 Toe - Swab Gram Stain - Final Medications Given: Discontinued Medications Cephalexin (Keflex 500 Mg Prepack#4) 1 btl TAKEHOME EDNOW ONE PRN Reason: Protocol Stop: 07/11/18 20:24 Last Admin: 07/11/18 21:03 Dose: 1 btl Cephalexin HCl (Keflex) 500 mg PO EDNOW ONE PRN Reason: Protocol Stop: 07/11/18 20:24 Last Admin: 07/11/18 21:03 Dose: 500 mg Diazepam (Valium) 10 mg IVP EDNOW ONE Stop: 07/11/18 19:34 Last Admin: 07/11/18 20:11 Dose: Not Given Sodium Chloride (Ns) 1,000 mls @ 0 mls/hr IV ONCE ONE; Wide Open PRN Reason: Protocol Stop: 07/11/18 18:59 Last Admin: 07/11/18 19:28 Dose: 1,000 mls Lorazepam (Ativan Injection) 1 mg IVP EDNOW ONE Stop: 07/11/18 19:51 Last Admin: 07/11/18 19:53 Dose: 1 mg Trimethoprim/Sulfamethoxazole (Bactrim Ds Prepack#2) 1 btl TAKEHOME EDNOW ONE Stop: 07/11/18 20:24 Last Admin: 07/11/18 21:03 Dose: 1 btl Trimethoprim/Sulfamethoxazole (Bactrim Ds) 1 ea PO EDNOW ONE PRN Reason: Protocol Stop: 07/11/18 20:23 Last Admin: 07/11/18 21:02 Dose: 1 ea Departure - Departure Disposition: Home, Routine, Self-Care Clinical Impression: Ingrown left big toenail, Infection left big toe, Methamphetamine abuse, Tachycardia secondary to methamphetamine, Dehydration Condition: Good Instructions: Ingrown Nail (ED), Diabetic Foot Ulcers (ED) Additional Instructions: Read and follow provided instructions. Follow-up with your edge inker heels on Saturday for re-evaluation as discussed without fail. It is very important you do this. Take antibiotics as prescribed through entire course of treatment. Return to the emergency department for worsening redness involving your toes, drainage of pus, swelling, fever or other serious concerns. Keep your foot elevated as much as possible above your chest. Avoid any rubbing of you're toes on tight fitting shoes. Referrals: NONE *PRIMARY CARE P,. [Primary Care Provider] - As per Instructions Prescriptions: Cephalexin [Keflex (*)] 500 mg PO Q6 10 Days cap Sulfamethox/Tmp 800/160 mg [Bactrim Ds] 1 tab PO BID #20 tab
[2018-07-11 21:14] VITALS: BP 178/101
== END 2018-07-11 21:13 | disposition home or self-care (01) ==
PROC: 0HBRXZZ Excision of Toe Nail, External Approach (ICD-10-PCS; principal; 2018-07-11)
DX: L60.0 Ingrowing nail (principal); L08.9 Local infection of the skin and subcutaneous tissue, unspecified; F15.10 Other stimulant abuse, uncomplicated; R00.0 Tachycardia, unspecified; E86.0 Dehydration; E11.9 Type 2 diabetes mellitus without complications
CPT/HCPCS: 96374; G0480; J2060

== ENCOUNTER 2018-07-26 06:37 | Inpatient (IN) | payer MEDICAID ==
--- NOTE | 2018-07-26 06:42 | EDPHY ---
H & P Time Seen by Provider: 07/26/18 06:40 HPI/ROS: CHIEF COMPLAINT: Elevated blood sugar HISTORY OF PRESENT ILLNESS: This is a 32-year-old man with insulin-dependent diabetes who is a pump, was picked up by police this morning. According to them a armed security professional called 911 because the patient was yelling and screaming, eventually was in custody, field blood sugar was high and he was brought here for further evaluation. Patient said he was very anxious and agitated before with the police but now feels calmer. He has no medical complaints. Specifically denies vomiting abdominal pain or chest pain. No headache or injury or trauma. REVIEW OF SYSTEMS: Eye: no change in vision ENT: no sore throat Cardiac: no chest pain or syncope Pulmonary: no cough or SOB Abdomen: no vomiting, diarrhea, abdominal pain Musculoskeletal: no back pain or neck pain, has history of partial foot amputations for infection. Denies acute foot symptoms today including redness or pain. Skin: no rash Neuro: no headache Constitutional: no fever : no urinary symptoms A comprehensive 10 point review of systems is otherwise negative aside from elements mentioned in the history of present illness. PAST MEDICAL HISTORY: Discharge summary dated 04/02/2018 personally reviewed includes osteomyelitis, hypertension, polysubstance abuse, chronic anxiety disorder, diabetes. Social history: Denies drugs, nonsmoker. General Appearance: Patient is a little sleepy but awakens to voice easily, cooperative. Eyes: No scleral icterus. ENT, Mouth: dry mucous membranes. Respiratory: Normal respiratory effort, breath sounds equal, lungs are clear to auscultation. Cardiovascular: Regular rate and rhythm. Gastrointestinal: Abdomen is soft and non tender. Neurological: Cooperative, oriented, face symmetric, moves all 4 extremities, answers questions. Skin: Warm and dry, no rashes. Insulin pump is in place on the patient's anterior abdomen. Musculoskeletal: No spinal tenderness. Patient's feet are not examined. Psychiatric: Not agitated. Emergency Department course/MDM: Labs to include alcohol and chemistry panel are sent. Vital signs reviewed. 710: Creatinine 3.0, glucose pending as high, CO2 11, likely DKA, protocol started in the ED. Potassium 6.5. Calcium gluconate 1 amp IV, insulin drip started. IV fluids 2 L normal saline. Placed on a personnel monitor. EKG shows QRS duration 145, 10 units IV insulin given as well as the calcium. Admission to hospitalist service to ICU for DKA and severe dehydration with acute kidney injury, hyperkalemia. 814: K 5.6, decreasing, on insulin drip and IV fluids. Smoking Status: Former smoker Constitutional: Initial Vital Signs Temperature (C) 36.8 C 07/26/18 06:43 Heart Rate 101 H 07/26/18 06:43 Respiratory Rate 18 07/26/18 06:43 Blood Pressure 126/80 H 07/26/18 06:43 O2 Sat (%) 97 07/26/18 06:43 O2 Delivery Mode Room Air Allergies/Adverse Reactions: No Known Allergies Allergy (Verified 07/26/18 06:45) Home Medications: Medication Instructions Recorded Insulin Pump, Patient Own 1 ea MISC AD 12/26/17 Clonazepam 07/26/18 Enalapril Maleate 07/26/18 Medical Decision Making - Diagnostics EKG Interpretation: 12-lead EKG interpreted by me; official reading is in computer system. My interpretation is sinus rhythm rate 96 with prolonged OR, hyperacute T-waves, QRS duration 145. Consult/Admit Bed Type: [place] [id number] Critical Care Time: Critical care time spent by me, Dr. Padilla, exclusively with the care of this patient was 45 minutes, exclusive of PA or SIGHTER time and exclusive of separate procedures. The organ system at risk was metabolic and I ordered IV fluids, multiple diagnostics, insulin drip, IV calcium, insulin bolus, continuous monitoring to stabilize the patient and prevent worsening of the patient's condition. - Data Points Laboratory Results: Laboratory Results 07/26/18 06:42 07/26/18 06:42 07/26/18 07/26/18 07/26/18 07:30 06:42 06:42 WBC RBC Hgb Hct MCV MCH MCHC RDW Plt Count MPV Neut % (Auto) Lymph % (Auto) [place] % (Auto) Eos % (Auto) Baso % (Auto) Nucleat RBC Rel Count Absolute Neuts (auto) Absolute Lymphs (auto) Absolute Monos (auto) Absolute Eos (auto) Absolute Basos (auto) Absolute Nucleated RBC Immature Gran % Immature Gran # Puncture Site NONE GIVEN Patient Temperature 37.0 DEGREES DEGREES VBG pH 7.15 L (7.31-7.42) VBG HCO3 11 mEQ/L L mEQ/L (22-26) VBG Total CO2 12 mEq/L L mEq/L (21-27) VBG O2 Saturation 89 % H % (65-75) VBG Base Excess -17.0 mEq/L L mEq/L (-2.5-2.5) Mixed VBG pCO2 32 mmHg L mmHg (40-44) Mixed VBG pO2 73 mmHG H mmHG (35-40) Sodium 124 mEq/L L mEq/L (135-145) Potassium 6.5 mEq/L H* mEq/L (3.3-5.0) Chloride 90 mEq/L L mEq/L (97-110) Carbon Dioxide 11 mEq/l L mEq/l (22-31) Anion Gap 23 mEq/L H mEq/L (6-14) BUN 63 mg/dL H mg/dL (7-23) Creatinine 3.0 mg/dL H mg/dL (0.7-1.3) Estimated GFR 25 Glucose 1145 mg/dL H* mg/dL (70-100) Calcium 9.0 mg/dL mg/dL (8.5-10.4) Phosphorus 8.6 mg/dL H mg/dL (2.5-4.5) Magnesium 2.4 mg/dL H mg/dL (1.6-2.3) Beta-Hydroxybutyrate 5.15 mmol/L H mmol/L (0.02-0.27) Ethyl Alcohol < 10 mg/dL mg/dL (0-10) 07/26/18 06:42 WBC 11.89 10^3/uL H 10^3/uL (3.80-9.50) RBC 4.08 10^6/uL L 10^6/uL (4.40-6.38) Hgb 11.6 g/dL L g/dL (13.7-17.5) Hct 38.5 % L % (40.0-51.0) MCV 94.4 fL fL (81.5-99.8) MCH 28.4 pg pg (27.9-34.1) MCHC 30.1 g/dL L g/dL (32.4-36.7) RDW 15.4 % H % (11.5-15.2) Plt Count 346 10^3/uL 10^3/uL (150-400) MPV 10.4 fL fL (8.7-11.7) Neut % (Auto) 81.7 % H % (39.3-74.2) Lymph % (Auto) 11.4 % L % (15.0-45.0) [place] % (Auto) 5.9 % % (4.5-13.0) Eos % (Auto) 0.3 % L % (0.6-7.6) Baso % (Auto) 0.3 % % (0.3-1.7) Nucleat RBC Rel Count 0.0 % % (0.0-0.2) Absolute Neuts (auto) 9.71 10^3/uL H 10^3/uL (1.70-6.50) Absolute Lymphs (auto) 1.35 10^3/uL 10^3/uL (1.00-3.00) Absolute Monos (auto) 0.70 10^3/uL 10^3/uL (0.30-0.80) Absolute Eos (auto) 0.04 10^3/uL 10^3/uL (0.03-0.40) Absolute Basos (auto) 0.04 10^3/uL 10^3/uL (0.02-0.10) Absolute Nucleated RBC 0.00 10^3/uL 10^3/uL (0-0.01) Immature Gran % 0.4 % % (0.0-1.1) Immature Gran # 0.05 10^3/uL 10^3/uL (0.00-0.10) Puncture Site Patient Temperature VBG pH VBG HCO3 VBG Total CO2 VBG O2 Saturation VBG Base Excess Mixed VBG pCO2 Mixed VBG pO2 Sodium Potassium Chloride Carbon Dioxide Anion Gap BUN Creatinine Estimated GFR Glucose Calcium Phosphorus Magnesium Beta-Hydroxybutyrate Ethyl Alcohol Medications Given: Discontinued Medications Sodium Chloride (Ns) 1,000 mls @ 1,000 mls/hr IV EDNOW ONE PRN Reason: Protocol Stop: 07/26/18 08:09 Last Admin: 07/26/18 07:27 Dose: 1,000 mls Insulin Human Regular 100 unit / Miscellaneous Medication 1 ea/ Sodium Chloride 101 mls @ 0 mls/hr IV EDNOW ONE; Per Protocol PRN Reason: Protocol Stop: 07/26/18 07:11 Last Admin: 07/26/18 07:43 Dose: 101 mls Calcium Gluconate 1 gm/ (Dextrose) 60 mls @ 120 mls/hr IV ONCE ONE Stop: 07/26/18 07:59 Last Admin: 07/26/18 07:48 Dose: 60 mls Insulin Human Regular (Humulin R) 10 unit IVP EDNOW ONE Stop: 07/26/18 07:19 Last Admin: 07/26/18 07:32 Dose: 10 units Departure - Departure Disposition: [facility] Clinical Impression: Acute kidney injury, Hyperkalemia DKA (diabetic ketoacidoses) Qualifiers: Diabetes mellitus type: type 1 Diabetes mellitus complication detail: without coma Qualified Code(s): E10.10 - Type 1 diabetes mellitus with ketoacidosis without coma Condition: Serious
[2018-07-26 07:05] LABS: PLATELET COUNT 346 10^3/uL (150-400)
[2018-07-26] MEDS ORDERED: NS 1,000 ML IV ONE ×3 (07:10→10:00)
[2018-07-26] MEDS ORDERED: INSULIN REGULAR HUMAN 100 UNIT, COSIGN. REQUIRED 1 EA in NS 100 ML IV ONE (07:10)
[2018-07-26] MEDS ORDERED: CALCIUM GLUCONATE 50 ML IV ONE (07:16)
[2018-07-26] MEDS ORDERED: INSULIN REGULAR HUMAN 100 UNIT/ML UNIT IVP ONE (07:18)
--- NOTE | 2018-07-26 07:20 | CPEKG ---
Test Reason : OPEN Blood Pressure : / mmHG Vent. Rate : 096 BPM Atrial Rate : 097 BPM P-R Int : 215 ms QRS Dur : 145 ms QT Int : 400 ms P-R-T Axes : 076 082 041 degrees QTc Int : 506 ms Sinus rhythm Prolonged OH interval Probable left atrial enlargement Nonspecific intraventricular conduction delay Confirmed by Andrés Padilla ([id number]) on 07/26/2018 7:20:07 AM Referred By: Confirmed By:Andrés Padilla
[2018-07-26] MEDS ORDERED: CALCIUM GLUCONATE 1 GM in D5W 50 ML IV ONE (07:30)
[2018-07-26] MEDS ORDERED: SODIUM BICARBONATE 50 MEQ/50 ML SYR IVP ONE (09:08)
[2018-07-26] MEDS ORDERED: INSULIN REGULAR HUMAN 100 UNIT in NS 100 ML IV SCH ×2 (09:30→10:00)
[2018-07-26] MEDS ORDERED: NS 1,000 ML IV SCH (09:30)
[2018-07-26] MEDS ORDERED: RN:ENTER POTASSIUM ICU PROTOCOL ON WORKLIST MISC ONE (10:00)
[2018-07-26] MEDS ORDERED: NS 500 ML IV ONE ×2 (10:00)
[2018-07-26] MEDS ORDERED: PROTOCOL POTASSIUM 1 DOSE MISC PRN (10:20)
[2018-07-26] MEDS ORDERED: clonazePAM 1 MG TAB PO PRN (10:23)
[2018-07-26] MEDS ORDERED: PROMETHAZINE HCL 25 MG/ML INJ IVP PRN (10:25)
[2018-07-26] MEDS ORDERED: ONDANSETRON 4 MG/2 ML VIAL IVP PRN (10:25)
[2018-07-26] MEDS ORDERED: ACETAMINOPHEN 325 MG TAB PO PRN (10:25)
[2018-07-26] MEDS ORDERED: ACETAMINOPHEN 650 MG SUPP PR PRN (10:25)
[2018-07-26] MEDS ORDERED: HALOPERIDOL LACT 5 MG/ML INJ IVP PRN (11:00)
[2018-07-26] MEDS ORDERED: FLUMAZENIL 0.5 MG/5 ML MDV IVP PRN (11:01)
[2018-07-26] MEDS ORDERED: LORazepam 2 MG/ML INJ IVP PRN (11:01)
--- NOTE | 2018-07-26 11:08 | GHP ---
DATE OF ADMISSION: 07/26/2018 CHIEF COMPLAINT: Agitation. HISTORY: The patient is a 32-year-old male, who was noted at the bus stop to be very agitated, yelli ng and screaming, and the police were called. They called [facility], and blood glucose check was read as darby florencio , and he was brought to the emergency room. Patient is now sedated and not able to provide a ny further history. He has aroused earlier in his ER stay for nursing, and given a little bit of his tory, stating he drinks alcohol, believe he is homeless. It is unclear if he is using his insulin pu mp. PAST MEDICAL HISTORY: 1. Diabetes type 1. 2. Diabetic foot infection, status post amputation. 3. MRSA in the foot wound, February 2018. 4. IV drug abuse, methamphetamine. 5. Diabetic nephropathy with baseline creatinine 1.2. 6. Chronic hyperkalemia. 7. Hypertension. 8. Anxiety. MEDICATIONS: Please see computerized record for full detailed list. ALLERGIES: No known drug allergies. SOCIAL HISTORY: Unclear smoking history, unclear alcohol history. Per review of our chart, IV metha mphetamine use active until recently. He is homeless. His mom lives in [place], and he has a conflict ed relationship with her. REVIEW OF SYSTEMS: Complete review of systems obtained. Review of systems negative regarding consti tutional, HEENT, GI, pulmonary, cardiovascular, , hematologic, musculoskeletal, endocrine, psych, e xcept for positives and negatives as under HPI. This review of systems is limited by the patient's c urrent altered mental status. FAMILY HISTORY: Unknown as the patient is adopted. PHYSICAL EXAMINATION: GENERAL: Well-developed, well-nourished male, in no acute distress. VITAL SI GNS: Temperature is 36.8, pulse 105, blood pressure 120/60, saturating 100% on room air. EYES: Nor mal conjunctivae. Pupils equal and reactive to light. ENT: Normal ears and nose. Hearing intact b ut difficult to assess due to altered mental status. Oropharynx is dry. NECK: Trachea midline. No thyromegaly. CHEST: Normal respiratory effort. Lungs clear to auscultation bilaterally. CARDIOVA SCULAR: Regular rate and rhythm. No murmur. No lower extremity edema. ABDOMEN: Soft, nontender. No hepatosplenomegaly. SKIN: Warm, dry, intact, without rash. MUSCULOSKELETAL: Feet are inspected . His amputation wounds are all healed. There is no evidence of acute infection or any open wounds. NEURO: Cranial nerves grossly intact, but he is currently not following commands. Unable to asses s sensation. PSYCH: He is lethargic, arousable to deep stimulation, but only for brief periods of t anabela, not giving current history, somnolent, appears to be in a deep sleep. LABS: White count 11.89, hematocrit 38.5, platelets 346. Sodium 124, potassium 6.5. On recheck, it has already come down to 5.2. Chloride 90, bicarb 11, anion gap 23, has already come down 18. BUN 63, creatinine 3.0, glucose 1145. ABG shows a pH of 7.15, pCO2 of 11, pO2 of 89. EKG viewed by me. My personal interpretation is peaked T-waves. ASSESSMENT/PLAN: 1. Diabetic ketoacidosis with critical acidemia, pH 7.1. Continue IV normal saline, IV insulin drip per DKA protocol. Will follow serial Chem-7. 2. Hyperkalemia. Received IV calcium and IV insulin. Recheck potassium, is already down to 5.2. Jeancarlos caicedo did have EKG changes on presentation with peaked T-waves. Review of his chart shows he has had sig nificant hyperkalemia in the past and was recommended against ANASTASIYA inhibitors. Will plan on discontin uing his enalapril. 3. Diabetes type 1. It is unclear if he is using his insulin pump, but I suspect if he is, he is no t using it properly. That is probably the etiology of his diabetic ketoacidosis. 4. Toxic metabolic encephalopathy. I suspect this is a combination of diabetic ketoacidosis and als o active drug use as we do have confirmation on recent admissions he is still using IV methamphetamin e. Will check a U-tox. Consider head CT if his mental status has not improved. 5. Acute renal failure. Baseline creatinine 1.2. He is probably extremely dry due to his diabetic ketoacidosis. Will hydrate with normal saline. 6. Hyponatremia. This corrects for his hyperglycemia. 7. Diabetic foot infection, status post recent amputations. These were infected with methicillin-re sistant Staphylococcus aureus. He will be placed on isolation due to this recent history. Wounds, h owever, look very good. No open wounds and appear well healed. 8. Intravenous drug abuse. Human immunodeficiency virus was recently negative. COR STATUS: Full. ADMISSION STATUS: Will admit to observation as he may improve quickly. Re-evaluate tomorrow. DVT PROPHYLAXIS: He is high risk. Will place him on subcu heparin. Critical care time spent is 50 minutes. /[id number]/MODL
--- NOTE | 2018-07-26 12:55 | ASMTCMCOM ---
CM Note CM Note Notes: CM reviewing pt's chart for d/c planning. Pt is a 32 y/o homeless man who was brought into the ED after a call was made to 911 due to pt causing a disturbance with his behavior. He is a diabetic and his glucose read as "very high". Pt has an insulin pump, but it is unclear whether he is using it. He appears to have a hx of both ETOH and methamphetamine abuse. His mother lives in [place] and they have a "conflictual relationship". Pt's CM needs unknown at this time; CM will follow. D/C Plan: TBD Date Signed: 07/26/2018 12:54 PM Electronically Signed By:Otilia Dean
[2018-07-26] MEDS: HEPARIN 5,000 UNIT/0.5 ML INJ SC SCH ×2 (15:49→22:08)
[2018-07-26] MEDS: DEXMEDETOMIDINE HCL 400 MCG in NS 100 ML IV SCH ×2 (15:53→19:25)
[2018-07-26] MEDS: NS 1,000 ML IV SCH (16:56)
[2018-07-26] MEDS: D50W 25 GM/50 ML SYR IVP PRN ×2 (16:56→21:44)
[2018-07-26] MEDS: D10W 1,000 ML IV SCH (19:26)
[2018-07-27] MEDS: D10W 1,000 ML IV SCH (00:31)
[2018-07-27] MEDS: NS 1,000 ML IV SCH ×2 (00:32→08:12)
[2018-07-27 04:48] LABS: PLATELET COUNT 299 10^3/uL (150-400)
[2018-07-27] MEDS: HEPARIN 5,000 UNIT/0.5 ML INJ SC SCH ×2 (08:12→14:54)
[2018-07-27] MEDS ORDERED: THIAMINE HCL 500 MG in NS 100 ML IV SCH (09:00)
[2018-07-27] MEDS ORDERED: NON-FORMULARY NEW DRUG (Insulin Pump, Patient Own 1 EA) MISC SCH (10:45)
[2018-07-27] MEDS ORDERED: D50W 25 GM/50 ML SYR IVP PRN ×2 (10:48→15:47)
[2018-07-27] MEDS ORDERED: INSULIN PUMP, PATIENT OWN 1 EA MISC SCH (11:00)
[2018-07-27] MEDS ORDERED: INSULIN LISPRO 100 UNIT/ML SC ONE (13:56)
--- NOTE | 2018-07-27 15:38 | ASMTCMCOM ---
CM Note CM Note Notes: Patient's mother is a drug counselor and beside herself with worry about her son. She feels that if we discharge him he will just go to his drug selling girlfriend, use and . She reports that he has been to [facility] and in therapy through his Chief Controller but nothing works. Mother feels as though he has broken his Probation agreements and could be jailed. She has made numerous emails to his Chief Controller and is hoping the PO will put out a warrant for his arrest. She feels that care home would be best for him. Patient to stay at [facility] over night for DM mgmt. If he leaves AMA please contact his mother, Beny [phone]. Date Signed: 07/27/2018 03:38 PM Electronically Signed By:Ceci Finney LCSW
--- NOTE | 2018-07-27 15:57 | HOSPPROG ---
Hospitalist Progress Note Assessment/Plan: * DKA - resolved * DM 1 -does not currently have insulin pump supplies -restart on SQ Lantus -feel very nervous discharge patient, new to SQ insulin, unclear dose -continue inpatient monitoring - add ISS * Toxic/metabolic encephalopathy -slow to clear - still very somnolent this am * Meth abuse/IVDA * Acute on chronic renal failure -now back to baseline creatinine 1.2 * Hyperkalemia -continue hold ACEI * DM foot infection s/p recent amputations -wounds look good * MRSA colonization -isolation Subjective: very somnolent this am, falling asleep during conversation Objective: Vital Signs Temp Pulse Resp BP Pulse Ox 36.5 C 109 H 19 118/72 99 07/27/18 05:00 07/27/18 10:00 07/27/18 10:00 07/27/18 10:00 07/27/18 10:00 Laboratory Results 07/27/18 04:24 07/27/18 04:24 07/26/18 07/27/18 07/28/18 05:59 05:59 05:59 Intake Total 6275.2 Output Total 6200 Balance 75.2 - Time Spent With Patient Time Spent with Patient: greater than 35 minutes Time Spent with Patient: Greater than 35 minutes spent on this patients care, greater than 50% of time spent counseling, educating, and coordinating care regarding the above mentioned plan. - Physical Exam Constitutional: no apparent distress, appears nourished, not in pain Cardiovascular: regular rate and rhythym, no murmur, rub, or gallop Respiratory: no respiratory distress, no rales or rhonchi, clear to auscultation Gastrointestinal: normoactive bowel sounds, soft, non-tender abdomen, no palpable masses Skin: no rashes or abrasions, no fluctuance, no induration Psychiatric: encephalopathic, poor judgement, poor memory, No interacting appropriately, No thought process linear, No agitated ICD10 Worksheet Patient Problems: Problems Problem Status Onset Hyperglycemia Acute Acute renal failure Acute DKA (diabetic ketoacidoses) Acute Hyperkalemia Acute Hyperkalemia Acute Dehydration Acute Acute kidney injury Acute Osteomyelitis Acute Cellulitis Acute Diabetes mellitus Acute
[2018-07-27] MEDS: INSULIN GLARGINE 100 UNITS/ML UNIT SC SCH (16:32)
[2018-07-27] MEDS: INSULIN REGULAR HUMAN 100 UNIT/ML UNIT SC SCH ×2 (17:24→20:59)
--- NOTE | 2018-07-27 17:38 | PDMN ---
Medical Necessity Medical necessity: [facility] [place] Diabetes: 32 yo w/ DKA, initial admit to OBS as suspect quick recovery, however pt still w/ toxic/metabolic encephalopathy, slow to clear and somnolent. BGs cont to be labile, calcium levels decreased from wnl to 8 overnight. Pt remains on IV dextrose and pt is tachycardic today >100. Pt will require additional MN for ongoing monitoring and tx of the above. Hx DM, diabetic foot infection, s/p amputation, MRSA foot wound February2018 , IV drug abuse, meth, diabetic nephropathy, chronic hyperkalemia, HTN, anxiety. Change to IP status 07/27/18@1548 per MD order
[2018-07-28 08:22] VITALS: BP 144/86
[2018-07-28] MEDS: INSULIN GLARGINE 100 UNITS/ML UNIT SC SCH (09:20)
[2018-07-28] MEDS: INSULIN REGULAR HUMAN 100 UNIT/ML UNIT SC SCH (09:20)
--- NOTE | 2018-07-28 11:36 | ASMTLACE ---
LACE Length of stay for Answers: Less than 1 day current admission Acuity / Level of Answers: Yes Care: Did the patient have an inpatient admission? Comorbidities - select Answers: Diabetes (uncontrolled or all that apply controlled) # of Emergency department Answers: 1-2 visits in the last 6 months Social determinants Answers: History of substance abuse (ETOH, street drugs, prescription drugs, etc.) Homelessness (street, custodial) Mental health diagnosis (anxiety, depression, pers onality disorders, etc.) Score: 14 Date Signed: 07/28/2018 11:36 AM Electronically Signed By:Gosia Ferguson RN
--- NOTE | 2018-07-28 11:44 | ASMTCMCOM ---
CM Note CM Note Notes: Patient plan of care reviewed with hospital medicine. Also had lengthy discussion with patient's mother who is distraught over his social behaviors Emotional support provided and CM suggested she try [employer] for support. I informed her that I can not call police as this would be a hippa violation. I was able to call the police department to help facilitate the location of the patient's back pack which has his insulin supplies. Spoke to Veronica at [phone] the patient's case number is [id number] and the address is [address] [place] [address]. Patient provided with this information. He requested a taxi to [place] [address] and CM suggested he try calling [employer] for transportation. He then shared with his RN he has a ride to the Police Department to order picker his bag. Plan: DC to home independently. Date Signed: 07/28/2018 11:43 AM Electronically Signed By:Gosia Ferguson RN
--- NOTE | 2018-07-28 18:36 | GDS ---
DISCHARGE DIAGNOSES: 1. Diabetic ketoacidosis. 2. Diabetes type 1 uncontrolled. 3. Toxic metabolic encephalopathy. 4. IV drug abuse with methamphetamines. 5. Acute on chronic renal failure. 6. Hyperkalemia. 7. Diabetes foot infection status post recent amputations. 8. Methicillin resistant staphylococcus aureus colonization. HISTORY: The patient is a 32-year-old gentleman with type 1 diabetes, and marginal social situation. He part-time lives with his mom in [place] but his girlfriend is homeless and an IV heroin abusing dr evelio lake and he stays with her frequently. He is on an insulin pump but is poorly controlled at [facility] with a hemoglobin A1c of 10.3. He continues to use drugs. He was picked up by police at the [place] station when he was extremely agitated and security was called. Blood glucose was noted to be hig h, too high to register so he was brought to the emergency room. He was found to be in severe DKA an d his pH was 7.1, he had hyperkalemia and acute renal failure with his creatinine being greater than 3. He was critically ill and went to ICU. He was extremely encephalopathic and agitated requiring a Precedex drip. His DKA was resolved via standard DKA protocol. His renal failure resolved back to h is baseline creatinine of 1.2. Eventually his encephalopathy did clear and he is back to his baselin e mental status. The patient is going to go back on his insulin pump and follow up with Dr. Chavez, his endocrinologis t. He has all necessary supplies necessary to proceed with insulin pump. He has no desire to quit u sing drugs. He is able to go home to his mom's house [place], she has been trying to help him regard ing his drug abuse but has been unsuccessful. It seems like they have a conflicted relationship. He has been noted on previous hospitalizations to have significant hyperkalemia and again presented h yperkalemic. He has been started on ANASTASIYA inhibitor as an outpatient which I am going to discontinue d ue to his recurrent problems with high potassium. DISCHARGE MEDICATIONS: 1. Please see computerized record for full detailed list. New medications: Insulin pump under the d irection of Dr. Chavez. This will be continued. 2. Discontinued medications: Enalapril 10 mg p.o. daily. Greater than 30 minutes' time spent arranging this discharge. Patient seen and examined by me on the day of discharge. /[id number]/MODL
[2018-07-29] MEDS ORDERED: THIAMINE HCL 100 MG TAB PO SCH (11:01)
== END 2018-07-28 11:53 | disposition home or self-care (01) | DRG 420 ==
LOC: EDUNIT# → EDBD → INTOOBSV 07:43 → F2N 08:25 → OBSVTOIN 07-27 15:48 → F1N 07-27 18:14
PROVIDERS: ADMIT Internal Medicine; ATTEND Internal Medicine
DX: E10.10 Type 1 diabetes mellitus with ketoacidosis without coma (principal); G92 Toxic encephalopathy; N17.9 Acute kidney failure, unspecified; E86.9 Volume depletion, unspecified; F15.10 Other stimulant abuse, uncomplicated; N18.9 Chronic kidney disease, unspecified; E87.5 Hyperkalemia; Z89.439 Acquired absence of unspecified foot; Z59.0 Homelessness; Z96.41 Presence of insulin pump (external) (internal); Z79.4 Long term (current) use of insulin
CPT/HCPCS: 80307; 82435-PO; 82565-PO; 82947-PO; 83605-PO; 84132-PO; 84295-PO; 84520-PO; 85014-PO; 96365; 96366; G0378; G0480; J0610; J1630; J1644; J1815; J2060; J2270; J3411

== ENCOUNTER 2018-07-28 18:42 | Observation (INO) | payer MEDICAID ==
[2018-07-28] MEDS ORDERED: NS 1,000 ML IV ONE (18:47)
--- NOTE | 2018-07-28 18:51 | EDPHY ---
H & P Time Seen by Provider: 07/28/18 18:45 HPI/ROS: CHIEF COMPLAINT: Elevated glucose HISTORY OF PRESENT ILLNESS: The patient is a 32-year-old type 1 diabetic with a history of DKA who presents emergency department with elevated glucose. The patient was admitted to the hospital on 07/26/2018. He was discharged today. He returned home and got into an argument with his mother. He states he was unable to replenish his insulin pump. He is concerned his insulin pump is coming out"and is not usable anyway."The patient denies feeling lightheaded or dizzy. He has no chest pain or shortness of breath. No abdominal pain. No nausea or vomiting. Patient denies drugs or alcohol since leaving the hospital. The patient reports that his glucose was > 1000 at home. EMS found his first glucose to be 522. He is given 1 L of fluid. His repeat glucose was 399. REVIEW OF SYSTEMS: 10 systems were reveiwed and are negative with the exception of the elements mentioned in the history of present illness. Past Medical/Surgical History: Includes diabetes type 1, diabetic foot infection, MRSA, a methamphetamine abuse , diabetic neuropathy, chronic hyperkalemia, hypertension, anxiety Smoking Status: Former smoker Physical Exam: Vitals noted GENERAL: No acute distress, alert. HEENT: Eyes normal to inspection, normal pharynx, no signs of dehydration. NECK: Normal, supple. RESPIRATORY: Clear to auscultation bilaterally, no rales, rhonchi or wheezing. CVS: Regular rate and rhythm, no rubs, murmurs, or gallops. ABDOMEN: Soft, nontender, nondistended, no organomegaly. Patient's insulin pump is in his right lower abdomen. There is no surrounding warmth or erythema BACK: Normal to inspection, no CVA tenderness. SKIN: Normal color, no rash, warm, dry. No pallor. EXTREMITIES: No pedal edema, no calf tenderness, no Homans sign or cords, no joint swelling. NEURO/PSYCH: Alert and oriented, normal mood and affect, normal motor sensory exam. No obvious cranial nerve deficit. Constitutional: Initial Vital Signs Temperature (C) 36.4 C 07/28/18 18:45 Heart Rate 118 H 07/28/18 18:45 Respiratory Rate 18 07/28/18 18:45 O2 Sat (%) 100 07/28/18 18:45 O2 Delivery Mode Room Air Allergies/Adverse Reactions: No Known Allergies Allergy (Verified 07/28/18 18:45) Home Medications: Medication Instructions Recorded Insulin Pump, Patient Own 1 ea MISC AD 12/26/17 clonazePAM [Clonazepam] 1 mg PO TID PRN 07/26/18 Medical Decision Making ED Course/Re-evaluation: In the emergency department I met EMS on arrival. PD was also present. Per police the patient is under arrest. The patient's white count is elevated at 10.6. Patient's hematocrit is slightly low at 36.4. Platelets are 369. Patient's sodium is 133. The potassium was 6.4. Chloride is 106. Carbon dioxide is 23. Anion gap is 4 % period% creatinine 1.2. Glucose 476. Upon seeing the results of the elevated potassium a repeat chemistry panel was ordered. His repeat potassium was 6.0. Patient was noted to have an elevated blood pressure. He reports that he recently discontinued his blood pressure medication and was told this was causing his potassium to be high. Patient reports having a chronically elevated potassium. An EKG was ordered. Patient was given Kayexalate. I discussed the case with the hospitalist service. Dr. Bronson will admit. Differential Diagnosis: My differential includes but is not limited to diabetes type 1, DKA, hyperglycemia, electrolyte abnormality, sugar abnormality, bacteremia, sepsis, underlying infection - Data Points Laboratory Results: Laboratory Results 07/28/18 18:45 07/28/18 18:45 07/28/18 07/28/18 07/28/18 20:01 18:45 18:45 WBC 10.68 10^3/uL H 10^3/uL (3.80-9.50) RBC 4.04 10^6/uL L 10^6/uL (4.40-6.38) Hgb 11.4 g/dL L g/dL (13.7-17.5) POC Hgb 11.6 gm/dL L gm/dL (13.7-17.5) Hct 36.4 % L % (40.0-51.0) POC Hct 34 % L % (40-51) MCV 90.1 fL fL (81.5-99.8) MCH 28.2 pg pg (27.9-34.1) MCHC 31.3 g/dL L g/dL (32.4-36.7) RDW 15.2 % % (11.5-15.2) Plt Count 369 10^3/uL 10^3/uL (150-400) MPV 10.2 fL fL (8.7-11.7) Neut % (Auto) 78.4 % H % (39.3-74.2) Lymph % (Auto) 15.4 % % (15.0-45.0) [place] % (Auto) 4.8 % % (4.5-13.0) Eos % (Auto) 0.7 % % (0.6-7.6) Baso % (Auto) 0.4 % % (0.3-1.7) Nucleat RBC Rel Count 0.0 % % (0.0-0.2) Absolute Neuts (auto) 8.37 10^3/uL H 10^3/uL (1.70-6.50) Absolute Lymphs (auto) 1.65 10^3/uL 10^3/uL (1.00-3.00) Absolute Monos (auto) 0.51 10^3/uL 10^3/uL (0.30-0.80) Absolute Eos (auto) 0.08 10^3/uL 10^3/uL (0.03-0.40) Absolute Basos (auto) 0.04 10^3/uL 10^3/uL (0.02-0.10) Absolute Nucleated RBC 0.00 10^3/uL 10^3/uL (0-0.01) Immature Gran % 0.3 % % (0.0-1.1) Immature Gran # 0.03 10^3/uL 10^3/uL (0.00-0.10) POC Sodium 138 mEq/L mEq/L (135-145) Sodium 133 mEq/L L mEq/L (135-145) POC Potassium 6.0 mEq/L H mEq/L (3.3-5.0) Potassium 6.4 mEq/L H* mEq/L (3.3-5.0) POC Chloride 108 mEq/L mEq/L (97-110) Chloride 106 mEq/L mEq/L (97-110) Carbon Dioxide 23 mEq/l mEq/l (22-31) Anion Gap 4 mEq/L L mEq/L (6-14) POC BUN 23 mg/dL mg/dL (7-23) BUN 23 mg/dL mg/dL (7-23) Creatinine 1.2 mg/dL mg/dL (0.7-1.3) POC Creatinine 1.1 mg/dL mg/dL (0.7-1.3) Estimated GFR > 60 Glucose 476 mg/dL H mg/dL (70-100) POC Glucose 440 mg/dL H mg/dL (70-100) Calcium 8.8 mg/dL mg/dL (8.5-10.4) Total Bilirubin 0.4 mg/dL mg/dL (0.1-1.4) Conjugated Bilirubin 0.3 mg/dL mg/dL (0.0-0.5) Unconjugated Bilirubin 0.1 mg/dL mg/dL (0.0-1.1) AST 56 IU/L IU/L (17-59) ALT 61 IU/L IU/L (21-72) Alkaline Phosphatase 135 IU/L H IU/L (38-126) Total Protein 6.1 g/dL L g/dL (6.3-8.2) Albumin 3.5 g/dL g/dL (3.5-5.0) Lipase 30 IU/L IU/L (23-300) Medications Given: Discontinued Medications Sodium Chloride (Ns) 1,000 mls @ 0 mls/hr IV EDNOW ONE; Wide Open PRN Reason: Protocol Stop: 07/28/18 18:48 Last Admin: 07/28/18 18:55 Dose: 1,000 mls Point of Care Test Results: Chemistry 07/28/18 20:01 POC Sodium 138 mEq/L mEq/L (135-145) POC Potassium 6.0 mEq/L H mEq/L (3.3-5.0) POC Chloride 108 mEq/L mEq/L (97-110) POC BUN 23 mg/dL mg/dL (7-23) POC Creatinine 1.1 mg/dL mg/dL (0.7-1.3) POC Glucose 440 mg/dL H mg/dL (70-100) ISTAT H&H 07/28/18 20:01 POC Hgb 11.6 gm/dL L gm/dL (13.7-17.5) POC Hct 34 % L % (40-51) Departure - Departure Disposition: [facility] Inpatient Acute Clinical Impression: Hyperglycemia, Hyperkalemia Hypertension Qualifiers: Hypertension type: unspecified Qualified Code(s): I10 - Essential (primary) hypertension Condition: Good Referrals: NONE *PRIMARY CARE P,. [Primary Care Provider] - As per Instructions
[2018-07-28 18:58] LABS: PLATELET COUNT 369 10^3/uL (150-400)
[2018-07-28] MEDS ORDERED: SODIUM POLY SULF 15 GM/60 ML BOTTLE PO ONE ×2 (20:04→20:36)
[2018-07-28] MEDS ORDERED: CALCIUM CHLORIDE 1 GM/10 ML INJ IV ONE (20:13)
[2018-07-28] MEDS ORDERED: ALBUTEROL 3 ML DEYVIAL IH PRN (20:14)
[2018-07-28] MEDS ORDERED: ALBUTEROL 3 ML DEYVIAL ONE (20:25)
[2018-07-28] MEDS ORDERED: CALCIUM CHLORIDE 1 GM/10 ML INJ ONE (20:26)
--- NOTE | 2018-07-28 20:29 | CPEKG ---
Test Reason : OPEN Blood Pressure : / mmHG Vent. Rate : 101 BPM Atrial Rate : 101 BPM P-R Int : 176 ms QRS Dur : 092 ms QT Int : 341 ms P-R-T Axes : 073 038 065 degrees QTc Int : 442 ms Sinus tachycardia Probable left atrial enlargement Confirmed by Andrés Padilla ([id number]) on 07/28/2018 8:28:49 PM Referred By: Confirmed By:Andrés Padilla
[2018-07-28] MEDS ORDERED: INSULIN REGULAR HUMAN 100 UNIT/ML UNIT IVP ONE (20:32)
[2018-07-28] MEDS ORDERED: ALBUTEROL 3 ML DEYVIAL IH ONE (20:32)
[2018-07-28] MEDS ORDERED: CALCIUM GLUCONATE 2 GM in D5W 50 ML IV ONE (20:32)
[2018-07-28] MEDS ORDERED: D50W 25 GM/50 ML SYR IVP PRN ×2 (20:34→21:56)
[2018-07-28] MEDS ORDERED: hydrALAZINE 20 MG/ML VIAL IVP PRN (20:36)
[2018-07-28] MEDS ORDERED: ONDANSETRON DISINTEGRATING 4 MG TAB PO PRN (20:36)
[2018-07-28] MEDS ORDERED: ACETAMINOPHEN 325 MG TAB PO PRN (20:36)
[2018-07-28] MEDS ORDERED: oxyCODONE IR 5 MG TAB PO PRN (20:36)
[2018-07-28] MEDS ORDERED: HYDROCODONE/APAP 5/325 TAB PO PRN (20:36)
[2018-07-28] MEDS ORDERED: ONDANSETRON 4 MG/2 ML VIAL IVP PRN (20:36)
[2018-07-28] MEDS ORDERED: PROMETHAZINE HCL 25 MG/ML INJ IVP PRN (20:36)
[2018-07-28] MEDS ORDERED: clonazePAM 1 MG TAB PO PRN (20:38)
[2018-07-28] MEDS ORDERED: CALCIUM GLUC 10% 1 GM/10 ML VIAL ONE (20:42)
[2018-07-28] MEDS ORDERED: NON-FORMULARY NEW DRUG (Insulin Pump, Patient Own 1 EA) MISC SCH (20:45)
[2018-07-28] MEDS ORDERED: INSULIN PUMP, PATIENT OWN 1 EA MISC SCH (22:00)
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
[2018-07-28] MEDS ORDERED: INSULIN GLARGINE 100 UNITS/ML UNIT SC ONE (22:27)
[2018-07-28] MEDS: NS 1,000 ML IV SCH (23:09)
[2018-07-29 05:44] LABS: PLATELET COUNT 316 10^3/uL (150-400)
[2018-07-29] MEDS ORDERED: INSULIN LISPRO 100 UNIT/ML SC ONE (05:58)
[2018-07-29] MEDS: NS 1,000 ML IV SCH (06:11)
[2018-07-29] MEDS ORDERED: INSULIN LISPRO 100 UNIT/ML SC SCH (08:00)
[2018-07-29 08:06] VITALS: BP 148/79
[2018-07-29] MEDS ORDERED: INSULIN GLARGINE 100 UNITS/ML UNIT SC SCH (09:00)
[2018-07-29] MEDS ORDERED: amLODIPine BESYLATE 5 MG TAB PO SCH (09:00)
--- NOTE | 2018-07-29 09:46 | HOSPPROG ---
Hospitalist Progress Note Assessment/Plan: 32 yo M with PMH of DM1, HTN, IV meth abuse and chronic hyperkalemia presenting with hyperglycemia, hypertension, hyperkalemia. First encounter, chart reviewed. # hyperglycemia -not acidotic -he assures me he has another insulin pump at home -glucoses high this morning # hyperkalemia -much improved w Kayexalate, hydration, albuterol -recheck K now to assure stability # uncontrolled htn -had been treated with enalapril but concerns for this contributing to his elevated K & discontinued, started amlodipine # IVDA: patient has had recent HIV/hep C testing and does have access to clean needles, patient interested in quitting but notes he has been using x 11 years -CM to see # ckd: at baseline #Plan: patient wants to go home today back to [place], on the previous provider note; the [employer] police asked to be notified. CM called them. Subjective: Kenneth said he is feeling fine, has no complaints, wants to go home to [place]. Objective: Vital Signs Temp Pulse Resp BP Pulse Ox 36.6 C 92 18 148/79 H 98 07/29/18 08:04 07/29/18 08:04 07/29/18 08:04 07/29/18 08:46 07/29/18 08:04 Laboratory Results 07/29/18 05:06 07/29/18 05:06 07/28/18 07/29/18 07/30/18 05:59 05:59 05:59 Intake Total 3345 Output Total 1000 Balance 2345 - Physical Exam Constitutional: no apparent distress, appears nourished, not in pain Eyes: PERRL Ears, Nose, Mouth, Throat: hearing normal Cardiovascular: regular rate and rhythym Respiratory: no rales or rhonchi Gastrointestinal: normoactive bowel sounds Skin: warm Musculoskeletal: full muscle strength Neurologic: AAOx3 Psychiatric: interacting appropriately ICD10 Worksheet Patient Problems: Problems Problem Status Onset Hyperglycemia Acute Hyperkalemia Acute Hypertension Acute Acute kidney injury Acute Acute renal failure Acute Cellulitis Acute DKA (diabetic ketoacidoses) Acute Dehydration Acute Diabetes mellitus Acute Hyperkalemia Acute Osteomyelitis Acute
--- NOTE | 2018-07-29 12:55 | ASMTCMCOM ---
CM Note CM Note Notes: CM spoke to Suzy Wilson NP and LILY Magallanes. Pt is being discharged today to [facility]. CM notified dispatch the d/c. Alla, the officer the is picking him up completed the law enforcement interactions document. A copy is in pts chart. Pt left the building before he was picked up by [place] [employer]. Plan: Independent Date Signed: 07/29/2018 12:54 PM Electronically Signed By:JASPER Mendiola
--- NOTE | 2018-07-29 18:37 | GDS ---
DISCHARGE DIAGNOSES: 1. Hyperglycemia without acidosis. 2. Hyperkalemia. 3. Uncontrolled hypertension. 4. Diabetes type 1. 5. IV drug abuse. 6. Chronic kidney disease. HISTORY: Briefly, the patient is a 32-year-old patient who was discharged yesterday afternoon and then returned last evening. He was in custody of the [facility] with concerns of high glucoses. After he was discharged yesterday, he went to his mom's house, and they got into an argument, with ultimately the police being called, and he was taken into custody. There was concern that he was out of insulin for his insulin pump. The patient told me he had plenty of insulin at home, just did not get it. He said he was feeling well. He was discharged today. [place] Police requested to be called. He will be discharged under their care. HOSPITAL COURSE: 1. Hyperglycemia. Glucoses were elevated this morning but improved. 2. Hyperkalemia. This resolved. He was treated with Kayexalate, hydration, and albuterol. 3. Uncontrolled hypertension, better today. We have initiated amlodipine. Unable to treat him with ANASTASIYA inhibitor due to his hyperkalemia. 4. IV drug abuse. He has had recent HIV and hepatitis C testing and does have access to clean needles. He is interested in quitting. 5. Chronic kidney disease, at his baseline. DISCHARGE CONDITION: Stable. Blood pressure is 148/79, heart rate of 92, respiratory rate of 18, O2 sats on room air 98%. Temperature is 36.6 Celsius. DISCHARGE MEDICATIONS: Please see the EMR. DISCHARGE INSTRUCTIONS: 1. Norvasc is a new medication. 2. Continue his insulin pump if possible. If this is not available, recommending that they check his insulin at the correction, and sliding scale in the hospital was written out for him for them to give him insulin. ADDENDUM: the patient was not discharged to the correction with the police. He left prior to being discharged under their care. Copy requested to: Primary care provider /[id number]/MODL GARRICK
== END 2018-07-29 12:52 | disposition home or self-care (01) ==
LOC: EDUNIT# → F3E 21:20
PROVIDERS: ADMIT Internal Medicine; ATTEND Internal Medicine
DX: E10.65 Type 1 diabetes mellitus with hyperglycemia (principal); E87.5 Hyperkalemia; I12.9 Hypertensive chronic kidney disease with stage 1 through stage 4 chronic kidney disease, or unspecified chronic kidney disease; E86.9 Volume depletion, unspecified; N18.9 Chronic kidney disease, unspecified; E10.22 Type 1 diabetes mellitus with diabetic chronic kidney disease; E10.42 Type 1 diabetes mellitus with diabetic polyneuropathy; F15.10 Other stimulant abuse, uncomplicated; F41.9 Anxiety disorder, unspecified; Z79.4 Long term (current) use of insulin; Z86.14 Personal history of Methicillin resistant Staphylococcus aureus infection; Z87.891 Personal history of nicotine dependence; Z96.41 Presence of insulin pump (external) (internal)
CPT/HCPCS: 93005; 96361; 96365; 96372; 96375; 99285; G0378; 82435-PO; 82565-PO; 82947-PO; 84132-PO; 84295-PO; 84520-PO; 85014-PO; J0610; J1815; J7613

== ENCOUNTER 2018-10-12 23:02 | Inpatient (IN) | payer MEDICAID | END 2018-10-13 17:12 | disposition left against medical advice (07) | LOC: F2N 10-13 01:29 ==

== ENCOUNTER 2019-01-04 10:25 | Emergency (ER) | payer MEDICAID ==
[2019-01-04 10:30] VITALS: BP 178/105
--- NOTE | 2019-01-04 10:50 | EDPHY ---
H & P Time Seen by Provider: 01/04/19 10:39 HPI/ROS: Chief complaint: Toe infection History of present illness: This is a 33-year-old male who presents to the emergency department concerned she is developing toe infection. He has no some redness at the base of his left great toe toenail. Slight drainage in this region. It developed over the last few days. He has had multiple infections on his feet before that have resulted in amputation. He is concerned this is a new infection starting and wants to stay ahead of it. He denies any other associated signs or symptoms at this time including no fevers, no red streaking , no difficulty moving the toe, no history of recent trauma. Smoking Status: Former smoker Physical Exam: General: Alert, nontoxic. Skin: Trace erythema to the proximal, medial aspect of the left great toe just proximal to the toenail. No induration or fluctuance. No red streaking. Musculoskeletal: Flexing extending the toe well. Vascular: Capillary refill is intact in left great toe. Neurologic: Sensation does appear present left great toe at baseline. Constitutional: Initial Vital Signs Temperature (C) 36.5 C 01/04/19 10:27 Heart Rate 95 01/04/19 10:27 Respiratory Rate 18 01/04/19 10:27 Blood Pressure 178/105 H 01/04/19 10:27 O2 Sat (%) 97 01/04/19 10:27 O2 Delivery Mode Room Air Allergies/Adverse Reactions: No Known Allergies Allergy (Verified 01/04/19 10:27) Home Medications: Medication Instructions Recorded Insulin Pump, Patient Own 1 ea MISC AD 12/26/17 clonazePAM [Clonazepam] 1 mg PO TID 07/26/18 Ibuprofen [Motrin (*)] 200 mg PO DAILY PRN 10/13/18 Cephalexin [Keflex] 500 mg PO TID 10 Days cap 01/04/19 Sulfamethox/Tmp 800/160 mg 1 tab PO BID #14 tab 01/04/19 [Bactrim Ds] MDM/Departure - MDM ED Course/Re-evaluation: Patient is seen under the supervision of my secondary supervising physician Dr. Laurita Celis. Patient presents concerned he is developing a toe infection. Slight erythema. Given his history I do believe he should be started on antibiotics. I have reviewed his culture results, he is not given a prescription for cephalexin, he is given a prescription for Bactrim. He does have a perioperative assistant and is asked to make an appointment with the perioperative assistant. He is also given referral information to local perioperative assistant. Return precautions are given. The patient voiced understanding and agreement with plan. Differential Diagnosis: Included but not limited to paronychia, cellulitis, doubtful at this time osteomyelitis - Depart Disposition: Home, Routine, Self-Care Clinical Impression: Cellulitis Qualifiers: Site of cellulitis: extremity Site of cellulitis of extremity: toe Laterality: left Qualified Code(s): L03.032 - Cellulitis of left toe Condition: Good Instructions: Cellulitis (ED) Additional Instructions: Follow-up with your primary care doctor or a perioperative assistant next week for recheck Take antibiotics as prescribed until finished even feeling better If symptoms worsen or new symptoms develop return to the emergency room for recheck Prescriptions: Cephalexin [Keflex] 500 mg PO TID 10 Days cap Sulfamethox/Tmp 800/160 mg [Bactrim Ds] 1 tab PO BID #14 tab Referrals: CADEN WILLIAMSON [Other] - As per Instructions Radha Arce DPM [Doctor of Podiatric Medicine] - As per Instructions
== END 2019-01-04 11:02 | disposition home or self-care (01) ==
DX: L03.032 Cellulitis of left toe (principal); Z87.891 Personal history of nicotine dependence